=== PATIENT | female | born 1975 | race Caucasian/White ===

== ENCOUNTER 2022-12-21 09:40 | Emergency (ER) | payer OTHER, SELFPAY ==
[2022-12-21 09:49] VITALS: BP 141/95; PULSE 79; RESP 16; TEMP 36.7; O2SAT 98; BMI 24.7
[2022-12-21 09:56] VITALS: O2SAT 98
--- NOTE | 2022-12-21 10:03 | XR_ITS ---
The [address] [address] Patient Name: FREDI ELLIOTT MRN: [id number] date: 1975 Sex: F Assigned Patient Location: ER Current Patient Location: ER Accession/Order Number: [id number] Exam Date: 12/21/2022 10:15 Report Date: 12/21/2022 10:48 At the request of: SHI MEYERS Procedure: XR chest 1V EXAM: XR chest 1V HISTORY: cough COMPARISON: 05/23/2019 TECHNIQUE: Single view of the chest FINDINGS: Heart size normal. No focal consolidation, pleural effusion, pulmonary congestion or pneumothorax. XR/XR chest 1V IMPRESSION: No acute findings. Electronically authenticated by: GILBERT LOVE Date: 12/21/2022 10:48
--- NOTE | 2022-12-21 10:03 | ED.URI1 ---
HPI - URI/Sore Throat General Chief Complaint: Upper Respiratory Infection Stated Complaint: HARD TIME BREATHING/SOB Time Seen by Provider: 12/21/22 09:48 Limitations: no limitations Limitations comment: chest congestion, post nasal drip, dry cough History of Present Illness HPI Narrative: 47-year-old female presents for cough and shortness of breath. She's been this way for almost a month. She's been coughing up a small amount of phlegm. No fever. She would like to have a Covid test. she does not complain to me of chest pain. Related Data Previous Rx's Medication Instructions Recorded albuterol sulfate 90 mcg/actuation 2 inh inhalation Q4H PRN shortness 12/21/22 aerosol inhaler of breath or wheezing #8.5 grams doxycycline hyclate 100 mg capsule 100 mg PO BID 10 days #20 caps 12/21/22 methylprednisolone 4 mg tablets in 4 mg PO DAILY #21 ea 12/21/22 a dose pack (Medrol (Miguel)) Allergies Allergy/AdvReac Type Severity Reaction Status Date / Time No Known Drug Allergies Allergy Verified 12/21/22 09:48 Review of Systems ROS Narrative A ten point review of systems is negative except as noted above. PFSH PFSH Social History Smoking status: Light tobacco smoker Exam Narrative Exam Narrative: Nurses note and vital signs reviewed and patient is not hypoxic. General: The patient appears well and in no apparent distress. Patient is resting comfortably on cart. Skin: Warm, dry, no pallor noted. There is no rash noted. Head: Normocephalic, atraumatic Eye: Normal conjunctiva, no drainage Ears, Nose, Mouth, and Throat: oral mucosa is moist. Nares patent. Cardiovascular: Regular Rate and Rhythm Respiratory: Patient is in no distress, no accessory muscle use, lungs are clear to auscultation, no wheezing, rales or rhonchi. Good air movement present. Back: non-tender GI: nontender Musculoskeletal: The patient has no evidence of calf tenderness, no pitting edema, symmetrical pulses noted bilaterally Neurological: A&O, normal speech Psychiatric: Cooperative Constitutional Vital Signs, click to edit/add: Last Vital Signs Temp 98.1 F 12/21/22 09:49 Pulse 79 12/21/22 09:49 Resp 16 12/21/22 09:49 BP 141/95 H 12/21/22 09:49 Pulse Ox 98 12/21/22 09:56 O2 Del Method Room Air 12/21/22 09:56 Course Vital Signs Vital signs: Vital Signs Temperature 98.1 F 12/21/22 09:49 Pulse Rate 79 12/21/22 09:49 Respiratory Rate 16 12/21/22 09:49 Blood Pressure 141/95 H 12/21/22 09:49 Pulse Oximetry 98 12/21/22 09:49 Oxygen Delivery Method Room Air 12/21/22 09:49 Temperature 98.1 F 12/21/22 09:49 Pulse Rate 79 12/21/22 09:49 Respiratory Rate 16 12/21/22 09:49 Blood Pressure 141/95 H 12/21/22 09:49 Pulse Oximetry 98 12/21/22 09:56 Oxygen Delivery Method Room Air 12/21/22 09:56 MDM - URI/Sore Throat MDM Narrative Medical decision making narrative: chest x-ray and Covid test are both negative. Treatment diagnosis and follow-up were discussed with the patient. Differential Diagnosis Differential diagnosis: Likely upper respiratory infection, viral infection, bronchitis and other (pneumonia, Covid) Lab Data Attestation: I reviewed the patient's lab results. Labs: Lab Results 12/21/22 Range/Units 10:00 SARS-CoV-2 (PCR) Negative (NEGATIVE) Imaging Data Chest x-ray: Radiologist's impression: no acute findings Discharge Plan Discharge Chief Complaint: Upper Respiratory Infection Clinical Impression: Upper respiratory infection Patient Disposition: Home, Self-Care Time of Disposition Decision: 10:52 Condition: Good Mode of Transportation: Private Vehicle Prescriptions / Home Meds: New albuterol sulfate 90 mcg/actuation HFA aerosol inhaler 2 inh inhalation Q4H PRN (Reason: shortness of breath or wheezing) Qty: 8.5 0RF doxycycline hyclate 100 mg capsule 100 mg PO BID 10 Days Qty: 20 0RF methylprednisolone [Medrol (Miguel)] 4 mg tablets,dose pack 4 mg PO DAILY Qty: 21 0RF Instructions: Upper Respiratory Infection (ED) Stand Alone Forms: Portal Instructions Referrals: Physician,Non-Staff, MD [Primary Care Provider] - 1 week
[2022-12-21 10:27] LABS: SARS-CoV-2 Ag NEGATIVE (NEGATIVE)
[2022-12-21 11:02] VITALS: BP 128/77; PULSE 75; RESP 16; O2SAT 99
[2022-12-21 15:20] LABS: SARS-CoV-2 NAA NOT DETECTED (NOT DETECTE)
== END 2022-12-21 11:04 | disposition home or self-care (01) ==
PROVIDERS: Emergency Provider Emergency Medicine
DX: J06.9 Acute upper respiratory infection, unspecified (principal); F17.210 Nicotine dependence, cigarettes, uncomplicated; Z20.822 Contact with and (suspected) exposure to COVID-19
CPT/HCPCS: 71045; 87635; 87811; 99284

== ENCOUNTER 2023-04-19 12:37 | Outpatient (OUT) | payer OTHER, SELFPAY ==
--- NOTE | 2023-04-19 | XR_ITS ---
The [address] [address] Patient Name: FREDI ELLIOTT MRN: [id number] date: 1975 Sex: F Assigned Patient Location: [facility] Current Patient Location: [facility] Accession/Order Number: [id number] Exam Date: 04/19/2023 12:45 Report Date: 04/19/2023 14:33 At the request of: SILAS ANAYA Procedure: XR shoulder LT min 2V PROCEDURE: XR shoulder LT min 2V COMPARISON: None. HISTORY: Left shoulder pain FINDINGS: BONES:No fracture, acute abnormality, or significant arthropathy. SOFT TISSUES:Negative. No visible soft tissue swelling. EFFUSION:None visible. OTHER: Negative. XR/XR shoulder LT min 2V IMPRESSION: No acute radiographic abnormality Electronically authenticated by: KEE SNOWDEN Date: 04/19/2023 14:33
== END 2023-04-19 12:38 | disposition home or self-care (01) ==
LOC: RAD 12:39
PROVIDERS: Visit Provider Nurse Practitioner
DX: M25.512 Pain in left shoulder (principal)
CPT/HCPCS: 73030

== ENCOUNTER 2023-05-04 10:32 | Emergency (ER) | payer OTHER, SELFPAY ==
[2023-05-04 10:45] VITALS: BP 127/77; PULSE 90; RESP 20; TEMP 36.6; O2SAT 100; BMI 23.8
--- NOTE | 2023-05-04 15:48 | ED.GENADUL1 ---
HPI - General Adult General Chief complaint: Eye Problems Stated complaint: EYE REDNESS AND PAIN Time Seen by Provider: 05/04/23 10:37 Source: patient Mode of arrival: walk-in Limitations: no limitations History of Present Illness HPI narrative: Patient is a 47-year-old female who is presenting to the Emergency Room with chief complaint of bilateral irritation and red eyes. Patient has seen the urgent care was placed on antibiotic drops, patient saw her eye physician And recommended the patient which she did buy [id number] ALLERGIC drops for bilateral eyes. Mother is here because her daughter is here as a patient as well for sore throat. Mother has cats at home. Mother states that she did go through ALLERGIC testing years ago and it is known that she has ALLERGIES to cats. Mother however states not her cats that are causing her red eyes. Other states that she keeps the cats out of her bedroom, she is washed sheets, tells, close, and mother does not believe is the cats causing her red eyes. Patient does not wear contacts. Visual acuity was done. Patient does not have a complete eye exam last visit but she will on Sunday. Patient has finished her antibiotics drops. Patient says he $25 [id number] ALLERGIC drops are not helping her. No other acute complaints. . All systems are negative except as noted/marked. All systems reviewed and otherwise negative. . Nurses note and vital signs reviewed and patient is not hypoxic. General: The patient appears well and in no apparent distress. Patient is resting comfortably on cart. Patient is not toxic, lethargic, or listless Skin: Warm, dry, no pallor noted. There is no rash noted. No petechiae, purpura. Head: Normocephalic, atraumatic Eye: Patient has bilateral red eyes, no excessive photophobia or pain that was suggest iritis, patient doesn't clear drainage. Upper and lower eyelids to both eyes were inverted, no foreign bodies noted. Patient may have superficial scratches to bilateral eyes from itching, no signs of ulcers. No signs of preseptal or post septal cellulitis., no Purulent drainage, EOMI. PERRL Ears, Nose, Mouth, and Throat: oral mucosa is moist. Nares patent. Mouth without vesicles. Cardiovascular: Regular Rate and Rhythm, Respiratory: Patient is in no distress, Musculoskeletal: Patient has full range of motion of all of the extremities, no motor, sensory, or focal neurological deficits Neurological: A&O x3, normal speech Psychiatric: Cooperative Related Data Home Medications Medication Instructions Recorded Confirmed ferrous sulfate 325 mg (65 mg 325 mg PO DAILY 05/04/23 05/04/23 iron) tablet Previous Rx's Medication Instructions Recorded albuterol sulfate 90 mcg/actuation 2 inh inhalation Q4H PRN shortness 12/21/22 aerosol inhaler of breath or wheezing #8.5 grams doxycycline hyclate 100 mg capsule 100 mg PO BID 10 days #20 caps 12/21/22 methylprednisolone 4 mg tablets in 4 mg PO DAILY #21 ea 12/21/22 a dose pack (Medrol (Miguel)) diclofenac sodium 0.1 % eye drops 2 drp ophthalmic (eye) Q6H PRN eye 05/04/23 irritation 3 days #5 mL tobramycin 0.3 %-dexamethasone 1 drp ophthalmic (eye) Q4H 5 days 05/04/23 0.05 % eye drops,suspension #5 mL (Tobradex ST) Allergies Allergy/AdvReac Type Severity Reaction Status Date / Time No Known Drug Allergies Allergy Verified 12/21/22 09:48 PFSH PFSH Social History Smoking status: Light tobacco smoker Exam Constitutional Vital Signs, click to edit/add: Last Vital Signs Temp 97.9 F 05/04/23 10:45 Pulse 90 05/04/23 10:45 Resp 20 05/04/23 10:45 BP 127/77 05/04/23 10:45 Pulse Ox 100 05/04/23 10:45 O2 Del Method Room Air 05/04/23 10:45 Course Vital Signs Vital signs: Vital Signs Temperature 97.9 F 05/04/23 10:45 Pulse Rate 90 05/04/23 10:45 Respiratory Rate 20 05/04/23 10:45 Blood Pressure 127/77 05/04/23 10:45 Pulse Oximetry 100 05/04/23 10:45 Oxygen Delivery Method Room Air 05/04/23 10:45 Temperature 97.9 F 05/04/23 10:45 Pulse Rate 90 05/04/23 10:45 Respiratory Rate 20 05/04/23 10:45 Blood Pressure 127/77 05/04/23 10:45 Pulse Oximetry 100 05/04/23 10:45 Oxygen Delivery Method Room Air 12/22/23 10:45 Medical Decision Making MDM Narrative Medical decision making narrative: Education was done at bedside and treating red eyes, possible ALLERGIC conjunctivitis to her cats along with possible superficial corneal abrasions. Patient is very adamant she is not ALLERGIC to her cats even though she tested positive for ALLERGIES to her cats. Patient says that she's of a catheter whole life and has not had a problem until now. Give the patient example myself that I had cats into my 20s, no Sunday I developed ALLERGIES to cats well. I told her it is possible, he could become desensitized. Either way, patient was not receptive to the possibility that I am telling and her eye physician is telling her that she is possibly is ALLERGIC to cats causing ALLERGIC conjunctivitis. Patient will be prescribed TobraDex, only to use it for 3-5 days And if the patient uses drops longer than that she can cause detriment to her eyes, she is currently aware of this. Patient was also given a prescription for alternative drops. Patient will follow-up with her eye physician as scheduled on Sunday of next week, May 09. Patient understands this, no questions at discharge. Discharge Plan Discharge Chief Complaint: Eye Problems Clinical Impression: Conjunctivitis, Allergic conjunctivitis, bilateral Patient Disposition: Home, Self-Care Condition: Fair Prescriptions / Home Meds: New Tobradex ST 0.3-0.05 % drops,suspension 1 drp ophthalmic (eye) Q4H 5 Days Qty: 5 0RF Rx Instructions: Do not use eyedrops more than 5 days unless recommended by her eye physician. diclofenac sodium 0.1 % drops 2 drp ophthalmic (eye) Q6H PRN (Reason: eye irritation) 3 Days Qty: 5 0RF Rx Instructions: Use drops to bilateral eyes No Action albuterol sulfate 90 mcg/actuation HFA aerosol inhaler 2 inh inhalation Q4H PRN (Reason: shortness of breath or wheezing) Qty: 8.5 0RF doxycycline hyclate 100 mg capsule 100 mg PO BID 10 Days Qty: 20 0RF methylprednisolone [Medrol (Miguel)] 4 mg tablets,dose pack 4 mg PO DAILY Qty: 21 0RF ferrous sulfate 325 mg (65 mg iron) tablet 325 mg PO DAILY Instructions: Allergies (ED), Conjunctivitis (ED), Allergy Testing (ED) Additional Instructions: For ALLERGIC reactions, use [id number] Claritin and Zyrtec in the AM, Benadryl nighttime. You can also take Pepcid twice a day to help with ALLERGIC reactions as well. Follow-up with your eye physician on Sunday. Do not take the steroid bacteria eye drops more than 3-5 days. You can use the anti-inflammatory eyedrops along with the TobraDex eyedrops as well. Cold compresses 3-5 times a day to help with redness, swelling and irritation. Use refresh eyedrops to help with irrigation and normal saline flushes to the eyes as well to help with relief of pain. Stand Alone Forms: Portal Instructions Referrals: Physician,Non-Staff, MD [Primary Care Provider] - 1 week Discharge Date/Time: 05/04/23 13:51
== END 2023-05-04 13:51 | disposition home or self-care (01) ==
PROVIDERS: Emergency Provider Emergency Medicine
DX: H10.13 Acute atopic conjunctivitis, bilateral (principal); F17.210 Nicotine dependence, cigarettes, uncomplicated; Z79.899 Other long term (current) drug therapy
CPT/HCPCS: 99282

== ENCOUNTER 2023-07-31 10:06 | Emergency (ER) | payer OTHER, SELFPAY ==
[2023-07-31 10:11] VITALS: PULSE 98; RESP 20; TEMP 36.6; O2SAT 98; BMI 23.8
--- OUTSIDE RECORDS SUMMARY | 2023-07-31 10:18 | XMS_ITS | CCD ---
Author Organization [facility] Care Team Providers Care Recycling Coordinator Name Role Phone Angulo, Song Unavailable Unavailable Angulo, Song Unavailable Unavailable Angulo, Song Unavailable Unavailable REQUEST, DR NONE LISTED Primary Care Unavaila john MORRISON, DR GUIDRY Admitting Unavailable PRINCE, DR GUIDRY Attending Unavailable PRINCE, DR GUIDRY Consulting Unavailable Clinton Bartlett Consulting Unavailable Xiomara Mathis Unavailable Heidy Keith Primary Care Physician [phone] Savana Dietz Unavailable Unavailable TanishaDanette Primary Care Physician [phone] Unavailable Primary Care Provider Unavailnely e SELF Referring Unavailable YOHAN ANDREWS Attending Unavailable ELVIS FITZGERALD Attending Unavailable TanishaDanette Attending Unavailable Tanisha, Danette Greer Attending Unavailable Tanisha, Danette Greer Attending Unavailable Lisette Kruger Attending Unavailable TanishaDanette Admitting Unavailable Tanisha, Danette Greer Attending Unavailable Tanisha, Danette Greer Admitting Unavailable Tanisha, Danette Greer Attending Unavailable TanishaDanette Attending Unavailable Allergies Allergy Classification Reported Allergen(s) Allergy Type Date of Onset Reaction(s) Facility (1 source) No Known Medication Allergies; Translations: [No Known Medication Allergies] Propensity to adverse reactions (disorder) [facility] Repository Medications Current Medications Medication Drug Class(es) Dates Sig (Normalized) Sig (Original) dexamethasone 0.001 mg/mg / neomycin 0.0035 mg/mg / polymyxin b 10 unt/mg ophthalmic ointment (2 sources) Aminoglycoside Antibacterial, Polymyxin-class Antibacterial, Corticosteroid Start: 06-14-2023 End: 06-24-2023 NEOMYCIN 3.5 MG/G-POLYMYXIN B 10,000 UNIT/G-DEXAMETH 0.1 % EYE OINT Use 1 application in both eyes four times daily for 10 days. 3.5 g 0 06/14/2023 06/24/2023 Active Start: 04-03-2023 take 1 drop(s) into the eye(s) four times daily Vcdzxwya-Joydrgzob-Fomprxfo 3.5-14709-9. 1 1 drop into affected eye Ophthalmic Four times a day for 5 days Mar, Active Comment on above: Use 1 application in both eyes four times daily for 10 days. FLUoxetine 40 mg oral capsule (2 sources) Serotonin Reuptake Inhibitor Start: take 1 capsule by mouth once daily FLUoxetine 40 mg Cap 40 mg = 1 cap(s), Oral, Daily, # 90 cap(s), Refills(s) 0, Pharmacy: [facility]/pharmacy #[id number], 160, cm, 04/26/20 9:47:00 EST, Height/Length Dosing, 65.2, kg, 04/26/20 9:47:00 EST, Weight Dosing Start Date: 10/18/20 Status: Ordered meloxicam 7.5 mg oral tablet (1 source) Nonsteroidal Anti-inflammatory Drug Start: take 1 tablet by mouth once daily meloxicam 7.5 mg Tab 7.5 mg = 1 tab(s), Oral, Daily, # 30 tab(s), Refills(s) 0, Pharmacy: [facility]/pharmacy #[id number], 157, cm, 04/13/23 12:54:00 EST, Height/Length Dosing, 62.5, kg, 04/13/23 12:54:00 EST, Weight Dosing Start Date: 04/16/23 Status: Ordered methylPREDNISolone 4 mg oral tablet (1 source) Corticosteroid Start: End: Medrol 4 mg Tab = 1 packet(s), Oral, As Directed, as directed on package labeling, X 6 day(s), # 21 tab(s), Refills(s) 0, Pharmacy: [facility]/pharmacy #[id number], 157, cm, 04/13/23 12:54:00 EST, Height/Length Dosing, 62.5, kg, 04/13/23 12:54:00 EST, Weight Dosing Start Date: 12/4/23 Stop Date: 04/22/23 Status: Ordered Completed/Discontinued Medications Medication Drug Class(es) Dates Sig (Normalized) Sig (Original) dextran 70 1 mg/ml / glycerin 2 mg/ml / hypromellose 3 mg/ml ophthalmic solution (1 source) Plasma Volume Electric Motor Tester, Non-Standardized Chemical Allergen Start: 06-15-2023 GENTEAL TEARS MODERATE 0.1-0.3-0.2 % ophthalmic solution USE 1 DROP IN BOTH EYES NEEDED 15 mL 3 06/15/2023 Active Comment on above: USE 1 DROP IN BOTH E YES NEEDED dextran 70 1 mg/ml / hypromellose 3 mg/ml ophthalmic solution (1 source) Plasma Volume Electric Motor Tester Start: 06-14-2023 End: 06-15-2023 Dextran 70-Hypromellose, PF, (BION TEARS) 0.1-0.3 % dpet Use 1 Drop in both eyes as needed. 36 Each 3 06/14/2023 06/15/2023 Discontinued Comment on above: Use 1 Drop in both e yes as needed. ketotifen 0.25 mg/ml ophthalmic solution (1 source) Histamine-1 Receptor Inhibitor Start: 06-14-2023 ketotifen fumarate (ZADITOR) 0.025 % (0.035 %) ophthalmic solution Use 1 Drop in both eyes two times a day. 10 mL 3 06/14/2023 Active Comment on above: Use 1 Drop in both e yes two times a day. prednisoLONE acetate 10 mg/ml ophthalmic suspension (1 source) Corticosteroid Start: 06-14-2023 take 1 drop(s) into the eye(s) every three hours prednisoLONE acetate (PRED FORTE) 1 % ophthalmic suspension Use 1 Drop in both eyes every 3 hours. 15 mL 0 06/14/2023 Active Comment on above: Use 1 Drop in both e yes every 3 hours. Problems Active Problems Problem Classification Problem Date Documented Da te Episodic/Chronic Conditions associated with dizziness or vertigo (2 sources) Dizziness 04-13-2023 Episodic Deficiency and other anemia (2 sources) Anemia 06-07-2020 Episodic Hepatitis (2 sources) Chronic hepatitis C 06-07-2020 Chronic Inflammation; infection of eye (except that caused by tuberculosis or sexually transmitteddisease) (1 source) Unspecified acute conjunctivitis, bilateral Episodic Intestinal infection (2 sources) Infection caused by Helicobacter pylori 06-06-2019 Episodic Malaise and fatigue (2 sources) Fatigue 04-13-2023 Episodic Mood disorders (2 sources) Depressive disorder 04-26-2020 Chronic Nutritional deficiencies (2 sources) Vitamin D deficiency 04-30-2020 Chronic Other eye disorders (1 source) Edema of unspecified eye, unspecified eyelid; Translations: [Eyelid gland swelling] Onset: 06-14-2023 Episodic Other nutritional; endocrine; and metabolic disorders (2 sources) Body mass index 25-29 - overweight 04-26-2020 Episodic Other upper respiratory disease (2 sources) Breath smells unpleasant 03-11-2019 Episodic Residual codes; unclassified (2 sources) Insomnia 06-07-2020 Episodic Residual codes; unclassified (2 sources) Nicotine-filled electronic cigarette user 04-26-2020 Episodic Substance-related disorders (1 source) Nicotine dependence, cigarettes, uncomplicated; Translations: [NICOTINE DEPEND CIGARETTES UNCOMP] Onset: 11-04-2020 Chronic Unclassified (1 source) Unknown / UNK(Unknown) Onset: 11-16-2016 Unclassified (2 sources) Pain of left shoulder region 04-13-2023 Past or Other Problems Problem Classification Problem Date Documented Da te Episodic/Chronic E Codes: Natural/environment (1 source) Overexertion from prolonged static or awkward postures, initial encounter; Translations: [OVEREXERT PROLNG STAT/AWK PST INIT] Onset: 11-04-2020 Episodic Other non-traumatic joint disorders (4 sources) Pain in right knee; Translations: [PAIN IN RIGHT KNEE] Onset: 11-02-2020 Episodic Other non-traumatic joint disorders (1 source) Effusion, right knee; Translations: [EFFUSION RIGHT KNEE] Onset: 11-04-2020 Episodic Unclassified (1 source) D50.9,Z79.899,E55.9 E78.5,Z00.00,R53.83 ,R51, Onset: 11-16-2016 Results Test Name Value Interpretation Reference Range Facility [facility] 06-01-2023 Consent [id number]# 1.00TIFF [facility] Physician Referralon 024 Physician Referral [id number]#1.00TIFF [facility] Ambulatory Visit Summaryon 0 05-31-2023 Ambulatory Visit Summary FREDI ELLIOTT :1975 Visit Date:05/31/2023 Ambulatory Visit Instructions Your Diagnosis Allergies Red eyes Itchy eyes Watery eyes BMI 26.0-26.9,adult Vaping-related disorder Your Care Team Attending Physician - Danette Briones Primary Care Physician - Danette Briones This Is Your Medications List dexamethasone-tobram ycin ophthalmic (dexamethasone-tobra mycin Opth 0.1%-0.3% Susp) diclofenac ophthalmic (diclofenac Opth 0.1% Lilli) ferrous sulfate (ferrous sulfate 325 mg Tab) Procedures Performed Carpal Tunnel surgery, Foot Surgery, Knee Surgery. Discharge Vitals Heart Rate (Peripheral) 80 Respiratory Rate 18 Blood Pressure 126/84 Height 157 cm Height 62 in Weight 64.8 kg Weight 142.56 lb BMI 26.29 What to do next Scheduled Follow-Up Appointments Sunday 8:40 AM EST With: Danette Briones Where: [facility] [place] Normal [facility] Family Medicine Office/Clini c Noteon 05-31-2023 Family Medicine Office/Clinic Note HPI Staff Fredi is a 47 year old female presenting for acute visit Onset: 2 months Location: started in left eye then 2 days later right eye Eye Discharge: daily, clear sticky Burning: yes Blurry: yes Sensitive to light: yes Pt states has been seen in [facility] by MERLENE fried by chart clerk Dr Jayne alba in [place] twice. Was told has allergy to cats but has had cat her whole life and never had an issues and has cats groomed. Would like referred to a investigation specialist History of Present Illness pt presents today with red, watery, itchy eyes Review of Systems PHQ Score Initial Depression Screen Score: 2 SCORE ROS - Provider Constitutional: no fever, no chills, no sweats, no fatigue Respiratory: no shortness of breath, no cough, no orthopnea, no wheezing. Cardiovascular: no chest pain, no palpitations, no edema. Neurologic: no headache, no dizziness, no numbness, no weakness. EENT: red, itchy watery eyes Physical Exam Vitals & Measurements HR: 80(Peripheral) RR: 18 BP: 126/84 SpO2: 99% HT: 62 in HT: 157 cm WT: 64.8 kg WT: 142.56 lb BMI: 26.29 General: alert, no acute distress ENMT: oral mucosa moist, no pharyngeal erythema or exudate Cardiovascular: regular rate and rhythm, normal peripheral perfusion Respiratory: Lungs CTA, respirations non labored Extremities: no deformity, no trauma Neurological: oriented x 4, LOC appropriate for age, CN II-XII intact, motor strength equal & normal bilaterally, speech normal ABBY sclera are red and irritated, eyes are watery (clear drainage) Assessment/Plan 1. Allergies (T78.40XA: Allergy, unspecified, initial encounter) pt presents today with red, itchy, watery eyes for about 2 months. has been to a couple urgent cares and to chart clerk twice. was told that she needed to see an film and video graphics designer. has tried multiple drops and symptoms are not improving. pt states she was told she was allergic to cats many years ago but has had cats all of her life. Kenalog injection given in office today. pt encouraged to take Zyrtec or Claritin daily. all questions answered. RTC 4 weeks [place] [facility] [place] 2. Red eyes (H57.89: Other specified disorders of eye and adnexa) see above Ordered[place] [facility] [place] 3. Itchy eyes (H57.9: Unspecified disorder of eye and adnexa) see above Ordered: [facility] [place] 4. Watery eyes (H04.203: Unspecified epiphora, bilateral) see above Or[place]: [facility] [place] 5. BMI 26.0-26.9,adult (Z68.26: Body mass index [BMI] 26.0-26.9, adult) BMI education complete Ordered: [facility] [place] 6. Vaping-related disorder (U07.0: Vaping-related disorder) consider not vaping Ordered: meloxicam, 7.5 mg = 1 tab(s), Oral, Daily, # 30 tab(s), Refills(s) 0, Pharmacy: [facility]/pharmacy #[id number], 157, cm, 04/13/23 12:54:00 EST, Height/Length Dosing, 62.5, kg, 04/13/23 12:54:00 EST, Weight Dosing Follow-up No qualifying data available Problem List/Past Medical History Ongoing Allergies Anemia BMI 25.0-25.9,adult Chronic hepatitis C Current every day nicotine vaping Depression Dizziness Fatigue H. pylori infection Halitosis Insomnia Itchy eyes Left shoulder pain Red eyes Vitamin D deficiency disease Watery eyes Historical No qualifying data Procedure/Surgical History Carpal Tunnel surgery, Foot Surgery, Knee Surgery. Medications dexamethasone-tobram ycin Opth 0.1%-0.3% Susp, 2 drop(s), Eye-Both, TID diclofenac Opth 0.1% Lilli, 2 drop(s), Eye-Both, QID ferrous sulfate 325 mg Tab, 325 mg= 1 tab(s), Oral, BID, 2 refills Allergies No Known Allergies No Known Medication Allergies Social History Alcohol Current, Beer, 01/20/2019 Exercise - Occasional exercise, 01/20/2019 Other Caffeine- 1 cup daily, 01/20/2019 Substance Abuse - Denies Substance Abuse, 01/20/2019 Past, 04/13/2023 Tobacco Former smoker, quit more than 30 days ago, E-Cig daily Tobacco Use:. Never, Current vaping or e-cigarette use Smokeless Tobacco Use:. Cigarettes, Vaping, E-Cig, Ready to change: Yes. Household tobacco concerns: Yes. Yes, 05/31/2023 Family History Adrenal insufficiency: Mother. Diabetes mellitus type 2: Grandparent. Normal [facility] Comment on above: Result Comment: Elec tronically Signed By: Danette Briones\.br\Date and Time Signed: 05/31/23 14:33 EST Reminderson 04-17-2023 Reminders - From: Danette Briones To: B - Clinical; Sent: 04/17/2023 12:31:48 EST Show up: 04/17/2023 12:31:00 EST Subject: Ambulatory Reminder Due Date/Time: 04/18/2023 12:30:00 EST Pt continues to have iron deficiency anemia. I will increase her iron to 325mg to see if that helps with her symptoms Results: Date Result Name Ind Value Ref Range 04/16/2023 9:36 WBC 5.4 E9/L (4.0 - 11.0) 04/16/2023 9:36 RBC ((L)) 3.8 E12/L (4.3 - 5.9) 04/16/2023 9:36 HGB ((L)) 11.6 gm/dL (12.0 - 16.0) 04/16/2023 9:36 Hct 34.8 % (34.0 - 46.0) 04/16/2023 9:36 MCV 91.2 fL (80.0 - 100.0) 04/16/2023 9:36 MCH 30.4 pg (27.0 - 34.0) 04/16/2023 9:36 MCHC 33.3 gm/dL (31.4 - 36.0) 04/16/2023 9:36 RDW 13.9 % (10.9 - 14.2) 04/16/2023 9:36 Platelet 266.0 E9/L (150.0 - 500.0) 04/16/2023 9:36 MPV 8.2 fL (6.4 - 10.8) 04/16/2023 9:36 Neutro Auto 55.4 % (36.0 - 75.0) 04/16/2023 9:36 Lymph Auto 26.2 % (14.0 - 50.0) 04/16/2023 9:36 Graham Auto 9.2 % (4.0 - 14.0) 04/16/2023 9:36 Eos Auto 8.0 % (0.0 - 8.0) 04/16/2023 9:36 Basophil Auto 1.2 % (0.0 - 2.0) 04/16/2023 9:36 Neutro Absolute 3.0 E9/L (2.0 - 7.5) 04/16/2023 9:36 Lymph Absolute 1.4 E9/L (1.0 - 4.0) 04/16/2023 9:36 Graham Absolute 0.5 E9/L (0.2 - 1.0) 04/16/2023 9:36 Eos Absolute 0.4 E9/L (0.0 - 0.5) 04/16/2023 9:36 Basophil Absolute 0.1 E9/L (0.0 - 0.2) 04/16/2023 9:36 Glucose Lvl 95 mg/dL (55 - 199) 04/16/2023 9:36 BUN 13 mg/dL (5 - 21) 04/16/2023 9:36 Creatinine 1.0 mg/dL (0.5 - 1.3) 04/16/2023 9:36 eGFR 71 mL/min/1.73 m2 (>=59 - ) 04/16/2023 9:36 BUN/Creat Ratio 13 (10 - 20) 04/16/2023 9:36 Sodium Lvl 138 mmol/L (135 - 145) 04/16/2023 9:36 Potassium Lvl 4.4 mmol/L (3.5 - 5.3) 04/16/2023 9:36 Chloride 106 mmol/L (101 - 111) 04/16/2023 9:36 CO2 26 mmol/L (21 - 31) 04/16/2023 9:36 AGAP 10 mEq/L (6 - 16) 04/16/2023 9:36 Calcium Lvl 8.9 mg/dL (8.9 - 11.1) 04/16/2023 9:36 Alk Phos 34 Int._Unit/L (21 - 98) 04/16/2023 9:36 ALT 17 Int._Unit/L (6 - 46) 04/16/2023 9:36 AST 23 Int._Unit/L (5 - 43) 04/16/2023 9:36 Total Protein 7.4 gm/dL (6.0 - 7.8) 04/16/2023 9:36 Albumin Lvl 4.3 gm/dL (3.3 - 5.0) 04/16/2023 9:36 Globulin 3.1 gm/dL (1.4 - 4.0) 04/16/2023 9:36 A/G Ratio 1.4 (1.1 - 2.2) 04/16/2023 9:36 Bili Total 0.3 mg/dL (0.0 - 1.1) 04/16/2023 9:36 Iron ((L)) 21 mcg/dL (35 - 153) 04/16/2023 9:36 Transferrin 291 mg/dL (200 - 370) 04/16/2023 9:36 TIBC ((H)) 407 mcg/dL (250 - 400) 04/16/2023 9:36 Chol 182 mg/dL (120 - 200) 04/16/2023 9:36 Trig 59 mg/dL ( - <=149) 04/16/2023 9:36 HDL 83 mg/dL 04/16/2023 9:36 LDL Direct 81 mg/dL ( - <=129) 04/16/2023 9:36 VLDL 12 mg/dL (7 - 40) Patient notified of results, and verbalizes understanding. Normal [facility] Auto Diffon 04-16-2023 Basophils/100 WBC (Bld) 1.2 % Normal 0.0-2.0 [facility] Comment on above: Order Comment: Order Added by Discern Expert. Performed By: #### 2 [id number], 0328155, 86601444, 60147348, 2230487, 5910745, 1538824 #### [facility] [address] [place] [address] Basophils/Leukocytes Auto (Bld) [Pure # fraction] 0.1 E9/L Normal 0.0-0.2 [facility] Comment on above: Order Comment: Order Added by Discern Expert. Performed By: #### 2 454061, 8151590, 34252867, 26509899, 1115760, 5676605, 2376932 #### [facility] [address] [place] [address] Eosinophils/100 WBC (Bld) 8.0 % Normal 0.0-8.0 [facility] Comment on above: Order Comment: Order Added by Discern Expert. Performed By: #### 2 266228, 5392724, 71727289, 50117035, 4823853, 0866571, 4479487 #### [facility] [address] [place] [address] Eosinophils/Leukocyte s Auto (Bld) [Pure # fraction] 0.4 E9/L Normal 0.0-0.5 [facility] Comment on above: Order Comment: Order Added by Discern Expert. Performed By: #### 2 955716, 0527472, 46577793, 37774191, 0115264, 1035144, 4551443 #### [facility] [address] [place] [address] Lymphocytes/100 WBC (Bld) 26.2 % Normal 14.0-50.0 [facility] Comment on above: Order Comment: Order Added by Discern Expert. Performed By: #### 2 832236, 7057332, 55106354, 06218766, 2970173, 2900361, 9372278 #### [facility] [address] [place] [address] Lymphocytes/Leukocyte s Auto (Bld) [Pure # fraction] 1.4 E9/L Normal 1.0-4.0 [facility] Comment on above: Order Comment: Order Added by Discern Expert. Performed By: #### 2 946675, 0064803, 96504675, 21658036, 9777878, 1527357, 1987353 #### [facility] [address] [place] [address] 128[address] Monocytes/100 WBC (Bld) 9.2 % Normal 4.0-14.0 [facility] Comment on above: Order Comment: Order Added by Discern Expert. Performed By: #### 2 187400, 7367860, 53874532, 69290795, 0523499, 2190094, 7536005 #### [facility] [address] [place] [address] Monocytes/Leukocytes Auto (Bld) [Pure # fraction] 0.5 E9/L Normal 0.2-1.0 [facility] Comment on above: Order Comment: Order Added by Discern Expert. Performed By: #### 2 898821, 1154555, 38178189, 44966909, 2856182, 3545435, 3397346 #### [facility] [address] [place] [address] Neutrophils/100 WBC (Bld) 55.4 % Normal 36.0-75.0 [facility] Comment on above: Order Comment: Order Added by Discern Expert. Performed By: #### 2 645454, 6204555, 76123131, 90408927, 0260457, 3054098, 3005148 #### [facility] [address] [place] [address] Neutrophils/Leukocyte s Auto (Bld) [Pure # fraction] 3.0 E9/L Normal 2.0-7.5 [facility] Comment on above: Order Comment: Order Added by Discern Expert. Performed By: #### 2 976871, 5259098, 67514048, 27117237, 9707986, 9054605, 6531226 #### [facility] [address] [place] [address] CBC w/ Auto Diffon 3 Erythrocyte distribution width (RBC) [Ratio] 13.9 % Normal 10.9-14.2 [facility] Comment on above: Performed By: #### 2 497001, 1464354, 33685089, 84613400, 7003895, 5520147, 3291386 #### [facility] [address] [place] [address] Hematocrit (Bld) [Volume fraction] 34.8 % Normal 34.0-46.0 [facility] Comment on above: Performed By: #### 2 941693, 2794588, 75644255, 74503733, 7953680, 2287121, 2434562 #### [facility] [address] [place] [address] Hemoglobin (Bld) [Mass/Vol] 11.6 g/dL Low 12.0-16.0 [facility] Comment on above: Performed By: #### 2 964591, 2316460, 77232083, 36653678, 8692744, 8757732, 3820192 #### [facility] [address] [place] [address] MCH (RBC) [Entitic mass] 30.4 pg Normal 27.0-34.0 [facility] Comment on above: Performed By: #### 2 882011, 2476747, 02860134, 37438259, 8610032, 0691624, 3787191 #### [facility] [address] [id number] MCHC (RBC) [Mass/Vol] 33.3 g/dL Normal 31.4-36.0 [facility] Comment on above: Performed By: #### 2 672183, 0928486, 40917010, 68494614, 1272920, 4780678, 9055350 #### [facility] [address] [place] [address] MCV (RBC) [Entitic vol] 91.2 fL Normal 80.0-100.0 [facility] Comment on above: Performed By: #### 2 894788, 4685629, 35520972, 36931955, 1968233, 6046497, 3406702 #### [facility] [address] [place] [address] Platelet mean volume (Bld) [Entitic vol] 8.2 fL Normal 6.4-10.8 [facility] Comment on above: Performed By: #### 2 740610, 4066497, 04678245, 29019497, 8504991, 0727643, 8626485 #### [facility] [address] [place] [address] Platelets (Bld) [#/Vol] 266.0 E9/L Normal 150.0-500.0 [facility] Comment on above: Performed By: #### 2 784303, 0984954, 57277476, 53963133, 9613859, 7169541, 2319271 #### [facility] [address] [place] [address] RBC (Bld) [#/Vol] 3.8 E12/L Low 4.3-5.9 [facility] Comment on above: Performed By: #### 2 354561, 0988529, 38498855, 22422491, 2309404, 8427213, 2184638 #### [facility] [address] [place] [address] WBC corrected for nucl RBC Auto (Bld) [#/Vol] 5.4 E9/L Normal 4.0-11.0 [facility] Comment on above: Performed By: #### 2 356179, 6564156, 62146990, 14104555, 3638866, 6584064, 3434877 #### [facility] [address] [place] [address] CHEMISTRYOrdered By: SYSTEM SYSTEM on 04-16-2023 Albumin [Mass/Vol] 4.3 g/dL Normal 3.3 - 5.0 gm/dL [facility] Albumin/Globulin [Mass ratio] 1.4 {ratio} Normal 1.1 - 2.2 [facility] ALP [Catalytic activity/Vol] 34 [iU]/d Normal 21 - 98 Int._Unit/L [facility] ALT No additional P-5'-P [Catalytic activity/Vol] 17 [iU]/d Normal 6 - 46 Int._Unit/L [facility] Anion gap [Moles/Vol] 10 mmol/L Normal 6 - 16 mEq/L [facility] AST [Catalytic activity/Vol] 23 [iU]/d Normal 5 - 43 Int._Unit/L [facility] Bilirubin [Mass/Vol] 0.3 mg/dL Normal 0.0 - 1 .1 mg/dL [facility] Calcium [Mass/Vol] 8.9 mg/dL Normal 8.9 - 11. 1 mg/dL [facility] Chloride [Moles/Vol] 106 mmol/L Normal 101 - 1 11 mmol/L [facility] Cholesterol [Mass/Vol] 182 mg/dL Normal 120 - 200 mg/dL [facility] Cholesterol in HDL [Mass/Vol] 83 mg/dL Invalid Interpretation Code [facility] Comment on above: Interpretive Data: H DL > or equal to 60 mg/dL: Low cardiovascular risk HDL < 40 mg/dL : High cardiovascular risk Cholesterol in LDL [Mass/Vol] 81 mg/dL Normal <=129mg/dL [facility] Cholesterol in VLDL [Mass/Vol] 12 mg/dL Normal 7 - 40 mg/dL [facility] CO2 [Moles/Vol] 26 mmol/L Normal 21 - 31 mmol/L [facility] Creatinine [Mass/Vol] 1.0 mg/dL Normal 0.5 - 1.3 mg/dL [facility] GFR/1.73 sq M.predicted among non-blacks MDRD (S/P/Bld) [Vol rate/Area] 71 mL/min/1.73 m2 Normal >=59mL/min/1. 73 m2 [facility] Comment on above: Interpretive Data: C hronic kidney disease could be indicated at eGFR's of less than 60 mL/min/1.73m2. Kidney failure is indicated at less than 15 mL/min/1.73m2. Globulin (S) [Mass/Vol] 3.1 g/dL Normal 1.4 - 4.0 gm/dL [facility] Glucose [Mass/Vol] 95 mg/dL Normal 55 - 199 mg/dL [facility] Comment on above: Interpretive Data: I f this glucose result represents a fasting glucose, interpretation should refer to the following reference range: 55-99 mg/dL Iron [Mass/Vol] 21 ug/dL Low 35 - 153 mcg/dL [facility] Iron binding capacity [Mass/Vol] 407 ug/dL High 250 - 400 mcg/dL [facility] Potassium [Moles/Vol] 4.4 mmol/L Normal 3.5 - 5.3 mmol/L [facility] Protein [Mass/Vol] 7.4 g/dL Normal 6.0 - 7.8 gm/dL [facility] Sodium [Moles/Vol] 138 mmol/L Normal 135 - 145 mmol/L [facility] Transferrin [Mass/Vol] 291 mg/dL Normal 200 - 370 mg/dL [facility] Triglyceride [Mass/Vol] 59 mg/dL Normal <=149mg/dL [facility] Urea nitrogen [Mass/Vol] 13 mg/dL Normal 5 - 21 mg/dL [facility] Urea nitrogen/Creatinine [Mass ratio] 13 mg/mg Normal 10 - 20 [facility] CMPon 04-16-2023 Albumin [Mass/Vol] 4.3 g/dL Normal 3.3-5.0 [facility] Comment on above: Performed By: #### 2 479343, 9609206, 91559752, 18093864, 9744012, 1205535, 5755572 #### [facility] [address] [id number] Albumin/Globulin (S) [Mass conc ratio] 1.4 Normal 1.1-2.2 [facility] Comment on above: Performed By: #### 2 561074, 6360428, 89237925, 58530695, 8163877, 7860097, 5040404 #### [facility] [address] [place] [address] ALP [Catalytic activity/Vol] 34 Int._Unit/L Normal 21-98 [facility] Comment on above: Performed By: #### 2 496156, 9433685, 66710073, 26894590, 3405819, 6827559, 5899371 #### [facility] [address] [id number] ALT No additional P-5'-P [Catalytic activity/Vol] 17 Int._Unit/L Normal 6-46 [facility] Comment on above: Performed By: #### 2 151125, 1900284, 72079626, 10256209, 3629213, 4958795, 2412407 #### [facility] [address] [place] [address] Anion gap [Moles/Vol] 10 mmol/L Normal 6-16 [facility] Comment on above: Performed By: #### 2 446330, 3665605, 98836969, 68841593, 0242460, 7504658, 9120654 #### [facility] [address] [address] AST [Catalytic activity/Vol] 23 Int._Unit/L Normal 5-43 [facility] Comment on above: Performed By: #### 2 067111, 1094018, 41148305, 80997953, 3537126, 3653149, 1419288 #### [facility] [address] [place] [address] Bilirubin [Mass/Vol] 0.3 mg/dL Normal 0.0-1.1 [facility] Comment on above: Performed By: #### 2 604909, 6022003, 98523106, 84261919, 3485385, 6514540, 7090927 #### [facility] [address] [place] [address] Calcium [Mass/Vol] 8.9 mg/dL Normal 8.9-11.1 [facility] Comment on above: Performed By: #### 2 746457, 2108760, 73366927, 85272784, 4639666, 1934906, 9937251 #### [facility] [address] [place] [address] Chloride [Moles/Vol] 106 mmol/L Normal 101-111 [facility] Comment on above: Performed By: #### 2 080735, 4551418, 40882324, 03608454, 8437813, 4555586, 7948253 #### [facility] [address] [place] [address] CO2 [Moles/Vol] 26 mmol/L Normal 21-31 [facility] Comment on above: Performed By: #### 2 390761, 1756907, 17615995, 63967553, 0650487, 6984156, 7360513 #### [facility] [address] [place] [address] Creatinine [Mass/Vol] 1.0 mg/dL Normal 0.5-1.3 [facility] Comment on above: Performed By: #### 2 280177, 1518412, 41220656, 46698176, 0535710, 7579433, 6183124 #### [facility] [address] [place] [address] Globulin (S) [Mass/Vol] 3.1 g/dL Normal 1.4-4.0 [facility] Comment on above: Performed By: #### 2 145381, 0607207, 03723583, 37996114, 7194998, 9948899, 0674604 #### [facility] [address] [place] [address] Glucose [Mass/Vol] 95 mg/dL Normal 55-199 [facility] Comment on above: Result Comment: If t his glucose result represents a fasting glucose, interpretation should refer to the following reference range: 55-99 mg/dL Performed By: #### 2 847388, 6978689, 44662048, 10583241, 9941622, 5714946, 3039017 #### [facility] [address] [place] [address] Potassium [Moles/Vol] 4.4 mmol/L Normal 3.5-5.3 [facility] Comment on above: Performed By: #### 2 651358, 3909955, 36850282, 40182478, 2944602, 9322990, 7666945 #### [facility] [address] [place] [address] Protein [Mass/Vol] 7.4 g/dL Normal 6.0-7.8 [facility] Comment on above: Performed By: #### 2 101425, 7640479, 06424727, 66103995, 6309974, 9069589, 8080920 #### [facility] [address] [place] [address] Sodium [Moles/Vol] 138 mmol/L Normal 135-145 [facility] Comment on above: Performed By: #### 2 604139, 6183595, 96250531, 85674991, 2606272, 8529889, 9256688 #### [facility] [address] [place] [address] Urea nitrogen [Mass/Vol] 13 mg/dL Normal 5-21 [facility] Comment on above: Performed By: #### 2 090281, 6542052, 02260224, 54381486, 1399192, 1116912, 9355609 #### [facility] [address] [place] [address] Urea nitrogen/Creatinine [Mass ratio] 13 No Units Normal 10-20 [facility] Comment on above: Performed By: #### 2 666520, 7171626, 85023298, 17904498, 6594796, 5578476, 8699059 #### [facility] [address] [place] [address] HEMATOLOGYOrdered By: SYSTEM SYSTEM on 04-16-2023 Basophils/100 WBC (Bld) 1.2 % Normal 0.0 - 2.0 % [facility]eAutoSS Basophils/Leukocytes Auto (Bld) [Pure # fraction] 0.1 E9/L Normal 0.0 - 0.2 E9/L [facility]Auto[facility] Eosinophils/100 WBC (Bld) 8.0 % Normal 0.0 - 8.0 % [facility]eAuto[facility] Eosinophils/Leukocyte s Auto (Bld) [Pure # fraction] 0.4 E9/L Normal 0.0 - 0.5 E9/L [facility] Lymphocytes/100 WBC (Bld) 26.2 % Normal 14.0 - 50.0 % [facility]eAutoSS Lymphocytes/Leukocyte s Auto (Bld) [Pure # fraction] 1.4 E9/L Normal 1.0 - 4.0 E9/L [facility]Auto[facility] Monocytes/100 WBC (Bld) 9.2 % Normal 4.0 - 14.0 % [facility]eAutoSS Monocytes/Leukocytes Auto (Bld) [Pure # fraction] 0.5 E9/L Normal 0.2 - 1.0 E9/L [facility] Neutrophils/100 WBC (Bld) 55.4 % Normal 36.0 - 75.0 % [facility]eAutoSS Neutrophils/Leukocyte s Auto (Bld) [Pure # fraction] 3.0 E9/L Normal 2.0 - 7.5 E9/L [facility]eAutoSS HEMATOLOGYOrdered By: Fernando Lora on 04-16-2023 Erythrocyte distribution width (RBC) [Ratio] 13.9 % Normal 10.9 - 14.2 % [facility] Hematocrit (Bld) [Volume fraction] 34.8 % Normal 34.0 - 46.0 % [facility]Auto[facility] Hemoglobin (Bld) [Mass/Vol] 11.6 g/dL Low 12.0 - 16.0 gm/dL [facility] MCH (RBC) [Entitic mass] 30.4 pg Normal 27.0 - 34.0 pg [facility] MCHC (RBC) [Mass/Vol] 33.3 g/dL Normal 31.4 - 36.0 gm/dL [facility]eAutoSS MCV (RBC) [Entitic vol] 91.2 fL Normal 80.0 - 100.0 fL [facility] Platelet mean volume (Bld) [Entitic vol] 8.2 fL Normal 6.4 - 10.8 fL [facility] Platelets (Bld) [#/Vol] 266.0 E9/L Normal 150.0 - 500.0 E9/L [facility] RBC (Bld) [#/Vol] 3.8 E12/L Low 4.3 - 5.9 E12/L [facility] WBC corrected for nucl RBC Auto (Bld) [#/Vol] 5.4 E9/L Normal 4.0 - 11.0 E9/L [facility] Ironon 04-16-2023 Iron [Mass/Vol] 21 microgram/dL Low 35-153 [facility] Comment on above: Performed By: #### 2 511551, 2297843, 90424038, 94288826, 7254970, 3385724, 5703953 #### [facility] [address] [place] [address] Lipid Panelon 04-16-2023 Cholesterol [Mass/Vol] 182 mg/dL Normal 120-200 [facility] Comment on above: Performed By: #### 2 930312, 5982432, 00849875, 80844260, 2041979, 8839308, 5498436 #### [facility] [address] [place] [address] Cholesterol in HDL [Mass/Vol] 83 mg/dL Invalid Interpretation Code [facility] Comment on above: Result Comment: HDL > or equal to 60 mg/dL: Low cardiovascular risk HDL < 40 mg/dL : High cardiovascular risk Performed By: #### 2 712236, 8356573, 18916280, 09115729, 3621037, 1098720, 5438901 #### [facility] [address] [place] [address] Cholesterol in LDL [Mass/Vol] 81 mg/dL Normal <=129 [facility] Comment on above: Performed By: #### 2 091874, 4621584, 22533957, 55821166, 2611467, 4885588, 0120128 #### [facility] [address] [place] [address] Cholesterol in VLDL [Mass/Vol] 12 mg/dL Normal 7-40 [facility] Comment on above: Performed By: #### 2 090363, 7474468, 80241986, 45627852, 0738726, 4897866, 7207109 #### [facility] [address] [place] [address] Triglyceride [Mass/Vol] 59 mg/dL Normal <=149 [facility] Comment on above: Performed By: #### 2 956207, 4992152, 21141725, 41616630, 5168577, 9298289, 1201802 #### [facility] [address] [place] [address] TIBC Calculatedon 04-16-2023 Iron binding capacity [Mass/Vol] 407 microgram/dL High 250-400 [facility] Comment on above: Performed By: #### 2 611153, 8988333, 36704222, 14973548, 3199459, 3146829, 3455475 #### [facility] [address] [place] [address] Transferrin [Mass/Vol] 291 mg/dL Normal 200-370 [facility] Comment on above: Performed By: #### 2 842885, 7528264, 47101094, 88762514, 5189050, 9442754, 0796906 #### [facility] [address] [place] [address] eGFRon 04-16-2023 GFR/1.73 sq M.predicted among non-blacks MDRD (S/P/Bld) [Vol rate/Area] 71 mL/min/1.73 m2 Normal >=59 [facility] Comment on above: Order Comment: Order added by Discern Expert. Result Comment: Plate Worker Helper shawn kidney disease could be indicated at eGFR's of less than 60 mL/min/1.73m2. Kidney failure is indicated at less than 15 mL/min/1.73m2. Performed By: #### 2 478043, 6895108, 84988558, 90036224, 3013437, 0423245, 9119531 #### [facility] [address] [place] [address] Ambulatory Visit Summaryon 1 06-14-2022 Ambulatory Visit Summary FREDI ELLIOTT :1975 Visit Date:04/13/2023 Ambulatory Visit Instructions Your Diagnosis Chronic hepatitis C Anemia Vitamin D deficiency disease Left shoulder pain Dizziness Fatigue Vaping-related disorder BMI 25.0-25.9,adult Former smoker Your Care Team Attending Physician - Danette Briones Primary Care Physician - Sagar PLAZA, Heidy Stephens This Is Your Medications List fluoxetine (FLUoxetine 40 mg Cap) Procedures Performed Carpal Tunnel surgery, Foot Surgery, Knee Surgery. Discharge Vitals Heart Rate (Peripheral) 88 Respiratory Rate 16 Blood Pressure 120/78 Height 157 cm Height 62 in Weight 62.5 kg Weight 137.5 lb BMI 25.36 Medications What How Much When Instructions Unchanged fluoxetine (FLUoxetine 40 mg Cap) 1 Capsules By Mouth Every day Allergies No Known Allergies No Known Medication Allergies Problems Ongoing - Any problem that you are currently receiving treatment for. Anemia BMI 25.0-25.9,adult Chronic hepatitis C Current every day nicotine vaping Depression Dizziness Fatigue H. pylori infection Halitosis Insomnia Left shoulder pain Vitamin D deficiency disease Patient Survey You may receive a survey via text or e-mail asking about your office visit. Please share your experience with us by completing your survey. We appreciate your feedback and thank you for choosing us for your care. Normal [facility] Family Medicine Office/Clini c Noteon 04-13-2023 Family Medicine Office/Clinic Note HPI Staff Fredi is a 47 year old female presenting to [facility] care Establish Care: L shoulder pain, positive hepatitis c screen in the past. get labs. History: Any previous diagnosis: Depression, Insomnia, Vitamin D Deficiency History of seeing any specialist: Liver specialist in [place] - Dr Martini When was your last doctors visit: few years Last provider: Dr Keith Any recent labs: Not in some time. PHQ-9: 0 Health Maintenance UTD: Colonoscopy: none Mammogram: Never Pelvic/Pap: ? Acute: Current issues/complaints: shoulder pain History of Present Illness pt presents today to discuss left shoulder pain Review of Systems PHQ Score Initial Depression Screen Score: 0 SCORE ROS - Provider Constitutional: no fever, no chills, no sweats, no fatigue Respiratory: no shortness of breath, no cough, no orthopnea, no wheezing. Cardiovascular: no chest pain, no palpitations, no edema. Neurologic: no headache, no dizziness, no numbness, no weakness. left shoulder pain. pain is worse when elevating above her head Physical Exam Vitals & Measurements HR: 88(Peripheral) RR: 16 BP: 120/78 SpO2: 99% HT: 62 in HT: 157 cm WT: 62.5 kg WT: 137.5 lb BMI: 25.36 General: alert, no acute distress ENMT: oral mucosa moist, no pharyngeal erythema or exudate Cardiovascular: regular rate and rhythm, normal peripheral perfusion Respiratory: Lungs CTA, respirations non labored Extremities: no deformity, no trauma Neurological: oriented x 4, LOC appropriate for age, CN II-XII intact, motor strength equal & normal bilaterally, speech normal Assessment/Plan 1. Chronic hepatitis C (B18.2: Chronic viral hepatitis C) pt is curious of what liver enzymes are. she has not had them checked in about 3 years. if they are elevated she would like referral for Hep C treatment. all questions answered. Ordered: CBC w/ Auto Diff Comprehensive Metabolic Panel Iron Level Lipid Panel Thyroid Stimulating Hormone TIBC Calculated Vitamin B12 Level Vitamin D 25 Hydroxy 2. Anemia (D64.9: Anemia, unspecified) pt having dizziness. has history of anemia. labs drawn today Ordered: CBC w/ Auto Diff Comprehensive Metabolic Panel Iron Level Lipid Panel Thyroid Stimulating Hormone TIBC Calculated Vitamin B12 Level Vitamin D 25 Hydroxy 3. Vitamin D deficiency disease (E55.9: Vitamin D deficiency, unspecified) labs drawn today Ordered: CBC w/ Auto Diff Comprehensive Metabolic Panel Iron Level Lipid Panel Thyroid Stimulating Hormone TIBC Calculated Vitamin B12 Level Vitamin D 25 Hydroxy 4. Left shoulder pain (M25.512: Pain in left shoulder) shoulder x ray order provided for [facility] will send antiinflammatory and steroid will call office in 2 weeks if pain is no better. we will then refer to PT Ordered: CBC w/ Auto Diff Comprehensive Metabolic Panel Iron Level Lipid Panel Thyroid Stimulating Hormone TIBC Calculated Vitamin B12 Level Vitamin D 25 Hydroxy 5. Dizziness (R42: Dizziness and giddiness) pt had episode that she almost passed out. will check labs today Ordered: CBC w/ Auto Diff Comprehensive Metabolic Panel Iron Level Lipid Panel Thyroid Stimulating Hormone TIBC Calculated Vitamin B12 Level Vitamin D 25 Hydroxy 6. Fatigue (R53.83: Other fatigue) labs drawn today Ordered: CBC w/ Auto Diff Comprehensive Metabolic Panel Iron Level Lipid Panel Thyroid Stimulating Hormone TIBC Calculated Vitamin B12 Level Vitamin D 25 Hydroxy 7. Vaping-related disorder (U07.0: Vaping-related disorder) consider not vaping Ordered: CBC w/ Auto Diff Comprehensive Metabolic Panel Iron Level Lipid Panel Thyroid Stimulating Hormone TIBC Calculated Vitamin B12 Level Vitamin D 25 Hydroxy 8. BMI 25.0-25.9,adult (Z68.25: Body mass index [BMI] 25.0-25.9, adult) bmi education complete 9. Former smoker (Z87.891: Personal history of nicotine dependence) continue not smoking Follow-up No qualifying data available Problem List/Past Medical History Ongoing Anemia BMI 25.0-25.9,adult Chronic hepatitis C Current every day nicotine vaping Depression Dizziness Fatigue H. pylori infection Halitosis Insomnia Left shoulder pain Vitamin D deficiency disease Historical No qualifying data Procedure/Surgical History Carpal Tunnel surgery, Foot Surgery, Knee Surgery. Medications FLUoxetine 40 mg Cap, 40 mg= 1 cap(s), Oral, Daily Allergies No Known Allergies No Known Medication Allergies Social History Alcohol Current, Beer, 01/20/2019 Exercise - Occasional exercise, 01/20/2019 Other Caffeine- 1 cup daily, 01/20/2019 Substance Abuse - Denies Substance Abuse, 01/20/2019 Past, 04/13/2023 Tobacco Former smoker, quit more than 30 days ago, E-Cig daily Tobacco Use:. Never, Current vaping or e-cigarette use Smokeless Tobacco Use:. Cigarettes, Vaping, E-Cig, Ready to change: Yes. Household tobacco concerns: Yes. Y (more content not included)... Normal [facility] Comment on above: Result Comment: Elec tronically Signed By: Danette Briones\.yvonne\Date and Time Signed: 04/13/23 13:28 EST Physician Orderon 04-13-2023 Physician Order [id number] #[id number] Normal [facility] XR KNEE RT 4V or >on 021 XR KNEE RT 4V or > EXAM: XR KNEE RT 4V or > HISTORY: Pain in right knee COMPARISON: None. TECHNIQUE: 4 views of the right knee were obtained. FINDINGS/IMPRESSION: There is no radiographic evidence of an acute fracture or subluxation. The technologist, mentioned in the notes that there is a soft tissue mass. If clinically indicated, further evaluation can be obtained with MRI of the right knee. Electronically authenticated by: CLINTON BARTLETT Date: 2020-11-02 11:48 Normal [facility] B12on 11-16-2016 Cobalamins (Vitamin B12) 433.2 pg/mL Normal 193-986 [facility] Comment on above: Performed By: #### L 500.37705, L500.92857, L500.87336, L500.18459, L500.89066, L500.94742, L500.00473, L550.04158 ####[facility] [id number] [place], [place] [address]Ox# [phone] CBCon 11-16-2016 Erythrocyte distribution width Auto Ratio (RBC) 13.2 % Normal 11-14.5 [facility] Comment on above: Performed By: #### L 200.68892, L200.09621 ####[facility] [id number] [place], [place] [address]Lz# [phone] Erythrocytes (RBC) 3.86 M/CU MM Low 3.90-5.30 [facility] Comment on above: Performed By: #### L 200.06393, L200.20156 ####[facility] [id number] [place], [place] [address]Wh# [phone] Erythrocytes (RBC) 0.0 % Normal Less than 1 [facility] Comment on above: Performed By: #### L 200.53838, L200.62043 ####[facility] [id number] [place], [place] [address]Mb# [phone] Hematocrit (HCT) 36.4 % Normal 35.0-47.0 [facility] [place] Comment on above: Performed By: #### L 200.78278, L200.82237 ####[facility] [id number] [place], [place] [address]Tp# [phone] Hemoglobin mass conc (Bld) 12.0 g/dL Normal 11.5-15.5 [facility] Comment on above: Performed By: #### L 200.81820, L200.68986 ####[facility] [id number] [place], [place] [address]Dl# [phone] MCHC mass conc (RBC) 33.0 g/dL Normal 32.0-36.0 [facility] Comment on above: Performed By: #### L 200.80292, L200.96244 ####[facility] [id number] [place], [place] [address]Dg# [phone] MCV 94.3 fL Normal 80.0-99.0 [facility] Comment on above: Performed By: #### L 200.15656, L200.45670 ####[facility] [id number] [place], [place] [address]Sy# [phone] Platelet mean volume (PMV) 9.9 fL Normal 9.4-12.4 [facility] Comment on above: Performed By: #### L 200.31431, L200.52089 ####[facility] [id number] [place], [place] [address]Ry# [phone] Platelets 216 K/CU MM Normal 150-450 [facility] Comment on above: Performed By: #### L 200.48100, L200.15201 ####[facility] [id number] [place], [place] [address]On# [phone] WBC (Leukocytes) 5.9 K/CU MM Normal 4.5-11.0 [facility] Comment on above: Performed By: #### L 200.93375, L200.67872 ####[facility] [id number] [place], [place] [address]Nf# [phone] CMPon 11-16-2016 Alanine aminotransferase (ALT) 24 U/L Normal 13-61 [facility] Comment on above: Performed By: #### L 500.50781, L500.52901, L500.22548, L500.44314, L500.63524, L500.88972, L500.56335, L550.47976 ####[facility] [address] [place], [place] [address]Ev# [phone] Albumin 4.2 g/dL Normal 3.2-5.0 [facility] Comment on above: Performed By: #### L 500.40367, L500.26437, L500.07293, L500.61531, L500.18599, L500.07065, L500.44355, L550.34502 ####[facility] [id number] [place], [place] [address]Xw# [phone] Albumin/Globulin Ratio 1.4 {ratio} Normal 0.8-2.0 [facility] Comment on above: Performed By: #### L 500.05384, L500.33042, L500.94948, L500.75593, L500.88611, L500.91175, L500.69827, L550.50643 ####[facility] [id number] [place], [place] [address]Xc# [phone] ALK PHOS 42 U/L Low 45-117 [facility] Comment on above: Performed By: #### L 500.72395, L500.28450, L500.21411, L500.84404, L500.59910, L500.12530, L500.08807, L550.16677 ####[facility] [id number] [place], [place] [address]Dh# [phone] Anion gap 7 mmol/L Normal 5-16 [facility] Comment on above: Performed By: #### L 500.13948, L500.84077, L500.65967, L500.39875, L500.58222, L500.36205, L500.19156, L550.46875 ####[facility] [id number] [place], [place] [address]Fv# [phone] BILI TOTAL 0.6 MG/DL Normal 0.2-1.0 [facility] Comment on above: Performed By: #### L 500.82550, L500.26131, L500.62628, L500.10829, L500.93878, L500.41674, L500.16709, L550.20038 ####[facility] [address] [place], [place] [address]Ew# [phone] BUN/Creatinine Ratio 13 mg/mg Low 15-24 [facility] Comment on above: Performed By: #### L 500.67118, L500.56575, L500.72706, L500.06034, L500.72754, L500.69594, L500.49395, L550.15723 ####[facility] [id number] [place], [place] [address]Rf# [phone] Calcium 9.1 mg/dL Normal 8.5-10.1 [facility] Comment on above: Performed By: #### L 500.57164, L500.42005, L500.59474, L500.20985, L500.33458, L500.41188, L500.18072, L550.87093 ####[facility] [id number] [place], [place] [address]Mp# [phone] Chloride 104 mmol/L Normal 98-107 [facility] Comment on above: Performed By: #### L 500.58183, L500.52428, L500.16159, L500.65519, L500.27500, L500.50125, L500.69212, L550.73096 ####[facility] [id number] [place], [place] [address]Wa# [phone] CO2 28 mmol/L Normal 21-32 [facility] Comment on above: Performed By: #### L 500.81784, L500.48440, L500.48704, L500.03967, L500.94145, L500.26126, L500.12811, L550.26915 ####[facility] [id number] [place], [place] [address]Ur# [phone] Creatinine 0.828 mg/dL Normal 0.510-0.950 [facility] Comment on above: Result Comment: Birgit ents receiving either N-Acetylcysteine (NAC) orMetamizole prior to venipuncture, may have falsely depressedresults. Performed By: #### L 500.09174, L500.71473, L500.14063, L500.67217, L500.56705, L500.51223, L500.65972, L550.15778 ####[facility] [address]QBV[address]IFX26[address] [place], [place] [address]Cg# [phone] Globulin 2.9 g/dL Normal 2.2-4.2 [facility] Comment on above: Performed By: #### L 500.65065, L500.23736, L500.18131, L500.62436, L500.73986, L500.24696, L500.42150, L550.32518 ####[facility] [address]TQ[address]RZJ[address] [place], [place] [address]Sg# [phone] Glucose mass conc 86 mg/dL Normal 70-100 [facility] Comment on above: Result Comment: 70-1 00-Normal Fasting; 139-965-Nmogbzyr Fasting; greaterthan 126 on more than one result-Diabetes. ADA guidelines Performed By: #### L 500.41134, L500.66455, L500.03441, L500.32041, L500.64946, L500.89529, L500.58685, L550.79950 ####[facility] [address] [place], [place] [address]Ml# [phone] Potassium molar conc 4.0 mmol/L Normal 3.5-5.1 [facility] Comment on above: Performed By: #### L 500.99690, L500.73053, L500.21297, L500.14614, L500.29106, L500.87655, L500.64863, L550.75472 ####[facility] [id number] [place], [place] [address]Nf# [phone] Protein 7.1 g/dL Normal 6.0-8.5 [facility] [place] Comment on above: Performed By: #### L 500.92767, L500.14766, L500.35292, L500.25136, L500.13005, L500.66739, L500.21611, L550.83130 ####[facility] [id number] [place], [place] [address]Ly# [phone] SGOT (AST) 23 U/L Normal 8-34 [facility] Comment on above: Performed By: #### L 500.59815, L500.59054, L500.06762, L500.49935, L500.40459, L500.86682, L500.33004, L550.97248 ####[facility] [id number] [place], [place] [address]Fl# [phone] Sodium 139 mmol/L Normal 136-145 [facility] Comment on above: Performed By: #### L 500.88885, L500.50545, L500.41020, L500.39932, L500.60821, L500.71897, L500.42889, L550.75545 ####[facility] [id number] [place], [place] [address]Bm# [phone] Urea nitrogen 11 mg/dL Normal 7-26 [facility] [place] Comment on above: Performed By: #### L 500.39226, L500.88129, L500.02202, L500.59526, L500.68299, L500.25045, L500.75158, L550.68369 ####[facility] [id number] [place], [place] [address]Lh# [phone] FOLIC ACIDon 11-16-2016 FOLIC ACID 24.0 NG/ML Normal >3.0 [facility] Comment on above: Performed By: #### L 500.18904, L500.52892, L500.42872, L500.21606, L500.54960, L500.13249, L500.71488, L550.65388 ####[facility] [id number] [place], [place] [address]Gu# [phone] GFR ESTon 11-16-2016 IF AMER Greater than 60 Normal [facility] Comment on above: Performed By: #### L 500.77174, L500.77061, L500.70584, L500.40745, L500.59360, L500.15989, L500.11045, L550.09911 ####[facility] [id number] [place], [place] [address]Lo# [phone] IF non-AFR AMER Greater than 60 Normal [facility] [place] Comment on above: Performed By: #### L 500.23229, L500.95242, L500.28333, L500.60040, L500.56036, L500.10818, L500.20143, L550.98932 ####[facility] [id number] [place], [place] [address]Tk# [phone] IRON PANELon 11-16-2016 Iron 140 ug/dL Normal 50-[facility] Comment on above: Result Comment: Birgit ents treated with metal-binding drugs (e.g.deferoxamine)may have depressed iron values, as chelated iron may notproperly react in the Siemens iron assay. Performed By: #### L 500.07761, L500.74990, L500.96476, L500.20792, L500.22321, L500.66080, L500.36631, L550.79966 ####[facility] [id number] [place], [place] [address]Uz# [phone] IRON SAT 36 % Normal 22-44 [facility] Comment on above: Performed By: #### L 500.66919, L500.90937, L500.39036, L500.42207, L500.74162, L500.21227, L500.19860, L550.44516 ####[facility] [id number] [place], [place] [address]Wo# [phone] TIBC 392 UG/DL Normal 221-481 [facility] Comment on above: Performed By: #### L 500.95847, L500.00790, L500.61373, L500.51473, L500.43701, L500.85639, L500.56814, L550.62986 ####[facility] [id number] [place], [place] [address]Lu# [phone] LIPIDon 11-16-2016 Cholesterol 170 mg/dL Normal 0-199 [facility] Comment on above: Performed By: #### L 500.95357, L500.07614, L500.24439, L500.61418, L500.40152, L500.61014, L500.78427, L550.19599 ####[facility] [id number] [place], [place] [address]Pb# [phone] HDL Cholesterol 82 mg/dL Normal GREATER TN 40 [facility] Comment on above: Result Comment: Birgit ents receiving Metamizole prior to venipuncture, mayhave falsely depressed results. Performed By: #### L 500.01501, L500.42795, L500.76144, L500.66400, L500.60069, L500.33734, L500.19883, L550.25944 ####[facility] [id number] [place], [place] [address]Zm# [phone] LDL Cholesterol 71 MG/DL Normal 0-129 [facility] [place] Comment on above: Result Comment: ___C HOLESTEROL/HDL RATIO RISK___ CHD RISK = Total CHOL LDL HDL (CHOL/HDL) ------Recommended <200 <130 >35 <3.4 Borderline 200-239 130-159 3.4-4.99 ----High >240 >160 >5.0 Performed By: #### L 500.50716, L500.17229, L500.81790, L500.00716, L500.92313, L500.22298, L500.29743, L550.94481 ####[facility] [id number] [place], [place] [address]Vb# [phone] Triglyceride 86 mg/dL Normal 30-149 [facility] [place] Comment on above: Result Comment: Birgit ents receiving either N-Acetylcysteine (NAC) orMetamizole prior to venipuncture, may have falsely depressedresults. Performed By: #### L 500.26979, L500.74037, L500.60390, L500.56939, L500.38042, L500.43825, L500.70421, L550.71761 ####[facility] [id number] [place], [place] [address]Ka# [phone] TSHon 11-16-2016 Thyroid stimulating hormone (TSH) 0.782 UIU/ML Normal 0.358-3.740 [facility] Comment on above: Result Comment: 3rd generation ultra sensitive TSH Performed By: #### L 500.51905, L500.63085, L500.04420, L500.14365, L500.52000, L500.80402, L500.58466, L550.38333 ####[facility] [id number] [place], [place] [address]Ok# [phone] [id number] 11-16-2016 [id number] 44.0 NG/ML Normal 30.0-100.0 [facility] Comment on above: Result Comment: Defi ciency Less than 20 ng/mLInsufficiency 20 - Less than 30 ng/mLSufficiency 30 - 100 ng/mL Performed By: #### L 500.71922, L500.43526, L500.25609, L500.03625, L500.34855, L500.88072, L500.09713, L550.83272 ####[facility] [id number] [place] [address]Ge# [phone] WSR/MODon 11-16-2016 WSR/MOD 2 MM/HR Normal 0-20 [facility] Comment on above: Performed By: #### L 200.53823, L200.41407 ####[facility] [id number] [place] [address]Gl# [phone] Vital Signs Date Time Vital Sign Value Performing Clinician Facility 04-03-2023 12:55-0500 Body height 157.48 cm Xiomara Mathis [facility] 04-03-2023 12:55-0500 Body mass index (BMI) [Ratio] 25.6 kg/m2 Xiomara Mathis Other [facility] 04-03-2023 12:55-0500 Body temperature 98.8 [degF] Xiomara Mathis Other [facility] 04-03-2023 12:55-0500 Body weight 63.5 kg Xiomara Mathis Other [facility] 04-03-2023 12:55-0500 Respiratory rate 20 /min Xiomara Mathis Other [facility] 04-03-2023 12:55-0500 SaO2% (BldA) [Mass fraction] 99 % Xiomara Mathis Other [facility] Encounters Encounter Date Encounter Type Care Provider Facility Start: 08-02-2023 ambulatory Lisette Bob ity:Nicholas PORRAS Start: 07-24-2023 ambulatory Danette Tanisha Facility:[facility] Start: 06-25-2023 End: 06-26-2023 ambulatory Danette L Tanisha [facility]: [facility] Start: 06-18-2023 End: 06-18-2023 ambulatory ELVIS FITZGERALD Not Available Start: 06-14-2023 Refjennifer liriano MD Work Phone: [facility] Desou[facility] Comment on above: Med Change Request Start: 06-14-2023 End: 06-14-2023 ambulatory SELF Facility:[facility] Start: 05-31-2023 End: 06-01-2023 ambulatory Danette L Tanisha Facility: [facility] Start: 04-16-2023 End: 04-17-2023 ambulatory Danette L Tanisha [place] Start: 04-16-2023 End: 04-16-2023 Lab Drop off Danette L Tanisha [facility] Start: 04-13-2023 End: 04-14-2023 ambulatory Danette L Tanisha [place] Start: 04-13-2023 End: 04-13-2023 Lab Drop off Danette Garay [facility] Start: 04-11-2023 ambulatory Danette Tanisha Facility:[facility] Start: 04-03-2023 End: 04-03-2023 ambulatory Xiomara Mathis [facility] Start: 04-03-2023 Office outpatient ne w 20 minutes Xiomara Mathis [facility] Start: 11-02-2020 End: 11-02-[address] NONE LISTED REQUEST Facility: Start: 11-21-2016 Ambulatory Song Angulo Facili ty:[facility] Start: 11-16-2016 Ambulatory Song Angulo Facili ty:[facility] Procedures Date Procedure Procedure Detail Performing Clinician Foot Surgery Danettese Quarlesab Knee Surgery Danettese Quarlesab Neuroplasty &/transp os median nrv carpal tunne Danette Tanisha Plan of Treatment Date Care Activity Detail Author Start: 05-14-2023 Depression Assessment Depression Ass essment [facility] Start: 01-12-2023 Influenza vaccination Influenza Vacc ine (#1) [facility] Start: 2022 Diabetes Screening Diabetes Screenin g [facility] Start: 2022 Lipid panel Lipid Screening [facility] Start: 2022 Screening for malign ant neoplasm of colon [facility] Start: 2017 Screening for malign ant neoplasm of breast Mammogram Screening [facility] Start: 11-13-2007 Screening for malign ant neoplasm of cervix HPV Testing [facility] Start: 1998 Screening for malign ant neoplasm of cervix Pap Testing [facility] Start: 1996 Urine microalbumin profile DTa P,Tdap,Td Vaccine (1 - Tdap) [facility] Start: 11-13-1995 Hepatitis C screening Hepatitis C Sc reening [facility] Start: 11-13-1995 HIV screening HIV Screening [facility] Start: 05-15-1978 Covid-19 Vaccine (#1) Covid-19 Vacci ne (#1) [facility] Start: 1977 Hepatitis B Vaccine (1 of 3 - 3-dose series) Hepatitis B Vaccine (1 of 3 - 3-dose series) [facility] Payers Date Payer Category Payer Unknown [id number] 2012 Medicaid [id number] 2. [id number] 1977 Unknown [id number] 2.16.84 [id number] 1977 Unknown [id number] 2.16.84 [id number] 1977 Unknown [id number] 2.16.8 [id number] 1977 Unknown [id number] 2.16.8 [id number] 1977 Unknown [id number] 2.16.8 [id number] 1977 Unknown [id number] 2.16.8 [id number] 1977 Unknown [id number] 2.16.8 [id number] 1977 Unknown [id number] 2.16.8 [id number] 1977 Unknown [id number] 2.16.8 [id number] 1977 Unknown [id number] 2.16.8 [id number] 1959 Unknown [id number] Social History Date Type Detail Facility Start: 06-14-2023 Sex Assigned At [facility] Start: 04-13-2023 End: 06-14-2023 Tobacco smoking status Ex-smoker (finding) [facility] Tobacco smoking status Never [facility] History of tobacco use Current smoker [facility] Work Phone: History of tobacco use Cigarette Smoker [facility] Work Phone: Start: 06-14-2023 Tobacco use and exposure Smokeless tobacco non-user [facility] Work Phone: Start: 06-14-2023 History of Social function [facility] Start: 1975 Sex Assigned At Not on file [facility] NEGATED: Highlighted rowStart: NINF History of tobacco use Passive smoker [facility] Work Phone: Progress note 06-14-2023 Note Date & Type Note Facility 06-14-2023 Note HNO ID: [id number] Author: YOHAN ANDREWS MD Service: ? Author Type: Physician Type: Progress Notes Filed: 06/14/2023 12:12 Note Text: (H10.13) Allergic conjunctivitis of both eyes (primary encounter diagnosis) (H02.89, H02.849) Pain and swelling of eyelid Comment: Discussed findings on exam. No infection. Plan: Recommend treatment for allergies. Reviewed possible allergy to Cats Recommend start; Pred acetate 1% both eyes q2-3 hours WA. Maxitrol ophthalmic peter both eyes four times a day Side effects discussed with patient including increased intraocular pressure and cataract. Zaditor both eyes bid. Preservative free Artificial tears both eyes q2-3 hours, as needed. Cool compresses both eyes twice a day. Follow up in 2 weeks for conjunctiva check both eyes. I have confirmed and edited as necessary the relevant ophthalmic history, ROS, and the neuro exam findings as obtained by others. I have seen and examined this patient. I have discussed the case and the management of this patient's care with the Resident/Fellow, if applicable. I also have reviewed and agree with the assessment and plan as stated above and agree with all of its relevant components. Yohan Andrews MD June 14, 2023 12:[address] [facility] Evaluation + Plan note 04-13-2023 Note Date & Type Note Facility 04-13-2023 Evaluation + [facility] 04/13/23Comprehensive Metabolic Panel 04/13/23Lipid Panel 04/13/23Thyroid Stimulating Hormone 04/13/23Iron Level 04/13/23TIBC Calculated 04/13/23Vitamin D 25 Hydroxy 04/13/23Vitamin B12 Level 04/13/23 [facility] Evaluation note 04-03-2023 Note Date & Type Note Facility 04-03-2023 Evaluation note Encounter Date Diagnosis Assessment Notes Mar, Acute bacterial conjunctivitis of both eyes (ICD-10 - H10.33) Discussed diagnosis with patient. Use eye drops as prescribed, discussed proper administration. Contagious until after 24 hours on antibiotic eye drops. Advised good hand hygiene and infection control, wash linens and bedding, do not touch eye directly with eye drop bottle, wipe off bottle after every use, do not share eye drop bottles. Apply cool compress to eye several times a day, clean eye with warm, most cloth from inner to outer canthus. Avoid eye makeup until sx resolve, discard all eye makeup that was used at time of infection. Eye symptoms should improve in 2-3 days with treatment, if no improvement follow up with PCP or eye doctor. Immediate eval if symptoms worsen, eye pain, vision changes, redness and swelling occur around the eye, headache, fever, N/V or any other concerning symptoms. Patient verbalizes understanding and is agreeable to treatment plan. [facility] Hospital course Narrative Note Date & Type Note Facility Hospital course Narrative No data available for this section [facility] Hospital Discharge instructions Note Date & Type Note Facility Hospital Discharge instructions No data available for this section [facility] Progress note Note Date & Type Note Facility Progress note No data available for this section [facility] Summary Purpose Family History No Family History Records FoundNo Family History Records Found No data available for this section No data available for this section No Family History Records FoundNo Family History Records FoundNo Family History Records Found Advance Directives No Advanced Directives Records FoundNo Advanced Directives Records FoundNo Advanced Directives Records FoundNo Advanced Directives Records FoundNo Advanced Directives Records Found Additional Source Comments INFORMATION SOURCE (unrecogn ized section and content) DATE CREATED AUTHOR 11/07/2017 [facility] [place] DATE CREATED AUTHOR AUTHOR'S ORGANIZ ATION 04/21/2021 [facility] DATE CREATED AUTHOR AUTHOR'S ORGANIZ ATION 06/15/[address] [facility] DATE CREATED AUTHOR AUTHOR'S ORGANIZ ATION 06/18/2023 [facility] DATE CREATED AUTHOR AUTHOR'S ORGANIZ ATION 07/25/[address] [facility] REASON FOR VISIT (unrecogniz ed section and content) Reason Comments Med Change Request Patient Care team informatio n (unrecognized section and content) Personnel Name: Keithkerry PLAZA Heidy Kat Address: Address: [address] [place] [address] Shak[place], [facility] [place] [address] [place] Name: Savana Dietz Personnel Name: Tanisha FELICITYDanette Percy Address: Address: [address] [place] [address]- Name: Savana Dietz Source Comments (unrecognize d section and content) In the event this informatio n is protected by the Federal Confidentiality of Alcohol and Drug Abuse Patient Records regulations: The Federal rules restrict any use of the information to criminally investigate or prosecute any alcohol or drug abuse patient.[facility] FOR RECORDS PERTAINING TO PATIENTS WHO ARE OR HAVE BEEN ENROLLED IN A CHEMICAL DEPENDENCY/SUBSTANCEABUSE PROGRAM, SOME INFORMATION MAY BE OMITTED. This clinical summary was aggregated from multiple sources. Caution should be exercised in using it in the provision of clinical care. This summary normalizes information from multiple sources, and as a consequence, information in this document may materially change the coding, format and clinical context of patient data. In addition, data may be omitted in some cases. CLINICAL DECISIONS SHOULD BE BASED ON THE PRIMARY CLINICAL RECORDS. [employer] [facility]. provides no warranty or guarantee of the accuracy or completeness of information in this document.
[2023-07-31 10:20] LABS: Glucometer 132 mg/dL (74-106)
--- NOTE | 2023-07-31 10:31 | ED.EYEPROB1 ---
HPI - Eye Problem General Chief complaint: Eye Problems Stated complaint: REDNESS ON BOTH EYES Time Seen by Provider: 07/31/23 10:11 Source: patient Mode of arrival: walk-in Limitations: no limitations History of Present Illness HPI Narrative: 47-year-old female presents for eye redness and drainage. It has been in the mitten for 4 months. She has seen eye doctors and an ordnance engineering technician. She was found to be allergic to cats and she has a cat but she has had that For 5 years. She is adamant that she does not have allergies. Sometimes she has some itching on her skin but no rashes. She is not exposed to any chemicals. This time she has had it for a week Related Data Home Medications ?Medication ?Instructions ?Recorded ?Confirmed ferrous sulfate 325 mg (65 mg 325 mg PO DAILY 05/04/23 05/04/23 iron) tablet Previous Rx's ?Medication ?Instructions ?Recorded albuterol sulfate 90 mcg/actuation 2 inh inhalation Q4H PRN shortness 12/21/22 aerosol inhaler of breath or wheezing #8.5 grams doxycycline hyclate 100 mg capsule 100 mg PO BID 10 days #20 caps 12/21/22 methylprednisolone 4 mg tablets in 4 mg PO DAILY #21 ea 12/21/22 a dose pack (Medrol (Miguel)) diclofenac sodium 0.1 % eye drops 2 drp ophthalmic (eye) Q6H PRN eye 05/04/23 irritation 3 days #5 mL tobramycin 0.3 %-dexamethasone 1 drp ophthalmic (eye) Q4H 5 days 05/04/23 0.05 % eye drops,suspension #5 mL (Tobradex ST) Allergies Allergy/AdvReac Type Severity Reaction Status Date / Time No Known Drug Allergies Allergy Verified 12/21/22 09:48 Review of Systems ROS Narrative A ten point review of systems is negative except as noted above. PFSH PFSH Social History Smoking status: Light tobacco smoker Exam Narrative Exam Narrative: Nurses note and vital signs reviewed and patient is not hypoxic. General: The patient appears well and in no apparent distress. Patient is resting comfortably on cart. Skin: Warm, dry, no pallor noted. There is no rash noted. Head: Normocephalic, atraumatic Eye: Both conjunctiva are injected. Sclera are anicteric. Ears, Nose, Mouth, and Throat: oral mucosa is moist. Nares patent. Cardiovascular: Regular Rate and Rhythm Respiratory: Patient is in no distress, no accessory muscle use, lungs are clear to auscultation, no wheezing, rales or rhonchi Back: non-tender GI: Soft and nontender Musculoskeletal: No joint swelling Neurological: A&O, normal speech Psychiatric: Cooperative Constitutional Vital Signs, click to edit/add: Last Vital Signs Temp 97.9 F 07/31/23 10:11 Pulse 98 H 07/31/23 10:11 Resp 20 07/31/23 10:11 Pulse Ox 98 07/31/23 10:11 O2 Del Method Room Air 07/31/23 10:11 Course Vital Signs Vital signs: Vital Signs Temperature 97.9 F 07/31/23 10:11 Pulse Rate 98 H 07/31/23 10:11 Respiratory Rate 20 07/31/23 10:11 Pulse Oximetry 98 07/31/23 10:11 Oxygen Delivery Method Room Air 07/31/23 10:11 Temperature 97.9 F 07/31/23 10:11 Pulse Rate 98 H 07/31/23 10:11 Respiratory Rate 20 07/31/23 10:11 Pulse Oximetry 98 07/31/23 10:11 Oxygen Delivery Method Room Air 07/31/23 10:11 MDM - Eye Problem MDM Narrative Medical decision making narrative: Blood work is negative, no evidence of diabetes. She was reassured. She was offered eyedrops but has been on them numerous times and they do not seem to help. This appears to be a chronic condition for which she has been evaluated by specialists including ophthalmology and ordnance engineering technician. While going over her test results and explaining the course of care she seemed very upset and stood up and walked out of the room and left the emergency department. Differential Diagnosis Differential diagnosis: Likely corneal abrasion, conjunctivitis, subconjunctival hemorrhage and corneal ulcer (Environmental allergy) Lab Data Attestation: I reviewed the patient's lab results. Labs: Lab Results 07/31/23 07/31/23 Range/Units 10:19 10:23 WBC 5.2 (4.0-11.0) 10^3/uL RBC 4.27 (4.20-5.40) 10^6/uL Hgb 13.1 (12.0-16.0) g/dL Hct 40.3 (36.0-48.0) % MCV 94.4 (81.0-99.0) fL MCH 30.7 (26.7-34.0) pg MCHC 32.5 (29.9-35.2) g/dL RDW 13.2 (11.0-15.0) % Plt Count 257 (150-450) 10^3/uL MPV 9.6 (9.5-13.5) fL Neut % (Auto) 57.8 (43.0-75.0) % Lymph % (Auto) 27.1 (20.5-60.0) % Parmer % (Auto) 8.6 (1.7-12.0) % Eos % (Auto) 5.5 (0.9-7.0) % Baso % (Auto) 0.8 (0.2-2.0) % Neut # (Auto) 3.0 (1.4-6.5) 10^3/uL Lymph # (Auto) 1.4 (1.2-3.8) 10^3/uL Parmer # (Auto) 0.5 (0.3-0.8) 10^3/uL Eos # (Auto) 0.3 (0.0-0.7) 10^3/uL Baso # (Auto) 0.0 (0.0-0.1) 10^3/uL Abs Immat Gran (auto) 0.01 (0.00-0.03) 10^3/uL Imm/Tot Granulo (auto) 0.2 (0.0-0.5) % Sodium 140 (136-145) mmol/L Potassium 3.8 (3.5-5.1) mmol/L Chloride 102 (98-107) mmol/L Carbon Dioxide 26.8 (21.0-32.0) mmol/L Anion Gap 15.0 BUN 11.0 (7.0-18.0) mg/dL Creatinine 0.94 (0.55-1.02) mg/dL Est GFR ( Amer) >60 (>=60) Est GFR (Non-Af Amer) >60 (>=60) BUN/Creatinine Ratio 11.7 Glucose 130 H (74-106) mg/dL Calcium 9.0 (8.5-10.1) mg/dL POC Glucose 132 H (74-106) mg/dL Discharge Plan Discharge Stand Alone Forms: Portal Instructions Chief Complaint: Eye Problems Clinical Impression: Chronic conjunctivitis Patient Disposition: Home, Self-Care Time of Disposition Decision: 11:00 Condition: Good Mode of Transportation: Private Vehicle Prescriptions / Home Meds: No Action albuterol sulfate 90 mcg/actuation HFA aerosol inhaler 2 inh inhalation Q4H PRN (Reason: shortness of breath or wheezing) Qty: 8.5 0RF doxycycline hyclate 100 mg capsule 100 mg PO BID 10 Days Qty: 20 0RF methylprednisolone [Medrol (Miguel)] 4 mg tablets,dose pack 4 mg PO DAILY Qty: 21 0RF ferrous sulfate 325 mg (65 mg iron) tablet 325 mg PO DAILY Tobradex ST 0.3-0.05 % drops,suspension 1 drp ophthalmic (eye) Q4H 5 Days Qty: 5 0RF Rx Instructions: Do not use eyedrops more than 5 days unless recommended by her eye physician. diclofenac sodium 0.1 % drops 2 drp ophthalmic (eye) Q6H PRN (Reason: eye irritation) 3 Days Qty: 5 0RF Rx Instructions: Use drops to bilateral eyes Print Language: Khmer Instructions: Conjunctivitis (ED) Referrals: Physician,Non-Staff, MD [Primary Care Provider] - 1 week
[2023-07-31 10:35] LABS: Basophils Percent Auto 0.8 % (0.2-2.0); Eosinophils Absolute Auto 0.3 10^3/uL (0.0-0.7); Eosinophils Percent Auto 5.5 % (0.9-7.0); Hematocrit 40.3 % (36.0-48.0); Hemoglobin 13.1 g/dL (12.0-16.0); Immature Granulocytes Abs Auto 0.01 10^3/uL (0.00-0.03); Immature Granulocytes Pct Auto 0.2 % (0.0-0.5); Lymphocytes Absolute Auto 1.4 10^3/uL (1.2-3.8); Lymphocytes Percent Auto 27.1 % (20.5-60.0); Mean Corpuscular HGB Conc 32.5 g/dL (29.9-35.2); Mean Corpuscular Hemoglobin 30.7 pg (26.7-34.0); Mean Corpuscular Volume 94.4 fL (81.0-99.0); Mean Platelet Volume 9.6 fL (9.5-13.5); Monocytes Absolute Auto 0.5 10^3/uL (0.3-0.8); Monocytes Percent Auto 8.6 % (1.7-12.0); Neutrophils Percent Auto 57.8 % (43.0-75.0); Platelet Count 257 10^3/uL (150-450); Red Blood Count 4.27 10^6/uL (4.20-5.40); Red Cell Distribution Width 13.2 % (11.0-15.0); White Blood Count 5.2 10^3/uL (4.0-11.0)
[2023-07-31 10:47] LABS: BUN Creatinine Ratio 11.7; Carbon Dioxide 26.8 mmol/L (21.0-32.0); Chloride 102 mmol/L (98-107); Estimated GFR (African America >60 (>=60); Estimated GFR (Non-African Ame >60 (>=60); Glucose 130 mg/dL (74-106); Potassium 3.8 mmol/L (3.5-5.1); Sodium 140 mmol/L (136-145)
== END 2023-07-31 11:07 | disposition home or self-care (01) ==
PROVIDERS: Emergency Provider Emergency Medicine
DX: H10.403 Unspecified chronic conjunctivitis, bilateral (principal); F17.210 Nicotine dependence, cigarettes, uncomplicated
CPT/HCPCS: 36415; 80048; 85025; 99283

== ENCOUNTER 2025-03-05 13:09 | Outpatient (OUT) | payer OTHER, SELFPAY ==
--- OUTSIDE RECORDS SUMMARY | 2025-03-05 13:13 | XMS_ITS | Clinical Summary ---
Author Organization [facility] Address [address] [place] [id number] Care Team Providers Care Leather Cleaner Name Role Phone Lisette Kruger JACQUARD LOOM CARPET WEAVER Unavailable Allergies No known active allergies Medications MedicationSigDispense QuantityRefillsLast FilledStart DateEnd DateStatus prednisoLONE acetate (PRED FORTE) 1 % ophthalmic suspension Use 1 Drop in both eyes every 3 hours. 15 mL 06/14/2023ctive ketotifen fumarate (ZADITOR) 0.025 % (0.035 %) ophthalmic solution Use 1 Drop in both eyes two times a day. 10 mL ctive GENTEAL TEARS MODERATE 0.1-0.3-0.2 % ophthalmic solution USE 1 DROP IN BOTH EYES NEEDED 15 mL ctive Active Problems No known active problems Social History Tobacco UseTypesPacks/DayYears UsedDateSmoking Tobacco: FormerCigarettesPassive Smoke Exposure: NeverSmokeless Tobacco: Never Tobacco Cessation:Counseling Given: Not Answered Area Deprivation IndexAnswerDate RecordedNational Score (1-100), lower number is lower uoai244910/23/2023State Score (1-10), lower number is lower ndsz54910/23/2023 Data from: https://www.neighborhoodatlas.medicine.[facility].edu/. Last address used for [address] [facility]4CommentsUnknownSex and Gender InformationValueDate RecordedSex Assigned at BirthNot on fileLegal SexFemale 11/30/2014 2:25 PM EDTGender IdentityNot on fileSexual OrientationNot on file Plan of Treatment Health MaintenanceDue DateLast DoneCommentsAnxiety Dzoizfxwi23/02/1996Depression Wlfvphbyb85/02/1996HIV Jzhadjsjq63/02/1996Hepatitis C Yunnnzjme39/02/1996 DTaP,Tdap,Td Vaccine (1 - Tdap)1996Hepatitis B Vaccine (1 of 3 - 19+ 3- dose series)1996Cervical Cancer Pckhsvymf63/02/1999Mammogram Screening 2017CT Pidfeembkvcb70/02/2023Cologuard (FIT-DNA)3Colonoscopy 2022olorectal Cancer Nnoekwaan80/02/2023Diabetes Otxqiqojw20/02/2023Fecal Occult Blood2022Lipid Uuapoxzbk90/02/3909Ovwknkqrdbqyf46/02/2023ovid-19 Vaccine (1 - 2024- season)2025Influenza Vaccine (#1)2025 Insurance Care Teams Team MemberRelationshipSpecialtyStart DateEnd Lisette Kruger, BOL[place] [address] [address] ReferringNurse Ywhdidoxmrwf31/1/24
--- OUTSIDE RECORDS SUMMARY | 2025-03-05 13:13 | XMS_ITS | Clinical Summary ---
Author Organization [facility] Address [address] [place] [address] Phone Care Team Providers Care Floating Derrick Operator Name Role Phone Unavailable Primary Care Provider Unavailabl e Social History Tobacco UseTypesPacks/DayYears UsedDateSmoking Tobacco: Never Assessed CommentsUnknownSex and Gender InformationValueDate RecordedSex Assigned at Not on fileLegal WcfScergx94/25/2022 11:25 PM ESTGender IdentityNot on file Sexual OrientationNot on file Plan of Treatment Health MaintenanceDue DateLast DoneCommentsCT Znmkgifrjqaq06/02/1978Colonoscopy 1977Colorectal Cancer Bgdzrwhmv16/02/1978FIT-DNA (Cologuard)1977FIT 1977HIV Odukymmqn91/02/1978Lipid Panel1977 9981Maqjrdphomkob77/02/1978 Yearly Adult Ihkjgvsd37/02/1978MMR Vaccines (1 of 1 - Standard series)1978 Hepatitis A Vaccines (1 of 2 - Risk 2-dose series)1996Hepatitis B Vaccines (1 of 3 - 19+ 3-dose series)1996Cervical Cancer Xzzmzqwaw82/02/1999 HPV/Idovds6111/12/1998Pap Smear1998DTaP/Tdap/Td Vaccines (1 - Tdap) 11/13/19998927Qnjspviow35/02/2018Influenza Vaccine (#1)5COVID-19 Vaccine (1 - 2024- season)2025Zoster Vaccines (1 of 2)11/13/2027HIB VaccinesAged OutNo longer eligible based on patient's age to complete this topicHPV Vaccines Aged OutNo longer eligible based on patient's age to complete this topicIPV VaccinesAged OutNo longer eligible based on patient's age to complete this topic Meningococcal VaccineAged OutNo longer eligible based on patient's age to complete this topicPneumococcal Vaccine: Pediatrics and At-Risk Adult Patients Aged OutNo longer eligible based on patient's age to complete this topic Rotavirus VaccinesAged OutNo longer eligible based on patient's age to complete this topic Insurance * Guarantor: Huong Clemens TypeRelation to PatientDate of BirthPhone Billing AddressPersonal/EdvnxpUyxx24/02/1976 ([place]) [address] [place] [address] * Guarantor: Huong Clemens TypeRelation to PatientDate of BirthPhone Billing AddressPersonal/SselzfJwkx20/02/1976 ([place]) [address] [place] [address]
--- OUTSIDE RECORDS SUMMARY | 2025-03-05 13:14 | XMS_ITS | Clinical Summary ---
Author Organization [facility] Address [address] [place] [address] Care Team Providers Care Reverberatory Furnace Supervisor Name Role Phone Lisette Kruger TABLE ASSEMBLER Unavailable [phone] Allergies Active AllergyReactionsCriticalityNoted ZwdyTzaxuidyQkadzljawGclkTvs40/29/2024 Medications MedicationSigDispense QuantityRefillsLast FilledStart DateEnd DateStatus Artificial Tear Solution (GenTeal Tears) 0.1-0.2-0.3 % solution INSTILL 1 DROP INTO EACH EYE TYSZJC6306/15/2023ctive ferrous sulfate 325 (65 Fe) MG tablet Take 1 tablet by mouth in the morning and 1 tablet before bedtime.05/15/2023 Active Ketotifen Fumarate 0.035 % solution USE 1 DROP IN BOTH EYES TWO TIMES A DAY06/15/2023ctive hguixlhu-cojlesgrx-fdzMLPJVrioji (Polydex) 3.5-29377-4.1 ointment ophthalmic ointment USE 1 APPLICATION IN BOTH EYES FOUR TIMES DAILY FOR 10 DAYS06/14/2023ctive prednisoLONE acetate (Pred-Forte) 1 % ophthalmic suspension INSTILL 1 DROP IN BOTH EYES EVERY 3 HOURS06/14/2023ctive dexAMETHasone (Decadron) 1 MG tablet 09/21/2023ctive diclofenac (Voltaren) 0.1 % ophthalmic solution PLACE 2 DROPS INTO AFFECTED EYE(S) EVERY 6 HOURS NEEDED FOR EYE IRRITATION FOR 3 DAYS05/04/2023ctive Lexapro 5 MG tablet Take 5 mg by mouth01/02/2024ctive metoprolol succinate XL (Toprol-XL) 25 MG 24 hr tablet Take 25 mg by mouth Daily12/26/2023ctive metroNIDAZOLE (Metrogel) 0.75 % gel Apply topically 2 (two) times a day to affected area01/02/2024ctive spironolactone (Aldactone) 25 MG tablet Take 25 mg by mouth01/02/2024ctive hydrocortisone 2.5 % cream Indications:Allergic contact dermatitis, unspecified triggerApply topically 2 (two) times a day as needed (Rash) Apply thin layer to affected areas bid prn forflares 30 g ctive Active Problems No known active problems Social History Tobacco UseTypesPacks/DayYears UsedDateSmoking Tobacco: NeverSmokeless Tobacco: Never Tobacco Cessation:Counseling Given: Not Answered CommentsUnknownSex and Gender InformationValueDate RecordedSex Assigned at BirthNot on fileLegal ZaoJggotu10/20/2024 5:02 PM EDTGender IdentityNot on fileSexual OrientationNot on file Last Filed Vital Signs Vital SignReadingTime TakenCommentsBlood Pressure--Pulse--Temperature-- Respiratory Rate--Oxygen Saturation--Inhaled Oxygen Concentration--Qqppcx86.4 kg (142 lb)11/29/2023 11:47 AM XYNDxrwov772.8 cm (5' 2.5 )06/18/2023 10:32 AM EST Body Mass Index25.56006/18/2023 10:32 AM EST Plan of Treatment Not on file Insurance Care Teams Team MemberRelationshipSpecialtyStart DateEnd Date Lisette Kruger NP [address] [place] [address] Referring PhysicianFamily Medicine11/01/23
--- NOTE | 2025-03-05 13:15 | XR_ITS ---
[facility] [place] [id number] Patient Name: FREDI ELLIOTT MRN: [id number] date: 1975 Sex: F Assigned Patient Location: [facility] Current Patient Location: [facility] Accession/Order Number: [id number] Exam Date: 03/05/2025 13:22 Report Date: 03/05/2025 23:07 At the request of: SILAS ANAYA Procedure: XR knee LT 4V 4 views left knee CLINICAL HISTORY: PAIN, TRAUMATIC COMPARISON: None FINDINGS: Tqgp-xo-sweibcgn degenerative changes greatest within medial compartments. No fracture or dislocation. No definite joint effusion. XR/XR knee LT 4V IMPRESSION: Klrv-bd-jrobkaku degenerative changes without evidence of acute osseous abnormality. Impression dictated by: Margarito Barragan M.D. 03/05/2025 11:07 PM Dictation Location: [place] [address] Electronically authenticated by: [id number] Y Date: 03/05/2025 23:07
--- OUTSIDE RECORDS SUMMARY | 2025-03-05 13:32 | XMS_ITS | CCD ---
Author Organization [facility] Care Team Providers Care Inbound Sales Consultant Name Role Phone Angulo, Song Unavailable Unavailable Angulo, Song Unavailable Unavailable Angulo, Song Unavailable Unavailable REQUEST, DR NONE LISTED Primary Care Unavailkeysha MORRISON, DR GUIDRY Admitting Unavailable PRINCE, DR GUIDRY Attending Unavailable PRINCE, DR GUIDRY Consulting Unavailable Clinton Bartlett Consulting Unavailable Xiomara Mathis Unavailable Heidy Keith Primary Care Physician Savana Dietz Unavailable Unavailable Danette Garay Primary Care Physician Unavailable Primary Care Provider Unavailabl e SELF Referring Unavailable BETH ANDREWS Attending Unavailable Lisette Contreras Primary Care Physician ELVIS FITZGERALD Attending Unavailable ANGELLA EGAN Attending Unavailable ANGELLA EGAN Attending Unavailable ELVIS FITZGERALD Attending Unavailable ANGELLA EGAN Attending Unavailable GENIA BOONE Attending Unavailable LISETTE CONTRERAS Referring Unavailable GENIA BOONE Attending Unavailable Lisette Contreras Primary Care Physician Lisette Contreras NP Unavailable David Rea Admitting Unavaila David Oden Attending Unavaila David Oden Attending Unavaila David Oden Attending Unavaila Danette Medina Attending Unavailable Danette Garay Attending Unavailable Lisette Contreras Attending Unavailable Lisette Contreras Attending Unavailable Lisette Contreras Attending Unavailable Lisette Contreras Attending Unavailable Lisette Contreras Attending Unavailable Lisette Contreras Attending Unavailable Lisette Contreras Attending Unavailable Lisette Contreras Referring Unavailable Lisette Contreras Admitting Unavailable Lisette Contreras L Admitting Unavailable Lisette Contreras Attending Unavailable Lisette Contreras L Admitting Unavailable Lisette Contreras Attending Unavailable Danette Garay Attending Unavailable Danette Garay Attending Unavailable OJ JURADO Attending Unavailable Allergies Allergy ClassificationReported Allergen(s)Allergy TypeDate of OnsetReaction(s) FacilityCats (1 source)CatAnimal Allergy (Dander)Red eye (finding)[facility] Primary CareLidocaine (1 source)Lidocaine; Translations: [lidocaine topical]Drug AllergyEruption of skin (disorder)[facility] Primary CareMold Extract (1 source)Mold ExtractDrug AllergyRed eye (finding)[facility] Care (14 sources)Lidocaine; Translations: [lidocaine topical]Drug Xrygtln47-94-1570 Eruption of skin (disorder), RashM[facility] Care (7 sources)Cat; Translations: [Cats]Allergy to substanceRed eye (finding)[facility] (7 sources)Mold Extract; Translations: [Mold]Drug AllergyRed eye (finding) [facility] (1 source)ALLERGIES NOT ON FILE; Translations: [ALLERGIES NOT ON FILE]Propensity to adverse reactions (disorder)[facility] Repository (2 sources)No Known Medication Allergies; Translations: [No Known Medication Allergies]Propensity to adverse reactions (disorder)[facility] Repository Medications Current Medications MedicationDrug Class(es)DatesSig (Normalized)Sig (Original)12 hr buPROPion hydrochloride 150 mg extended release oral tablet (1 source)AminoketoneStart: 30-10-7091Csdakvjcab SR 150 mg Tab-ER 150 mg = 1 tab(s), Oral, BID, start at once a day for 1-2 weeks. then increase to twice a day, # 180 tab(s), Refills(s) 0, Pharmacy: [facility]/pharmacy #[id number], 157, cm, 02/01/24 10:28:00 EDT, Height/Length Dosing, 67.8, kg, 02/01/24 10:28:00 EDT, Weight Dosing Start Date: 02/01/24 Status: OrderedcycloSPORINE 0.9 mg/ml ophthalmic solution (9 sources)Calcineurin Inhibitor ImmunosuppressantStart: 59-52-9748wqos 1 drop(s) into the eye(s) once dailyCequa 0.09% ophthalmic solution 1 drop(s), Eye-Both, Daily, Refill(s) 0 Start Date: 01/02/24 Status:OrderedStart: 11-01-2023 End: 21-68-7869gyiz 1 drop(s) into the eye(s) in the morningcycloSPORINE, PF, (Cequa) 0.09 % solution Indications: Dry eyes Administer 1 drop into affected eye(s) in the morning and 1 drop before bedtime. 1 each 3 11/01/2023 01/30/2024 Activedexamethasone 1 mg oral tablet (8 sources)CorticosteroidStart: 00-44-9119hwkCMJLIwajtp (Decadron) 1 MG tablet 09/21/2023 Activedexamethasone 0.001 mg/mg / neomycin 0.0035 mg/mg / polymyxin b 10 unt/mg ophthalmic ointment (12 sources)Aminoglycoside Antibacterial, Polymyxin-class Antibacterial, CorticosteroidStart: 06-14-2023 End: 17-64-1345rnwcsoedddpwd/neomycin/polymyxin B Opth Oint 1 christiano, OPTH, TID, 3.5 gram, Refill(s) 0, [facility]/pharmacy #[id number], 157, cm, 01/02/24 10:23:00 EDT, Height/Length Dosing, 66.3, kg, 01/02/24 10:23:00 EDT, WeightDosing Start Date: 01/02/24 Status: OrderedStart: 63-87-4744efoi 1 drop(s) into the eye(s) four times tlmrjHtvqcrhq-Ahlhkhlaj-Abwwkxri 3.5-44774-2.1 1 drop into affected eye Ophthalmic Four times a day for 5 days Mar, ActiveComment on above:Use 1 application in both eyes four times daily for 10 days.dextran 70 1 mg/ml / glycerin 2 mg/ml / hypromellose 3 mg/ml ophthalmic solution (9 sources)Plasma Volume Supply Chain Design Manager, Non-Standardized Chemical AllergenStart: 91-88-4907Fybwgfaukv Tear Solution (GenTeal Tears) 0.1-0.2-0.3 % solution INSTILL 1 DROP INTO EACH EYE NEEDED 06/15/2023 ActiveStart: 80-68-2089NCGGHMC TEARS MODERATE 0.1-0.3-0.2 % ophthalmic solution USE 1 DROP IN BOTH EYES NEEDED 15 mL 3 06/15/2023 ActiveComment on above:USE 1 DROP IN BOTH EYES NEEDEDdiclofenac sodium 1 mg/ml ophthalmic solution (8 sources)Nonsteroidal Anti-inflammatory DrugStart: 31-43-3938ouks 2 drop(s) into the eye(s) every six hours as neededdiclofenac (Voltaren) 0.1 % ophthalmic solution PLACE 2 DROPS INTO AFFECTED EYE(S) EVERY 6 HOURS ASNEEDED FOR EYE IRRITATION FOR 3 DAYS 05/04/2023 Activeescitalopram 5 mg oral tablet (6 sources)Serotonin Reuptake InhibitorStart: 21-89-9706Vtofchr 5 MG tablet Take 5 mg by mouth 01/02/2024 Activeferrous sulfate 325 mg oral tablet (19 sources)Start: 02-43-3806ajme 1 tablet by mouth in the morningferrous sulfate 325 (65 Fe) MG tablet Take 1 tablet by mouth in the morning and 1 tablet before bedtime. 05/15/2023 ActiveFLUoxetine 40 mg oral capsule (2 sources)Serotonin Reuptake InhibitorStart: 20-22-5939agog 1 capsule by mouth once dailyFLUoxetine 40 mg Cap 40 mg = 1 cap(s), Oral, Daily, # 90 cap(s), Refills(s) 0, Pharmacy: [facility]/pharmacy #[id number], 160, cm, 04/26/20 9:47:00 EST, Height/Length Dosing, 65.2, kg, 04/26/20 9:47:00 EST, Weight Dosing Start Date: 10/18/20 Status: OrderedGenTeal Tears Moderate ophthalmic solution (2 sources)Start: 18-28-0509BwfDkur Tears Moderate ophthalmic solution 2 drop(s), INSTILL 1 DROP INTO EACH EYE NEEDED Start Date: 01/02/24 Status: Orderedhydrocortisone 25 mg/ml topical cream (5 sources)CorticosteroidStart: 63-33-9417ucsyledcpzenhf 2.5 % cream Indications: Allergic contact dermatitis, unspecified trigger Apply topically 2 (two) times a day as needed (Rash) Apply thin layer to affected areas bid prn for flares 30 g 3 01/10/2024 ActiveKetotifen (9 sources)Histamine-1 Receptor InhibitorStart: 45-66-1227batz 1 drop(s) into the eye(s) twice dailyKetotifen Fumarate 0.035 % solution USE 1 DROP IN BOTH EYES TWO TIMES A DAY 06/15/2023 ActiveStart: 48-42-0670lfbdgrwea fumarate (ZADITOR) 0.025 % (0.035 %) ophthalmic solution Use 1 Drop in both eyes two times a day. 10 mL 3 06/14/2023 ActiveComment on above:Use 1 Drop in both eyes two times a day.meloxicam 7.5 mg oral tablet (1 source)Nonsteroidal Anti-inflammatory DrugStart: 82-26-4959ysqt 1 tablet by mouth once dailymeloxicam 7.5 mg Tab 7.5 mg = 1 tab(s), Oral, Daily, # 30 tab(s), Refills(s) 0, Pharmacy: [facility]/pharmacy #[id number], 157, cm, 04/13/23 12:54:00 EST, Height/Length Dosing, 62.5, kg, 04/13/23 12:54:00 EST, Weight Dosing Start Date: 04/16/23 Status: OrderedmethylPREDNISolone 4 mg oral tablet (1 source)CorticosteroidStart: 04-16-2023 End: 97-25-0051Ycylum 4 mg Tab = 1 packet(s), Oral, As Directed, as directed on package labeling, X 6 day(s), # 21tab(s), Refills(s) 0, Pharmacy: [facility]/pharmacy #[id number], 157, cm, 04/13/23 12:54:00 EST, Height/Length Dosing, 62.5, kg, 04/13/23 12:54:00 EST, Weight Dosing Start Date: 04/16/23 Stop Date: 04/22/23 Status: Eotnrcs24 hr metoprolol succinate 25 mg extended release oral tablet (5 sources)beta-Adrenergic BlockerStart: 90-93-1338yqck 1 tablet by mouth once dailymetoprolol succinate XL (Toprol-XL) 25 MG 24 hr tablet Take 25 mg by mouth Daily 12/26/2023 ActivemetroNIDAZOLE 0.0075 mg/mg topical gel (7 sources)Nitroimidazole AntimicrobialStart: 01-28-4006lfnvkBKTFYHOA (Metrogel) 0.75 % gel Apply topically 2 (two) times a day to affected area 01/02/2024ctive montelukast 10 mg oral tablet (1 source)Leukotriene Receptor AntagonistStart: 16-99-0256jhns 1 tablet by mouth once daily in the eveningSingulair 10 mg Tab 10 mg = 1 tab(s), Oral, qPM, # 90 tab(s), Refills(s) 3, Pharmacy: [facility]/pharmacy #[id number], 157, cm, 02/01/24 10:28:00 EDT, Height/Length Dosing, 67.8, kg, 02/01/24 10:28:00 EDT, WeightDosing Start Date: 02/01/24 Status: Orderedolopatadine 2 mg/ml ophthalmic solution (1 source)Histamine-1 Receptor InhibitorStart: 33-18-5753Cqdwvke 0.2% Soln-Opth 1 drop(s), OPTH, Daily, 2.5 mL, Refill(s) 0, [facility]/pharmacy #[id number], 157, cm, 10:28:00 EDT, Height/Length Dosing, 67.8, kg, 02/01/24 10:28:00 EDT, Weight Dosing Start Date: 02/01/24 Status: Orderedpimecrolimus 10 mg/ml topical cream (16 sources)Calcineurin Inhibitor ImmunosuppressantStart: 11-29-2023 End: 78-06-7630ltoijpmlsdfs (Elidel) 1 % cream Indications: Flexural atopic dermatitis Apply topically 2 (two) times a day 30 g 3 12/06/2023 12/05/2024 ActiveprednisoLONE acetate 10 mg/ml ophthalmic suspension (13 sources)CorticosteroidStart: 08-30-2023 End: 88-76-2118rwqfleeuQEFC Opth acetate 1% Susp 5 mL 1 drop(s), OPTH, BID for 7 day(s), 15 mL, Refill(s) 1, [facility]/pharmacy #[id number], 157, cm, 08/30/23 7:05:00 EDT, Height/Length Dosing, 64.1, kg, 08/30/23 7:05:00 EDT, Weight Dosing Start Date: 08/30/23 Stop Date: 09/13/23 Status: OrderedStart: 08-02-2023 End: 84-39-9854dgta 1 drop(s) into the eye(s) every four hoursprednisoLONE acetate ophthalmic 0.12% suspension 1 drop(s), Eye-Both, q4hr for 10 day(s), 5 mL, Refill(s) 0 Start Date: 08/02/23 Stop Date: 08/12/23 Status: OrderedStart: 61-34-2528ympl 1 drop(s) into the eye(s) every three hoursprednisoLONE acetate (Pred-Forte) 1 % ophthalmic suspension INSTILL 1 DROP IN BOTH EYES EVERY 3 HOURS 06/14/2023 ActiveStart: 66-64-2419sjoc 1 drop(s) into the eye(s) every three hoursprednisoLONE acetate (PRED FORTE) 1 % ophthalmic suspension Use 1 Drop in both eyes every 3 hours. 15 mL 0 06/14/2023 ActiveComment on above:Use 1 Drop in both eyes every 3 hours.spironolactone 25 mg oral tablet (6 sources)Aldosterone AntagonistStart: 16-51-0112iirjzspzidkoxk (Aldactone) 25 MG tablet Take 25 mg by mouth 01/02/2024 Active{2 (magnesium sulfate 900 MG / polyethylene glycol 3350 046165 MG / potassium chloride 1120 MG / sodium chloride 500 MG / sodium sulfate 7300 MG Powder for Oral Solution) } Pack [Suflave] (1 source)Start: 63-04-3638Iopdcsk oral powder for reconstitution kit See Instructions, 1 EA, Refill(s) 0, samples given to patient (Rx), LOT# [id number] EXP 09/10/25 Start Date: 03/31/24 Status: Ordered Completed/Discontinued Medications MedicationDrug Class(es)DatesSig (Normalized)Sig (Original)dextran 70 1 mg/ml / hypromellose 3 mg/ml ophthalmic solution (1 source)Plasma Volume ExpanderStart: 06-14-2023 End: 42-99-2465Xgaulpc 70-Hypromellose, PF, (BION TEARS) 0.1-0.3 % dpet Use 1 Drop in both eyes as needed. 36 Each3 06/14/2023 06/15/2023 DiscontinuedComment on above:Use 1 Drop in both eyes as needed. Problems Active Problems Problem ClassificationProblemDateDocumented DateEpisodic/ChronicAbdominal pain (3 sources)Epigastric pain; Translations: [Epigastric pain]Onset: 03-17-2024 EpisodicAdministrative/social admission (1 source)Patient encounter status; Translations: [Persons encountering health services in other specified circumstances]Onset: 11-18-2291OzjpbeuuXxrsmarx reactions (16 sources)Allergic condition; Translations: [Other nonmedicinal substance allergy status]Onset: 422172-56-0940PqkbinkrLcgwedt disorders (14 sources)Anxiety disorder; Translations: [Other specified anxiety disorders] Onset: 44-73-4107ZcxbjbkPkzqwgn dysrhythmias (5 sources)Zydhlzeurxvz41-47-6792UqnrgxmyXfahvqdtsp associated with dizziness or vertigo (20 sources)Dizziness; Translations: [Dizziness and giddiness]Onset: 08-02-2023 40-40-1821UezztzrnWxhggqboew and other anemia (13 sources)Ujmxuq64-01-5744XqbsxtrfOsqbnsimpb and other anemia (2 sources)Other specified anemias; Translations: [Other specified anemias] Onset: 38-39-4745FufnsoavHqpoczguobaig symptoms and ill-defined conditions (20 sources)Increased frequency of urination; Translations: [Frequency of micturition]Onset: 99-88-9179JqtsayxyJwykurtso (18 sources)Chronic hepatitis C; Translations: [Chronic viral hepatitis C]Onset: 386336-16-9382NafpwkpVjjwqqcyzxds; infection of eye (except that caused by tuberculosis or sexually transmitteddisease) (4 sources)Chronic conjunctivitis; Translations: [Unspecified chronic conjunctivitis, unspecified eye]Onset: 44-23-5072KsbxgriRglzibpbhxgu; infection of eye (except that caused by tuberculosis or sexually transmitteddisease) (6 sources)Unspecified acute conjunctivitis, bilateral; Translations: [Conjunctivitis]Onset: 88-75-6087VuvqlrmeYuwoqetfix infection (14 sources)Infection caused by Helicobacter pylori; Translations: [Bacterial intestinal infectious disease]Onset: 359696-70-4999JfbcxjygWawvymt and fatigue (19 sources)Fatigue; Translations: [Other fatigue]Onset: EpisodicMenstrual disorders (7 sources)Irregular periods; Translations: [Irregular menstruation, unspecified]Onset: 54-17-2612XelcnsmFhmi disorders (18 sources)Depressive disorder; Translations: [Moderate recurrent major depression]Onset: 693588-43-7903RlsxybxVvgbonaymhe deficiencies (18 sources)Vitamin D deficiency; Translations: [Vitamin D deficiency, unspecified]Onset: 444053-70-5860FmtrpzfGsjjr connective tissue disease (2 sources)Muscle swkw80-24-4012HjvxbrkwDacvo eye disorders (1 source)Edema of unspecified eye, unspecified eyelid; Translations: [Eyelid gland swelling]Onset: 08-90-7830MnkxzxxkEvsgu eye disorders (1 source)Tear film insufficiency; Translations: [Dry eye syndrome of unspecified lacrimal gland]Onset: 86-56-4198NeildyywTxegg eye disorders (3 sources)Bilateral epiphora of fldq47-06-4699VaxhlrikByauc eye disorders (11 sources)Red cja39-83-2146OrvsgvkuCesxm eye disorders (1 source)Disorder of eye region; Translations: [Other specified disorders of eye and adnexa]Onset: 82-30-0847ImjjgsxwKtofn gastrointestinal disorders (1 source)Swollen abdomen; Translations: [Abdominal distension (gaseous)]Onset: 90-95-3324TgippubbYaalc gastrointestinal disorders (2 sources)Abdominal vpjusioz25-94-3340MrpazguaWevkt infections; including parasitic (1 source)H/O: infectious disease; Translations: [Personal history of other infectious and parasitic diseases]Onset: 25-51-3834AeffytsmYmrij infections; including parasitic (5 sources)History of Helicobacter pylori shbtvwpzu07-98-2073AwwldiqyYzsbx inflammatory condition of skin (1 source)Ocular rosacea; Translations: [Other rosacea]98-57-2288DogoefzSmdvo inflammatory condition of skin (11 sources)Itching of zrg83-76-4780SvabzfgjUqkxp nutritional; endocrine; and metabolic disorders (5 sources)Body mass index 25-29 - fbigbwsohc77-20-6842LmltgmklDabue nutritional; endocrine; and metabolic disorders (1 source)Abnormal weight loss; Translations: [Abnormal weight loss]Onset: 09-26-0430SlcpsdfmEhmxm nutritional; endocrine; and metabolic disorders (11 sources)Weight szvs84-17-0995PkwpagmpYaqve nutritional; endocrine; and metabolic disorders (4 sources)Overweight in adulthood with body mass index of 25 or more but less than 30; Translations: [Body mass index (BMI) 26.0-26.9, adult]Onset: 08-30-2023 EpisodicOther nutritional; endocrine; and metabolic disorders (10 sources)Overweight; Translations: [Overweight]Onset: 63-94-5621UdicfbbiZjsxj screening for suspected conditions (not mental disorders or infectious disease) (3 sources)Encounter for screening mammogram for malignant neoplasm of breast; Translations: [Screening for malignant neoplasm done]Onset: 95-41-0086Mjyihxex Other skin disorders (2 sources)Eruption; Translations: [Rash and other nonspecific skin eruption] Onset: 22-32-9291NjkmqtspLbkyo skin disorders (1 source)Hypertrichosis; Translations: [Hypertrichosis, unspecified]Onset: 87-12-0261EwukhzmcEvcrf skin disorders (1 source)Excessive hair wbadwu92-52-3708FohvjhlgJfsgq upper respiratory disease (1 source)Allergic rhinitis due to animals; Translations: [Allergic rhinitis due to animal (cat) (dog) hair and dander]Onset: 58-57-1589QfedzurOsnyg upper respiratory disease (13 sources)Breath smells wblaegwpfn18-58-2309MkvlowtrDpxgnjxb codes; unclassified (13 sources)Scdiboho55-65-6921HoqelbnvXgszqhuf codes; unclassified (13 sources)Nicotine-filled electronic cigarette epix43-84-0517IvgtihowLtvuidow codes; unclassified (7 sources)Family history of endocrine disorders; Translations: [Family history of other endocrine, nutritional and metabolic diseases]Onset: 19-21-6373Nhfifzzv Residual codes; unclassified (8 sources)Family history of fuuqdixu06-51-5682SsmodjobQdryzjsa codes; unclassified (4 sources)Tobacco user; Translations: [Tobacco use]Onset: 13-26-8333Jmpjkfdm Residual codes; unclassified (6 sources)Family history of diabetes mellitus; Translations: [Family history of diabetes mellitus]Onset: 52-10-8530UybvctpkVfuambmg codes; unclassified (1 source)FH: Blood disorder; Translations: [Family history of diseases of the blood and blood-forming organsand certain disorders involving the immune mechanism]Onset: 76-16-3791ZjwlfbywHichdgfu codes; unclassified (3 sources)FH: Autoimmune ulkqbnd50-93-3517YmudxcejUztrbncdn-vitrbih disorders (1 source)Nicotine dependence, cigarettes, uncomplicated; Translations: [NICOTINE DEPEND CIGARETTES UNCOMP]Onset: 22-94-0088XyvfgbhGvjruibim-related disorders (8 sources)Cannabis misuse; Translations: [Cannabis use, unspecified, uncomplicated]Onset: 66-05-3315HsdsiachVimytqf (5 sources)Near lgfeaml68-16-7523AfbwffpmSszceiivfcfn (1 source)Unknown / UNK(Unknown)Onset: 13-37-6475Vfhhukpsmqgd (13 sources)Pain of left shoulder gmaoqd15-62-4541Xqgzixxlqcdz (16 sources)Patient encounter tqaoop08-59-3815Ynwvxskkldjj (6 sources)Allergy to domestic cat mcrzoin77-10-8499Lroipcwcroxw (4 sources)Eruption of skin of rpjo36-12-3007 Past or Other Problems Problem ClassificationProblemDateDocumented DateEpisodic/ChronicE Codes: Natural/environment (1 source)Overexertion from prolonged static or awkward postures, initial encounter; Translations: [OVEREXERTPROLNG STAT/AWK PST INIT]Onset: 11-04-2020 EpisodicOther eye disorders (4 sources)Dry eyes; Translations: [Dry eye syndrome of bilateral lacrimal glands]44-55-6861JcwhumekTpvws non-traumatic joint disorders (4 sources)Pain in right knee; Translations: [PAIN IN RIGHT KNEE]Onset: 30-69-2391YgidgbywTmvps non-traumatic joint disorders (1 source)Effusion, right knee; Translations: [EFFUSION RIGHT KNEE]Onset: 59-44-3337BorzmjtfRukarjcchlmq (1 source)D50.9,Z79.899,E55.9E78.5,Z00.00,R53.83,R51,Onset: 11-16-2016 Results Test NameValueInterpretationReference RangeFacilityAmbulatory Visit Summaryon 20-29-4117Katulbyhmu Visit SummaryAmbulatory Visit Summary FREDI ELLIOTT :1975 Visit Date:02/26/2025 Ambulatory Visit Instructions Your Diagnosis Left knee pain Overweight BMI 25.0-25.9,adult Engages in vaping Tests Performed XR Knee Complete 4+ Views Left -- Results Pending -- Please visit your patient portal for your results or contact your primary care physician. Your Care Team Attending Physician - Danette Briones Primary Care Physician - Lisette Redd This Is Your Medications List ferrous sulfate (ferrous sulfate 325 mg Tab) Procedures Performed Carpal Tunnel surgery, Foot Surgery, Knee Surgery. Discharge Vitals Temperature (Oral) 36.8 ???C Heart Rate (Peripheral) 82 Respiratory Rate 18 Blood Pressure 130/82 Height 157 cm Height 62 in Weight 63 kg Weight 138.891 lb BMI 25.56 What to do next Scheduled Follow-Up Appointments Sunday 10:20 AM EST With: Danette Briones Where: [facility] [address] [address]- Medications What How Much When Instructions Unchanged ferrous sulfate (ferrous sulfate 325 mg Tab) See instructions TAKE 1 TABLET BY MOUTH TWICE A DAY Allergies Cats (Red eye) Mold (Red eye) lidocaine topical 2% gel (Rash) Problems Ongoing - Any problem that you are currently receiving treatment for. Allergy to mold Anemia Anxiety about health Bloating BMI 25.0-25.9,adult Cat allergies Chronic conjunctivitis Chronic hepatitis C Conjunctivitis Current every day nicotine vaping Dizziness Engages in vaping Epigastric pain Facial rash Family history of autoimmune disorder Fatigue GENIE (generalized anxiety disorder) H. pylori infection Halitosis History of Helicobacter pylori infection Insomnia Irregular menses Itchy eyes Left knee pain Left shoulder pain Marijuana use, continuous Moderate recurrent major depression Myalgia Near syncope Orthostatic dizziness Overweight Palpitations Red eyes Screen for colon cancer Urinary urgency Vitamin D deficiency disease Weight loss Patient Survey You may receive a survey via text or e-mail asking about your office visit. Please share your experience with us by completing your survey. We appreciate your feedback and thank you for choosing us for your care. Patient Portal You may access all of your results and other medical record information on our secure patient portal. If you are not signed up for this yet, please contact [employer] at [phone] to get signed up today. Language Information Language assistance services are available as needed. [facility] Medicine Office/Clinic Noteon [phone] Chief Complaint Leg pain HPI Staff Lisette Contreras pt. Has not been seen since 03/2024. Presenting today due to BL leg pain. Wanting referral to PT. Pain characteristics: Pain location: Lt Knee Intensity:_12/21 Onset: ongoing for yrs Medication used: Aleve History of Present Illness pt c/o left knee pain Review of Systems PHQ Score Initial Depression Screen Score: 0 SCORE General: alert, no acute distress ENMT: oral mucosa moist, no pharyngeal erythema or exudate Cardiovascular: regular rate and rhythm, normal peripheral perfusion Respiratory: Lungs CTA, respirations non labored Extremities: no deformity, no trauma Neurological: oriented x 4, LOC appropriate for age, CN II-XII intact, motor strength equal & normal bilaterally, speech normal Physical Exam Vitals & Measurements T: 36.8 ???C(Oral) HR: 82(Peripheral) RR: 18 BP: 130/82 SpO2: 98% HT: 157 cm HT: 62 in WT: 138.891 lb WT: 63 kg BMI: 25.56 Assessment/Plan 1. Left knee pain (M25.562: Pain in left knee) pt tore her meniscus years ago and was scheduled to have surgery but was so they cancelledsurgery. she never followed up and now her left knee keeps flaring up. she has a new job and goes up and down stairs at work and her knee is really bothering her. will order x ray, medrol dose pack and meloxicam. RTC 4 weeks. will also send referral to [facility] PT. Ordered: meloxicam, 15 mg = 1 tab(s), Oral, Daily, # 30 tab(s), Refills(s) 0, Pharmacy: [facility]/pharmacy #[id number], 157, cm, 02/26/25 13:01:00 EDT, Height/Length Dosing, 63, kg, 02/26/25 13:01:00 EDT, Weight Dosing methylPREDNISolone, = 1 packet(s), Oral, As Directed, as directed on package labeling, X 6 day(s), # 21 tab(s), Refills(s) 0, Pharmacy: [facility]/pharmacy #[id number], 157, cm, 02/26/25 13:01:00 EDT, Height/Length Dosing, 63, kg, 02/26/25 13:01:00 EDT, Weight Dosing Physical Therapy Evaluation - External Facility XR Knee Complete 4+ Views Left 2. Overweight (E66.3: Overweight) see above Ordered: meloxicam, 15 mg = 1 tab(s), Oral, Daily, # 30 tab(s), Refills(s) 0, Pharmacy: [facility]/pharmacy #[id number], 157, cm, 02/26/25 13:01:00 EDT, Height/Length Dosing, 63, kg, 02/26/25 13:01:00 EDT, Weight Dosing methylPREDNISolone, = 1 packet(s), Oral, As Directed, as directed on package labeling, X 6 day(s), # 21 tab(s), Refills(s) 0, Pharmacy: [facility]/pharmacy #[id number], 157, cm, 02/26/25 13:01:00 EDT, Height/Length Dosing, 63, kg, 02/26/25 13:01:00 EDT, Weight Dosing Physical Therapy Evaluation - External Facility XR Knee Complete 4+ Views Left 3. BMI 25.0-25.9,adult (Z68.25: Body mass index [BMI] 25.0-25.9, adult) BMI education Ordered: meloxicam, 15 mg = 1 tab(s), Oral, Daily, # 30 tab(s), Refills(s) 0, Pharmacy: [facility]/pharmacy #[id number], 157, cm, 02/26/25 13:01:00 EDT, Height/Length Dosing, 63, kg, 02/26/25 13:01:00 EDT, Weight Dosing methylPREDNISolone, = 1 packet(s), Oral, As Directed, as directed on package labeling, X 6 day(s), # 21 tab(s), Refills(s) 0, [id number], cm, 02/26/25 13:01:00 EDT, Height/Length Dosing, 63, kg, 02/26/25 13:01:00 EDT, Weight Dosing Physical Therapy Evaluation - External Facility XR Knee Complete 4+ Views Left 4. Engages in vaping (Z72.89: Other problems related to lifestyle) consider not vaping Ordered: meloxicam, 15 mg = 1 tab(s), Oral, Daily, # 30 tab(s), Refills(s) 0, [id number] 157, cm, 02/26/25 13:01:00 EDT, Height/Length Dosing, 63, kg, 02/26/25 13:01:00 EDT, Weight Dosing methylPREDNISolone, = 1 packet(s), Oral, As Directed, as directed on package labeling, X 6 day(s), # 21 tab(s), Refills(s) 0, [id number], 157, cm, 02/26/25 13:01:00 EDT, Height/Length Dosing, 63, kg, 02/26/25 13:01:00 EDT, Weight Dosing Physical Therapy Evaluation - External Facility XR Knee Complete 4+ Views Left Follow-up With When Contact Information Danette Briones, MARLENY, MED In 4 weeks 03/03/[address] [place] [address] Business (1) Additional Instructions: Problem List/Past Medical History Ongoing Allergy to mold Anemia Anxiety about health Bloating BMI 25.0-25.9,adult Cat allergies Chronic conjunctivitis Chronic hepatitis C Conjunctivitis Current every day nicotine vaping Dizziness Engages in vaping Epigastric pain Facial rash Family history of autoimmune disorder Fatigue GENIE (generalized anxiety disorder) H. pylori infection Halitosis History of Helicobacter pylori infection Insomnia Irregular menses Itchy eyes Left knee pain Left shoulder pain Marijuana use, continuous Moderate recurrent major depression Myalgia Near syncope Orthostatic dizziness Overweight Palpitations Red eyes Screen for colon cancer Urinary urgency Vitamin D deficiency disease Weight loss Historical No qualifying data Procedure/Surgical History Carpal Tunnel surgery, Foot Surgery, Knee Surgery. Medications cami (more content not included)...[facility] HospitalComment on above:Result Comment: Electronically Signed By: Tanisha BLEVINS, Danette Greer\.yvonne\Date and Time Signed: 02/26/25 14:01 EDTSurgical Pathology Reporton [id number] Pathology ReportWay[facility] [address] [place] [address]- Surgical Pathology Report Collected Date/Time: 04/01/2024 09:45 EST Pathologist: Artemio CURTIS PhD, Vanessa Greer Received Date/Time: 04/01/2024 15:16 EST Rona CURTIS, David Rea MD, David Chavira 07 Surgical Pathology Report - 04/07/2024 11:41 EST - Auth (Verified) Final Diagnosis STOMACH, RANDOM BIOPSIES: - MILD CHRONIC INACTIVE GASTRITIS. - NO INTESTINAL METAPLASIA. - NO H. PYLORI MICROORGANISMS IDENTIFIED WITH IMMUNOSTAIN (SEE COMMENT). (Electronic Signature) Vanessa Ulloa MD PhD 04/07/2024 11:41 Diagnosis Comment Although no H. pylori microorganisms are identified with immunostain, clinical correlation is indicated to rule out status post treatment of H. pylori gastritis. Clinical Information Epigastric pain, bloating, H. pylori infection, screening colon Pre-Op Diagnosis: Epigastric pain, bloating, H. pylori infection, screening colon Procedure: EGD Post-Op Diagnosis: 1. Normal esophagus, Z-line was noted at 35 cm 2. Normal gastric mucosa, random gastric biopsies obtained for H. pylori 3. Normal duodenum Specimen(s) Received Random gastric biopsies Gross Description Received in formalin labeled with patient name, number, and random gastric biopsies are two fragments of moore tissue measuring 0.1 and 0.2 cm. Specimen is entirely submitted in one cassette. (DC) DC:[facility] Microscopic Description Microscopic examination performed unless gross only specified. The use of one or more reagents in the above tests is regulated as an analyte specific reagent (ASR). The test or tests are ordered following initial H&E microscopic examination. The performance characteristics were determined by the Laboratory of [facility]. They have not been cleared or approved by the US Food and Drug Administration. The FDA has determined that such clearance or approval is not necessary. These tests are used for clinical purposes. They should not be regarded as investigational or for research. Appropriate positive and negative controls are performed and are acceptable. [facility] HospitalComment on above:Performed By: #### [id number] #### [facility] [address] [place], [place] [address]Yjhtpoxjue Visit Summaryon [id number] Visit Summary Ambulatory Visit Summary FREDI ELLIOTT :1975 Visit Date:03/17/2024 Ambulatory Visit Instructions Your Diagnosis Chronic hepatitis C H. pylori infection Bloating Epigastric pain Encounter for screening colonoscopy Your Care Team Attending Physician - David Rea MD Primary Care Physician - Lisette Redd This Is Your Medications List Contact prescribing physician if questions or concerns cycloSPORINE ophthalmic (Cequa 0.09% ophthalmic solution) ferrous sulfate (ferrous sulfate 325 mg Tab) Procedures Performed Carpal Tunnel surgery, Foot Surgery, Knee Surgery. Discharge Vitals Heart Rate (Peripheral) 100 Respiratory Rate 16 Blood Pressure 136/93 Height 62 in Height 157 cm Weight 147.4 lb Weight 67 kg BMI 27.18 What to do next Scheduled Follow-Up Appointments Sunday 10:00 AM EST With: Lisette Redd Where: [facility] [address], [place] [address]- You Need to Complete the Following HCV RNA by PCR, Qn Rfx Bruna, Blood, Routine collect, 03/17/24, Order for future visit, Lab Collect,Chronic hepatitis C, Print Label By Order Location Medications What How Much When Instructions Unchanged cycloSPORINE ophthalmic (Cequa 0.09% ophthalmic solution) 1 Drops Both eyes Every day Contact prescribing physician if questions or concerns Unchanged ferrous sulfate (ferrous sulfate 325 mg Tab) 1 Tablets By Mouth 2 times a day Contact prescribing physician if questions or concerns Allergies Cats (Red eye) Mold (Red eye) lidocaine topical 2% gel (Rash) Problems Ongoing - Any problem that you are currently receiving treatment for. Allergy to mold Anemia Anxiety about health Bloating Cat allergies Chronic conjunctivitis Chronic hepatitis C Conjunctivitis Current every day nicotine vaping Dizziness Epigastric pain Facial rash Family history of autoimmune disorder Fatigue GENIE (generalized anxiety disorder) H. pylori infection Halitosis History of Helicobacter pylori infection Insomnia Irregular menses Itchy eyes Left shoulder pain Marijuana use, continuous Moderate recurrent major depression Myalgia Near syncope Orthostatic dizziness Overweight Palpitations Red eyes Screen for colon cancer Urinary urgency Vitamin D deficiency disease Weight loss Patient Survey You may receive a survey via text or e-mail asking about your office visit. Please share your experience with us by completing your survey. We appreciate your feedback and thank you for choosing us for your care. [facility] Office/Clinic Noteon [id number] Office/Clinic NoteGastroenterology Office/Clinic Note Chief Complaint ref for stomach bloating, epigastric pain, bad breathe HPI Staff Patient is a 48 year old female who was referred by [facility] for hx chronic hep C and CRC screening. Hx h pylori - quad tx prescribed in 2019 - no repeat BT or scope to test for eradication. Now c/o stomach bloating, epigastric pain, sometimes radiates to the back. and bad breath. Denies previous colonoscopy. Denies Fhx colon cancer. Denies blood thinners/diabetic injectables. Last GI visit 03/11/19 w/Dr. Astorga: Assessment/Plan 1. Chronic hepatitis C (B18.2: Chronic viral hepatitis C) Treated 10 years ago with interferon for one year. Quit heroin 15 years ago Heavy alcohol drinker, discussed decreasing alcohol intake Positive HCV Abx HCV PCR and GT Tox screen Liver US Consider treatment 2. Helicobacter pylori infection (A04.8: Other specified bacterial intestinal infections) Quadruple therapy prescribed but has not taken it yet Advised her to take it Retest post treatment ordered before -discussed 3. Halitosis (R19.6: Halitosis) No reflux EGD 02/25/19 biopsy from the stomach was positive for H pylori 4. Anemia (D64.9: Anemia, unspecified) Reported history No anemia on labs performed at [facility] EGD 01/28/19: Impression and Plan mild gastritis, biopsied Pathology: Final Diagnosis (Verified) STOMACH, BIOPSY: ??? ANTRAL MUCOSA WITH CHRONIC ACTIVE H. PYLORI GASTRITIS. ??? H. PYLORI MICROORGANISMS IDENTIFIED WITH IMMUNOSTAIN. Liver Studies A-1-AT: 140 (03/05/19) AMA Ab Scr: <20.0 (03/05/19) XOCHITL Direct: Negative (08/03/23) Ferritin Lvl: 11 ng/mL (05/10/20) Ferritin Lvl: 32 ng/mL (03/05/19) HCV Ab: Reactive Abnormal (08/03/23) HCV Ab: >11.0 High (03/05/19) Hep A Ab: Positive Abnormal (03/05/19) Hep A IgM: Negative (08/03/23) Hep B Core IgM: Negative (08/03/23) Hep B Core IgM: Negative (03/05/19) Hep Bs Ag: Negative (08/03/23) Hep Bs Ag: Negative (03/05/19) Iron: 154 mcg/dL High (08/16/23) Iron: 21 mcg/dL Low (04/16/23) Iron: 95 mcg/dL (05/10/20) Iron: 140 mcg/dL (03/05/19) Phenotype (PI): MM (03/05/19) SMA Scr: 7 (03/05/19) TIBC: 407 mcg/dL High (04/16/23) TIBC: 390 mcg/dL (03/05/19) Transferrin: 291 mg/dL (04/16/23) Transferrin: 279 mg/dL (03/05/19) HCV quant: HCV Not Detected Review of Systems PHQ Score Initial Depression Screen Score: 2 SCORE Physical Exam Vitals & Measurements HR: 100(Peripheral) RR: 16 BP: 136/93 HT: 62 in HT: 157 cm WT: 67 kg WT: 147.4 lb BMI: 27.18 Assessment/Plan 1. Chronic hepatitis C (B18.2: Chronic viral hepatitis C) Status post therapy of interferon years ago, last checked in July 2023, RNA not detectable, quit IV drug use more than 20 years ago, currently only smoking marijuana, consider repeating RNA July 2024, ordered Ordered: E&M of New Patient Moderate 45-59 Min 18793 HCV RNA by PCR, Qn Rfx Bruna 2. H. pylori infection (A04.8: Other specified bacterial intestinal infections) Detected [address] Astorga, patient not sure if she got the quadruple therapy or not, repeat EGDwith random gastric biopsies, especially she is reporting occasional bloating and discomfort in herepigastric area Ordered: E&M of New Patient Moderate 45-59 Min 88731 EGD Endoscopy (Hospital Procedure) 3. Bloating (R14.0: Abdominal distension (gaseous)) Ordered: E&M of New Patient Moderate 45-59 Min 91243 EGD Endoscopy (Hospital Procedure) 4. Epigastric pain (R10.13: Epigastric pain) Ordered: EGD Endoscopy (Hospital Procedure) Encounter for screening colonoscopy (Z12.11: Encounter for screening for malignant neoplasm of colon) Discussed risk and benefits, proceed with colonoscopy Ordered: Colonoscopy (Hospital Procedure) Follow-up No qualifying data available Problem List/Past Medical History Ongoing Allergy to mold Anemia Anxiety about health Bloating Cat allergies Chronic conjunctivitis Chronic hepatitis C Conjunctivitis Current every day nicotine vaping Dizziness Epigastric pain Facial rash Family history of autoimmune disorder Fatigue GENIE (generalized anxiety disorder) H. pylori infection Halitosis History of Helicobacter pylori infection Insomnia Irregular menses Itchy eyes Left shoulder pain Marijuana use, continuous Moderate recurrent major depression Myalgia Near syncope Orthostatic dizziness Overweight Palpitations Red eyes Screen for colon cancer Urinary urgency Vitamin D deficiency disease Weight loss Historical No qualifying data Procedure/Surgical History Carpal Tunnel surgery, Foot Surgery, Knee Surgery. Medications Cequa 0.09% ophthalmic solution, 1 drop(s), Eye-Both, Daily ferrous sulfate 325 mg Tab, 325 mg= 1 tab(s), Oral, BID, 2 refills Allergies Cats (Red eye) Mold (Red eye) lidocaine topical 2% gel (Rash) Social History Alcohol Current. Beer. 1-2 times per week., 03/17/2024 Exercise (more content not included)...[facility] HospitalComment on above:Result Comment: Electronically Signed By: Rona CURTIS, David Chavira\.br\Date and Time Signed: 03/17/24 11:00 ESTAmbulatory Visit Summaryon [id number] Visit SummaryAmbulatory Visit Summary FREDI ELLIOTT :1975 Visit Date:02/01/2024 Ambulatory Visit Instructions Your Diagnosis Facial rash Conjunctivitis Marijuana use, continuous Current every day nicotine vaping GENIE (generalized anxiety disorder) Moderate recurrent major depression Anxiety about health Family history of autoimmune disorder Chronic conjunctivitis Fatigue Adult BMI 27.0-27.9 kg/sq m Blurring of vision Overweight Your Care Team Attending Physician - Lisette Redd Primary Care Physician - Lisette Redd This Is Your Medications List buPROPion (Wellbutrin SR 150 mg Tab-ER) montelukast (Singulair 10 mg Tab) olopatadine ophthalmic (Pataday 0.2% Soln-Opth) Contact prescribing physician if questions or concerns cycloSPORINE ophthalmic (Cequa 0.09% ophthalmic solution) dexamethasone/neomycin/polymyxin B ophthalmic (dexamethasone/neomycin/polymyxin B Opth Oint) ferrous sulfate (ferrous sulfate 325 mg Tab) metronidazole topical (metronidazole topical 0.75% gel) ocular lubricant (GenTeal Tears Moderate ophthalmic solution) [Image Removed: STOP]Stop taking these medications escitalopram (Lexapro 5 mg oral tablet) Procedures Performed Carpal Tunnel surgery, Foot Surgery, Knee Surgery. Discharge Vitals Temperature (Temporal Artery) 36.7 ?C Heart Rate (Peripheral) 95 Respiratory Rate 18 Blood Pressure 120/76 Height 157 cm Height 62 in Weight 67.8 kg Weight 149.16 lb BMI 27.51 What to do next Someone Will Contact You Regarding These Appointments [facility] External Ambulatory Referral, Rheumatology, 02/01/24 10:51:00 EDT, Fatigue Family history ofautoimmune disorder Chronic conjunctivitis [facility] External Ambulatory Referral, Ophthalmology, 02/01/24 10:55:00 EDT, Conjunctivitis Chronic conjunctivitis Blurring of vision Medications What How Much When Why Instructions New buPROPion (Wellbutrin SR 150 mg Tab-ER) 1 Tablets By Mouth 2 times a day start at once a day for 1-2 weeks. then increase to twice a day Pickup at [facility]/pharmacy #[id number] New montelukast (Singulair 10 mg Tab) 1 Tablets By Mouth Once a day (in the evening) Chronic conjunctivitis Refills: 3 Pickup at [facility]/pharmacy #[id number] New olopatadine ophthalmic (Pataday 0.2% Soln-Opth) 1 Drops Ophthalmic Every day Conjunctivitis Pickup at [facility]/pharmacy #[id number] Unchanged cycloSPORINE ophthalmic (Cequa 0.09% ophthalmic solution) 1 Drops Both eyes Every day Contact prescribing physician if questions or concerns Unchanged dexamethasone/ neomycin/ polymyxin B ophthalmic (dexamethasone/ neomycin/ polymyxin B Opth Oint) 1 Application Ophthalmic 3 times a day Contact prescribing physician if questions or concerns Unchanged ferrous sulfate (ferrous sulfate 325 mg Tab) 1 Tablets By Mouth 2 times a day Contact prescribing physician if questions or concerns Unchanged metronidazole topical (metronidazole topical 0.75% gel) 1 Application Topical 2 times a day Facial rash Excessive hair Contact prescribing physician if questions or concerns Unchanged ocular lubricant (GenTeal Tears Moderate ophthalmic solution) 2 Drops INSTILL 1 DROP INTOEACH EYE NEEDED Contact prescribing physician if questions or concerns Pharmacy Information [facility]/pharmacy #[id number]: [address], [place] [id number] [phone] What How Much When Comments Stop Taking escitalopram (Lexapro 5 mg oral tablet) 1 Tablets By Mouth Every day may double after 2weeks. Allergies Cats (Red eye) Mold (Red eye) lidocaine topical 2% gel (Rash) Problems Ongoing - Any problem that you are currently receiving treatment for. Allergy to mold Anemia Anxiety about health Cat allergies Chronic conjunctivitis Chronic hepatitis C Conjunctivitis Current every day nicotine vaping Dizziness Facial rash Family history of autoimmune disorder Fatigue GENIE (generalized anxiety disorder) H. pylori infection Halitosis History of Helicobacter pylori infection Insomnia Irregular menses Itchy eyes Left shoulder pain Marijuana use, continuous Moderate recurrent major depression Near syncope Orthostatic dizziness Overweight Palpitations Red eyes Screen for colon cancer Urinary urgency Vitamin D deficiency disease Weight loss Patient Survey You may receive a survey via text or e-mail asking about your office visit. Please share your experience with us by completing your survey. We appreciate your feedback and thank you for choosing us for your care. [facility] Medicine Office/Clinic Noteon [id number] Medicine Office/Clinic NoteFaholy family hospital [facility] Office/Clinic Note Chief Complaint 1 month follow up-eye and skin issues HPI Staff Reason for visit: 1 month follow up-Fatigue and eye issues Note: Patient states her skin issues have gotten better but her eye issues are the same. Patient states her vision has gotten worse. Last PHQ9: 18 Last GENIE: 17 Current PHQ9: 14 Current GENIE: 13 History of Present Illness -I have reviewed and discussed the HPI (staff) with the patient today. -Information was verified and is correct. -Additional information provided if needed. FACIAL SKIN Went to dermatology - a little bit better. Patient saw Genia the NAPPER FIXER with [facility] in [place] no lotions, Crave Aquaphor at night. OTC - helping tried hydrocortisone 2.5 % as needed Patient stopped taking spironolactone due to possible side effects She is not that worried about excessive facial hair Has been to endocrinology without any abnormal findings. She saw Dr. Merino in [place] Starting to complain of some intermittent menstraul Changes and hormone fluctuations EYES- HAS BEEN TO 3 different ophthalmology- currently going to [facility]- IS[facility]? - vision getting worse- still with swelling patient is getting frustrated- it has been Allergy testing- cats, mold, +++ takes allergy meds daily PATADAY- drops? have them available ? almost out- DEPRESSION -patient denies any thoughts of suicide or homicide. Mood seems to be better since skin is improvedslightly cannot take the Lexapro due to inability to climax and have an orgasm. She stopped taking the medicine. Struggling with weight. Has gained 10 to 12 pounds , she craves sweets Review of Systems PHQ Score Initial Depression Screen Score: 3 SCORE Physical Exam Vitals & Measurements T: 36.7 ?C(Temporal Artery) HR: 95(Peripheral) RR: 18 BP: 120/76 SpO2: 98% HT: 62 in HT: 157 cm WT: 67.8 kg WT: 149.16 lb BMI: 27.51 General: alert, no acute distress, wellappearing, _pleasant Skin: Mild erythema with white patch, dry skin to the right upper lid with mild edema. IMPROVEMENT to Mild erythema and patches to the left face and cheek area with no raised or patchy vesicles noted. Scalp with no erythema, patchy vesicles, or scaly plaque?like lesions anywhere else on the skin. Nails are in good repair. Head: no trauma, normocephalic Neck: Trachea midline, no adenopathy, no tenderness Eye: The patient with injection, erythema to the sclera and conjunctiva bilaterally, worse on the right than the left. Pupils are equal, round, reactive to light. Normal extraocular movements. ENMT: TMs are clear. Canals with no erythema or edema. Cardiovascular: regular rate and rhythm, normal peripheral perfusion, noedema Respiratory: Lungs CTA, respirations non labored Chest wall: no deformity, nontender Gastrointestinal: soft, non distended, no tenderness, no guarding. Back: No tenderness, Normal ROM, Normal alignment. Extremities: no deformity, no trauma Neurological: oriented x 4, LOC appropriate for age, CN II-XII intact, motor strength equal & normal bilaterally, sensation equal & normal bilaterally, speech normal Psychiatric: Calm and cooperative but appears slightly anxious today. She is tearful with normal affect. Assessment/Plan 1. Facial rash (R21: Rash and other nonspecific skin eruption) Improved with Aquaphor and no lotions Continue to follow with dermatology for further recommendations Continue as needed hydrocortisone cream Ordered: spironolactone, 25 mg = 1 tab(s), Oral, BID, # 180 tab(s), Refills(s) 0, Pharmacy: [facility]/pharmacy #[id number], 157, cm, 01/02/24 10:23:00 EDT, Height/Length Dosing, 66.3, kg, 01/02/24 10:23:00 EDT, Weight Dosing 2. Chronic conjunctivitis (H10.409: Unspecified chronic conjunctivitis, unspecified eye) Acute on chronic, for the last year Progressively worsening, intermittent flares noted Patient continues to follow with Dr. Egan? With [facility] ophthalmology Continue drops as previously recommended-Pataday drops [id number] prescription was sent to the pharmacy for refill Patient getting samples of the Cequa drops from eye doctor office, which are $900 a bottle May be allergy related after seeing thread cutter-patient unwilling to give up cats Encouraged [id number] Claritin or Zyrtec Will trial montelukast daily at night Referral placed for [place] [facility]- Ordered: montelukast, 10 mg = 1 tab(s), Oral, qPM, # 90 tab(s), Refills(s) 3, Pharmacy: [facility]/pharmacy #[id number], 157, cm, 02/01/24 10:28:00 EDT, Height/Length Dosing, 67.8, kg, 02/01/24 10:28:00 EDT, Weight Dosing [facility] External Ambulatory Referral [facility] External Ambulatory Referral 3. Marijuana use, continuous (F12.90: Cannabis use, unspecified, uncomplicated) Encourage cessation, patient is minimize use 4. Fatigue (R53.83: Other fatigue) Acute on chronic for the last year Autoimmune testing has been negative thus far,. Patient states mother struggled with autoimmune condition (more content not included)...[facility] HospitalComment on above:Result Comment: Electronically Signed By: Lisette Redd\kathy\Date and Time Signed: 02/01/24 11:13 EDTCalcidiolon [id number] D3 [Mass/Vol]35 ng/mL [id number] Hospital DaytonComment on above:Order Comment: Deficiency: < 20 ng/mlInsufficiency: 20-29 ng/mlSufficiency: 30-100 ng/mlThis assay accurately quantifies the sum of Vitamin D3, 25-Hydroxy and Vitamin D2,25-Hydroxy.Performed By: #### [id number] #### CELESTE LERMA ([id number]) [facility] ([facility]) [address] [place] [id number] [id number] (Vitamin B12) [Mass/Vol]600 pg/sJGveghx299-547NhmbhnkypfCleveland Clinic Children'S Hospital For RehabilitationComment on above: Performed By: #### [id number] #### CELESTE LERMA ([id number]) [facility] ([facility]) [address] [place] [address] 42298Sysccjryunwhn metabolic 2000 panelon 53-08-1755Allnfua BCP dye [Mass/Vol]4.7 g/dLNormal3.4-5.0[facility] Comment on above:Performed By: #### 62170-0 #### CELESTE LERMA ([id number]) [facility] (EM) [address] [place] [address] 70324QCP [Catalytic activity/Vol]41 U/MEqvrnc17-592WgxwyvfdxeCleveland Clinic [facility] For RehabilitationComment on above:Performed By: #### 74519-6 #### CELESTE LERMA ([id number]) [facility] ([facility]) [address] [place] [address] 98327GGZ With P-5'-P [Catalytic activity/Vol]12 U/LNormal7-45 [facility] RehabilitationComment on above:Result Comment: Patients treated with Sulfasalazine may generate falsely decreased results for ALT.Performed By: #### 65549-4 #### ANAIBELISTACEY LERMA ([id number]) [facility] ([facility]) [address] [place] [address] 22488Jslrv gap [Moles/Vol]13 mmol/THjtolg96-23IpkofxwghgCleveland Clinic Children'S Hospital For RehabilitationComment on above:Performed By: #### 74138-5 #### ANAIBELISTACEY LERMA ([id number]) [facility] ([facility]) [address] [place] [address] 67575FED With P-5'-P [Catalytic activity/Vol]15 U/LNormal9-39 [facility] RehabilitationComment on above:Performed By: #### 96755-4 #### ANAIBELISTACEY FRANCISCO PRECIOUS ([id number]) [facility] (C) [address] [place] [address] 88399Pzvqizpdd [Mass/Vol]0.7 mg/dLNormal0.0-1.2[facility] RehabilitationComment on above:Performed By: #### 77846-4 #### ANAIBELISTACEY FRANCISCO PRECIOUS ([id number]) [facility] (EMC) [address] [place] [address] 19920Ynpvhxh [Mass/Vol]9.8 mg/dLNormal8.6-10.3[facility] RehabilitationComment on above:Performed By: #### 55338-7 #### ANAIBELISTACEY FRANCISCO PRECIOUS ([id number]) [facility] (EMC) [address] [place] [address] 80409Qnfnzywt [Moles/Vol]102 mmol/CAulple30-030TwncmaueqhKindred Hospital DaytonComment on above:Performed By: #### 84569-9 #### ANAIBELISTACEY FRANCISCO PRECIOUS ([id number]) [facility] ([facility]) [address] [place] [address] [place] [address]ID0 [Moles/Vol]28 mmol/EHhrswj26-41YrbrurdivuCleveland Clinic Children'S Hospital For RehabilitationComment on above:Performed By: #### 90891-0 #### CELESTE LERMA ([id number]) [facility] (EM) [address] [place] [address] 60202Lmqkncwrce [Mass/Vol]0.90 mg/dLNormal0.50-1.05UnKindred Hospital DaytonComment on above:Performed By: #### 16025-1 #### CELESTE LERMA ([id number]) [facility] (EM) [address] [place] [address] 05397Rqtrxbfzof filtration rate/1.73 sq M.dlkeqtwsa90 mL/min/1.73m*2 Normal>60UnKindred Hospital DaytonComment on above:Result Comment: Calculations of estimated GFR are performed using the 2020 CKD-EPI Study Refit equation without the race variable for the IDMS-Traceable creatinine methods. https://jasn.asnjournals.org/content/early//ASN.3684222856Rhbdvxkdt By: #### 32104-0 #### CELESTE LERMA ([id number]) [facility] ([facility]) [address] [place] [address] 33937Kubifyg [Mass/Vol]148 mg/tUHjtz48-56PbzxxkkortKindred Hospital DaytonComment on above:Performed By: #### 43207-8 #### CELESTE LERMA ([id number]) [facility] ([facility]) [address] [place] [address] 60088Fxvbnnpuo [Moles/Vol]4.5 mmol/LNormal3.5-5.3[facility] RehabilitationComment on above:Performed By: #### 67901-7 #### CELESTE LERMA ([id number]) [facility] (EM) [address] [place] [address] 07629Qtidiqw [Mass/Vol]7.3 g/dLNormal6.4-8.2[facility] RehabilitationComment on above:Performed By: #### 01228-0 #### CELESTE LERMA ([id number]) [facility] ([facility]) [address] [place] [address] 84613Ojtnvw [Moles/Vol]138 mmol/TZpkzqx983-874PxykgfbwrpKindred Hospital DaytonComment on above:Performed By: #### 24975-5 #### CELESTE LERMA ([id number]) [facility] ([facility]) [address] [place] [address] 25688Vyho nitrogen [Mass/Vol]10 mg/dLNormal6-23[facility] RehabilitationComment on above:Performed By: #### 48572-6 #### CELESTE LERMA ([id number]) [facility] ([facility]) [address] [place] [address] 85951Rhxgcxhp^AM peak specimenon 93-11-6884Lwzvlwrb AM peak specimen [Mass or moles/Vol]1.9 ug/dLLow5.0-20.0UnKindred Hospital DaytonComment on above:Performed By: #### 3016-3 #### CELESTE LERMA ([id number]) [facility] ([facility]) [address] [place] [address] 51351Gvmibigfwn 15-43-0746Wvowgubd [Mass/Vol]26 ng/mLNormal8-150 [facility] RehabilitationComment on above:Performed By: #### 00065-0 #### CELESTE LERMA ([id number]) [facility] ([facility]) [address] [place] [address] 48820Jrvistyw 32-69-7315Ckfsgu [Mass/Vol]14.2 ng/mLNormal>5.0 [facility] RehabilitationComment on above:Order Comment: TSH testing is performed using different testing methodology at [facility] than at other [facility]. Direct result comparisons should only be made within the same method.Performed By: #### 3016-3 #### CELESTE LERMA ([id number]) [facility] ([facility]) [address] [place] [address] 03709Jnjs and Iron binding capacity panelon 40-94-4666Xkdv [Mass/Vol] 199 ug/oSPswm15-338IswyopgzovCleveland Clinic Children'S Hospital For RehabilitationComment on above:Performed By: #### 46545-2 #### CELESTE LERMA ([id number]) [facility] ([facility]) [address] [place] [address] 78516Idnw binding capacity [Mass/Vol]384 ug/rMBwiwad429-699EziqpswgxtKindred Hospital DaytonComment on above:Performed By: #### 04354-4 #### CELESTE LERMA ([id number]) [facility] ([facility]) [address] [place] [address] 64356Muad binding capacity.unsaturated [Mass/Vol]185 ug/dLNormal 110-370UnKindred Hospital DaytonComment on above:Performed By: #### 11210-9 #### CELESTE LERMA ([id number]) [facility] ([facility]) [address] [place] [address] 96025Ygpu saturation [Mass fraction]52 %Xoca53-49TuzmifvlddKindred Hospital DaytonComment on above:Performed By: #### 53754-5 #### CELESTE LERMA ([id number]) [facility] ([facility]) [address] [place] [address] 81488Zugfncdvjicvx 40-01-5012FSJ Qn0.66 m[IU]/LNormal0.44-3.98 [facility] RehabilitationComment on above:Order Comment: TSH testing is performed using different testing methodology at [facility] than at other [facility]. Direct result comparisons should only be made within the same method.Performed By: #### 11677-4 #### CELESTE LERMA ([id number]) [facility] (EM) [address] [place] [address] 01921Uugtylsqj.freeon 95-75-9233Pjso T4 [Mass/Vol]0.69 ng/dLNormal 0.61-1.12[facility] RehabilitationComment on above:Order Comment: Thyroxine Free testing is performed using different testing methodology at [facility] than at other [facility]. Direct result comparisons should only be made withinthe same method.Biotin can cause falsely elevated free T4 results. Patients taking a Biotin dose ofup to 10 mg/day should refrain from taking Biotin for 24 hours before sample collection. Patient gordon ing a Biotin dose of >10 mg/day should consult with their physician or the laboratory before theblood draw.Performed By: #### 41474-4 #### CELESTE LERMA ([id number]) [facility] (EMC) [address] [place], [place] [address]Xbkiwg Medicine Office/Clinic Noteon 45-60-9061Gkippw Medicine Office/Clinic NoteFami Medicine Office/Clinic Note Chief Complaint 3 month follow up-fatigue and eye issues (pat states she thinks she has ocular rosacea) HPI Staff Reason for visit: 3 month follow up-Fatigue and eye issues Note: Patient states she believes she has ocular rosacea and discuss depression PHQ9: 18 GENIE: 17 History of Present Illness The patient is a 48-year-old female who is here for a 3-month follow-up. Patient is here for follow-up on major depressive disorder and/or generalized anxiety disorder. Patient reports being well controlled and tolerating medication well at this time. Patient denies medication side effects (Headaches, sexual dysfunction, increased weight, nausea, drowsiness). Patient denies increased fatigue/sleepiness, suicidal ideation/homicidal ideation, feelings of worthlessness, appetite changes, anhedonia, depressed mood, racing thoughts, insomnia, agitation, increased worrying, rapid heart rate, shortness of breath at this time. GENIE score: 17 PHQ9 score: 18 Her skin issues have led to depression and severe anxiety, to the point where she does not want to leave the house most of the days. She fears going outside, showing her face to people, and not making eye contact with people. She has had to cancel dates and plans due to her skin condition. She denies any thoughts of not waking up tomorrow or self-harm, but she mentions that if her condition deteriorates, she might consider it. She has tried various medications for her anxiety and depression butdiscontinued them due to frustration. She expresses an interest to try medications to help with hercondition. She is an anxious over- thinker. She has tried Lexapro in the past without any side effects. She attended counseling over 20 years ago, which seemed to help. Skin She reports that her eyes were improving for a little while but have started getting worse again, accompanied by skin issues. She suspects ocular rosacea, with symptoms including blurry vision, redness, itchiness, watery eyes, flushed skin, and eyes are getting worse. Her blood tests have returned negative results. She has never had issues with her skin similar to this. Her skin condition fluctuates, with some days being more severe than others. She describes her skin as itchy, red, and bumpy, with her entire face becoming raised during flare-ups. She has bumps on her eyelids and corners of her mouth, which are constantly chapped. She has consulted 2 ophthalmologists; one diagnosed her withdry eye and prescribed Cequa eye drops and provided relief for a few weeks, but her condition has since worsened. He weaned her off of the steroid eye drops and she does not feel she needs it again. She consulted an thread cutter when the issue was just around her eyes, before starting to spread to herface and he told her that it appeared like eczema at first around her eyes, which started worsening. He prescribed her an $80.00 cream to try, but she did not pick it up, instead bought some eczema lotion and been using it with no benefit. She does pluck her chin hairs all the time. She inquires about any type of skin test to diagnose it. She takes OTC Claritin daily, but it does not seem to havemuch effect other than providing slight relief for her breathing. She occasionally forgets to take it. The Neosporin combined with steroid eye drops have proven the most effective for her and would like to get some of those if possible. She denies any pustular acne but describes her skin as feeling different during flare-ups. Her facial skin is dry, and she applies Neosporin, which seems to alleviate the redness slightly; however, she experiences burning and stinging when she wipes it off. She denies itchiness in her ears. She denies any history of psoriasis in her hairline or issues with hermouth or teeth. She reports no rashes under her arms or groin. Irregular menses Her menses have been irregular. She started her menses on 12/17/2023, which lasted 8 days and the flow was light the whole time, but the flow was never heavy, which was unusual. She started her menses yesterday, but she is not due to start it for another 2 weeks. She suspects it is early menopause.Her thyroid and vitamin D levels were checked. She forgets to take her iron supplement. Review of Systems PHQ Score Initial Depression Screen Score: 5 SCORE The pertinent positive and negative findings are as noted in the HPI. Physical Exam Vitals & Measurements T: 36.6 ?C(Temporal Artery) HR: 94(Peripheral) RR: 18 BP: 130/82 SpO2: 99% HT: 62 in HT: 157 cm WT: 66.3 kg WT: 145.86 lb BMI: 26.9 General: alert, no acute distress, wellappearing, _pleasant Skin: Mild erythema with white patch, dry skin to the right upper lid with mild edema. Mild erythema and patches to the left face and cheek area with no raised or patchy vesicles noted. Scalp with noerythema, patchy vesicles, or scaly plaque?like lesions anywhere else on the skin. Nails are in good repair. Head: no trauma, normocephalic (more content not included)...[facility] HospitalComment on above: Result Comment: Electronically Signed By: Lisette Redd\.br\Date and Time Signed: 01/03/24 05:52 EDT\.br\Electronically Co-Signed By: Chava Sanchez\.br\Date and Time Co-Signed: 01/02/24 13:37 EDTAmbulatory Visit Summaryon [id number] Visit Summary FREDI ELLIOTT :1975 Visit Date:10/01/2023 Ambulatory Visit Instructions Your Diagnosis Fatigue Chronic hepatitis C Depression Anxiety about health Current every day nicotine vaping Cat allergies Allergy to mold Dizziness Vitamin D deficiency disease Overweight BMI 25.0-25.9,adult Marijuana use, continuous Your Care Team Attending Physician - Lisette Redd Primary Care Physician - Lisette Redd This Is Your Medications List Contact prescribing physician if questions or concerns ferrous sulfate (ferrous sulfate 325 mg Tab) Procedures Performed Carpal Tunnel surgery, Foot Surgery, Knee Surgery. Discharge Vitals Heart Rate (Peripheral) 99 Respiratory Rate 18 Blood Pressure 126/80 Height 157 cm Height 62 in Weight 63.04 kg Weight 138.688 lb BMI 25.58 What to do next Scheduled Follow-Up Appointments Sunday 9:00 AM EDT With: Rona CURTIS, David Chavira Where: [facility] [address], [place] [address]- \.br\ You Need to Schedule the Following Appointments\.br\ Follow Up with Slick AYALA, MARLENY King, MED When: In 3 months\.br\ Comments:\.br\ 3 mo f/u for fatigue, general follow up -discussed specialist findings\.br\ Where:\.br\ [address], [address] [facility] [address]\.br\ [place] [address]-\.br\ Business (1)\.br\ You Need to Complete the Following\.br\ Echo Transthoracic Complete, 10/01/23, Routine, Order for future visit, Transport Mode: Ambulatory, Reason: Syncope, Dizziness, pp_set_radiology_subspecialty, [facility], [facility]\.br\ Medications\.br\ What How Much When Instructions\.br\ Unchanged ferrous sulfate (ferrous sulfate 325 mg Tab) 1 Tablets By Mouth 2 times a day Contact prescribing physician if questions or concerns \.br\ Allergies\.br\ Cats (Red eye)\.br\ Mold (Red eye)\.br\ lidocaine topical 2% gel (Rash)\.br\ Problems\.br\ Ongoing - Any problem that you are currently receiving treatment for.\.br\ Allergy to mold\.br\ Anemia\.br\ Anxiety about health\.br\ Cat allergies\.br\ Chronic hepatitis C\.br\ Current every day nicotine vaping\.br\ Depression\.br\ Dizziness\.br\ Family history of adrenal disease\.br\ Family history of diabetes mellitus\.br\ Family history of endocrineand metabolic disease\.br\ Fatigue\.br\ H. pylori infection\.br\ Halitosis\.br\ Hematuria\.br\ Insomnia\.br\ Itchy eyes\.br\ Left shoulder pain\.br\ Marijuana use, continuous\.br\ Orthostatic dizziness\.br\ Overweight\.br\ Red eyes\.br\ Urinary frequency\.br\ Urinary urgency\.br\ Vitamin D deficiency disease\.br\ Weight loss\.br\ Patient Survey\.br\ You may receive a survey via text or e-mail asking about your office visit. Please share your experience with us by completing your survey. We appre ciate your feedback and thank you for choosing us for your care.\.br\ Education Materials\.br\ BMI for Adults\.br\ What is BMI?\.br\ Body mass index (BMI) is a number that is calculated from a person's weight and height. BMI can help estimate how much of a person's weight is composed of fat. BMI does not measure body fat directly. Rather, it is an alternative to procedures that directly measure body fat, which can be difficult and expensive.\.br\ BMI can help identify people who may be at higher risk for certain medical problems.\.br\ What are BMI measurements used for?\.br\ BMI is used as a screening tool to identify possible weight problems. It helps determine whether a person is obese, overweight, a healthy weight, or underweight.\.br\ BMI is useful for:\.br\ ? \.br\ Identifying a weight problem that may be related to a medical condition or may increase the risk for medical problems.\.br\ ? \.br\ Promoting changes, such as changes in diet and exercise, to help reach a healthy weight. BMI screening can be repeated to see if these changes are working.\.br\ How is BMI calculated?\.br\ BMI involves measuring your weight in relation to your height. Both height and weight are measured, and the BMI is calculated from those numbers. This can be done either in [employer] ([place] or [facility]. Note that charts and online BMI calculators are available to help you find your BMI quickly and easily without having to do these calculations yourself.\.br\ To calculate your BMI in [place] measurements:\.br\ \.br\ 1. \.br\ Measure your weight in pounds (lb).\.br\ 2. \.br\ Multiply the number of pounds by 703.\.br\ ? \.br\ For example, for a person who weighs 180 lb, multiply that number by 703, which equals 126,540.\.br\ 3. \.br\ Measure your height in inches. Then multiply that number by itself to get a measurement called inches squared. \.br\ ? \.br\ For example, for a person who is 70 inches tall, the inches squared measurement is 70 inches x 70 inches, which equals 4,900 inches squared.\.br\ 4. \.br\ Divide the total from step 2 (number of lb x 703) by the total from step 3 (inches squared): 126,540 ? 4,900 = 25.8. This is your BMI.\.br\ To calculate your BMI in metric measurements:\.br\ 1. \.br\ Measure your weight in kilograms (kg).\.br\ 2. \.br\ Measure your height in meters (m). Then multiply that number by itself to get a measurementcalled meters squared. \.br\ ? \.br\ For example, for a person who is 1.75 m tall, the meters squared measurement is 1.75 m x 1.75 m, which is equal to 3.1 meters squared.\.br\ 3. \.br\ Divide thenumber of kilograms (your weight) by the meters squared number. In this example: 70 ? 3.1 = 22.6. This is your BMI.\.br\ What do the results mean?\.br\ BMI charts are used to identify whether you are underweight, normal weight, overweight, or obese. The following guidelines will be used:\.br\ ? \.br\ Underweight: BMI less than 18.5.\.br\ ? \.br\ Normal weight: BMI between 18.5 and 24.9.\.br\ ? \.br\ Overweight: BMI between 25 and 29.9.\.br\ ? \.br\ Obese: BMI of 30 or above.\.br\ Keep these notes in mind:\.br\ ? \.br\ Weight includes both fat and muscle, so someone with a muscular build, suchas an athlete, may have a BMI that is higher than 24.9. In cases like these, BMI is not an accuratemeasure of body fat.\.br\ ? \.br\ To determine if excess body fat is the cause of a BMI of 25 or higher, further assessments may need to be done by a health care provider.\.br\ ? \.br\ BMI is usuallyinterpreted in the same way for men and women.\.br\ Where to find more information\.br\ For more information about BMI, including tools to quickly calculate your BMI, go to these websites:\.br\ ? \.br\ Centers for Disease Control and Prevention: www.cdc.gov\.br\ ? \.br\ [place] [employer]: w ww.heart.org\.br\ ? \.br\ National Heart, Lung, and Blood [place]: www.nhlbi.nih.gov\.br\ Summary\.br\ ? \.br\ Body mass index (BMI) is a number that is calculated from a person's weight and height.\.br\ ? \.br\ BMI may help estimate how much of a person's weight is composed of fat. BMI can help identify those who may be at higher risk for certain medical problems.\.br\ ? \.br\ BMI can be measured using [place] measurements or metric measurements.\.br\ ? \.br\ BMI charts are used to identify whether you are underweight, normal weight, overweight, or obese.\.br\ This information is not intended to replace advice given to you by your health care provider. Make sure you discuss any questions you have with your health care provider.\.br\ Document Revised: 01/21/2020 Document Reviewed: 11/28/2019 [employer] Patient Education ? 2022 [employer].br\ Dizziness\.br\ Dizziness is a common problem. It is a feeling of unsteadiness or light-headedness. You may feel like you are about to faint. D izziness can lead to injury if you stumble or fall. Anyone can become dizzy, but dizziness is more common in older adults. This condition can be caused by a number of things, including medicines, dehydration, or illness.\.br\ Follow these instructions at home:\.br\ Eating and drinking\.br\ \.br\ ? \.br\ Drink enough fluid to keep your urine pale yellow. This helps to keep you from becoming dehydrated. Try to drink more clear fluids, such as water.\.br\ ? \.br\ Do not drink alcohol.\.br\ ? \.br\ Limit your caffeine intake if told to do so by your health care provider. Check ingredients and nutrition facts to see if a food or beverage contains caffeine.\.br\ ? \.br\ [facility] Office/Clinic Noteon [phone] Medicine Office/Clinic NoteChief Complaint 1 mo. f/u, and go over lab results History of Present Illness Patient is here for follow-up Regarding ophthalmology/eye dryness and redness, Getting allergy shots due to mold and cats?- Dr Vera- not getting allergy shots. , Patient continue to use a few steroid eyedrops that she has been weaning prednisolone Referral to ophthalmology/retinal specialist was made- has been to 2 different Patient had positive hepatitis C, referral to digestive health have been placed, this appeared to be chronic, RNA testing was negative Patient requested an endocrine referral for chronic fatigue- DR MERINO- nothing found- has an additional appointment- Behavioral health referral has been placed due to anxiety about her health care and depression score of 14, patient did not want to take any medications at that time Complaining of heavy periods and had some hematuria, ultrasound/retroperitoneal was done- Results attached- DIZZINESS- happens a few times per week- might tightness in chest- feel like I need to lay down - stood up and a passed out - woke up on the floor - 3 months ago . EKG had been ordered, consider Holter monitor, Was This is but I think it is acute headaches and using a drinking send I which would bother you already like. Adorable thank you dysvascular this school that was one of the provided Review of Systems PHQ Score Initial Depression Screen Score: 0 SCORE Physical Exam Vitals & Measurements HR: 99(Peripheral) RR: 18 BP: 126/80 SpO2: 100% HT: 62 in HT: 157 cm WT: 63.04 kg WT: 138.688 lb BMI: 25.58 General: Younger to middle-aged female, pleasant, no distress, sitting in room 6. Skin: clean dry and intack, warm and dry, non-erythematous, no distinct border onto the cheeks. Thepatient does have some tanned darkened skin. Head: no trauma, normocephalic Neck: Trachea midline, no adenopathy, no tenderness Eye: improbed today -Injected eyes with normal range of motion. She has pupils equal, round, reactive to light and accommodation. No pain with range of motion. Normal extraocular movements, just injection . No evidence of hordeolum or chalazion, lids normal, lashes normal ENMT: TM's clear, oral mucosa moist, no pharyngeal erythema or exudate, normaldentition Cardiovascular: regular rate and rhythm, normal peripheral perfusion, noedema. Her tachycardia did resolve, repeat heart rate was 80 beats per minute on re-examination. Respiratory: Lungs CTA, respirations non labored Chest wall: no deformity, nontender Gastrointestinal: Mild reducible umbilical hernia, nontender. No tenderness to palpation. Negative CVA tenderness. Back: No tenderness, Normal ROM, Normal alignment. Extremities: no deformity, no trauma Neurological: oriented x 4, LOC appropriate for age, CN II-XII intact, motor strength equal & normal bilaterally, sensation equal & normal bilaterally, speech normal Psychiatric: cooperative? , affect appropriate for age? , normal? judgement, normal? psychiatric thoughts. Orthostatic blood pressures were done in office today laying blood pressure 120/80, heart rate 78, sitting patient did develop some symptoms of dizziness and lightheadedness heart rate went up to 88, blood pressure 120/70, standing heart rate up to 90, blood pressure 110/70. Mild symptoms of dizziness with standing * Final Report * Reason For Exam R39.15;Other (please specify) POWERSCRIBE REPORT IMPRESSION: No hydronephrosis. Minimal post void residual. EXAMINATION: US Retroperitoneal Complete HISTORY: Microhematuria. TECHNIQUE: Sonography of the kidneys and urinary bladder was performed. Images were obtained and stored in a permanent archive. Unless otherwise stated, incidental findings identified in this report do not require routine follow-up imaging. COMPARISON: None RESULT: Right Kidney: -Renal length: 10.0 cm cm -Parenchyma: Normal parenchymal echogenicity. Normal parenchymal thickness. -Collecting system: No hydronephrosis. -Calculus: No echogenic, shadowing calculus. -Lesion: None. Left Kidney: -Renal length: 10.1 cm cm -Parenchyma: Normal parenchymal echogenicity. Normal parenchymal thickness. -Collecting system: No hydronephrosis. -Calculus: No echogenic, shadowing calculus. -Lesion: None. Bladder: Partially decompressed. No focal wall thickening. Bilateral jets visualized. Prevoid volume of 147.8 mL and post void residual of 18.8 mL. No qualifying data available. Laboratory Results CBC CMP Basophil Absolute: 0.1 E9/L (04/16/23) A/G Ratio: 2 (08/03/23) Basophil Auto: 1.2 % (04/16/23) AGAP: 12 mEq/L (08/03/23) Eos Absolute: 0.4 E9/L (04/16/23) Albumin Lvl: 5 gm/dL (08/03/23) Eos Auto: 8 % (04/16/23) Alk Phos: 39 Int._Unit/L (08/03/23) Hct: 34.8 % (04/16/23) ALT: 13 Int._Unit/L (08/03/23) HGB: 11.6 gm/dL Low (04/16/23) AST: 18 Int._Unit/L (08/03/23) Lymph Absolute: 1.4 E9/L (04/16/23) Bili Tot (more content not included)...[facility] HospitalComment on above:Result Comment: Electronically Signed By: Lisette Redd\.yvonne\Date and Time Signed: 10/01/23 11:06 EDTPatient Educationon 10-01-2023 Patient EducationImmunology Allergic Rhinitis, Adult Allergic rhinitis is an allergic reaction that affects the mucous membrane inside the nose. The mucous membrane is the tissue that produces mucus. There are two types of allergic rhinitis: ? Seasonal. This type is also called hay fever and happens only during certain seasons. ? Perennial. This type can happen at any time of the year. Allergic rhinitis cannot be spread from person to person. This condition can be mild, moderate, or severe. It can develop at any age and may be outgrown. What are the causes? This condition is caused by allergens. These are things that can cause an allergic reaction. Allergens may differ for seasonal allergic rhinitis and perennial allergic rhinitis. ? Seasonal allergic rhinitis is triggered by pollen. Pollen can come from grasses, trees, and weeds. ? Perennial allergic rhinitis may be triggered by: ? Dust mites. ? Proteins in a pet's urine, saliva, or dander. Dander is skin cells from a pet. ? Smoke, mold, or car fumes. What increases the risk? You are more likely to develop this condition if you have a family history of allergies or other conditions related to allergies, including: ? Allergic conjunctivitis. This is inflammation of parts of the eyes and eyelids. ? Asthma. This condition affects the lungs and makes it hard to breathe. ? Atopic dermatitis or eczema. This is care home (chronic) inflammation of the skin. ? Food allergies. What are the signs or symptoms? Symptoms of this condition include: ? Sneezing or coughing. ? A stuffy nose (nasal congestion), itchy nose, or nasal discharge. ? Itchy eyes and tearing of the eyes. ? A feeling of mucus dripping down the back of your throat (postnasal drip). ? Trouble sleeping. ? Tiredness or fatigue. ? Headache. ? Sore throat. How is this diagnosed? This condition may be diagnosed with your symptoms, medical history, and physical exam. Your healthcare provider may check for related conditions, such as: ? Asthma. ? [place] eye. This is eye inflammation caused by infection (conjunctivitis). ? Ear infection. ? Upper respiratory infection. This is an infection in the nose, throat, or upper airways. You may also have tests to find out which allergens trigger your symptoms. These may include skin tests or blood tests. How is this treated? There is no cure for this condition, but treatment can help control symptoms. Treatment may include: ? Taking medicines that block allergy symptoms, such as corticosteroids and antihistamines. Medicine may be given as a shot, nasal spray, or pill. ? Avoiding any allergens. ? Being exposed again and again to tiny amounts of allergens to help you build a defense against allergens (immunotherapy). This is done if other treatments have not helped. It may include: ? Allergy shots. These are injected medicines that have small amounts of allergen in them. ? Sublingual immunotherapy. This involves taking small doses of a medicine with allergen in it under your tongue. If these treatments do not work, your health care provider may prescribe newer, stronger medicines. Follow these instructions at home: Avoiding allergens Find out what you are allergic to and avoid those allergens. These are some things you can do to help avoid allergens: ? If you have perennial allergies: ? Replace carpet with wood, tile, or vinyl joie. Carpet can trap dander and dust. ? Do not smoke. Do not allow smoking in your home. ? Change your heating and air conditioning filters at least once a month. ? If you have seasonal allergies, take these steps during allergy season: ? Keep windows closed as much as possible. ? Plan outdoor activities when pollen counts are lowest. Check pollen counts before you plan outdoor activities. ? When coming indoors, change clothing and shower before sitting on furniture or bedding. ? If you have a pet in the house that produces allergens: ? Keep the pet out of the bedroom. ? Vacuum, sweep, and dust regularly. General instructions ? Take bbej-vyw-fneoscg and prescription medicines only as told by your health care provider. ? Drink enough fluid to keep your urine pale yellow. ? Keep all follow-up visits as told by your health care provider. This is important. Where to find more information ? [employer]: www.aaaai.org Contact a health care provider if: ? You have a fever. ? You develop a cough that does not go away. ? You make whistling sounds when you breathe (wheeze). ? Your symptoms slow you down or stop you from doing your normal activities each day. Get help right away if: ? You have shortness of breath. This symptom may represent a serious problem that is an emergency. Do not wait to see if the symptom will go away. Get medical help right away. Call your local emergency services (911 in the [place] Do not drive yourself to the hospital. Summ (more content not included)...NormalFisher Medstar Harbor HospitalUS Retroperitoneal Completeon 60-55-7824QQ Retroperitoneal CompleteExam Date/Time: 09/06/2023 10:04 EDT Reason for Exam: R39.15;Other (please specify) Report IMPRESSION: No hydronephrosis. Minimal post void residual. EXAMINATION: US Retroperitoneal Complete HISTORY: Microhematuria. TECHNIQUE: Sonography of the kidneys and urinary bladder was performed. Images were obtained and stored in a permanent archive. Unless otherwise stated, incidental findings identified in this report do not require routine follow-up imaging. COMPARISON: None RESULT: Right Kidney: -Renal length: 10.0 cm cm -Parenchyma: Normal parenchymal echogenicity. Normal parenchymal thickness. -Collecting system: No hydronephrosis. -Calculus: No echogenic, shadowing calculus. -Lesion: None. Left Kidney: -Renal length: 10.1 cm cm -Parenchyma: Normal parenchymal echogenicity. Normal parenchymal thickness. -Collecting system: No hydronephrosis. -Calculus: No echogenic, shadowing calculus. -Lesion: None. Bladder: Partially decompressed. No focal wall thickening. Bilateral jets visualized. Prevoid volume of 147.8 mL and post void residual of 18.8 mL. Report Ordering Provider: Lisette Contreras FINAL REPORT Dictated: 09/08/2023 3:55 pm Asad Montes De Oca MD Signed (Electronic Signature): 09/08/2023 3:55 pm Signed by: Asad Montes De Oca MD Transcribed by: ALVERTO Technologist: [facility] HospitalConsent for Treatmenton 95-00-7575Rwpubul for Treatment [id number]#1.00TIFFCleveland Clinic Hillcrest HospitalCBC panel Auto (Bld)on 56-71-2850Jorrlzctriw distribution width (RBC) [Ratio]13.0 %Qcwhuz62.5-14.5UnKindred Hospital DaytonComment on above:Performed By: #### 52955-3 #### CELESTE LERMA ([id number]) [facility] ([facility]) [address] [place] [address] 05148Whjtolwxih (Bld) [Volume fraction]37.6 %Ghhjwo37.0-46.0 [facility] For RehabilitationComment on above:Performed By: #### 84123-3 #### CELESTE LERMA ([id number]) [facility] (EM) [address] [place] [address] 48151Uatpyhgcaf (Bld) [Mass/Vol]12.3 g/aCZilivb06.0-16.0[facility] For RehabilitationComment on above:Performed By: #### 89614-7 #### CELESTE LERMA ([id number]) [facility] ([facility]) [address] [place] [address] 95528OLD (RBC) [Entitic mass]31.5 lzJrlvph53.0-34.0[facility] For RehabilitationComment on above:Performed By: #### 59225-6 #### CELESTE LERMA ([id number]) [facility] ([facility]) [address] [place] [address] 08645DZPC (RBC) [Mass/Vol]32.7 g/eLZlkbqm55.0-36.0UnKindred Hospital DaytonComment on above:Performed By: #### 61156-6 #### CELESTE LERMA ([id number]) [facility] ([facility]) [address] [place] [address] 28030UIE (RBC) [Entitic vol]96 pJLynlpr58-910QeodlzhwimCleveland Clinic Children'S Hospital For RehabilitationComment on above:Performed By: #### 04837-2 #### CELESTE LERMA ([id number]) [facility] ([facility]) [address] [place] [address] 85202Jntdwjygf RBC/100 WBC (Bld) [Ratio]0.0 /100 WBCsNormal0.0-0.0 [facility] For RehabilitationComment on above:Performed By: #### 34737-1 #### CELESTE LERMA ([id number]) [facility] ([facility]) [address] [place] [address] 04284Xzrpsqhix (Bld) [#/Vol]289 x10*3/qEMoudzr972-795DfknitqzabKindred Hospital DaytonComment on above:Performed By: #### 33731-9 #### CELESTE LERMA ([id number]) [facility] ([facility]) [address] [place] [address] 16168ATX (Bld) [#/Vol]3.91 x10*6/uLLow4.00-5.20[facility] For RehabilitationComment on above:Performed By: #### 08494-0 #### CELESTE LERMA ([id number]) [facility] ([facility]) [address] [place] [address] 69222NUC (Bld) [#/Vol]5.2 x10*3/uLNormal4.4-11.3[facility] For RehabilitationComment on above:Performed By: #### 27666-8 #### CELESTE LERMA ([id number]) [facility] ([facility]) [address] [place] [address] 33107Wenywzrgroq 16-89-017990588778-bgnybadnwsyutv D3 [Mass/Vol]40 ng/mL Snxiiw62-608WysstzfxwuCleveland Clinic Children'S Hospital For RehabilitationComment on above:Order Comment: Deficiency: < 20 ng/ml Insufficiency: 20-29 ng/ml Sufficiency: 30-100 ng/ml This assay accurately quantifies the sum of Vitamin D3, 25-Hydroxy and Vitamin D2,25-Hydroxy.Performed By: #### 1989-3 #### CELESTE LERMA ([id number]) [facility] ([facility]) [address] [place] [address] 57730Dfbqhfwfkjdp 66-29-1356Rljmlrynu (Vitamin B12) [Mass/Vol]743 pg/aOQpyrmg151-570LeuqblgpniCleveland Clinic Children'S Hospital For RehabilitationComment on above: Performed By: #### 2132-9 #### CELESTE LERMA ([id number]) [facility] ([facility]) [address] [place] [address] 27476Fmazmxtdaqijx metabolic 2000 panelon 57-88-1527Kxmqpmx BCP dye [Mass/Vol]4.6 g/dLNormal3.4-5.0[facility] Comment on above:Performed By: #### 44303-4 #### CELESTE LERMA ([id number]) [facility] ([facility]) [address] [place] [address] 59198JTY [Catalytic activity/Vol]36 U/LZmfarw05-774DcqbhelpfgKindred Hospital DaytonComment on above:Performed By: #### 66791-9 #### CELESTE LERMA ([id number]) [facility] ([facility]) [address] [place] [address] 05484GZH With P-5'-P [Catalytic activity/Vol]14 U/LNormal7-45 [facility] For RehabilitationComment on above:Result Comment: Patients treated with Sulfasalazine may generate falsely decreased results for ALT.Performed By: #### 75239-1 #### XOCHITLIBGAIL LERMA ([id number]) [facility] ([facility]) [address] [place] [address] 50939Rtfgl gap [Moles/Vol]13 mmol/DZpmnww67-70XnbkjsyormKindred Hospital DaytonComment on above:Performed By: #### 42785-6 #### CELESTE LERMA ([id number]) [facility] ([facility]) [address] [place] [address] 50759JXM With P-5'-P [Catalytic activity/Vol]17 U/LNormal9-39 [facility] For RehabilitationComment on above:Performed By: #### 61430-7 #### CELESTE LERMA ([id number]) [facility] ([facility]) [address] [place] [address] 67564Tayrhalzh [Mass/Vol]0.6 mg/dLNormal0.0-1.2UnKindred Hospital DaytonComment on above:Performed By: #### 99005-7 #### XOCHITLIBGAIL LERMA ([id number]) [facility] ([facility]) [address] [place] [address] 15617Aveaetu [Mass/Vol]9.7 mg/dLNormal8.6-10.3UnKindred Hospital DaytonComment on above:Performed By: #### 43786-4 #### XOCHITLIBGAIL LERMA ([id number]) [facility] ([facility]) [address] [place] [address] 78730Fifvryzg [Moles/Vol]103 mmol/LLfydom72-391Wpiufhmodu Hospitals Bunch Medical CenterComment on above:Performed By: #### 99876-4 #### CELESTE LERMA ([id number]) [facility] ([facility]) [address] [place] [address] 57849PP4 [Moles/Vol]28 mmol/XMjevwf21-25IdeyuiepsxCleveland Clinic Children'S Hospital For RehabilitationComment on above:Performed By: #### 77535-8 #### CELESTE LERMA ([id number]) [facility] ([facility]) [address] [place] [address] 29514Qijnxyrawz [Mass/Vol]0.90 mg/dLNormal0.50-1.05UnKindred Hospital DaytonComment on above:Performed By: #### 47906-3 #### CELESTE LERMA ([id number]) [facility] ([facility]) [address] [place] [address] 38407Fkxomyoehu filtration rate/1.73 sq M.mpsixoahb60 mL/min/1.73m*2 Normal>60UnKindred Hospital DaytonComment on above:Result Comment: Calculations of estimated GFR are performed using the 2020 CKD-EPI Study Refit equation without the race variable for the IDMS-Traceable creatinine methods. https://jasn.asnjournals.org/content/early/ASN.3964067020Zopplgtzw By: #### 94871-9 #### CELESTE LERMA ([id number]) [facility] ([facility]) [address] [place] [address] 04342Itgnwsp [Mass/Vol]119 mg/aFAwwj81-17KjxfunlvngKindred Hospital DaytonComment on above:Performed By: #### 33444-8 #### CELESTE LERMA ([id number]) [facility] ([facility]) [address] [place] [address] 19154Ppwnieolo [Moles/Vol]3.9 mmol/LNormal3.5-5.3[facility] For RehabilitationComment on above:Performed By: #### 14610-2 #### CELESTE LERMA ([id number]) [facility] ([facility]) [address] [place] [address] 79534Uzlewoe [Mass/Vol]7.0 g/dLNormal6.4-8.2UnKindred Hospital DaytonComment on above:Performed By: #### 12547-1 #### CELESTE LERMA ([id number]) [facility] ([facility]) [address] [place] [address] 74430Avgqmb [Moles/Vol]140 mmol/FNremdk445-799QrbjmwjslqKindred Hospital DaytonComment on above:Performed By: #### 36294-9 #### CELESTE LERMA (78452) [facility] ([facility]) [address] [place] [address] 17102Xtyf nitrogen [Mass/Vol]11 mg/dLNormal6-23UnKindred Hospital DaytonComment on above:Performed By: #### 87029-0 #### CELESTE LERMA ([id number]) [facility] ([facility]) [address] [place] [address] 66081Aihheadu^AM peak specimenon 41-55-2010Kpgktcqc AM peak specimen [Mass or moles/Vol]16.1 ug/dLNormal5.0-20.0UnKindred Hospital DaytonComment on above:Performed By: #### 45014-6 #### TUSHAR Greer ([id number]) [facility] ([facility]) [id number] [place] [address] 19219Avvddxgt 47-94-9681Wnbgqq [Mass/Vol]19.5 ng/mLNormal>5.0 [facility] For RehabilitationComment on above:Order Comment: Low <3.4 Borderline 3.4-5.0 Normal >5.0 Patients receiving more than 5 mg/day of biotin may have interference in test results. A sample should be taken no sooner than eight hours after previous dose. Contact the testing laboratory for additional information.Performed By: #### 2284-8 #### CELESTE LERMA ([id number]) [facility] ([facility]) [address] [place] [address] 57602Olndozyzeml and Lutropin panel Qnon 09-47-8249Hxwynzavqtt Qn15.0 IU/LNormalUnKindred Hospital DaytonComment on above:Result Comment: FSH Ref Values Follicular 2.0-12.0 IU/L Mid-Cycle 12.0-25.0 IU/L Luteal Phase 2.0-12.0 IU/L Menopause 30.0-150.0 IU/L Pre-puberty 50% Adult IU/L Adult Male 2.0-10.0 IU/L Infants 0.0-1.0 IU/LPerformed By: #### 08096-5 #### TUSHAR Greer ([id number]) [facility] ([facility]) [id number] [place] [address] 71151Tfhinhrk Qn6.2 IU/LNormalUnKindred Hospital DaytonComment on above:Result Comment: LH Reference Values Follicular Phase 1.9-12.5 IU/L Mid-Cycle 8.7-76.3 IU/L Luteal Phase 0.5-16.9 IU/L Post Menopause 5.0-55.2 IU/L Children 0- 6.0 IU/L Adult Male 18-70 years 1.5- 9.3 IU/L Adult Male >70 years 3.1-34.6 IU/LPerformed By: #### 98310-9 #### TUSHAR Greer ([id number]) [facility] ([facility]) [id number] [place] [address] 37361TOTVAOJWFZQKO AND ANTITHYROGLOBULINon 99-35-9879SETBTXNDTATDS 24.4 ng/mLNormal1.3-31.8[facility] For RehabilitationComment on above:Result Comment: INTERPRETIVE INFORMATION: Thyroglobulin, Serum or Plasma Specimens negative for thyroglobulin antibodies (TgAb) are tested for thyroglobulin (Tg) by chemiluminescent immunoassay (ALISTAIR) using the [employer] Access DxI method. Specimens with TgAb results above the upper reference limit are tested for Tg by high-performance liquid chromatography-tandem mass spectrometry (LC-MS/MS). Results obtained with different test methods or kits cannot be used interchangeably. Tg results, regardless of concentration, should not be interpreted as absolute evidence for the presence or absence of papillary or follicular thyroid cancer. Tg testing is not recommended for use as a screening procedure to detect the presence of thyroid cancer in the general population.Performed By: #### 44048-4 #### CELESTE LERMA ([id number]) [facility] ([facility]) [address] [place] [address] 51356DHBQNKAHSUHAQ AB (IU/ML) IN SER/PLAS<0.6Ocufls9.0-4.0UnKindred Hospital DaytonComment on above:Result Comment: INTERPRETIVE INFORMATION: Thyroglobulin Antibody A value of 4.0 IU/mL or less indicates a negative result for thyroglobulin antibodies. The Thyroglobulin Antibody assay is being performed using the [employer] Access DxI method.Performed By: #### 28884-8 #### CELESTE LERMA ([id number]) [facility] ([facility]) [address] [place] [address] 10820NEKYUGCWLLYWY LC-MS/MSNot ApplicableNormal1.3-31.8UnKindred Hospital DaytonComment on above:Result Comment: INTERPRETIVE INFORMATION: Thyroglobulin by LC-MS/MS, Serum/Plasma Lower limit of detection for Thyroglobulin by LC-MS/MS is 0.5 ng/mL. This test was developed and its performance characteristics determined by [email or web address]. It has not been cleared or approved by the US Food and Drug Administration. This test was performed in a CLIA certified laboratory and is intended for clinical purposes. Performed By: [email or web address] [address] [place] [address]254 Emergency Spill Response Technician: Reggie Christensen MD, PhD CLIA Number: [id number] By: #### 78682-6 #### CELESTE LERMA ([id number]) [facility] ([facility]) [address] [place] [address] 85840Kvxfthy stimulating immunoglobulinson 68-23-0966Xyyysvq stimulating immunoglobulins Qn (S)<1.0Normal<=1.3UnKindred Hospital DaytonComment on above:Result Comment: Test Performed by: [facility] [address] [place] [address] Commercial Title Examiner: Teofilo Solorzano M.D. Ph.D.; CLIA# [id number] By: #### 78022-7 #### CELESTE LERMA ([id number]) [facility] ([facility]) [address] [place] [address] 96637Khqeboslbojhlmq Abon 67-80-7766OPW Ab Qn46 [IU]/mLNormal<=60 [facility] For RehabilitationComment on above:Order Comment: Negative: <=60 U/mLPositive: >60 U/mLPerformed By: #### 55482-5 #### CELESTE LERMA ([id number]) [facility] ([facility]) [address] [place] [address] 42319Bqbqiimjtgmho 11-84-4729QGJ Qn1.71 m[IU]/LNormal0.44-3.98 [facility] For RehabilitationComment on above:Order Comment: TSH testing is performed using different testing methodology at [facility] than at other [facility]. Direct result comparisons should only be made within the same method.Performed By: #### 3016-3 #### CELESTE LERMA ([id number]) [facility] ([facility]) [address] [place] [address] 25732Sxyjzcnhime receptor Abon 44-03-1159TXD receptor Ab Qn (S)<1.10 Normal<=1.75UnKindred Hospital DaytonComment on above:Result Comment: Performed By: [email or web address] [address] [place] [address] Emergency Spill Response Technician: Reggie Christensen MD, PhD CLIA Number: [id number] By: #### 70044-9 #### CELESTE LERMA ([id number]) [facility] ([facility]) [address] [place] [address] 42487Cqokobhno.freeon 75-50-4785Dafc T4 [Mass/Vol]0.74 ng/dLNormal 0.61-1.12UnKindred Hospital DaytonComment on above:Order Comment: Thyroxine Free testing is performed using different testing methodology at [facility] than at other [facility]. Direct result comparisons should only be made withinthe same method. Biotin can cause falsely elevated free T4 results. Patients taking a Biotin dose of up to 10 mg/dayshould refrain from taking Biotin for 24 hours before sample collection. Patient taking a Biotin dose of >10 mg/day should consult with their physician or the laboratory before the blood draw.Performed By: #### 3024-7 #### CELESTE LERMA ([id number]) [facility] ([facility]) [address] [place] [address] 36578Iriynmiempeasios.freeon 97-65-9085Hcbg T3 [Mass/Vol]3.5 pg/mL Normal2.3-4.2[facility] For RehabilitationComment on above: Performed By: #### 3051-0 #### TUSHAR Greer ([id number]) [facility] ([facility]) [id number] [place] [address] 40624Uupepdjlyj Visit Summaryon 15-75-0248Gmdgoapqgk Visit Summary EARLFREDI :1975 Visit Date:08/30/2023 Ambulatory Visit Instructions Your Diagnosis Chronic hepatitis C Fatigue Red eyes Anxiety about health Depression Dizziness Vitamin D deficiency disease Current every day nicotine vaping Family history of adrenal disease Family history of diabetes mellitus Hematuria Urinary urgency Adult BMI 26.0-26.9 kg/sq m Overweight Your Care Team Attending Physician - Lisette Redd Primary Care Physician - Lisette Redd This Is Your Medications List prednisoLONE ophthalmic (prednisoLONE Opth acetate 1% Susp 5 mL) Contact prescribing physician if questions or concerns ferrous sulfate (ferrous sulfate 325 mg Tab) Procedures Performed Carpal Tunnel surgery, Foot Surgery, Knee Surgery. Discharge Vitals Temperature (Temporal Artery) 36.5 ?C Heart Rate (Peripheral) 117 Respiratory Rate 18 Blood Pressure 136/84 Height 157 cm Height 62 in Weight 64.1 kg Weight 141.02 lb BMI 26.01 What to do next Scheduled Follow-Up Appointments Sunday 10:00 AM EDT With: Lisette Redd Where: [facility] Primary CareInvalid Interpretation [id number] [place] [address]- \.br\ You Need to Schedule the Following Appointments\.br\ Follow Up with Lisette Redd, BRIANNE FARMER When: In 3 months\.br\ Comments:\.br\ f/u fatigue, dry/red eyes, depression/ anxiety\.br\ Where:\.br\ [address], [address] [facility] [address]\.br\ [place] [id number]-\.br\ \.br\ You Need to Complete the Fol lowing\.br\ US Retroperitoneal Complete, 08/30/23, Routine, Order for future visit, Transport Mode:Ambulatory, Reason: Other (please specify), No, Urinary urgencyCleveland Clinic Euclid HospitalAmbulatory Visit Summary FREDI ELLIOTT :1975 Visit Date:08/30/2023 Ambulatory Visit Instructions Your Diagnosis Chronic hepatitis C Fatigue Red eyes Anxiety about health Depression Dizziness Vitamin D deficiency disease Current every day nicotine vaping Family history of adrenal disease Family history of diabetes mellitus Hematuria Urinary urgency Adult BMI 26.0-26.9 kg/sq m Overweight Your Care Team Attending Physician - Lisette Redd Primary Care Physician - Lisette Redd This Is Your Medications List prednisoLONE ophthalmic (prednisoLONE Opth acetate 1% Susp 5 mL) Contact prescribing physician if questions or concerns ferrous sulfate (ferrous sulfate 325 mg Tab) Procedures Performed Carpal Tunnel surgery, Foot Surgery, Knee Surgery. Discharge Vitals Temperature (Temporal Artery) 36.5 ?C Heart Rate (Peripheral) 117 Respiratory Rate 18 Blood Pressure 136/84 Height 157 cm Height 62 in Weight 64.1 kg Weight 141.02 lb BMI 26.01 What to do next Scheduled Follow-Up Appointments Sunday 10:00 AM EDT With: Lisette Redd Where: [facility] Primary CareInvalid Interpretation [id number] [address]- \.br\ You Need to Schedule the Following Appointments\.br\ Follow Up with Lisette Redd, [facility] MED When: In 3 months\.br\ Comments:\.br\ f/u fatigue, dry/red eyes, depression/ anxiety\.br\ Where:\.br\ [address], [address]\.br\ [place] [address].br\ \.br\ You Need to Complete the Fol lowing\.br\ US Retroperitoneal Complete, 08/30/23, Routine, Order for future visit, Transport Mode:Ambulatory, Reason: Other (please specify), No, Urinary urgencyC[facility] Hospitaler [facility] Medicine Office/Clinic Noteon [id number] Medicine Office/Clinic NoteChief Complaint 2 week follow up-Labs HPI Staff Reason for Visit: 2 weeks follow up-Labs Labs Done: 08/16/2023 History of Present Illness Patient is here for follow up on her labs. RED/ DRY EYES/ FATIGUE So far, overall labs look very good. but there is some small amount of blood, trace protein, in urine. other labs good. I think we are still waiting on quite a few however. I ordered a few more tests looking at her immune system, and repeat ACTH test. They are in the system and ready to go. I do feel like she may need a retinal specialist. I will place a referral for one also. These things have been going on for 6 months. I may not be the one to figure it out completely. referral to various specialist IE endocrine/ hematology/ optho/ or thread cutter can take months , not weeks. (OPTHO AND ALLERGY REFERRALS PLACED ALREADY) This is confirmed hepatitis C virus antibody is present and reactive. This should be followed up with digestive health. The ACTH level which is nonspecific and likely needs to be repeated on a separate day. We can follow-up on this and discuss more at a follow-up visit. Autoimmune test was negative, regular cortisol level was normal, rheumatoid factor was negative STD testing was negative, HIV testing was negative. continued red/dry eye- has been to thread cutter, getting ready to do allergy - mold / cats- shots maybe in the near future Patient with continued use of steroid eye drops- daily ? pink cap- prednisolone- eye drops- 4 times a day- then weaned down. eye doctor- ? recommendation- from them - also c/o urinary frequency and intermittent incontinence- worsening urinary symptoms and had recently had a very heavy menstrual cycle- passing large clots than usual. Review of Systems PHQ Score Initial Depression Screen Score: 1 SCORE Physical Exam Vitals & Measurements T: 36.5 ?C(Temporal Artery) HR: 117(Peripheral) RR: 18 BP: 136/84 SpO2: 99% HT: 62 in HT: 157 cm WT: 64.1 kg WT: 141.02 lb BMI: 26.01 General: Younger to middle-aged female, pleasant, no distress, sitting in room 6. Skin: She does have some mild dark discoloration that is non-raised, non- erythematous, no distinct border onto the cheeks. The patient does have some tanned darkened skin. Head: no trauma, normocephalic Neck: Trachea midline, no adenopathy, no tenderness Eye: Injected eyes with normal range of motion. She has pupils equal, round, reactive to light and accommodation. No pain with range of motion. Normal extraocular movements, just injection and some clear crusting noted. No evidence of hordeolum or chalazion, lids normal, lashes normal ENMT: TM's clear, oral mucosa moist, no pharyngeal erythema or exudate, normaldentition Cardiovascular: regular rate and rhythm, normal peripheral perfusion, noedema. Her tachycardia did resolve, repeat heart rate was 80 beats per minute on re-examination. Respiratory: Lungs CTA, respirations non labored Chest wall: no deformity, nontender Gastrointestinal: Mild reducible umbilical hernia, nontender. No tenderness to palpation. Negative CVA tenderness. Back: No tenderness, Normal ROM, Normal alignment. Extremities: no deformity, no trauma Neurological: oriented x 4, LOC appropriate for age, CN II-XII intact, motor strength equal & normal bilaterally, sensation equal & normal bilaterally, speech normal Psychiatric: cooperative? , affect appropriate for age? , normal? judgement, normal? psychiatric thoughts. Results: Date Result Name Ind Value Ref Range 08/03/2023 11:05 Glucose Lvl 102 mg/dL (55 - 199) 08/03/2023 11:05 BUN 10 mg/dL (5 - 21) 08/03/2023 11:05 Creatinine 0.9 mg/dL (0.5 - 1.3) 08/03/2023 11:05 eGFR 80 mL/min/1.73 m2 (>=59 - ) 08/03/2023 11:05 BUN/Creat Ratio 11 (10 - 20) 08/03/2023 11:05 Sodium Lvl 138 mmol/L (135 - 145) 08/03/2023 11:05 Potassium Lvl 4.1 mmol/L (3.5 - 5.3) 08/03/2023 11:05 Chloride 103 mmol/L (101 - 111) 08/03/2023 11:05 CO2 27 mmol/L (21 - 31) 08/03/2023 11:05 AGAP 12 mEq/L (6 - 16) 08/03/2023 11:05 Calcium Lvl 9.5 mg/dL (8.9 - 11.1) 08/03/2023 11:05 Alk Phos 39 Int._Unit/L (21 - 98) 08/03/2023 11:05 ALT 13 Int._Unit/L (6 - 46) 08/03/2023 11:05 AST 18 Int._Unit/L (5 - 43) 08/03/2023 11:05 Total Protein 7.5 gm/dL (6.0 - 7.8) 08/03/2023 11:05 Albumin Lvl 5.0 gm/dL (3.3 - 5.0) 08/03/2023 11:05 Globulin 2.5 gm/dL (1.4 - 4.0) 08/03/2023 11:05 A/G Ratio 2.0 (1.1 - 2.2) 08/03/2023 11:05 Bili Total 1.0 mg/dL (0.0 - 1.1) 08/03/2023 11:05 Magnesium 1.9 mg/dL (1.3 - 2.4) 08/03/2023 11:05 CRP <0.5 mg/dL ( - <=1.9) 08/03/2023 11:05 Vitamin D 25 Hydroxy 45.9 ng/mL (30.0 - 100.0) 08/03/2023 11:24 UA Color Yellow /HPF (Yellow - ) 08/03/2023 11:24 UA Clarity (A) Turbid /HPF (Clear - ) 08/03/2023 11:24 UA Spec Grav 1.028 (1.005 - 1.030) 08/03/2023 11:24 U (more content not included)...[facility] HospitalComment on above:Result Comment: Electronically Signed By: Lisette Redd.yvonne\Date and Time Signed: 08/30/23 08:18 EDTPatient Educationon 08-30-2023 Patient EducationImmunology Fatigue If you have fatigue, you feel tired all the time and have a lack of energy or a lack of motivation.Fatigue may make it difficult to start or complete tasks because of exhaustion. Occasional or mild fatigue is often a normal response to activity or life. However, long-term (chronic) or extreme fatigue may be a symptom of a medical condition such as: ? Depression. ? Not having enough red blood cells or hemoglobin in the blood (anemia). ? A problem with a small gland located in the lower front part of the neck (thyroid disorder). ? Rheumatologic conditions. These are problems related to the body's defense system (immune system). ? Infections, especially certain viral infections. Fatigue can also lead to negative health outcomes over time. Follow these instructions at home: Medicines ? Take igbg-cdr-kwtnqbo and prescription medicines only as told by your health care provider. ? Take a multivitamin if told by your health care provider. ? Do not use herbal or dietary supplements unless they are approved by your health care provider. Eating and drinking ? Avoid heavy meals in the evening. ? Eat a well-balanced diet, which includes lean proteins, whole grains, plenty of fruits and vegetables, and low-fat dairy products. ? Avoid eating or drinking too many products with caffeine in them. ? Avoid alcohol. ? Drink enough fluid to keep your urine pale yellow. Activity ? Exercise regularly, as told by your health care provider. ? Use or practice techniques to help you relax, such as yoga, conner chi, meditation, or massage therapy. Lifestyle ? Change situations that cause you stress. Try to keep your work and personal schedules in balance. ? Do not use recreational or illegal drugs. General instructions ? Monitor your fatigue for any changes. ? Go to bed and get up at the same time every day. ? Avoid fatigue by pacing yourself during the day and getting enough sleep at night. ? Maintain a healthy weight. Contact a health care provider if: ? Your fatigue does not get better. ? You have a fever. ? You suddenly lose or gain weight. ? You have headaches. ? You have trouble falling asleep or sleeping through the night. ? You feel angry, guilty, anxious, or sad. ? You have swelling in your legs or another part of your body. Get help right away if: ? You feel confused, feel like you might faint, or faint. ? Your vision is blurry or you have a severe headache. ? You have severe pain in your abdomen, your back, or the area between your waist and hips (pelvis). ? You have chest pain, shortness of breath, or an irregular or fast heartbeat. ? You are unable to urinate, or you urinate less than normal. ? You have abnormal bleeding from the rectum, nose, lungs, nipples, or, if you are female, the vagina. ? You vomit blood. ? You have thoughts about hurting yourself or others. These symptoms may be an emergency. Get help right away. Call 911. ? Do not wait to see if the symptoms will go away. ? Do not drive yourself to the hospital. Get help right away if you feel like you may hurt yourself or others, or have thoughts about takingyour own life. Go to your nearest emergency room or: ? Call 911. ? Call the National Suicide Prevention Lifeline at or 629. This is open 24 hours a day. ? Text the Crisis Text Line at 493248. Summary ? If you have fatigue, you feel tired all the time and have a lack of energy or a lack of motivation. ? Fatigue may make it difficult to start or complete tasks because of exhaustion. ? Long-term (chronic) or extreme fatigue may be a symptom of a medical condition. ? Exercise regularly, as told by your health care provider. ? Change situations that cause you stress. Try to keep your work and personal schedules in balance. This information is not intended to replace advice given to you by your health care provider. Make sure you discuss any questions you have with your health care provider. Document Revised: 02/20/2022 Document Reviewed: 02/20/2022 [employer] Patient Education ? 2022 [email or web address]. Infectious Disease Hepatitis C Hepatitis C is a liver infection that is caused by the hepatitis C virus (HCV). The virus infects and causes inflammation in the liver. Hepatitis C can lead to: ? Loss of liver function (liver failure). ? Scarring of the liver (cirrhosis). ? Liver cancer. People with hepatitis C often do not know for months or years that they have this condition. This is because they have no symptoms or may have only mild symptoms. What are the causes? This condition is caused by HCV. The virus can spread from person to person (is contagious). It canspread through: ? Contact with an infected person's blood, semen, or vaginal fluids. ? Childbirth. A woman who has hepatitis C can pass it to her baby during . ? Hav (more content not included)...NormalCleveland Clinic Euclid HospitalPhysician Referralon 06-64-4834Xiseqvvnx Referral [id number]#1.00TIFFNormalCleveland Clinic Euclid HospitalACTHon 56-35-7655Cchaieldorfnt (P) [Mass/Vol]9.2 pg/mLInvalid Interpretation Code7.2-63.3[facility] HospitalComment on above:Result Comment: ACTH reference interval for samples collected between 7 and 10 AM. Performed at: [facility] [id number] PhD Vidhya ThackerPerformed By: #### [id number], [id number], [id number], [id number], [id number], 89927386, [id number] ####[facility] [address] [place], [place] [address]BOX Antibody Profileon 36-99-8030VXK capsid IgG IA Qn (S)133.0 unit/mLHigh0.0-17.9[facility] HospitalComment on above:Result Comment: Negative <18.0 Equivocal 18.0 - 21.9 Positive >21.9Performed By: #### [id number], [id number], 18001715, 83988176, [id number], 26320737, 6830085 ####[place] [address] [place], [place] [address]YMJ capsid IgM IA Qn (S)<36.0Invalid Interpretation Code0.0-35.9[facility] HospitalComment on above:Result Comment: Negative <36.0 Equivocal 36.0 - 43.9 Positive >43.9Performed By: #### [id number], [id number], 77640744, 97711253, [id number], 08033512, 4370820 ####[place] [address] [place], [place] [address]ERW nuclear IgG IA Qn (S)<18.0Invalid Interpretation Code0.0-17.9[facility] HospitalComment on above:Result Comment: Negative <18.0 Equivocal 18.0 - 21.9 Positive >21.9Performed By: #### [id number], 75525287, 70550622, 99924450, [id number], 52289515, 0624879 ####[place] [address] [place], [place] [address]Uhyehxd comment (Unsp spec) [Interp]CommentInvalid Interpretation CodeCleveland Clinic Euclid HospitalComment on above:Result Comment: EBV Interpretation Chart Boogie: Antibody Present + Antibody Absent - Interpretation VCA-IgM VCA-IgG EBNA-IgG No previous infection/ - - - Susceptible Primary infection (new + + - or recent) Past Infection +or- + + See comment below* + - - *Results indicate infection with EBV at some time however cannot predict the timing of the infection since antibodies to EBNA usually develop after primary infection or, alternatively, approximately 5-10% of patients with EBV never develop antibodies to EBNA. Performed at: [facility] [address] [place] [id number] PhD Vidhya ThackerPerformed By: #### [id number], 83924599, 52075776, 90138974, [id number], 01208440, 2189521 ####[place] [address] [place], [place] [address]DeO, Quant.on 41-10-7077UwB [Mass/Vol]144 mg/dLInvalid Interpretation Ykga62-737RspetdCleveland Clinic Euclid Hospital Comment on above:Result Comment: Performed at: [place] [id number] [place], [place] [id number] PhD Vidhya Geigerformed By: #### [id number], 65143833, 87317548, 46491999, [id number], 39140344, 6373835 ####[facility] [address] [place], [place] [address]NaH, Quanton 74-14-0570VpK Qn54 International_Unit/mLInvalid Interpretation Code6-495[facility] Comment on above:Result Comment: Performed at: [place] [address] [place], [place] [id number] MD Jm Burdickformed By: #### [id number], 59569783, 45007273, 78418310, [id number], 62438205, 6956713 ####[facility] [address] [place], [place] [address]QdD, Quant.on 49-49-8031TcY [Mass/Vol]929 mg/dLInvalid Interpretation Maux382-6815PsxayuCleveland Clinic Euclid HospitalComment on above:Result Comment: Performed at: [address] [id number] PhD Vidhya Geigerformed By: #### [id number], 75007220, 68949276, 24454171, [id number], 34488156, 4380939 ####[facility] [address]NEast [place], [place] [address]ZmJ, Quanton 10-05-9408ReO [Mass/Vol] 102 mg/dLInvalid Interpretation Aluj23-353XygsvnCleveland Clinic Euclid HospitalComment on above:Result Comment: Performed at: [facility] [address] [place], [place] [id number] PhD Vidhya Geigerformed By: #### [id number], 96323355, 52362616, 95924319, 0559046152, 46788303, 6576915 ####[facility] [address] [place], [place] [address]Cixrhadwb Referralon 08-19-2023 Physician [id number]#1.00[facility] HospitalCHEMISTRYOrdered By: SYSTEM SYSTEM on 61-68-1996Wjjl [Mass/Vol]154 ug/wKCmsn21 - 153 mcg/dLRemisol ChemAmphetamines Screen method >1000 ng/mL Ql (U)NEGATIVE 7 (08/16/23 12:25 PM)NormalNEGATIVERemisol ChemComment on above:Interpretive Data: Negative Cutoff: <1000 ng/mLBarbiturates Screen Ql (U)NEGATIVE 8 (08/16/23 12:25 PM)NormalNEGATIVERemisol ChemComment on above:Interpretive Data: Negative Cutoff: <200 ng/mLBenzodiazepines Ql (U)NEGATIVE 1 (08/16/23 12:25 PM)NormalNEGATIVERemisol ChemComment on above:Interpretive Data: Negative Cutoff: <200 ng/mLCannabinoids Screen Ql (U)POSITIVE 5, 6 *ABN* (08/16/23 12:25 PM)Invalid Interpretation CodeNEGATIVERemisol ChemComment on above:Result Comment: Critical Result Verified by Repeat Analysis No Confirmation Requested by Physician Called to Sherice Elena RN @0700 08/16/23Interpretive Data: Negative Cutoff: <50 ng/mLCocaine Ql (U)NEGATIVE 2 (08/16/23 12:25 PM)NormalNEGATIVERemisol ChemComment on above:Interpretive Data: Negative Cutoff: <300 ng/mLOpiates Screen Ql (U)NEGATIVE 3 (08/16/23 12:25 PM)NormalNEGATIVERemisol ChemComment on above:Interpretive Data: Negative Cutoff: <300 ng/mLPhencyclidine Screen method >25 ng/mL Ql (U)NEGATIVE 4 (08/16/23 12:25 PM)NormalNEGATIVERemisol ChemComment on above:Interpretive Data: Negative Cutoff: <25 ng/mL These drug screen results are to be used for medical (i.e., treatment) purposes only. Unconfirmed drug screening results must not be used for non-medical purposes (e.g., employment testing, legal testing).U FentanylNEGATIVE 9 (08/16/23 12:25 PM)NormalNEGATIVERemisol ChemComment on above:Interpretive Data: Negative Cutoff: <5 ng/mL These drug screen results are to be used for medical (i.e., treatment) purposes only. Unconfirmed drug screening results must not be used for non-medical purposes (e.g., employment testing, legal testing).Consent for Treatmenton 88-87-4229Ndhzsdn for [id number]#1.00TIFF NormalCleveland Clinic Euclid HospitalIronon 16-80-7740Gzvi [Mass/Vol]154 microgram/kNNzlg07-428MtpjukCleveland Clinic Euclid HospitalComment on above:Performed By: #### [id number], [id number], [id number] #### [facility] [address] [place], [place] [address] Drug Screenon 03-50-2253Jpygtbjmtrwv Screen method >1000 ng/mL Ql (U)NegativeNormalNEGATIVECleveland Clinic Euclid HospitalComment on above: Result Comment: Negative Cutoff: <1000 ng/mLPerformed By: #### [id number] ####[facility] [address] [place] [address] Barbiturates Screen Ql (U)NegativeNormalNEGUniversity Hospitals Lake West Medical Center Comment on above:Result Comment: Negative Cutoff: <200 ng/mLPerformed By: #### [id number] ####[facility] [address] [place], [place] [address]Rbinfakcqrybgqk Ql (U)NegativeNormalNEGUniversity Hospitals Lake West Medical Center Comment on above:Result Comment: Negative Cutoff: <200 ng/mLPerformed By: #### [id number] ####[facility] [address] [place], [place] [address]Fqmsonlnvrja Screen Ql (U)PositiveAbnormalNEGUniversity Hospitals Lake West Medical CenterComment on above:Result Comment: Critical Result Verified by Repeat Analysis No Confirmation Requested by Physician Called to Shericedain Elena RN @1550 08/16/23 Negative Cutoff: <50 ng/mLPerformed By: #### [id number] ####[address] [place], [place] [address]Qliwwor Ql (U)NegativeNormal NEGATIVECleveland Clinic Euclid HospitalComment on above:Result Comment: Negative Cutoff: <300 ng/mLPerformed By: #### [id number] ####[address] [place], [place] [address]Vviablo Screen Ql (U)NegativeNormal NEGATIVECleveland Clinic Euclid HospitalComment on above:Result Comment: Negative Cutoff: <300 ng/mLPerformed By: #### [id number] ####[address] [address]Oomipwdnfsyle Screen method >25 ng/mL Ql (U)NegativeNormalNEGATIVECleveland Clinic Euclid HospitalComment on above:Result Comment: Negative Cutoff: <25 ng/mL These drug screen results are to be used for medical (i.e., treatment) purposes only. Unconfirmed drug screening results must not be used for non-medical purposes (e.g., employment testing, legal testing).Performed By: #### [id number] ####[address] [address] FentanylNegativeNormalNEGATIVECleveland Clinic Euclid HospitalCommclaren northern [place] on above:Result Comment: Negative Cutoff: <5 ng/mL These drug screen results are to be used for medical (i.e., treatment) purposes only. Unconfirmed drug screening results must not be used for non-medical purposes (e.g., employment testing, legal testing).Performed By: #### [id number] ####[address] [place] [address] Physician Referralon 51-83-5653Voqknuzmc Referral [id number]#1.00TIFFNormalCleveland Clinic Euclid HospitalChlam/GC/Trich,NAAon 4C. trachomatis rRNA TIFFANI+probe Ql (Unsp spec)NegativeInvalid Interpretation CodeNegativeCleveland Clinic Euclid Hospital Comment on above:Performed By: #### [id number], [id number], [id number] #### [facility] [address] [place], [place] [address]R. gonorrhoeae rRNA TIFFANI+probe Ql (Unsp spec)NegativeInvalid Interpretation CodeNegativeCleveland Clinic Euclid HospitalComment on above:Performed By: #### [id number], [id number], [id number] #### [facility] [address] [place], [place] [address]R. vaginalis rRNA TIFFANI+probe Ql (Unsp spec)NegativeInvalid Interpretation CodeNegativeCleveland Clinic Euclid HospitalComment on above:Result Comment: Performed at: = [address] [id number] MD Kate ScalesPerformed By: #### [id number], [id number], [id number] #### [facility] [address] [place] [address].HCV RT-PCR, Quant (Non-Graph)on 95-33-8525Esdhhwnssq impression Molgen Tio (Unsp spec) [Interp]CommentInvalid Interpretation Code [facility] HospitalComment on above:Result Comment: Positive HCV antibody screen without the presence of HCV RNA is consistent with a resolved past infection or a false positive HCV antibody. Consider repeat testing after one month. Performed at: [address] [id number] MD Jm AshfordiPerformed By: #### [id number], [id number], [id number] #### [facility] [address] [place], [place] [address]KMN RNA TIFFANI+probe QnNot detectedInvalid Interpretation Code [facility] HospitalComment on above:Performed By: #### [id number], [id number], [id number] #### [facility] [address] [place] [address]Stw[address] Lab Test Reference RangeCommentInvalid Interpretation CodeCleveland Clinic Euclid HospitalComment on above:Result Comment: The quantitative range of this assay is 15 IU/mL to 100 million IU/mL.Performed By: #### [id number], [id number], [id number] #### [facility] [address] [place] [address]KFATzd 74-99-6845Mkxozmuydszes (P) [Mass/Vol]4.3 pg/mLLow 7.2-63.3[facility] HospitalComment on above:Result Comment: ACTH reference interval for samples collected between 7 and 10 AM. Performed at: [facility] [address] [place], [place] [id number] PhD Vidhya ThackerPerformed By: #### [id number], [id number], [id number] #### [facility] [address] [place] [address] 95370VHI w/Reflex if POSon 72-80-3638Jmgjumm Ab Ql (S)Negative Invalid Interpretation CodeNegativeCleveland Clinic Euclid HospitalComment on above: Result Comment: Performed at: [facility] [address] [place], [place] [id number] PhD Vidhya ThackerPerformed By: #### [id number], [id number], [id number] #### [facility] [address] [place] [address] 83326Rceyr Hepatitis A B C Panelon 32-69-4862WDO IgM IA QlNegative Invalid Interpretation CodeNegativeCleveland Clinic Euclid HospitalComment on above: Performed By: #### [id number], [id number], [id number] #### [facility] [address] [place] [address] 89828TEB core IgM IA QlNegativeInvalid Interpretation CodeNegative [facility]ucl[facility] HospitalComment on above:Performed By: #### [id number], [id number], [id number] #### [facility] [address], [place] [address]YKJ surface Ag IA QlNegativeInvalid Interpretation CodeNegative [facility] Euclid HospitalComment on above:Performed By: #### [id number], [id number], [id number] #### [facility] [address], [place] [address]KZB IgG IA QlReactiveAbnormalNon ReactiveCleveland Clinic Euclid HospitalComment on above:Result Comment: Performed at: [address] [id number] PhD Vidhya Geigerformed By: #### [id number], [id number], [id number] #### [facility] [address] [place] [address] 56888Vwycphuhts 87-83-1004Wkwikmau [Mass/Vol]11.7 microgram/dL Invalid Interpretation Code6.2-19.4FProMedica Memorial HospitalComment on above: Result Comment: Please Note: The reference interval and flagging for this test is for an AM collection. If this is a PM collection please use: Cortisol PM: 2.3-11.9 Performed at: [address] [id number] PhD Vidhya Geigerformed By: #### [id number], [id number], [id number] #### [facility] [address] [place] [address] 45561AAA RNA by PCR, Qn Rfx Genoon 01-40-2514TVV genotype TIFFANI+probe NomCOMMENTInvalid Interpretation [facility] HospitalComment on above:Result Comment: Not indicated Performed at: [address] [id number] MD Jm Burdickformed By: #### [id number], [id number], [id number] #### [facility] [address] [place] [address] 945[address]OAG RNA TIFFANI+probe [Log units/Vol]COMMENTInvalid Interpretation [facility] HospitalComment on above:Result Comment: Unable to calculate result since non-numeric result obtained for component test.Performed By: #### [id number], [id number], [id number] #### [facility] [address], [place] [address]Eivjuvtzzz comment Tio (Report)CommentInvalid Interpretation CodeCleveland Clinic Euclid HospitalComment on above:Result Comment: The quantitative range of this assay is 15 IU/mL to 100 million IU/mL.Performed By: #### [id number], [id number], [id number] #### [facility] [address], [place] [address]YIH Screen 4th Generation wRfxon 56-47-1041JGA 1+2 Ab+HIV1 p24 Ag IA QlNon-ReactiveInvalid Interpretation CodeNon ReactiveCleveland Clinic Euclid HospitalComment on above:Result Comment: HIV Negative HIV-1/HIV-2 antibodies and HIV-1 p24 antigen were NOT detected. There is no laboratory evidence of HIV infection. Performed at: [facility] [address] [place], [place] [id number] PhD Vidhya Geigerformed By: #### [id number], [id number], [id number] #### [facility] [address], [place] [address]LO Quanton 83-48-6622Rwbbraucqw factor Qn10.5 International_Unit/mLInvalid Interpretation Code<14.0[facility] Comment on above:Result Comment: Performed at: [facility] [address] [place], [place] [id number] PhD Vidhya Geigerformed By: #### [id number], [id number], [id number] #### [facility] [address], [place] [address]XZMEVRBKSGvpxglz By: SYSTEM SYSTEM on 31-76-159814- hydroxyvitamin D3 [Mass/Vol]45.9 ng/gXTrilyp59.0 - 100.0 ng/mLRemisol ChemFree T4 [Mass/Vol]0.75 ng/dLNormal0.58 - 1.64 ng/dLRemisol ChemTSH Qn1.47 m[IU]/L Normal0.34 - 5.60 mcIU/mLRemisol ChemCHEMISTRYOrdered By: Catalina Roth on 76-86-8812Iotkzwm [Mass/Vol]5.0 g/dLNormal3.3 - 5.0 gm/dLFT Chem S Albumin/Globulin [Mass ratio]2.0 {ratio}Normal1.1 - 2.2FTM Chem SALP [Catalytic activity/Vol]39 [iU]/aYxagmw14 - 98 Int._Unit/[facility] Chem SALT No additional P-5'-P [Catalytic activity/Vol]13 [iU]/dNormal6 - 46 Int._Unit/[facility] Chem SAnion gap [Moles/Vol]12 mmol/LNormal6 - 16 mEq/[facility] Chem SAST [Catalytic activity/Vol]18 [iU]/dNormal5 - 43 Int._Unit/[facility] Chem SBilirubin [Mass/Vol]1.0 mg/dLNormal0.0 - 1.1 mg/dLFT Chem SCalcium [Mass/Vol]9.5 mg/dLNormal8.9 - 11.1 mg/dLFT Chem SChloride [Moles/Vol]103 mmol/PIzszxd944 - 111 mmol/[facility] Chem SCO2 [Moles/Vol]27 mmol/JSirrse89 - 31 mmol/[facility] Chem SCreatinine [Mass/Vol]0.9 mg/dLNormal0.5 - 1.3 mg/dLFT Chem SCRP [Mass/Vol]mg/dLNormal <=1.9mg/dLFT Chem SeGFR80 mL/min/1.73 h3Agaegc>=59mL/min/1.73 m2[facility] Chem S Globulin (S) [Mass/Vol]2.5 g/dLNormal1.4 - 4.0 gm/dLFT Chem SGlucose [Mass/Vol]102 mg/mJDazosw03 - 199 mg/dLFT Chem SMagnesium [Mass/Vol]1.9 mg/dL Normal1.3 - 2.4 mg/dLHARPER COUNTY [facility] Chem SPotassium [Moles/Vol]4.1 mmol/LNormal3.5 - 5.3 mmol/LFTMC Chem SProtein [Mass/Vol]7.5 g/dLNormal6.0 - 7.8 gm/dLHARPER [facility] Chem S Sodium [Moles/Vol]138 mmol/VTvqzoe573 - 145 mmol/LFTMC Chem SUrea nitrogen [Mass/Vol]10 mg/dLNormal5 - 21 mg/dLHARPER [facility] Chem SUrea nitrogen/Creatinine [Mass ratio]11 mg/rtHojdmh95 - 20[facility] Chem SCMPon 51-14-3186Boblpqo [Mass/Vol]5.0 g/dL Normal3.3-5.0C[facility] Euclid HospitalComment on above:Performed By: #### [id number], [id number], [id number] #### [facility] [address] [place] [address]Rgmvimq/Globulin (S) [Mass conc ratio]2.9Khuxue2.1-2.2FProMedica Memorial HospitalComment on above:Performed By: #### [id number], [id number], [id number] #### [facility] [address], [place] [address]WBL [Catalytic activity/Vol]39 Int._Unit/SAncwkn50-60KjtvabCleveland Clinic Euclid HospitalComment on above:Performed By: #### [id number], [id number], [id number] #### [facility] [address], [place] [address]LUC No additional P-5'-P [Catalytic activity/Vol]13 Int._Unit/L Normal6-46C[facility] Euclid HospitalComment on above:Performed By: #### [id number], [id number], [id number] #### [facility] [address], [place] [address]Dxepq gap [Moles/Vol]12 mmol/LNormal6-16C[facility]ucl[facility] HospitalComment on above:Performed By: #### [id number], [id number], [id number] #### [facility] [address], [place] [address]TBZ [Catalytic activity/Vol]18 Int._Unit/LNormal5-43C[facility] HospitalComment on above:Performed By: #### [id number], [id number], [id number] #### [facility] [address], [place] [address]Bnvjpplbs [Mass/Vol]1.0 mg/dLNormal0.0-1.1FProMedica Memorial HospitalComment on above:Performed By: #### [id number], [id number], [id number] #### [facility] [address], [place] [address]Nwbcxqa [Mass/Vol]9.5 mg/dLNormal8.9-11.1FProMedica Memorial HospitalComment on above:Performed By: #### [id number], [id number], [id number] #### [facility] [address], [place] [address]Thmzpbyx [Moles/Vol]103 mmol/YYmgnut025-888XihrkgCleveland Clinic Euclid HospitalComment on above:Performed By: #### [id number], [id number], [id number] #### [facility] [address], [place] [address]MD8 [Moles/Vol]27 mmol/VUyzaxh84-64HumvskCleveland Clinic Euclid Hospital Comment on above:Performed By: #### [id number], [id number], [id number] #### [facility] [address], [place] [address]Udsmcbwufl [Mass/Vol]0.9 mg/dLNormal0.5-1.3FProMedica Memorial HospitalComment on above:Performed By: #### [id number], [id number], [id number] #### [facility] [address], [place] [address]Ogywfomy (S) [Mass/Vol]2.5 g/dLNormal1.4-4.0C[facility]ucl[facility] HospitalComment on above:Performed By: #### [id number], [id number], [id number] #### [facility] [address], [place] [address]Wusdgtj [Mass/Vol]102 mg/iMBqwbxz30-354TbrmyrCleveland Clinic Euclid HospitalComment on above:Performed By: #### [id number], [id number], [id number] #### [facility] [address], [place] [address]Zetwsvqkz [Moles/Vol]4.1 mmol/LNormal3.5-5.3FProMedica Memorial HospitalComment on above:Performed By: #### [id number], [id number], [id number] #### [facility] [address] [place] [address]Wxrgxyf [Mass/Vol]7.5 g/dLNormal6.0-7.8C[facility] HospitalComment on above:Performed By: #### [id number], [id number], [id number] #### [facility] [address], [place] [address]Gpzwzv [Moles/Vol]138 mmol/ZXjsvwm873-410LcnmszCleveland Clinic Euclid HospitalComment on above:Performed By: #### [id number], [id number], [id number] #### [facility] [address] [place] [address]Jsec nitrogen [Mass/Vol]10 mg/dLNormal5-21C[facility] HospitalComment on above:Performed By: #### [id number], [id number], [id number] #### [facility] [address] [place] [address]Ejbm nitrogen/Creatinine [Mass ratio]11 No MqkmgBgzery20-45 [facility] HospitalComment on above:Performed By: #### [id number], [id number], [id number] #### [facility] [address], [place] [address]VHGck 38-81-4502UPQ [Mass/Vol]mg/LNormal<=1.9C[facility]ucl[facility] HospitalComment on above:Performed By: #### [id number], [id number], [id number] #### [facility] [address], [place] [address]Vvxpyxk for Treatmenton 66-12-6832Wvhyhib for Treatment [id number]#1.00TIFFNormalCleveland Clinic Euclid HospitalFaholy family hospital Medicine Office/Clinic Noteon 31-89-4883Xnfgrk Medicine Office/Clinic NoteChief Complaint Eye issue. Had her eyes looked at with no results. Had reaction without allergent present. Allergicto cats. HPI Staff Reason for Visit: Establish Care History: Any previous diagnosis: Fatigue, Anemia, Depression, Dizziness, Insomnia Last provider: Dr. Garay Patient Any recent labs: no Acute: Current issues/complaints: Health Maintenance: Adult Wellness: Due PAP (21-64yo): Due Mammogram (qyr 45-54yo, q2yrs 55-75yo): Due Colonoscopy/Cologuard (45-75yo): Due PHQ9: 11 GENIE: 12 History of Present Illness Fredi Elliott is a 47-year-old female who is here today to establish care. She has an acute complaint of dry eyes and red eyes. Patient is new to me. Patient is here today for evaluation and overall feeling well but frustrated with dry red eyes for the past few months. Medical History: She has a past medical history significant for anemia, depression, dizziness, insomnia, chronic hepC patient reports being treated over 10 to 20 years ago, H. pylori, vitamin D deficiency, and allergies. Past Surgical History: Carpal tunnel, foot surgery, knee surgery, EGD. Health Maintenance: Routine labs: Due. Pap (21-64 year old): Due. Colonoscopy/Cologuard (45-75yo): Due. Mammogram (every year 45-54, ever 2 years 55-85): Due. Lung CA LDCT (55-74 year old + 30 PYH): Not DEXA (F>65, M>70): not due yet AAA (>65 +100cigs/life or Family history): Not mentioned. Specialists: Pharmaceutical Specialty Representative: Not mentioned. Dentist: Not mentioned. Psychology/psychiatry: Not mentioned. Cardiology: None. Chart review. The patient was recently seen by JAMIE Simpson for 2 months of clear sticky discharge, burning, blurriness, sensitivity to light and in 04/2023 to establish care. Dry eyes. She reports experiencing dry eyes characterized by mild eye itchiness and persistent redness, including occasional periods of watery, dry, blurry, and eye soreness prior to Thanksgiving. She has not undergone any blood testing yet. She had a consultation with Danette Garay in [place] in 04/2023, including blood work, which was not related to her eye symptoms. She had her liver testing, but she wasnever given any results. She visited the [place] ER on 07/31/2023 due to using steroid ophthalmic drops, which was prescribed by her eye doctor. She has been using it for several days. She was advised against excessive usage as they may cause damage, but she reports that it was the only thing thatprovided her mild relief. She was screened for diabetes during her ER visit, but she was within normal limits. She was suggested to have cat allergies, but she believes her condition was not related to her cats as she has not been around them for 6 weeks. She experiences intermittent mild discomfort in her eyeballs, with no severe symptoms. She is capable of physical eye movement and her eyes have been dilated without any abnormal findings. Her eyes cleared up during her stay in [place]. She was coming home from [place] approximately 2 weeks ago when she experienced dizziness after standing for about 2 hours, which was followed by a recurrence of eye discomfort upon using the bathroom. She was not around cats during that time. Her eyes present a crusty appearance in the mornings, which she describes as glued shut, and she denies any presence of blood in her tears. Tachycardia. She exhibited an elevated heart rate during her ER visit, but she denies any illness. She reported mild dehydration and denied experiencing chest pain, palpitations, or headaches. She has not performed an EKG. She denies swelling in her legs or ankles. Thyroid-related symptoms. She denies any physical abnormalities such as lumps or bumps in the neck. She has been experiencingsignificant fatigue over the past 3 months, and lacking energy to engage in activities. Her condition has been ongoing for the last 2 years, affecting her mood due to the persistent fatigue. History of hepatitis C. She has a history of hepatitis C, which was treated with interferon approximately 20 years ago. 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 She experienced a temporary episode of jaundice, characterized by a yellow tongue, which resolved on its own. She is currently on iron therapy. Genitourinary health. She reports experiencing urinary urgency for approximately 6 months but denies hematuria. She has not had any recent urinalysis. She underwent vaginal delivery with her 4 children. She has no vaginal discharge or pain associated with sexual activity. She denies any chance of and is nearing her menstrual cycle. She does not report any vaginal drainage or bleeding. She requests testing for sexually transmitted diseases. She has never undergone a mammogram. Syncope and dizziness. She has experienced multiple instances of loss of consciousness over the past few years, accompanied by dizziness and syncopal episodes. Sh (more content not included)...NormalCleveland Clinic Euclid HospitalComment on above:Result Comment: Electronically Signed By: Lisette Redd\.br\Date and Time Signed: 08/03/23 18:17 EDT\.br\Electronically Co-Signed By: Suzi Ybarra\.br\Date and Time Co-Signed: 08/03/23 12:15 EDTFree T4on 92-61-4341Gyvo T4 [Mass/Vol]0.75 ng/dLNormal0.58-1.64C[facility]ucl[facility] HospitalComment on above:Performed By: #### [id number], [id number], [id number] #### [facility] [address] [place] [address]LEYRBBHZSEZipvdgl By: Amado Chao on 86-41-2245WUM (Bld) [Velocity]8 mm/hNormal0 - 34 mm/hrHARPER COUNTY [facility] HemeAutoSSInterdisciplinary Note - Social Workeron 89-62-0349Nxffrfrncqwewjchy Note - Social WorkerSW spoke to patient over the phone today to follow up on her positive depression screen from yesterd ay. She states that the depression stems from an ongoing issue with her eye that she has had since March. She explained that she was very pleased with her appointment yesterday and is very confident in the provider and her willingness to really look into this problem and to take it seriously. She is hopeful of getting some answers soon. She denies any further needs at this time. SW will remainavailable.NormalCleveland Clinic Euclid HospitalMagnesiumon 35-15-0918Jsfmjnfry [Mass/Vol]1.9 mg/dLNormal1.3-2.4Fisher [facility] HospitalComment on above: Performed By: #### [id number], [id number], [id number] #### [facility] [address], [place] [address]LWJQXLLGYtraivz By: Frieda Cervantes on 78-89-6589JCC.beta subunit (U) [Moles/Vol]NegativeNormalFT Man SeroSed Rate Automatedon 92-39-4487WVD (Bld) [Velocity]8 mm/hNormal0-34C[facility] HospitalComment on above: Performed By: #### [id number], [id number], [id number] #### [facility] [address], [place] [address]RIWgz 17-40-8429SHO Qn1.47 m[IU]/LNormal0.34-5.60[facility] HospitalComment on above:Performed By: #### [id number], [id number], [id number] #### [facility] [address], [place] [address]U BetaHcg Qualon 42-59-2900ECO.beta subunit (U) [Moles/Vol] NegativeNormalCleveland Clinic Euclid HospitalComment on above:Performed By: #### [id number], [id number], [id number] #### [facility] [address], [place] [address]KEPDOJIHJPIwwvtxi By: SYSTEM SYSTEM on 79-53-3537Rmzjs (U) Yellow /HPFNormalYellow/HPFFTMC UA Auto SSComment on above:Interpretive Data: Microscopic readings are only performed on those samples that meet specific criteria set forth by [facility].Glucose (U) [Mass/Vol]NegativeNormalNegativemg/dLFT UA Auto SSKetones Ql (U)Negative (08/03/23 11:24 AM)NormalNegativeHARPER [facility] UA Auto SSUA BacteriaTrace graded/HPFNormal Tracegraded/HPFFT UA Auto SSUA Blood1+ graded/HPFInvalid Interpretation Code Negativegraded/HPFFTMC UA Auto SSUA ClarityTurbid /HPFInvalid Interpretation CodeClear/HPFFT UA Auto SSUA Leuk EstNegativeNormalNegativeLeu/uLFT UA Auto SSUA Mucous2+ graded/LPFInvalid Interpretation CodeNegativegraded/LPFFTMC UA Auto SSUA NitriteNegativeNormalNegativemg/dLFT UA Auto SSUA pH6.0 *NA* (08/03/23 11:24 AM)Invalid Interpretation Code5.0 - 9.0FT UA Auto SSUA Protein Trace mg/dLInvalid Interpretation CodeNegativemg/dLFTMC UA Auto SSUA RBC4-20 graded/HPFInvalid Interpretation Code0-3graded/HPFFTMC UA Auto SSUA Spec Grav 1.028 *NA* (08/03/23 11:24 AM)Invalid Interpretation Code1.005 - 1.030FT UA Auto SSUA Squam Epithelial>10 graded/HPFInvalid Interpretation Code0-2graded/HPFFTMC UA Auto SSUA UrobilinogenNegativeNormalNegative/HPFFT UA Auto SSUA WBC0-5 (08/03/23 11:24 AM)Normal0-5FTMC UA Auto SSUrobilinogen (U) [Mass/Vol]Negative NormalNegativemg/dLFT UA Auto SSURINALYSISOrdered By: Christiane Pisano on 45-95-8717RW Spec DescClean Catch (08/03/23 11:24 AM)NormalFT UA Auto SSUrinalysis with Microon 96-55-0938Vafba (U)YellowNormalYellowCleveland Clinic Euclid HospitalComment on above:Result Comment: Microscopic readings are only performed on those samples that meet specific criteria set forth by [facility].Performed By: #### [id number], [id number], [id number] #### [facility] [address], [place] [address]Quvessq (U) [Mass/Vol]NegativeNormalNegativeCleveland Clinic Euclid HospitalComment on above:Performed By: #### [id number], [id number], [id number] #### [facility] [address], [place] [address]Gdabars Ql (U)NegativeNormalNegMercy Health Willard Hospital Comment on above:Performed By: #### [id number], [id number], [id number] #### [facility] [address], [place] [address]QJ Blood1+ CD:[id number] [facility] CenterComment on above:Performed By: #### [id number], [id number], [id number] #### [facility] [address] [id number] BacteriaTraceNormalTraceCleveland Clinic Euclid HospitalComment on above:Performed By: #### [id number], [id number], [id number] #### [facility] [address], [place] [address]ZH ClarityTurbidAbnormalClearFisher [facility] HospitalComment on above:Performed By: #### [id number], [id number], [id number] #### [facility] [address], [place] [address]KX Leuk EstNegativeNormalNegMercy Health Willard Hospital Comment on above:Performed By: #### [id number], [id number], [id number] #### [facility] [address], [place] [address]CK Mucous2+ CD:[id number] [facility] CenterComment on above:Performed By: #### [id number], [id number], [id number] #### [facility] [address], [place] [address]TK NitriteNegativeNormalNegativeC[facility] Clinic Euclid Hospital Comment on above:Performed By: #### [id number], [id number], [id number] #### [facility] [address], [place] [address]MP pH6.0Invalid Interpretation Code5.0-9.0[facility] HospitalComment on above:Performed By: #### [id number], [id number], [id number] #### [facility] [address] [place] [address]ZY ProteinTraceAbnormalNegMercy Health Willard Hospital Comment on above:Performed By: #### [id number], [id number], [id number] #### [facility] [address] [place] [address]HJ TNR3-60Vacqcfql3-5Dxtlkp [facility] HospitalComment on above:Performed By: #### [id number], [id number], [id number] #### [facility] [address] [place] [address]KK Spec Grav1.028Invalid Interpretation Code1.005-1.030C[facility] HospitalComment on above:Performed By: #### [id number], [id number], [id number] #### [facility] [address] [place] [address]BC Squam Epithelial>23Jmtfkusj2-2Yhpvgg [facility] Comment on above:Performed By: #### [id number], [id number], [id number] #### [facility] [address] [place] [address]QE UrobilinogenNegativeNormalNegativeCleveland Clinic Euclid HospitalComment on above:Performed By: #### [id number], [id number], [id number] #### [facility] [address] [place] [address]IV FFQ4-5Vhxtqg6-8Viwyck [facility] HospitalComment on above: Performed By: #### [id number], [id number], [id number] #### [facility] [address] [place] [address]Fpegsvxwdyeo (U) [Mass/Vol]NegativeNormalNegativeCleveland Clinic Euclid HospitalComment on above:Performed By: #### [id number], [id number], [id number] #### [facility] [address] [place] [address]WP Spec DescClean CatchNormalCleveland Clinic Euclid HospitalComment on above:Performed By: #### [id number], [id number], [id number] #### [facility] [address] [place] [address]Apvlhdp D 25 Hydroxyon 20-62-863447281308-ywdmysudcvzhzc D3 [Mass/Vol]45.9 ng/lRYxietz11.0-100.0[facility] HospitalComment on above: Performed By: #### [id number], [id number], [id number] #### [facility] [address] [place] [address]cQRRqh 04-10-4053mPQA41 mL/min/1.73 d5Kelpcd>=59C[facility] Euclid HospitalComment on above:Order Comment: Order added by Discern Expert. Performed By: #### [id number], [id number], [id number] #### [facility] [address] [place] [address] 21305Gcixjlchlj Visit Summaryon [id number] Visit Summary FREDI ELLIOTT :1975 Visit Date:08/02/2023 Ambulatory Visit Instructions Your Diagnosis Establishing care with new doctor, encounter for Chronic hepatitis C Fatigue Major depressive disorder, recurrent, moderate Vitamin D deficiency disease Dizziness Weight loss Dry eye Family history of endocrine and metabolic disease Encounter for screening mammogram for breast cancer Screening for colon cancer Wellness examination Your Care Team Attending Physician - Lisette Redd Primary Care Physician - Lisette Redd This Is Your Medications List Contact prescribing physician if questions or concerns ferrous sulfate (ferrous sulfate 325 mg Tab) prednisoLONE ophthalmic (prednisoLONE acetate ophthalmic 0.12% suspension) Procedures Performed Carpal Tunnel surgery, Foot Surgery, Knee Surgery. Discharge Vitals Temperature (Temporal Artery) 36.7 ?C Heart Rate (Peripheral) 114 Respiratory Rate 18 Blood Pressure 132/88 Height 157 cm Height 62 in Weight 63.7 kg Weight 140.14 lb BMI 25.84 What to do next Scheduled Follow-Up Appointments 2023 7:00 AM EDT With: Lisette Redd Where: [facility] Primary CareInvalid Interpretation Code [facility] HospitalPatient Educationon [phone] EducationImmunology Fatigue If you have fatigue, you feel tired all the time and have a lack of energy or a lack of motivation.Fatigue may make it difficult to start or complete tasks because of exhaustion. Occasional or mild fatigue is often a normal response to activity or life. However, long-term (chronic) or extreme fatigue may be a symptom of a medical condition such as: ? Depression. ? Not having enough red blood cells or hemoglobin in the blood (anemia). ? A problem with a small gland located in the lower front part of the neck (thyroid disorder). ? Rheumatologic conditions. These are problems related to the body's defense system (immune system). ? Infections, especially certain viral infections. Fatigue can also lead to negative health outcomes over time. Follow these instructions at home: Medicines ? Take wjsr-cns-jrbgqqe and prescription medicines only as told by your health care provider. ? Take a multivitamin if told by your health care provider. ? Do not use herbal or dietary supplements unless they are approved by your health care provider. Eating and drinking ? Avoid heavy meals in the evening. ? Eat a well-balanced diet, which includes lean proteins, whole grains, plenty of fruits and vegetables, and low-fat dairy products. ? Avoid eating or drinking too many products with caffeine in them. ? Avoid alcohol. ? Drink enough fluid to keep your urine pale yellow. Activity ? Exercise regularly, as told by your health care provider. ? Use or practice techniques to help you relax, such as yoga, conner chi, meditation, or massage therapy. Lifestyle ? Change situations that cause you stress. Try to keep your work and personal schedules in balance. ? Do not use recreational or illegal drugs. General instructions ? Monitor your fatigue for any changes. ? Go to bed and get up at the same time every day. ? Avoid fatigue by pacing yourself during the day and getting enough sleep at night. ? Maintain a healthy weight. Contact a health care provider if: ? Your fatigue does not get better. ? You have a fever. ? You suddenly lose or gain weight. ? You have headaches. ? You have trouble falling asleep or sleeping through the night. ? You feel angry, guilty, anxious, or sad. ? You have swelling in your legs or another part of your body. Get help right away if: ? You feel confused, feel like you might faint, or faint. ? Your vision is blurry or you have a severe headache. ? You have severe pain in your abdomen, your back, or the area between your waist and hips (pelvis). ? You have chest pain, shortness of breath, or an irregular or fast heartbeat. ? You are unable to urinate, or you urinate less than normal. ? You have abnormal bleeding from the rectum, nose, lungs, nipples, or, if you are female, the vagina. ? You vomit blood. ? You have thoughts about hurting yourself or others. These symptoms may be an emergency. Get help right away. Call 911. ? Do not wait to see if the symptoms will go away. ? Do not drive yourself to the hospital. Get help right away if you feel like you may hurt yourself or others, or have thoughts about takingyour own life. Go to your nearest emergency room or: ? Call 911. ? Call the National Suicide Prevention Lifeline at or 653. This is open 24 hours a day. ? Text the Crisis Text Line at 475100. Summary ? If you have fatigue, you feel tired all the time and have a lack of energy or a lack of motivation. ? Fatigue may make it difficult to start or complete tasks because of exhaustion. ? Long-term (chronic) or extreme fatigue may be a symptom of a medical condition. ? Exercise regularly, as told by your health care provider. ? Change situations that cause you stress. Try to keep your work and personal schedules in balance. This information is not intended to replace advice given to you by your health care provider. Make sure you discuss any questions you have with your health care provider. Document Revised: 02/20/2022 Document Reviewed: 02/20/2022 [employer] Patient Education ? 2022 [email or web address]. Infectious Disease Hepatitis C Hepatitis C is a liver infection that is caused by the hepatitis C virus (HCV). The virus infects and causes inflammation in the liver. Hepatitis C can lead to: ? Loss of liver function (liver failure). ? Scarring of the liver (cirrhosis). ? Liver cancer. People with hepatitis C often do not know for months or years that they have this condition. This is because they have no symptoms or may have only mild symptoms. What are the causes? This condition is caused by HCV. The virus can spread from person to person (is contagious). It canspread through: ? Contact with an infected person's blood, semen, or vaginal fluids. ? Childbirth. A woman who has hepatitis C can pass it to her baby during . ? Hav (more content not included)...NormalCleveland Clinic Euclid HospitalConsenton [id number]#1.00TIFFCleveland Clinic Hillcrest HospitalPhysician Referralon 92-59-8591Ktqwpfvos Referral [id number]#1.00TIFProMedica Flower HospitalAmbulatory Visit Summaryon 54-62-9919Biqsliyyqx Visit Summary FREDI ELLIOTT :1975 Visit Date:05/31/2023 Ambulatory Visit Instructions Your Diagnosis Allergies Red eyes Itchy eyes Watery eyes BMI 26.0-26.9,adult Vaping-related disorder Your Care Team Attending Physician - Danette Briones Primary Care Physician - Danette Briones This Is Your Medications List dexamethasone-tobramycin ophthalmic (dexamethasone-tobramycin Opth 0.1%-0.3% Susp) diclofenac ophthalmic (diclofenac Opth 0.1% Llili) ferrous sulfate (ferrous sulfate 325 mg Tab) Procedures Performed Carpal Tunnel surgery, Foot Surgery, Knee Surgery. Discharge Vitals Heart Rate (Peripheral) 80 Respiratory Rate 18 Blood Pressure 126/84 Height 157 cm Height 62 in Weight 64.8 kg Weight 142.56 lb BMI 26.29 What to do next Scheduled Follow-Up Appointments Sunday 8:40 AM EST With: Danette Briones Where: [facility] Family Medicine [facility] Medicine Office/Clinic Noteon [phone] Medicine Office/Clinic NoteHPI Staff Fredi is a 47 year old female presenting for acute visit Onset: 2 months Location: started in left eye then 2 days later right eye Eye Discharge: daily, clear sticky Burning: yes Blurry: yes Sensitive to light: yes Pt states has been seen in [facility] by MERLENE fried by electric shipyard operator Dr Jayne alba in [place] twice.Was told has allergy to cats but has had cat her whole life and never had an issues and has cats groomed. Would like referred to a eyeglass lens cutter History of Present Illness pt presents today [...] strength equal & normal bilaterally, speech normal MELVIN sclera are red and irritated, eyes are watery (clear drainage) Assessment/Plan 1. Allergies (T78.40XA: Allergy, unspecified, initial encounter) pt presents today with red, itchy, watery eyes for about 2 months. has been to a couple urgent cares and to electric shipyard operator twice. was told that she needed to see an thread cutter. has tried multiple drops and symptoms are not improving. pt states she was told she was allergic to cats many years ago but has had cats all of her life. Kenalog injection given in office today. pt encouraged to take Zyrtec or Claritin daily. all questions answered. RTC 4 weeks Ordered: [facility] External Ambulatory Referral 2. Red eyes (H57.89: Other specified disorders of eye and adnexa) see above Ordered: [facility] External Ambulatory Referral 3. Itchy eyes (H57.9: Unspecified disorder of eye and adnexa) see above Ordered: [facility] External Ambulatory Referral 4. Watery eyes (H04.203: Unspecified epiphora, bilateral) see above Ordered: [facility] External Ambulatory Referral 5. BMI 26.0-26.9,adult (Z68.26: Body mass index [BMI] 26.0-26.9, adult) BMI education complete Ordered: [facility] External Ambulatory Referral 6. Vaping-related disorder (U07.0: Vaping-related disorder) consider not vaping Ordered: meloxicam, 7.5 mg = 1 tab(s), Oral, Daily, # 30 tab(s), Refills(s) 0, Pharmacy: [facility]/pharmacy #[id number], cm, 04/13/23 12:54:00 EST, Height/Length Dosing, 62.5, [...] Tunnel surgery, Foot Surgery, Knee Surgery. Medications dexamethasone-tobramycin Opth 0.1%-0.3% Susp, 2 drop(s), Eye-Both, TID [...] e-cigarette use Smokeless Tobacco Use:. Cigarettes, Vaping, E- Cig, Ready to change: Yes. Household tobacco concerns: Yes. Yes, 05/31/2023 Family History Adrenal insufficiency: Mother. Diabetes mellitus type 2: Grandparent.[facility] Hillcrest HospitalComment on above:Result Comment: Electronically Signed By: Danette Briones\.br\Date and Time Signed: 05/31/23 14:33 ESTCHEMISTRYOrdered By: SYSTEM SYSTEM on 77-75-2876Bjgfqxj [Mass/Vol]4.3 g/dLNormal3.3 - 5.0 gm/dLFTMC Remisol Albumin/Globulin [Mass ratio]1.4 {ratio}Normal1.1 - 2.2[facility] RemisolALP [Catalytic activity/Vol]34 [iU]/kCvhfxm99 - 98 Int._Unit/LFTMC RemisolALT No additional P-5'-P [Catalytic activity/Vol]17 [iU]/dNormal6 - 46 Int._Unit/LFTMC RemisolAnion gap [Moles/Vol]10 mmol/LNormal6 - 16 mEq/LFTMC RemisolAST [Catalytic activity/Vol]23 [iU]/dNormal5 - 43 Int._Unit/LFTMC RemisolBilirubin [Mass/Vol]0.3 mg/dLNormal0.0 - 1.1 mg/dLFTMC RemisolCalcium [Mass/Vol]8.9 mg/dL Normal8.9 - 11.1 mg/dLFTMC RemisolChloride [Moles/Vol]106 mmol/CDzmihh078 - 111 mmol/LFTMC RemisolCholesterol [Mass/Vol]182 mg/nVYozceh826 - 200 mg/dLFTMC RemisolCholesterol in HDL [Mass/Vol]83 mg/dLInvalid Interpretation CodeFTMC RemisolComment on above:Interpretive Data: HDL > or equal to 60 mg/dL: Low cardiovascular risk HDL < 40 mg/dL : High cardiovascular riskCholesterol in LDL [Mass/Vol]81 mg/dL Normal<=129mg/dLFTMC RemisolCholesterol in VLDL [Mass/Vol]12 mg/dLNormal7 - 40 mg/dLFTMC RemisolCO2 [Moles/Vol]26 mmol/OXlxkxo08 - 31 mmol/LFTMC Remisol Creatinine [Mass/Vol]1.0 mg/dLNormal0.5 - 1.3 mg/dLFTMC RemisolGFR/1.73 sq M.predicted among non-blacks MDRD (S/P/Bld) [Vol rate/Area]71 mL/min/1.73 m2 Normal>=59mL/min/1.73 m2FTMC Chem SComment on above:Interpretive Data: Chronic kidney disease could be indicated at eGFR's of less than 60 mL/min/1.73m2. Kidney failure is indicated at less than 15 mL/min/1.73m2.Globulin (S) [Mass/Vol]3.1 g/dLNormal1.4 - 4.0 gm/dLFTMC RemisolGlucose [Mass/Vol]95 mg/dL Odaqyn05 - 199 mg/dLFTMC RemisolComment on above:Interpretive Data: If this glucose result represents a fasting glucose, interpretation should referto the following reference range: 55-99 mg/dLIron [Mass/Vol]21 ug/dLLow35 - 153 mcg/dL [facility] RemisolIron binding capacity [Mass/Vol]407 ug/xFDnsd640 - 400 mcg/dLFTMC RemisolPotassium [Moles/Vol]4.4 mmol/LNormal3.5 - 5.3 mmol/LFTMC RemisolProtein [Mass/Vol]7.4 g/dLNormal6.0 - 7.8 gm/dLFTMC RemisolSodium [Moles/Vol]138 mmol/L Qsgsol117 - 145 mmol/LFTMC RemisolTransferrin [Mass/Vol]291 mg/jRIlgnvs193 - 370 mg/dLFTMC RemisolTriglyceride [Mass/Vol]59 mg/dLNormal<=149mg/dLFTMC Remisol Urea nitrogen [Mass/Vol]13 mg/dLNormal5 - 21 mg/dLFTMC RemisolUrea nitrogen/Creatinine [Mass ratio]13 mg/jxHirkod39 - 20FT[facility] RemisolHEMATOLOGY Ordered By: SYSTEM SYSTEM on 16-83-4157Hmdmmfjus/100 WBC (Bld)1.2 %Normal0.0 - 2.0 %[facility] HemeAutoSSBasophils/Leukocytes Auto (Bld) [Pure # fraction]0.1 E9/L Normal0.0 - 0.2 E9/LFTMC HemeAutoSSEosinophils/100 WBC (Bld)8.0 %Normal0.0 - 8.0 %[facility] HemeAutoSSEosinophils/Leukocytes Auto (Bld) [Pure # fraction]0.4 E9/L Normal0.0 - 0.5 E9/LFTMC HemeAutoSSLymphocytes/100 WBC (Bld)26.2 %Sbewfb00.0 - 50.0 %[facility] HemeAutoSSLymphocytes/Leukocytes Auto (Bld) [Pure # fraction]1.4 E9/L Normal1.0 - 4.0 E9/LFTMC HemeAutoSSMonocytes/100 WBC (Bld)9.2 %Normal4.0 - 14.0 %[facility] HemeAutoSSMonocytes/Leukocytes Auto (Bld) [Pure # fraction]0.5 E9/LNormal 0.2 - 1.0 E9/LFTMC HemeAutoSSNeutrophils/100 WBC (Bld)55.4 %Iitxyt02.0 - 75.0 % [facility] HemeAutoSSNeutrophils/Leukocytes Auto (Bld) [Pure # fraction]3.0 E9/LNormal 2.0 - 7.5 E9/LFTMC HemeAutoSSHEMATOLOGYOrdered By: Althea Lora on 04-16-2023 Erythrocyte distribution width (RBC) [Ratio]13.9 %Apsibg39.9 - 14.2 %[facility] HemeAutoSSHematocrit (Bld) [Volume fraction]34.8 %Aopwhy66.0 - 46.0 %[facility] HemeAutoSSHemoglobin (Bld) [Mass/Vol]11.6 g/dLLow12.0 - 16.0 gm/dLFTMC HemeAutoSSMCH (RBC) [Entitic mass]30.4 fgOtggtv52.0 - 34.0 pgFTMC HemeAutoSSMCHC (RBC) [Mass/Vol]33.3 g/bRHirgdj92.4 - 36.0 gm/dLFTMC HemeAutoSSMCV (RBC) [Entitic vol]91.2 kSQcwxvf37.0 - 100.0 fLFTMC HemeAutoSSPlatelet mean volume (Bld) [Entitic vol]8.2 fLNormal6.4 - 10.8 fLFTMC HemeAutoSSPlatelets (Bld) [#/Vol]266.0 E9/JAauzlw598.0 - 500.0 E9/LFTMC HemeAutoSSRBC (Bld) [#/Vol]3.8 E12/LLow4.3 - 5.9 E12/LFTMC HemeAutoSSWBC corrected for nucl RBC Auto (Bld) [#/Vol]5.4 E9/LNormal4.0 - 11.0 E9/LFTMC HemeAutoSSXR KNEE RT 4V or >on 42-22-2913NJ KNEE RT 4V or >EXAM: XR KNEE RT 4V or > HISTORY: [...] Electronically authenticated by: CLINTON BARTLETT Date: 2020-11-02 11:48[facility] HospitalB12on 07-83-7823Fyczchohks (Vitamin B12)433.2 pg/mLNormal 193-986[facility] CantonComment on above:Performed By: #### L500.90096, L500.25367, L500.14131, L500.45843, L500.05970, L500.81162, L500.86424, L550.34823 ####[facility] NWEHMPZUOL1895 [place], [place] [address]Zl# [phone] 25-20-5139Ogkhgoscvnu distribution width Auto Ratio (RBC)13.2 %Fttzoh70-16.5[facility] CantonComment on above:Performed By: #### L200.45474, L200.02245 ####[facility] KZZMCKTIIG8895 [place], [place] [address]Fn# [phone] (RBC)3.86 M/CU MMLow3.90-5.30[facility] CantonComment on above:Performed By: #### L200.19383, L200.34467 ####[facility] [address]ZZ[address] [place] [address]Vh# [phone] (RBC)0.0 %NormalLess than 1 [facility] CantonComment on above:Performed By: #### L200.33847, L200.92290 ####[facility] JRWLJFPBPL9589 [place], [place] [address]No# [phone] (HCT)36.4 %Xwnkuo08.0-47.0[facility] CantonComment on above:Performed By: #### L200.98235, L200.05125 ####[facility] VNZHTPGRNF9287 [place], [place] [address]Mr# [phone] Hemoglobin mass conc (Bld)12.0 g/jLHxauzj21.5-15.[address] [place] [address] [place] Comment on above:Performed By: #### L200.40597, L200.92571 ####[facility] WNUFRLJZTQ6297 [place], [place] [address]Uz# [phone] mass conc (RBC)33.0 g/gIOapait82.0-36.0[facility] CantonComment on above: Performed By: #### L200.99202, L200.16739 ####[facility] YGJAEQSHDJ7322 [place], [place] [address]Ub# [phone] fLNormal 80.0-99.0[facility] CantonComment on above:Performed By: #### L200.57174, L200.79004 ####[address] [address]Qv# [phone] mean volume (PMV)9.9 fLNormal 9.4-12.4[facility] CantonComment on above:Performed By: #### L200.47001, L200.46084 ####[address] [address]Mk# [phone] K/CU OLNlufbr120-077[facility] CantonComment on above:Performed By: #### L200.77164, L200.01188 ####[address] [address]Fs# [phone] (Leukocytes)5.9 K/CU MMNormal4.5-11.0[facility] [place] Comment on above:Performed By: #### L200.63654, L200.82825 ####[facility] [address]YTGFDUD[address] [place] [address]Po# [phone] 42-32-9941Spwaele aminotransferase (ALT)24 U/XHqzgtw76-29GxxutOregon State Tuberculosis Hospital CantonComment on above:Performed By: #### L500.18756, L500.20033, L500.85654, L500.10684, L500.34968, L500.50801, L500.95838, L550.05023 ####[facility] USDGSOAISN0316 [place], [place] [address]Ca# [phone] g/dL Normal3.2-5.0[facility] CantonComment on above:Performed By: #### L500.21297, L500.37778, L500.44281, L500.67451, L500.68395, L500.58743, L500.11690, L550.60889 ####[facility] VFSJWIIPHJ1445 [place], [place] [address]Tu# [phone]/Globulin Ratio1.4 {ratio}Normal 0.8-2.0[facility] CantonComment on above:Performed By: #### L500.29253, L500.05280, L500.06659, L500.32000, L500.25477, L500.52877, L500.42186, L550.03915 ####[facility] C[address]XTDY[address] [place] [address]Hj# [phone] PHOS42 U/AUss57-975AwudqOregon State Tuberculosis Hospital CantonComment on above:Performed By: #### L500.06384, L500.89180, L500.54254, L500.97401, L500.03704, L500.68741, L500.12509, L550.76625 ####[facility] PIVMCPNDFG2167 [place], [place] [address]Yg# [phone] gap7 mmol/LNormal5-16[facility] CantonComment on above:Performed By: #### L500.75394, L500.94419, L500.65825, L500.65489, L500.08442, L500.14736, L500.08192, L550.25823 ####[facility] LCTWREOYEC9151 [place], [place] [address]Qu# [phone] TOTAL0.6 MG/DLNormal0.2-1.0[facility] CantonComment on above:Performed By: #### L500.55819, L500.89578, L500.87792, L500.24581, L500.58341, L500.53076, L500.21846, L550.19588 ####[facility] NFZAJFRVSD0382 [place], [place] [address]By# [phone]/Creatinine Ratio13 mg/jdUqk44-85JqydgOregon State Tuberculosis Hospital [place] Comment on above:Performed By: #### L500.13971, L500.59519, L500.69831, L500.36803, L500.18980, L500.28720, L500.46591, L550.57691 ####[facility] EVYGWNSXXL9823 [place], [place] [address]Gk# [phone] mg/dLNormal8.5-10.1MSt. Elizabeth Health Services CantonComment on above:Performed By: #### L500.14221, L500.89698, L500.20779, L500.19045, L500.46303, L500.86811, L500.02469, L550.30995 ####[facility] PCKFHTPFTN5409 [place], [place] [address]Nd# [phone] mmol/BArsvlo23-774IhvizOregon State Tuberculosis Hospital CantonComment on above:Performed By: #### L500.08092, L500.53206, L500.01395, L500.48130, L500.22405, L500.82782, L500.51864, L550.18130 ####[facility] HBHKMDGZAT3314 [place], [place] [address]Us# [phone] mmol/XZyiqtq19-86AfvmbOregon State Tuberculosis Hospital CantonComment on above:Performed By: #### L500.14403, L500.62159, L500.86260, L500.32024, L500.66486, L500.14319, L500.50021, L550.40320 ####[facility] IATIBFETAM7352 [place], [place] [address]Vf# [phone] mg/dLNormal0.510-0.950[facility] CantonComment on above:Result Comment: Patients receiving either N-Acetylcysteine (NAC) orMetamizole prior to venipuncture, may have falsely depressedresults.Performed By: #### L500.20011, L500.52477, L500.71349, L500.70342, L500.52685, L500.96024, L500.32530, L550.97030 ####[facility] FHQXTTXRCQ4588 [place], [place] [address]Hz# [phone] g/dLNormal2.2-4.2MSt. Elizabeth Health Services CantonComment on above:Performed By: #### L500.01173, L500.09472, L500.34374, L500.52947, L500.40862, L500.01125, L500.84919, L550.87350 ####[facility] NATTCIOPPW4894 [place], [place] [address]Rg# [phone] mass conc86 mg/nQZhczkk28-224TlztdOregon State Tuberculosis Hospital CantonComment on above:Result Comment: 70-901-Foudxm Fasting; 264-801-Blzttvid Fasting; greaterthan 126 on more than one result-Diabetes. ADA guidelinesPerformed By: #### L500.21332, L500.40518, L500.18205, L500.12228, L500.77548, L500.03674, L500.53569, L550.63583 ####[facility] MYVZZKOESK5047 [place], [place] [address]Bt# [phone] molar conc 4.0 mmol/LNormal3.5-5.1MSt. Elizabeth Health Services CantonComment on above:Performed By: #### L500.07920, L500.85520, L500.24015, L500.31903, L500.52395, L500.38059, L500.78004, L550.80178 ####[facility] TAUUJJFJRB1876 [place], [place] [address]Ru# [phone] g/dLNormal6.0-8.5[facility] CantonComment on above:Performed By: #### L500.41703, L500.66352, L500.43309, L500.57560, L500.22077, L500.37534, L500.32760, L550.23038 ####[facility] UKMYXQJPOF3625 [place], [place] [address]Si# [phone] (AST)23 U/LNormal8-34[facility] CantonComment on above:Performed By: #### L500.14230, L500.16389, L500.81537, L500.49474, L500.11947, L500.96786, L500.84592, L550.28240 ####[facility] YPIHKRYIWZ6087 [place], [place] [address]Mw# [phone] mmol/ZRqkeyl045-949LtuevOregon State Tuberculosis Hospital CantonComment on above:Performed By: #### L500.20318, L500.44022, L500.78884, L500.71946, L500.11370, L500.56046, L500.25540, L550.55717 ####[facility] BUDCTJCMSZ6254 [place], [place] [address]Db# [phone] mg/dLNormal7-26[facility] CantonComment on above:Performed By: #### L500.27992, L500.71096, L500.08817, L500.37976, L500.04361, L500.22900, L500.33971, L550.61320 ####[facility] UIQEXSVBYO7667 [place], [place] [address]Ip# [phone] ACIDon 13-49-2439GZQKV ACID24.0 NG/ML Normal>3.0[facility] CantonComment on above:Performed By: #### L500.58460, L500.28093, L500.33960, L500.89166, L500.50160, L500.73211, L500.67889, L550.82983 ####[facility] RDWNEULOCM2705 [place], [place] [address]Xw# [phone] ESTon 45-28-8146JG AMERGreater than [address] [place] [address] CantonComment on above:Performed By: #### L500.52651, L500.39544, L500.95310, L500.39054, L500.19177, L500.13054, L500.33759, L550.46308 ####[facility] TPEYWCGXSZ7034 [place], [place] [address]Bu# [phone] non-AFR AMERGreater than [address] [place] [address] CantonComment on above:Performed By: #### L500.03270, L500.61111, L500.13077, L500.81605, L500.07673, L500.14239, L500.06721, L550.25434 ####[facility] IYDQRLOHOI4923 [place], [place] [address]Om# [phone] PANELon 93-46-4371Fnhp432 ug/hWHrxqpm35-548Vjknu[address] CantonComment on above:Result Comment: Patients treated with metal-binding drugs (e.g.deferoxamine)may have depressed ironvalues, as chelated iron may notproperly react in the Siemens iron assay.Performed By: #### L500.14917, L500.55082, L500.24540, L500.80945, L500.70372, L500.43322, L500.14747, L550.09441 ####[facility] PLLFVKHXLJ8812 [place], [place] [address]Wr# [phone] SAT36 %Wfqgvr23-77Ztyrh[address] CantonComment on above:Performed By: #### L500.52480, L500.25975, L500.23346, L500.01538, L500.28816, L500.02186, L500.86325, L550.18449 ####[facility] [id number] [place], [place] [address]Xy# [phone] UG/DLNormal 221-481[facility] [place]Comment on above:Performed By: #### L500.29108, L500.35364, L500.09501, L500.06552, L500.10164, L500.02898, L500.51659, L550.03399 ####[facility] [id number] [place], [place] [address]Jn# [phone] [id number] mg/dL Normal0-199[facility] [place]onComment on above:Performed By: #### L500.13445, L500.70382, L500.02081, L500.77578, L500.75587, L500.32767, L500.69827, L550.70542 ####[facility] [id number] [place], [place] [address]Hg# [phone] Eoymkoksznv03 mg/dLNormalGREATER TN 40 [facility] State HospitalonComment on above:Result Comment: Patients receiving Metamizole prior to venipuncture, mayhave falsely depressed results.Performed By: #### L500.09500, L500.49877, L500.27149, L500.92124, L500.20394, L500.13117, L500.75892, L550.04081 ####[facility] [id number] [place], [place] [address]Ya# [phone] Takoomseoji02 MG/DLNormal0-129[facility] CantonComment on above:Result Comment: ___CHOLESTEROL/HDL RATIO RISK___ CHD RISK = Total CHOL LDL HDL (CHOL/HDL) Recommended <200 <130 >35 <3.4 Borderline 200- 239 130-159 3.4-4.99 High >240 >160 >5.0 Performed By: #### L500.69759, L500.04420, L500.18528, L500.48392, L500.17431, L500.72422, L500.50157, L550.17077 ####[facility] GWJBRAEXTS7227 [place], [place] [address]Sv# [phone] mg/zECfnnkt66-927QpjzcOregon State HospitalonComment on above:Result Comment: Patients receiving either N-Acetylcysteine (NAC) orMetamizole prior to venipuncture, may have falsely depressedresults.Performed By: #### L500.50555, L500.09284, L500.28885, L500.73529, L500.72629, L500.68255, L500.21127, L550.95820 ####[facility] NBNOKURBSM5755 [place], [place] [address]Wm# [phone] 85-48-1819Hlixxgj stimulating hormone (TSH)0.782 UIU/MLNormal0.358-3.740[facility] CantonComment on above:Result Comment: 3rd generation ultra sensitive TSHPerformed By: #### L500.82959, L500.91969, L500.58529, L500.82428, L500.05707, L500.19175, L500.25470, L550.58002 ####[facility] MGAPFFRCIG0129 [place], [place] [address]Xg# [phone]-WLXHLYMby 36-21-5189YXMA703677IIKA01-QDLPQIF05.0 NG/BHIyqysu14.0-100.0[facility] [place] Comment on above:Result Comment: Deficiency Less than 20 ng/mLInsufficiency 20 - Less than 30 ng/mLSufficiency 30 - 100 ng/mLPerformed By: #### L500.27755, L500.29028, L500.06414, L500.35296, L500.53766, L500.94456, L500.68080, L550.62267 ####[facility] PXLDJKMXAX6384 [place], [place] [address]Lf# [phone]/MODon 50-17-6883GTW/MOD2 MM/HRNormal0-20[facility] CantonComment on above:Performed By: #### L200.24450, L200.50390 ####[facility] RBLIIYBFTX9864 [place], [place] [address]Nm# [phone] Vital Signs Date TimeVital SignValuePerforming WguntjrnmDxiehsjm16-14-3007 10:28-0500 Diastolic blood krwmjtap67 mm[Hg]Hernandez Sarmini 333-7676Xtzfkw-VnzvgThe [facility]11-04-2024 10:28-0500Heart dxbq830 /minMuhammad Sarmini 276-0171Eyhqum-UbejeThe [facility]11-04-2024 10:28-0500Systolic blood hjtaqjev205 mm[Hg]Hernandez Sarmini 295-6766Putbdw-CvaadThe [facility]11-04-2024 10:24-0500Blood Pressure LocationMuhamlyudmilad Shortymini 489-3563Sweerw-ItdqzMccullough-[facility] Dig[facility]ive Osusxv72-82-5409 10:24-0500Respiratory rate16 /minMuhammad Shortymini 790-5912Niparv-GodekThe [facility]09-20-2024 10:00-0400Blood Pressure LocationLisette Contreras 821-7631Piyfzc-Jdjyu[address] [place], [place] 7182709-20-2024 10:00-0400Body xqefyvfhkdz01.06 [degF]Lisette Contreras 452-0614Abjjtc-Rwdcz[address] [place], [place] 7182709-20-2024 10:00-0400Diastolic blood mm[Hg]Lisette Contreras 139-5740Mfjahx-Msbsf[address] [place], [place] 7182709-20-2024 10:00-0400Heart rate95 /Dina Contreras 758-6295Vxittz-Fcwaz[address] [place], [place] 7182709-20-2024 10:00-0400Respiratory rate18 /Dina Contreras 125-4241Qqgafu-Elpgg[address] [place], [place] 7182709-20-2024 10:00-4497CtO7% (BldA) [Mass fraction]98 %Lisette Contreras 104-2926Iaakjm-QbsteSouthwest General Health Center09-20-2024 10:00-0400Systolic blood mlcatkmb753 mm[Hg]Lisette Contreras 672-7089Jpnsra-CrwxvSouthwest General Health Center08-21-2024 10:11-0400Blood Pressure LocationLisette Contreras 953-4235Vrshtf-Lurvn[address] [place], [place] 7182708-21-2024 10:11-0400Body tigdyhgprys65.88 [degF]Lisette Contreras 836-7011Gbwfql-Ysttt[address] [place], [place] 7182708-21-2024 10:11-0400Diastolic blood depmvjxy74 mm[Hg]Lisette Contreras 232-1105Egylyb-Fvqho[address] [place], [place] 7182708-21-2024 10:11-0400Heart rate94 /Dina Contreras 220-6823Wqojbp-Echjf[address] [place], [place] 7182708-21-2024 10:11-0400Respiratory rate18 /Dina Contreras [address] [place], [place] 1624908-21-2024 10:11-8304ScQ2% (BldA) [Mass fraction]99 %Lisette Contreras [address] [place], [place] 1624908-21-2024 10:11-0400Systolic blood urmkrvdi395 mm[Hg]Lisette Contreras [address] [place], [place] 1624905-20-2024 10:11-0400Blood Pressure LocationLsiette Contreras [address] [place], [place] 1624905-20-2024 10:11-0400Diastolic blood jssbsyex30 mm[Hg]Lisette Contreras [address] [place], [place] 1624905-20-2024 10:11-0400Heart rate99 /Dina Contreras [address] [place], [place] 1624905-20-2024 10:11-0400Respiratory rate18 /Dina Contreras [address] [place], [place] 1624905-20-2024 10:11-0070LwU2% (BldA) [Mass fraction]100 %Lisette Contreras [address] [place], [place] 1624905-20-2024 10:11-0400Systolic blood awbyfese117 mm[Hg]Lisette Contreras 139-4780Ttbabx-Ribks[address] [place], [place] 7182704-18-2024 06:58-0400Blood Pressure LocationElireilly Slick 145-5937Gidige-Jxbfw[address] [place], [place] 7182704-18-2024 06:58-0400Body mramurwwpxg54.7 [degF]Lisette Contreras 822-4906Yqqxzo-Epgnt[address] [place], [place] 7182704-18-2024 06:58-0400Diastolic blood zptvgqik26 mm[Hg]Lisette Contreras [address] [place], [place] 1624904-18-2024 06:58-0400Heart pmax834 /Dina Contreras [address] [place], [place] 1624904-18-2024 06:58-0400Respiratory rate18 /Dina Contreras [address] [place], [place] 1624904-18-2024 06:58-7935IiM1% (BldA) [Mass fraction]99 %Lisette Contreras 696-2665Rithnd-Qstci[address] [place], [place] 7182704-18-2024 06:58-0400Systolic blood ayxjgbtg843 mm[Hg]Lisette Contreras [address] [place], [place] 1624903-21-2024 16:17-0400Blood Pressure LocationLisette Contreras [address] [place], [place] 1624903-21-2024 16:17-0400Body vmfoczoaeoq30.06 [degF]Lisette Contreras [address] [place], [place] 1624903-21-2024 16:17-0400Diastolic blood benftnmw74 mm[Hg]Lisette Contreras 313-8323Dvtzqt-Cpsch[address] [place], [place] 7182703-21-2024 16:17-0400Heart mxup023 /Dina Contreras 106-0539Hkcikt-Znxve[address] [place], [place] 7182703-21-2024 16:17-0400Respiratory rate18 /Dina Contreras 437-1176Luphdo-RnkmlSouthwest General Health Center03-21-2024 16:17-7069LcJ7% (BldA) [Mass fraction]98 %Lisette Contreras 160-6234Qhthyr-NpzbbSouthwest General Health Center03-21-2024 16:17-0400Systolic blood ioyyrfbm805 mm[Hg]Lisette Contreras 730-9585Dbdvkn-PrallCity Hospital Xyay45-03-8020 12:55-0500Body gbpsia326.48 cmAalan Mathis Other [facility] Other 11-21-2023 12:55-0500Body mass index (BMI) [Ratio]25.6 kg/t8UcxttXiomara Mathis Other [facility] Other 11-21-2023 12:55-0500Body aawioyjjgdp04.8 [degF]Xiomara Mathis Other [facility] Other 11-21-2023 12:55-0500Body fyoyyr36.5 kgXiomara Mathis Other [facility] Other 11-21-2023 12:55-0500Respiratory rate20 /minXiomara Mathis Other [facility] Other 11-21-2023 12:55-8155FnI1% (BldA) [Mass fraction]99 % Xiomara Mathis Other [facility] Other Encounters Encounter DateEncounter TypeCare ProviderFacilityStart: 94-06-0870oxbbdtijqwUmhu L SchwabFacility:[facility] BellevueStart: 02-26-2025 End: 46-18-3162ihqoznmfgvKibt L SchwabFacility:[facility] BellevueStart: 05-12-2024 End: 35-73-8268kjglnpilaaPKGPZS A LEGASTONANNFacility:[facility] KelseyevueStart: 88-78-3888jzfeuniimjOqzuqekup L SlickFacility:Nicholas PCStart: 04-01-2024 End: 94-76-3424Gpb Drop offMuhammad Talal Sarmini [facility] Start: 04-01-2024 End: 64-39-9970iczdtmrwnjAceudesl Talal SarminiFacility:MCStart: 03-17-2024 End: 42-10-1213anlymbblttDdujavsm Talal SarminiFacility:[facility] DHStart: 03-17-2024 End: 74-56-5953Woyrjpx encounter procedureMuhammad Talal Sarmini [phone]-HoykyMccullough-[facility] Start: 02-01-2024 End: 70-79-8731jtruvhhfcaIswzdswvp L ClarkFacility:Nicholas PCStart: 02-01-2024 End: 68-05-6446Gngrqql encounter procedureLisette Contreras [phone]-RzztsMccullough-[facility] Start: 01-31-2024 End: 67-08-5143qxorqxugkiHUBKRPK A FELTERNot AvailableStart: 01-31-2024 End: 34-10-4365Rvmrbo outpatient visit 10 minutesNatalie A Felter [employer] REPA[employer]ER HELPER Work Phone: [facility] SWS DERMComment on above:Allergic contact dermatitis, unspecified triggerStart: 01-31-2024 End: 33-72-8064Mtkyug flowsheetNatalie A Felter [employer] REPAIRER HELPER Work Phone: [facility] SWS DERMStart: 01-31-2024 End: 04-59-5157Fcvhmz flowsheetNatalie A Felter [employer] REPAIRER HELPER Work Phone: n[facility] SWS DERMStart: 01-10-2024 End: 48-00-1974Biwslm flowsheetNatalie A Felter [employer] REPAIRER HELPER Work Phone: [facility] SWS DERMStart: 01-10-2024 End: 84-20-1000Cprtyx flowsheetNatalie A Felter [employer] REPAIRER HELPER Work Phone: [facility] SWS DERMStart: 01-10-2024 End: 10-19-4534Igyavv outpatient new 30 minutesNatalie A Felter [employer] REPAIRER HELPER Work Phone: noms SWS DERMComment on above:Allergic contact dermatitis, unspecified triggerStart: 01-10-2024 End: 10-85-0686mcjxdyqvsfESEQXVF A FELTERNot AvailableStart: 01-07-2024 [facility] Hospitaltart: 01-04-2024 End: 07-01-5088Qktaup Keegan Egan MD Work Phone: noms NB OPHTStart: 01-04-2024 End: 29-15-4112Lmmgym Keegan Egan MD Work Phone: noms NB OPHTStart: 01-04-2024 End: 59-24-6776Aqqxff outpatient visit 15 minutesAngella Egan MD Work Phone: noms NB OPHTComment on above:Dry eyes, bilateral (Primary Dx); Ocular rosaceaStart: 01-04-2024 End: 24-33-2423vhzfrzaulmSVLSG M ALLENNot AvailableStart: 01-02-2024 End: 49-59-9903vbvqzdxdgwDjbngggtk L ClarkFacility:Nicholas PCStart: 01-02-2024 End: 15-35-2147Brlrjoq encounter Viviana Contreras [phone]-DezwqMccullough-Hy[facility] Start: 11-29-2023 End: 28-60-3032owespkebsuYJSW E RAMBASEKNot AvailableStart: 11-14-2023 End: 51-89-7279cjeiipgyrdGbkqstlx Talal ShortyminiFacility:Dami DHStart: 11-14-2023 End: 61-58-2041Cydxohl encounter procedureMuhammad Talal Ashi [phone]-VhgopMccullough-[facility] Start: 11-01-2023 End: 22-10-8892heemmyhzbgFJGVL Juliann Ronan AvailableStart: 10-11-2023 End: 97-72-0325xhphtrszbpYGMJW Juliann Ferraro AvailableStart: 10-01-2023 End: 62-28-9213wvgojtfjtsKechnyxbs L ClarkFacility:Nicholas PCStart: 10-01-2023 End: 76-91-2899Muosjwh encounter procedureLisette Contreras [phone]-GfcnlMccullough-[facility] Start: 09-06-2023 End: 18-94-8888hhnigwogymVsqlfnqog L ClarkFacility:FTMCStart: 09-06-2023 End: 63-29-5254Pipztzo encounter Viviana Contreras [facility] Start: 09-05-2023 End: 45-35-3920knkirifpgiBlyictbjehBarney Children's Medical Centertart: 08-30-2023 End: 96-42-9395xbdccejzdkSiuvvkowx L ClarkFacility:Nicholas PCStart: 08-30-2023 End: 54-39-4670Jmgmvdo encounter procedureLisette Contreras [phone]-RhlqjMccullough-Hy[facility] Start: 08-16-2023 End: 27-61-0109wrkiarnycmQuiehnmct L ClarkFacility:FTMCStart: 08-16-2023 End: 18-39-7632Epcnavz encounter procedureElizabeth L Slick [facility] Start: 08-03-2023 End: 37-00-9457kvysazisbwPcsazkwlk L ClarkFacility:[facility]ENTERtart: 08-03-2023 End: 01-34-4394Uobjujc encounter procedureLisette Contreras [facility] Start: 08-02-2023 End: 31-76-6651qtwqhejpefUmtxridue L ClarkFacility:[facility] PCStart: 08-02-2023 End: 63-93-6645Svbkkmh encounter procedureLisette Contreras [phone]-DjiqcMccullough-Hy[facility] Start: 93-69-3119uwircywkpbOkyylqdg Sarmini Facility:[facility] PCStart: 06-25-2023 End: 98-79-9318gansivijomCofo L SchwabFacility:[facility] BellevueStart: 06-18-2023 End: 59-63-1377dhhoutbdwiLJHU E RAMBASEKNot AvailableStart: 25-23-8551Ignoddjennifer Andrews MD Work Phone: [facility] AkronComment on above:Med Change Request Start: 06-14-2023 End: 32-46-6230hqargntvlqWPDWOnmrprct:[facility] Hospitaltart: 05-31-2023 End: 09-94-6695pbycdnswrbTrxi L SchwabFacility:[facility] BellevueStart: 04-16-2023 End: 37-13-7684Xqh Drop offJodi L Tanisha [facility] Start: 04-13-2023 End: 87-56-2774Mpn Drop offJodi L Tanisha [facility] Start: 04-03-2023 End: 90-81-8036qgeaafxnnaTkttw Keller Other [place] N[facility] Other Start: 20-24-4160Sjbwnr outpatient new 20 minutesAmber DelFPG Urgent Care ClydeStart: 11-02-2020 End: 19-27-8171ukqpapbhwwNS NONE LISTED REQUESTFacility:C4Lktsk: 11-21-2016 AmbulatoryGerardo CisnerosFacility:[facility] Systemtart: 11-16-2016 AmbulatoryGermerit health river [facility]aks CisnerosFacility:[facility] Procedures DateProcedureProcedure DetailPerforming ClinicianStart: 22-08-3225UTIU ONLY-THYROGLOBULINStart: 23-99-3866UPW panel - Blood by Automated countStart: 96-19-9273Izezujiwkqvwg metabolic 2000 panel - Serum or PlasmaStart: 09-05-2023 CORTISOL AMStart: 29-77-3749Rrfvgkrwvvtnlk vitamin b-12Start: 04-21-2888NJNWPJ Start: 55-81-1490VVL + LHStart: 26-73-7363MNLNQRTLBHPTY AND ANTITHYROGLOBULIN Start: 57-11-3671KMZUHZY PEROXIDASE (TPO) ANTIBODYStart: 31-18-8402PGSCTNY STIMULATING IMMUNOGLOBULINStart: 89-37-8509Swefqqcohxe [Units/volume] in Serum or PlasmaStart: 47-99-5110RTHVBCYQKXZ RECEPTOR ANTIBODYStart: 09-05-2023 THYROXINE, FREEStart: 80-37-5099BBCMPVXCWIBXDEEY, FREEStart: 88-34-0450EIRPCKZ D 25-HYDROXY,TOTALFoot SurgeryJodi Tanisha Knee SurgeryJodi Tanisha Neuroplasty &/transpos median nrv carpal tunneJodi Tanisha Plan of Treatment DateCare ActivityDetailAuthorStart: 03-06-2024 End: 25-70-4061Prbydhm encounter fjosrjxis66/24/2024 9:45 AM EDT Office Visit [facility] [address] [place] [address] Angella Egan MD [address] [place] [address] [facility] NB OPHTStart: 01-31-2024 End: 43-32-8857Kotgvld encounter bfyiaztcl03/19/2024 2:05 PM EDT Office Visit [facility] [address] [place] [phone] Genia Boone, [employer] REPAIRER HELPER [address] [place] [address] [facility] SWS DERMStart: 01-10-2024 End: 75-16-3258Ojqwwhz encounter kjexumqss36/29/2024 10:55 AM EDT Office Visit [facility] [address] [place] [phone] Genia Boone, [employer] REPAIRER HELPER [address] [place] [address] ArrivedNOMS [facility] DERMComment on above: ArrivedStart: 01-04-2024 End: 14-91-4646Wpndgfs encounter rbztahchh36/23/2024 10:00 AM EDT Office Visit [facility] [address] [place] [phone] Angella Egan MD [address] [place] [address] ArrivedNOMS OPHTComment on above:ArrivedStart: 05-14-20[address]Dep[address] AssessmentMercy Health [address]. Elizabeth Boardman Hospitaltart: 01-12-2023 Influenza vaccinationInfluenza Vaccine (#1)[facility] Hospitaltart: 2022 Diabetes ScreeningDiabetes ScreeningMercy Health St. Elizabeth Boardman Hospitaltart: 70-20-4155Cmvyd panel Lipid ScreeningMercy Health St. Elizabeth Board[facility] Hospitaltart: 99-83-0781Zqdubplvp for malignant neoplasm of colonMercy Health St. Elizabeth Boardman Hospitaltart: 53-44-0180Qzfpnzqhf for malignant neoplasm of breastMammogram ScreeningMercy Health St. Elizabeth Boardman Hospitaltart: 06-92-9599Qjkjqvjpz for malignant neoplasm of cervixHPV TestingMercy Health St. Elizabeth Boardman Hospitaltart: 1998 Screening for malignant neoplasm of cervixPap TestingMercy Health St. Elizabeth Boardman Hospitaltart: 13-22-8765Iebvu microalbumin profileDTaP,Tdap,Td Vaccine (1 - Tdap)[facility] Hospitaltart: 00-98-6125Hbablcoiw C screeningHepatitis C ScreeningMercy Health St. Elizabeth Board[facility] Hospitaltart: 68-30-6377BHP screeningHIV ScreeningMercy Health St. Elizabeth Boardman Hospitaltart: 36-37-9031Zypkg-19 Vaccine (#1)Covid-19 Vaccine (#1)[facility] Hospitaltart: 99-04-6502Qswbaxjxr B Vaccine (1 of 3 - 3-dose series)Hepatitis B Vaccine (1 of 3 - 3-dose series)[facility] Payers DatePayer CategoryPayerPolicy [id number] COMMERCIAL GENERIC COMMERCIAL [id number] 2023-Present [phone] [address] [address] [place] [address] [id number] MedicaidCARESOURCE MEDICAID CARES[employer] [place] [id number] 2012- Present [address] [place] [address] [id number] [id number] [id number] 2.16840.1.450015.3.579.2.593 [id number] 2.16.840.1.218726.3.579.2.106916-29-6037Gzumqmi [id number] 2.840.1.920217.3.579.2.633173-89-4281Jkjpkrh7384551 2.0.1.054372.3.579.2.345849-41-9259Xsbcflz9413398 2.0.1.340873.3.579.2.616469-61-6352Pwxcnoj0989776 2.0.1.544406.3.579.2.917122-32-7067Iruwysi9173512 2..1.910917.3.579.2.958607-05-3215Uwevwns4997083 2..1.445046.3.579.2.533176-68-5549Nwwvkqd2176309 2..1.856503.3.579.2.817155-92-5865Fdivpqv9690928 2..1.626467.3.579.2.344911-06-3131Wpqaxxw14668206 2..1.295647.3.579.2.41456-80-1187Ptdkocd23192555 2..1.020404.3.579.2.12396-41-6281Cfrwpqn67456054 2..1.494102.3.579.2.51890-56-5048Xllgiqp63837859 2.0.1.086294.3.579.2.90150-21-1112Cidegdw80140605 2..1.687615.3.579.2.26888-73-2952Gzspkbl98938088 2.0.1.440220.3.579.2.94273-59-4294Zmqowly08491401 2.0.1.060164.3.579.2.14321-93-3927Ffaxfau11875226 2.16.840.1.307567.3.579.2.73766-63-3863Bcrbhha11274141 2.16.840.1.305515.3.579.2.82006-68-4623Uqpyzwy86644055 2.16.840.1.242148.3.579.2.26032-94-7696Pisicxx90295498 2.16.840.1.244883.3.579.2.40795-54-3518Grgfrdv48009129 2..840.1.171386.3.579.2.48357-07-4802Pmvligv30535436 2.0.1.695906.3.579.2.41097-52-9430Ghvnvbx72605234 2.0.1.943379.3.579.2.26331-06-1480Vvmjnlo84365072 2..840.1.577195.3.579.2.86087-59-0891Qmhfblj22395759 2..840.1.430698.3.579.2.31086-45-4085Arnqfvz59821362 2.0.1.425143.3.579.2.15885-68-3968Cizaoec98322346 2..1.833242.3.579.2.9[id number] Social History DateTypeDetailFacilityStart: 06-14-2023 End: 00-58-1504Efv [facility]igned At [facility]: 04-13-2023 End: 45-12-8972Ezdkbnq smoking statusEx-smoker (finding)[facility] BellevueStart: 88-94-9825Scgfyfc smoking statusNeverFisher-Alonso Family Medicine BellevueHistory of tobacco useCurrent smokerHolmes County Joel [facility] Work Phone: History of tobacco useCigarette SmokerHolmes County [facility] Work Phone: Start: 06-14-2023 End: 26-58-9172Twdxqvb use and exposureSmokeless tobacco non-userHolmes County [facility] Hospital Work Phone: Start: 06-14-2023 End: 53-30-9176Cmkvopq of Social functionMercy Health St. Elizabeth Boardman Hospitaltart: 13-45-4001Oix Assigned At BirthNot on fileHolmes County Joel Pomerene Memorial HospitalTobaccoE-Cig daily Tobacco Use:. Current vaping or e-cigarette use Smokeless Tobacco Use:. Cigarettes, Vaping, E- Cig, Ready to change: Yes. Household tobacco concerns: Yes. YesMccullough-Hyde [facility] Comment on above:patient states she is on day 5 of zero nicotineTobacco smoking statusNo Smoking Status EnteredMccullough-Hyde Memorial Hospital [facility] Start: 03-70-0462Sknomtj smoking status NHISNever smoked tobaccoNOMS HealthcareNEGATED: Highlighted rowStart: NINFHistory of tobacco usePassive smokerHolmes County [facility] Hospital Work Phone: Functional Status OhyaUqahuquqfrFbopefAyjvgvfi64-98-4533Drtbakkzca StatusN/[facility] Tltnos20-36-6830Hsrxqofeid StatusN/[facility] Ubys57-41-4576Wzkwtzdvzu StatusN/[facility] Vvvr18-08-2597Pprawkfokl StatusN/[facility] 70-13-9544Ozjcgulqao StatusN/[facility] Rqnz24-29-7915 Functional StatusN/[facility] Clinical Notes 02-01-2023 to 02-01-2024 Note Date & KgweKkcsSylwikoz63-26-5115 Hospital Discharge instructions Patient Education 02/01/2024 11:12:19 BMI for Adults BMI for Adults Body mass index (BMI) is a number found using a person's weight and height. BMI can help tell how much of a person's weight is made up of fat. BMI does not measure body fat directly. It is used instead of tests that directly measure body fat, which can be difficult and expensive. What are BMI measurements used for? BMI is useful to: Find out if your weight puts you at higher risk for medical problems. Help recommend changes, such as in diet and exercise. This can help you reach a healthy weight. BMIscreening can be done again to see if these changes are working. How is BMI calculated? Your height and weight are measured. The BMI is found from those numbers. This can be done with [place] or metric measurements. Note that charts and online BMI calculators are available to help you findyour BMI quickly and easily without doing these calculations. To calculate your BMI in [place] measurements: 1.Measure your weight in pounds (lb). 2.Multiply the number of pounds by 703. So, for an adult who weighs 150 lb, multiply that number by 703: 150 x 703, which equals 105,450. 3.Measure your height in inches. Then multiply that number by itself to get a measurement called inches squared. So, for an adult who is 70 inches tall, the inches squared measurement is 70 inches x 70 inches, which equals 4,900 inches squared. 4.Divide the total from step 2 (number of lb x 703) by the total from step 3 (inches squared): 105,450 4,900 = 21.5. This is your BMI. To calculate your BMI in metric measurements: 1.Measure your weight in kilograms (kg). For this example, the weight is 70 kg. 2.Measure your height in meters (m). Then multiply that number by itself to get a measurement called meters squared. So, for an adult who is 1.75 m tall, the meters squared measurement is 1.75 m x 1.75 m, which equals 3.1 meters squared. 3.Divide the number of kilograms (your weight) by the meters squared number. In this example: 70 3.1 = 22.6. This is your BMI. What do the results mean? BMI charts are used to see if you are underweight, normal weight, overweight, or obese. The following guidelines will be used: Underweight: BMI less than 18.5. Normal weight: BMI between 18.5 and 24.9. Overweight: BMI between 25 and 29.9. Obese: BMI of 30 or above. BMI is a tool and cannot diagnose a condition. Talk with your health care provider about what your BMI means for you. Keep these notes in mind: Weight includes fat and muscle. Someone with a muscular build, such as an athlete, may have a BMI that is higher than 24.9. In cases like these, BMI is not a correct measure of body fat. If you have a BMI of 25 or higher, your provider may need to do more testing to find out if excess body fat is the cause. BMI is measured the same way for males and females. Females usually have more body fat than males of the same height and weight. Where to find more information For more information about BMI, including tools to quickly find your BMI, go to: Centers for Disease Control and Prevention: cdc.gov [employer] [employer]: heart.org National Heart, Lung, [employer] [place]: nhlbi.nih.gov This information is not intended to replace advice given to you by your health care provider. Make sure you discuss any questions you have with your health care provider. Document Revised: 01/18/2023 Document Reviewed: 01/11/2023 [employer] Patient Education 2023 [email or web address]. 02/01/2024 11:12:15 Managing Anxiety, Adult Managing Anxiety, Adult After being diagnosed with anxiety, you may be relieved to know why you have felt or behaved a certain way. You may also feel overwhelmed about the treatment ahead and what it will mean for your life. With care and support, you can manage your anxiety. How to manage lifestyle changes Understanding the difference between stress and anxiety Although stress can play a role in anxiety, it is not the same as anxiety. Stress is your body's reaction to life changes and events, both good and bad. Stress is often caused by something external, such as a deadline, test, or competition. It normally goes away after the event has ended and will last just a few hours. But, stress can be ongoing and can lead to more than just stress. Anxiety is caused by something internal, such as imagining a terrible outcome or worrying that something will go wrong that will greatly upset you. Anxiety often does not go away even after the eventis over, and it can become a long- term (chronic) worry. Lowering stress and anxiety Talk with your health care provider or a counselor to learn more about lowering anxiety and stress.They may suggest tension-reduction techniques, such as: Music. Spend time creating or listening to music that you enjoy and that inspires you. Mindfulness-based meditation. Practice being aware of your normal breaths while not trying to control your breathing. It can be done while sitting or walking. Centering prayer. Focus on a word, phrase, or sacred image that means something to you and brings you peace. Deep breathing. Expand your stomach and inhale slowly through your nose. Hold your breath for 3 5 seconds. Then breathe out slowly, letting your stomach muscles relax. Self-talk. Learn to notice and spot thought patterns that lead to anxiety reactions. Change those patterns to thoughts that feel peaceful. Muscle relaxation. Take time to tense muscles and then relax them. Choose a tension-reduction technique that fits your lifestyle and personality. These techniques take time and practice. Set aside 5 15 minutes a day to do them. Specialized therapists can offer counseling and training in these techniques. The training to help with anxiety may be covered by some insurance plans. Other things you can do to manage stress and anxiety include: Keeping a stress diary. This can help you learn what triggers your reaction and then learn ways to manage your response. Thinking about how you react to certain situations. You may not be able to control everything, but you can control your response. Making time for activities that help you relax and not feeling guilty about spending your time in this way. Doing visual imagery. This involves imagining or creating mental pictures to help you relax. Practicing yoga. Through yoga poses, you can lower tension and relax. Medicines Medicines for anxiety include: Antidepressant medicines. These are usually prescribed for long-term daily control. Anti-anxiety medicines. These may be added in severe cases, especially when panic attacks occur. When used together, medicines, psychotherapy, and tension-reduction techniques may be the most effective treatment. Relationships Relationships can play a big part in helping you recover. Spend more time connecting with trusted friends and family members. Think about going to couples counseling if you have a partner, taking family education classes, or going to family therapy. Therapy can help you and others better understandyour anxiety. How to recognize changes in your anxiety Everyone responds differently to treatment for anxiety. Recovery from anxiety happens when symptomslessen and stop interfering with your daily life at home or work. This may mean that you will startto: Have better concentration and focus. Worry will interfere less in your daily thinking. Sleep better. Be less irritable. Have more energy. Have improved memory. Try to recognize when your condition is getting worse. Contact your provider if your symptoms interfere with home or work and you feel like your condition is not improving. Follow these instructions at home: Activity Exercise. Adults should: ?Exercise for at least 150 minutes each week. The exercise should increase your heart rate and makeyou sweat (moderate-intensity exercise). ?Do strengthening exercises at least twice a week. Get the right amount and quality of sleep. Most adults need 7 9 hours of sleep each night. Lifestyle Eat a healthy diet that includes plenty of vegetables, fruits, whole grains, low-fat dairy products, and lean protein. ?Do not eat a lot of foods that are high in fats, added sugars, or salt (sodium). Make choices that simplify your life. Do not use any products that contain nicotine or tobacco. These products include cigarettes, chewing tobacco, and vaping devices, such as e-cigarettes. If you need help quitting, ask your provider. Avoid caffeine, alcohol, and certain opdj-fev-nvgzjfw cold medicines. These may make you feel worse. Ask your pharmacist which medicines to avoid. General instructions Take bsgo-hui-iiqzipz and prescription medicines only as told by your provider. Keep all follow-up visits. This is to make sure you are managing your anxiety well or if you need more support. Where to find support You can get help and support from: Self-help groups. Online and community organizations. A trusted spiritual leader. Couples counseling. Family education classes. Family therapy. Where to find more information You may find that joining a support group helps you deal with your anxiety. The following sources can help you find counselors or support groups near you: Mental Health [place]: mentalhealthamerica.net Anxiety and Depression Association of [place] (ADAA): adaa.org National [place] on Mental Illness ([place]): fernando.org Contact a health care provider if: You have a hard time staying focused or finishing tasks. You spend many hours a day feeling worried about everyday life. You are very tired because you cannot stop worrying. You start to have headaches or often feel tense. You have chronic nausea or diarrhea. Get help right away if: Your heart feels like it is racing. You have shortness of breath. You have thoughts of hurting yourself or others. Get help right away if you feel like you may hurt yourself or others, or have thoughts about takingyour own life. Go to your nearest emergency room or: Call 911. Call the National Suicide Prevention Lifeline at or 456. This is open 24 hours a day. Text the Crisis Text Line at 101609. This information is not intended to replace advice given to you by your health care provider. Make sure you discuss any questions you have with your health care provider. Document Revised: 02/06/2023 Document Reviewed: 08/21/2021 [employer] Patient Education 2023 [employer] 02/01/2024 11:12:12 Major Depressive Disorder, Adult Major Depressive Disorder, Adult Major depressive disorder (MDD) is a mental health condition. It may also be called clinical depression or unipolar depression. MDD causes symptoms of sadness, hopelessness, and loss of interest in things. These symptoms last most of the day, almost every day, for 2 weeks. MDD can also cause physical symptoms. It can interfere with relationships and activities, such as work, school, and activities that are usually pleasant. MDD may be mild, moderate, or severe. It may be single-episode MDD, which happens once, or recurrent MDD, which may occur many times. What are the causes? The exact cause of this condition is not known. What increases the risk? The following factors may make someone more likely to develop MDD: A family history of depression. Being female. Long-term (chronic) stress, physical illness, other mental health disorders, or substance misuse. Trauma, including: ?Family problems. ?Violence or abuse. ?Loss of a parent or close family member. ?Experiencing discrimination. What are the signs or symptoms? The main symptoms of MDD usually include: Constant depressed or irritable mood. A loss of interest in activities. Sleeping or eating too much or too little. Tiredness or low energy. Other symptoms include: Unexplained weight gain or weight loss. Being agitated, restless, or weak. Feeling hopeless, worthless, or guilty. Trouble thinking clearly or making decisions. Thoughts of suicide or harming others. Spending a lot of time alone. Not being able to complete daily tasks or work. Severe symptoms of this condition may include: Psychotic depression.This may include false beliefs or delusions. It may also include seeing, hearing, tasting, smelling, or feeling things that are not real (hallucinations). Chronic depression or persistent depressive disorder. This is low-level depression that lasts for at least 2 years. Melancholic depression, or feeling extremely sad and hopeless. Catatonic depression, which includes trouble speaking and trouble moving. Seasonal depression, which is caused by changes in the seasons. How is this diagnosed? This condition may be diagnosed based on: Your symptoms. Your medical and mental health history. A physical exam. Blood tests to rule out other conditions. MDD is confirmed if you have either a depressed mood or loss of interest and at least four other MDD symptoms, most of the day, nearly every day, in a 2-week period. How is this treated? This condition is usually treated by mental health professionals, such as psychologists, psychiatrists, and clinical social workers. You may need more than one type of treatment. Treatment may include: Psychotherapy, also called talk therapy or counseling. Types of psychotherapy include: ?Cognitive behavioral therapy (CBT). This teaches you to recognize unhealthy feelings, thoughts, and behaviors, and replace them with positive thoughts and actions. ?Interpersonal therapy (IPT). This helps you to improve the way you communicate with others or relate to them. ?Family therapy. This treatment includes members of your family. Medicines to treat anxiety and depression. These medicines help to balance the brain chemicals thataffect your emotions. Lifestyle changes. You may be asked to: ?Limit alcohol use and avoid drug use. ?Get regular exercise. ?Get plenty of sleep. ?Make healthy eating choices. ?Spend more time outdoors. Brain stimulation. This may be done if symptoms are very severe and other treatments have not worked. Examples of this treatment are electroconvulsive therapy and transcranial magnetic stimulation. Follow these instructions at home: Alcohol use Do not drink alcohol if: ?Your health care provider tells you not to drink. ?You are , may be , or are planning to become . If you drink alcohol: ?Limit how much you have to: ?0 1 drink a day for women ?0 2 drinks a day for men. ?Know how much alcohol is in your drink. In the [place] one drink equals one 12 oz bottle of beer (355 mL), one 5 oz glass of wine (148 mL), or one 1 oz glass of hard liquor (44 mL). Activity Exercise regularly and spend time outdoors. Find activities that you enjoy and make time to do them. Find healthy ways to manage stress, such as: ?Meditation or deep breathing. ?Spending time in nature. ?Journaling. Return to your normal activities as told by your health care provider. Ask your health care provider what activities are safe for you. General instructions Take mtql-gik-wioqsxw and prescription medicines only as told by your health care provider. Discuss alcohol use with your health care provider. Alcohol can affect any antidepressant medicinesyou are taking. Discuss any drug use with your health care provider. Eat a healthy diet and get enough sleep. Consider joining a support group. Your health care provider may be able to recommend one. Keep all follow-up visits. It is important for your health care provider to check on your mood, behavior, and medicines. Your health care provider will make changes to your treatment as needed. Where to find more information National [place] on Mental Illness: fernando.org National [place] of Mental Health: nimh.nih.gov [place] [employer] Association: psychiatry.org Contact a health care provider if: Your symptoms get worse. You develop new symptoms. Get help right away if: You hurt yourself on purpose (self-harm). You have thoughts about hurting yourself or others. You have hallucinations. Get help right away if you feel like you may hurt yourself or others, or have thoughts about takingyour own life. Go to your nearest emergency room or: Call 911. Call the National Suicide Prevention Lifeline at or 867. This is open 24 hours a day. Text the Crisis Text Line at 765795. This information is not intended to replace advice given to you by your health care provider. Make sure you discuss any questions you have with your health care provider. Document Revised: 09/05/2022 Document Reviewed: 09/05/2022 [employer] Patient Education 2023 [employer] 02/01/2024 11:12:10 Electronic Cigarette Information Electronic Cigarette Information Electronic cigarettes, or e-cigarettes, are battery-operated devices that deliver nicotine a very addictive drug to the body. They come in many shapes, including in the shape of a cigarette, pipe, pen, and even a USB memory stick. Electronic cigarettes may be called e-cigs, e-hookahs, vape pens, and electronic nicotine delivery systems (ENDS). E-cigarettes have a cartridge that contains a liquid form of nicotine. When a person uses the device, the liquid heats up. It then becomes a vapor that a person inhales. Using e-cigarettes may be called vaping. Nicotine is thought to increase your risk for certain types of cancer. In addition to nicotine, e-cigarettes may contain other harmful and cancer-causing chemicals, including: Formaldehyde. Acetaldehyde. Heavy metals. Ultrafine particles that can get inhaled deep into the lungs. Chemical colorings and flavorings. It is not clear how much nicotine you get when vaping, and it is hard to know what chemicals are inthe vaping liquids. The health effects of vaping are not completely known, but you should be aware of the possible dangers of using these products. Some people may use e-cigarettes to quit smoking tobacco. However, this has not been proven to work, and the Food and Drug Administration (FDA) has not approved e-cigarettes for this purpose. How can using electronic cigarettes affect me? You may be at risk for developing a dangerous lung disease. There are reports of an increasing number of cases involving serious lung problems, and even , associated with e-cigarette use. Your risk may be even higher if you: ?Buy e-cigarettes or vaping oils off the street. ?Add any substances to the e-cigarettes that are not intended by the ore digger. Vaping may make you crave nicotine. Nicotine does the following: ?Changes your blood sugar levels. ?Increases your heart rate, blood pressure, and breathing rate. ?Increases your risk of developing blood clots (hypercoagulable state) and diabetes. ?Increases your risk of gum disease that may lead to losing teeth. If you smoke e-cigarettes, you may be more likely to start smoking or to smoke more tobacco cigarettes. Becoming addicted to nicotine may make your brain more sensitive to other addictive drugs. You may move to other addictive substances. You may be in danger of overdosing on nicotine. Nicotine poisoning can cause nausea, vomiting, seizures, and trouble breathing. Vaping has also been linked to decreases in memory and attention span in children and teens. If you are , the nicotine in e-cigarettes may be harmful to your baby. Nicotine can cause: ?Brain or lung problems for your baby. ?Your baby to be born too early. ?Your baby to be born with a low weight. What actions can I take to stop vaping? If you can, stop vaping on your own before you become addicted to nicotine. If you need help quitting, ask your health care provider. There are three effective ways to fight nicotine addiction: Nicotine replacement therapy. Using nicotine gum or a nicotine patch blocks your craving for nicotine. Over time, you can reduce the amount of nicotine you use until you can stop using nicotine completely without having cravings. Prescription medicines approved to fight nicotine addiction. These stop nicotine cravings or block the effects of nicotine. Behavioral therapy. This may include: ?A self-help smoking cessation program. ?Individual or group therapy. ?A smoking cessation support group. There are several national programs to help you quit smoking or vaping. These include: Text message programs, such as SmokeComutoT. Apps for mobile phones, including the Tengion christiano. Hotlines, such as 3-421-RYDO-NOW ( ). Where to find support You can get support at these sites: [place]. Department of Health and Human Services: smokefree.gov [place] [employer] Association: www.lung.org Where to find more information Learn more about e-cigarettes from: National [place] on Drug Abuse: www.drugabuse.gov Centers for Disease Control and Prevention: www.cdc.gov Summary E-cigarettes can cause nicotine addiction. E-cigarettes are not approved as a way to stop smoking. They are not a risk-free alternative to smoking tobacco. There are reports of an increasing number of cases involving serious lung problems, and even ,associated with e-cigarette use. If you can stop vaping on your own, do it before you become addicted to nicotine. If you need help quitting, ask your health care provider. There are various methods and programs that can help you stop smoking or vaping. This information is not intended to replace advice given to you by your health care provider. Make sure you discuss any questions you have with your health care provider. Document Revised: 01/25/2022 Document Reviewed: 01/25/2022 [employer] Patient Education 2023 [email or web address] 02/01/2024 11:12:08 Fatigue Fatigue If you have fatigue, you feel tired all the time and have a lack of energy or a lack of motivation.Fatigue may make it difficult to start or complete tasks because of exhaustion. Occasional or mild fatigue is often a normal response to activity or life. However, long-term (chronic) or extreme fatigue may be a symptom of a medical condition such as: Depression. Not having enough red blood cells or hemoglobin in the blood (anemia). A problem with a small gland located in the lower front part of the neck (thyroid disorder). Rheumatologic conditions. These are problems related to the body's defense system (immune system). Infections, especially certain viral infections. Fatigue can also lead to negative health outcomes over time. Follow these instructions at home: Medicines Take osak-nux-yerjwyz and prescription medicines only as told by your health care provider. Take a multivitamin if told by your health care provider. Do not use herbal or dietary supplements unless they are approved by your health care provider. Eating and drinking Avoid heavy meals in the evening. Eat a well-balanced diet, which includes lean proteins, whole grains, plenty of fruits and vegetables, and low-fat dairy products. Avoid eating or drinking too many products with caffeine in them. Avoid alcohol. Drink enough fluid to keep your urine pale yellow. Activity Exercise regularly, as told by your health care provider. Use or practice techniques to help you relax, such as yoga, conner chi, meditation, or massage therapy. Lifestyle Change situations that cause you stress. Try to keep your work and personal schedules in balance. Do not use recreational or illegal drugs. General instructions Monitor your fatigue for any changes. Go to bed and get up at the same time every day. Avoid fatigue by pacing yourself during the day and getting enough sleep at night. Maintain a healthy weight. Contact a health care provider if: Your fatigue does not get better. You have a fever. You suddenly lose or gain weight. You have headaches. You have trouble falling asleep or sleeping through the night. You feel angry, guilty, anxious, or sad. You have swelling in your legs or another part of your body. Get help right away if: You feel confused, feel like you might faint, or faint. Your vision is blurry or you have a severe headache. You have severe pain in your abdomen, your back, or the area between your waist and hips (pelvis). You have chest pain, shortness of breath, or an irregular or fast heartbeat. You are unable to urinate, or you urinate less than normal. You have abnormal bleeding from the rectum, nose, lungs, nipples, or, if you are female, the vagina. You vomit blood. You have thoughts about hurting yourself or others. These symptoms may be an emergency. Get help right away. Call 911. Do not wait to see if the symptoms will go away. Do not drive yourself to the hospital. Get help right away if you feel like you may hurt yourself or others, or have thoughts about takingyour own life. Go to your nearest emergency room or: Call 911. Call the National Suicide Prevention Lifeline at or 241. This is open 24 hours a day. Text the Crisis Text Line at 157156. Summary If you have fatigue, you feel tired all the time and have a lack of energy or a lack of motivation. Fatigue may make it difficult to start or complete tasks because of exhaustion. Long-term (chronic) or extreme fatigue may be a symptom of a medical condition. Exercise regularly, as told by your health care provider. Change situations that cause you stress. Try to keep your work and personal schedules in balance. This information is not intended to replace advice given to you by your health care provider. Make sure you discuss any questions you have with your health care provider. Document Revised: 02/20/2022 Document Reviewed: 02/20/2022 [employer] Patient Education 2023 [email or web address] 02/01/2024 11:12:04 Allergic Conjunctivitis, Adult Allergic Conjunctivitis, Adult Allergic conjunctivitis is inflammation of the conjunctiva. The conjunctiva is the thin, clear membrane that covers the white part of the eye and the inner surface of the eyelid. Allergies can affectthis layer of the eye. In this condition: The blood vessels in the conjunctiva swell and become irritated. The eyes become red or pink and feel itchy. There is often a watery discharge from the eyes. Allergic conjunctivitis is not contagious. This means it cannot be spread from person to person. The condition can develop at any age and may be outgrown. What are the causes? This condition is caused by allergens. These are things that can cause an allergic reaction in somepeople. Common allergens include: Outdoor allergens, such as: ?Pollen, including pollen from grass and weeds. ?Mold spores. ?Car fumes. ?Pollution. Indoor allergens, such as: ?Dust. ?Smoke. ?Mold spores. ?Proteins in a pet's urine, saliva, or dander. Protein buildup on contact lenses. What increases the risk? You may be more likely to develop this condition if you have a family history of these things: Allergies. Conditions caused by being exposed to allergens, such as: ?Allergic rhinitis. This is an allergic reaction that affects the nose. ?Bronchial asthma. This condition affects the large airways in the lungs and makes breathing difficult. ?Atopic dermatitis (eczema). This is inflammation of the skin that is long-term (chronic). What are the signs or symptoms? Symptoms of this condition include eyes that are itchy, red, watery, or puffy. Your eyes may also: Sting or burn. Have clear fluid draining from them. Have thick mucus discharge and pain (vernal conjunctivitis). This happens in severe cases. How is this diagnosed? This condition may be diagnosed based on: Your medical history. A physical exam, including an eye exam. Tests of the fluid draining from your eyes to rule out other causes. Other tests to confirm the diagnosis, including: ?Testing for allergies. The skin may be pricked with a tiny needle. The pricked area is then exposed to small amounts of allergens. ?Testing for other eye conditions. Tests may include: ?Blood tests. ?Tissue scrapings from your eyelid. The tissue is then checked under a microscope. How is this treated? Treatment for this condition may include: Using cold, wet cloths (cold compresses) to soothe itching and swelling. Washing your face and hair. Also, washing your clothes often to remove allergens. Using eye drops. These may be prescription or zlja-lwl-xcjjkaq. You may need to try different typesto see which one works best for you. Examples include: ?Eye drops that wash allergens out of the eyes (preservative-free artificial tears). ?Eye drops that block the allergic reaction (antihistamine). ?Eye drops that reduce swelling and irritation (anti-inflammatory). ?Steroid eye drops, which may be given if other treatments have not worked. Oral antihistamine medicines. These are medicines taken by mouth to lessen your allergic reaction. You may need these if eye drops do not help or are difficult to use. An air purifier at home and work. Wraparound sunglasses. This may help to decrease the amount of allergens reaching the eye. Not wearing contact lenses until symptoms improve, if the condition was caused by contact lenses. Change to daily wear disposable contact lenses, if possible. Follow these instructions at home: Eye care Apply a clean, cold compress to your eyes for 10 20 minutes, 3 4 times a day. Do not touch or rub your eyes. Do not wear contact lenses until the inflammation is gone. Wear glasses instead. Do not wear eye makeup until the inflammation is gone. General instructions Avoid known allergens whenever possible. Take or apply vftl-jgo-fsvgstn and prescription medicines only as told by your health care provider. These include any eye drops. Drink enough fluid to keep your urine pale yellow. Keep all follow-up visits. Contact a health care provider if: Your symptoms get worse or do not get better with treatment. You have mild eye pain. You become sensitive to light. You have spots or blisters on your eyes. You have a fever. Get help right away if: You have redness, swelling, or other symptoms in only one eye. Your vision is blurred or you have other vision changes. You have pus draining from your eyes. You have severe eye pain. Summary Allergic conjunctivitis is inflammation of the eye that is caused by allergens. It affects the clear membrane that covers the white part of the eye and the inner surface of the eyelid. It often causes eye itching, redness, and a watery discharge. Take or apply woug-eby-aqedvvy and prescription medicines only as told by your health care provider. These include eye drops. Do not touch or rub your eyes. Contact a health care provider if your symptoms get worse or do not get better with treatment. This information is not intended to replace advice given to you by your health care provider. Make sure you discuss any questions you have with your health care provider. Document Revised: 07/10/2022 Document Reviewed: 07/10/2022 [employer] Patient Education 2023 [email or web address] 02/01/2024 11:12:01 Rash, Adult Rash, Adult A rash is a breakout of spots or blotches on the skin. It can affect the way the skin looks and feels. Many things can cause a rash. Common causes include: Viral infections. These include colds, measles, and hand, foot, and mouth disease. Bacterial infections. These include scarlet fever and impetigo. Fungal infections. These include athlete's foot, ringworm, and yeast rashes. Skin irritation. This may be from heat rash, exposure to moisture or friction for a long time (intertrigo), or exposure to soap or skin care products (eczema). Allergic reactions. These may be caused by foods, medicines, or things like poison ingrid. Some rashes may go away after a few days. Others may last for a few weeks. The goal of treatment isto stop the itching and keep the rash from spreading. Follow these instructions at home: Medicine Take or apply fxqm-nuq-czsunzh and prescription medicines only as told by your health care provider. These may include: Corticosteroids. These can help treat red or swollen skin. They may be given as creams or as medicines to take by mouth (orally). Anti-itch lotions. Allergy medicines. Pain medicine. Antifungal medicine if the rash is from a fungal infection. Antibiotics if you have an infection. Skin care Apply cool, wet cloths (compresses) to the affected areas. Do not scratch or rub your skin. Avoid covering the rash. Keep it exposed to air as often as you can. Managing itching and discomfort Avoid hot showers and baths. These can make itching worse. A cold shower may help. Try taking a bath with: ?Epsom salts. You can get these at your local pharmacy or grocery store. Follow the instructions onthe package. ?Baking soda. Pour a small amount into the bath as told by your provider. ?Colloidal oatmeal. You can get this at your local pharmacy or grocery store. Follow the instructions on the package. Try putting baking soda paste on your skin. Stir water into baking soda until it becomes like a paste. Try using calamine lotion or cortisone cream to help with itchiness. Keep cool. Stay out of the sun. Sweating and being hot can make itching worse. General instructions Rest as needed. Drink enough fluid to keep your pee (urine) pale yellow. Wear loose-fitting clothes. Avoid scented soaps, detergents, and perfumes. Use gentle soaps, detergents, perfumes, and cosmetics. Avoid the things that cause your rash (triggers). Keep a journal to help keep track of your triggers. Write down: ?What you eat. ?What cosmetics you use. ?What you drink. ?What you wear. This includes jewelry. Contact a health care provider if: You sweat at night more than normal. You pee (urinate) more or less than normal, or your pee is a darker color than normal. Your eyes become sensitive to light. Your skin or the white parts of your eyes turn yellow (jaundice). Your skin tingles or is numb. You get painful blisters in your nose or mouth. Your rash does not go away after a few days, or it gets worse. You are more tired or thirsty than normal. You have new or worse symptoms. These may include: ?Pain in your abdomen. ?Fever. ?Diarrhea or vomiting. ?Weakness or weight loss. Get help right away if: You get confused. You have a severe headache, a stiff neck, or severe joint pain or stiffness. You become very sleepy or not responsive. You have a seizure. This information is not intended to replace advice given to you by your health care provider. Make sure you discuss any questions you have with your health care provider. Document Revised: 02/16/2023 Document Reviewed: 02/16/2023 [employer] Patient Education 2023 [email or web address]. Follow Up Care 01/02/2024 11:40:08 With:Lisette Redd FAM, MED Address: [address] [place] [address]- When:Within 3 Month(s) Comments:f/u eyes, depression, GENIE, skin changes [facility] 09-20-2024 NotePatient Education Immunology Fatigue If you have fatigue, you feel tired all the time and have a lack of energy or a lack of motivation.Fatigue may make it difficult to start or complete tasks because of exhaustion. Occasional or mild fatigue is often a normal response to activity or life. However, long-term (chronic) or extreme fatigue may be a symptom of a medical condition such as: ? Depression. ? Not having enough red blood cells or hemoglobin in the blood (anemia). ? A problem with a small gland located in the lower front part of the neck (thyroid disorder). ? Rheumatologic conditions. These are problems related to the body's defense system (immune system). ? Infections, especially certain viral infections. Fatigue can also lead to negative health outcomes over time. Follow these instructions at home: Medicines ? Take vsqy-vgu-ykhicdm and prescription medicines only as told by your health care provider. ? Take a multivitamin if told by your health care provider. ? Do not use herbal or dietary supplements unless they are approved by your health care provider. Eating and drinking ? Avoid heavy meals in the evening. ? Eat a well-balanced diet, which includes lean proteins, whole grains, plenty of fruits and vegetables, and low-fat dairy products. ? Avoid eating or drinking too many products with caffeine in them. ? Avoid alcohol. ? Drink enough fluid to keep your urine pale yellow. Activity ? Exercise regularly, as told by your health care provider. ? Use or practice techniques to help you relax, such as yoga, conner chi, meditation, or massage therapy. Lifestyle ? Change situations that cause you stress. Try to keep your work and personal schedules in balance. ? Do not use recreational or illegal drugs. General instructions ? Monitor your fatigue for any changes. ? Go to bed and get up at the same time every day. ? Avoid fatigue by pacing yourself during the day and getting enough sleep at night. ? Maintain a healthy weight. Contact a health care provider if: ? Your fatigue does not get better. ? You have a fever. ? You suddenly lose or gain weight. ? You have headaches. ? You have trouble falling asleep or sleeping through the night. ? You feel angry, guilty, anxious, or sad. ? You have swelling in your legs or another part of your body. Get help right away if: ? You feel confused, feel like you might faint, or faint. ? Your vision is blurry or you have a severe headache. ? You have severe pain in your abdomen, your back, or the area between your waist and hips (pelvis). ? You have chest pain, shortness of breath, or an irregular or fast heartbeat. ? You are unable to urinate, or you urinate less than normal. ? You have abnormal bleeding from the rectum, nose, lungs, nipples, or, if you are female, the vagina. ? You vomit blood. ? You have thoughts about hurting yourself or others. These symptoms may be an emergency. Get help right away. Call 911. ? Do not wait to see if the symptoms will go away. ? Do not drive yourself to the hospital. Get help right away if you feel like you may hurt yourself or others, or have thoughts about takingyour own life. Go to your nearest emergency room or: ? Call 911. ? Call the National Suicide Prevention Lifeline at or 757. This is open 24 hours a day. ? Text the Crisis Text Line at 736958. Summary ? If you have fatigue, you feel tired all the time and have a lack of energy or a lack of motivation. ? Fatigue may make it difficult to start or complete tasks because of exhaustion. ? Long-term (chronic) or extreme fatigue may be a symptom of a medical condition. ? Exercise regularly, as told by your health care provider. ? Change situations that cause you stress. Try to keep your work and personal schedules in balance. This information is not intended to replace advice given to you by your health care provider. Make sure you discuss any questions you have with your health care provider. Document Revised: 02/20/2022 Document Reviewed: 02/20/2022 [employer] Patient Education ? 2023 [employer] Infectious Disease Rash, Adult A rash is a breakout of spots or blotches on the skin. It can affect the way the skin looks and feels. Many things can cause a rash. Common causes include: ? Viral infections. These include colds, measles, and hand, foot, and mouth disease. ? Bacterial infections. These include scarlet fever and impetigo. ? Fungal infections. These include athlete's foot, ringworm, and yeast rashes. ? Skin irritation. This may be from heat rash, exposure to moisture or friction for a long time (intertrigo), or exposure to soap or skin care products (eczema). ? Allergic reactions. These may be caused by foods, medicines, or things like poison ingrid. Some rashes may go away after a few days. Others may last (more content not included)...[facility]09-19-2024 History of Present illness Narrative* RADHA Hammond - 01/31/2024 2:05 PM EDT Images from the original note were not included. Follow up Diagnosis: Allergic contact dermatitis Location: face Last visit: 2 weeks ago Symptoms: red, peeling, less itchy Status: improving no new areas Treatments tried and failed: Metrogel Current treatment: HC 2.5% cream bid, Cerave cleanser All pertinent medical history, medications, and allergies were reviewed. General Exam: alert , oriented to person, place, and time , normal affect, well appearing Unaccompanied A focused exam completed based on patient reported problems, see below: 1. Allergic contact dermatitis, unspecified trigger Head - Anterior (Face) Erythematous patches. Improving since last visit. Counseled on condition, favor Allergic Contact Dermatitis. Recommended OTC proper soaps and Moisturizers, patch test makeup on forearm prior to using on face. Continue Hydrocortisone 2.5% cream bid prn, hold if clear. Discussed referral to thread cutter if failing to resolve despite treatment. Notify clinic if worsening or fails to resolve despite treatment. Related Medications hydrocortisone 2.5 % cream Apply topically 2 (two) times a day as needed (Rash) Apply thin layer to affected areas bid prn forflares Next Visit: prn for any new/changing lesions documented in this encounterCox Walnut [id number] History of Present illness Narrative* RADHA Hammond - 01/10/2024 10:55 AM EDT Images from the original note were not included. Rash Location: face, around the eyes, in the eyes Duration: months Severity: moderate Quality: itchy, nickerson Associated symptoms: red, blisters at times Treatments tried: Metrogel from PCP New patient, referred by Lisette Contreras NP All pertinent medical history, medications, and allergies were reviewed. General Exam: alert , oriented to person, place, and time , normal affect, well appearing Unaccompanied A focused exam completed based on patient reported problems, see below: 1. Allergic contact dermatitis, unspecified trigger Head - Anterior (Face) Erythematous patches. See photos Counseled on condition, favor Allergic Contact Dermatitis. Recommended OTC proper soaps and Moisturizers, patch test makeup on forearm prior to using. Start Hydrocortisone 2.5% cream hydrocortisone 2.5 % cream - Head - Anterior (Face) Apply topically 2 (two) times a day as needed (Rash) Apply thin layer to affected areas bid prn forflares Next Visit: 3 weeks documented in this encounterCox Walnut [id number] History of Present illness Narrative* Angella Egan MD - 01/04/2024 10:00 AM EDT Assessment/Plan cequa bid documented in this encounterCox Walnut [id number] Hospital Discharge instructions Patient Education 01/02/2024 11:42:22 Electronic Cigarette Information Electronic Cigarette Information Electronic cigarettes, or e-cigarettes, are battery-operated devices that deliver nicotine a very addictive drug to the body. They come in many shapes, including in the shape of a cigarette, pipe, pen, and even a USB memory stick. Electronic cigarettes may be called e-cigs, e-hookahs, vape pens, and electronic nicotine delivery systems (ENDS). E-cigarettes have a cartridge that contains a liquid form of nicotine. When a person uses the device, the liquid heats up. It then becomes a vapor that a person inhales. Using e-cigarettes may be called vaping. Nicotine is thought to increase your risk for certain types of cancer. In addition to nicotine, e-cigarettes may contain other harmful and cancer-causing chemicals, including: Formaldehyde. Acetaldehyde. Heavy metals. Ultrafine particles that can get inhaled deep into the lungs. Chemical colorings and flavorings. It is not clear how much nicotine you get when vaping, and it is hard to know what chemicals are inthe vaping liquids. The health effects of vaping are not completely known, but you should be aware of the possible dangers of using these products. Some people may use e-cigarettes to quit smoking tobacco. However, this has not been proven to work, and the Food and Drug Administration (FDA) has not approved e-cigarettes for this purpose. How can using electronic cigarettes affect me? You may be at risk for developing a dangerous lung disease. There are reports of an increasing number of cases involving serious lung problems, and even , associated with e-cigarette use. Your risk may be even higher if you: ?Buy e-cigarettes or vaping oils off the street. ?Add any substances to the e-cigarettes that are not intended by the ore digger. Vaping may make you crave nicotine. Nicotine does the following: ?Changes your blood sugar levels. ?Increases your heart rate, blood pressure, and breathing rate. ?Increases your risk of developing blood clots (hypercoagulable state) and diabetes. ?Increases your risk of gum disease that may lead to losing teeth. If you smoke e-cigarettes, you may be more likely to start smoking or to smoke more tobacco cigarettes. Becoming addicted to nicotine may make your brain more sensitive to other addictive drugs. You may move to other addictive substances. You may be in danger of overdosing on nicotine. Nicotine poisoning can cause nausea, vomiting, seizures, and trouble breathing. Vaping has also been linked to decreases in memory and attention span in children and teens. If you are , the nicotine in e-cigarettes may be harmful to your baby. Nicotine can cause: ?Brain or lung problems for your baby. ?Your baby to be born too early. ?Your baby to be born with a low weight. What actions can I take to stop vaping? If you can, stop vaping on your own before you become addicted to nicotine. If you need help quitting, ask your health care provider. There are three effective ways to fight nicotine addiction: Nicotine replacement therapy. Using nicotine gum or a nicotine patch blocks your craving for nicotine. Over time, you can reduce the amount of nicotine you use until you can stop using nicotine completely without having cravings. Prescription medicines approved to fight nicotine addiction. These stop nicotine cravings or block the effects of nicotine. Behavioral therapy. This may include: ?A self-help smoking cessation program. ?Individual or group therapy. ?A smoking cessation support group. There are several national programs to help you quit smoking or vaping. These include: Text message programs, such as [employer]. Apps for mobile phones, including the free quitSTART christiano. Hotlines, such as 3-027-FESQ-NOW ( ). Where to find support You can get support at these sites: U.S. Department of Health and Human Services: smokefree.gov [place] [employer]: www.lung.org Where to find more information Learn more about e-cigarettes from: National [place] on Drug Abuse: www.drugabuse.gov Centers for Disease Control and Prevention: www.cdc.gov Summary E-cigarettes can cause nicotine addiction. E-cigarettes are not approved as a way to stop smoking. They are not a risk-free alternative to smoking tobacco. There are reports of an increasing number of cases involving serious lung problems, and even ,associated with e-cigarette use. If you can stop vaping on your own, do it before you become addicted to nicotine. If you need help quitting, ask your health care provider. There are various methods and programs that can help you stop smoking or vaping. This information is not intended to replace advice given to you by your health care provider. Make sure you discuss any questions you have with your health care provider. Document Revised: 01/25/2022 Document Reviewed: 01/25/2022 [employer] Patient Education 2022 [email or web address]. 01/02/2024 11:42:19 BMI for Adults BMI for Adults What is BMI? Body mass index (BMI) is a number that is calculated from a person's weight and height. BMI can help estimate how much of a person's weight is composed of fat. BMI does not measure body fat directly.Rather, it is an alternative to procedures that directly measure body fat, which can be difficult and expensive. BMI can help identify people who may be at higher risk for certain medical problems. What are BMI measurements used for? BMI is used as a screening tool to identify possible weight problems. It helps determine whether a person is obese, overweight, a healthy weight, or underweight. BMI is useful for: Identifying a weight problem that may be related to a medical condition or may increase the risk for medical problems. Promoting changes, such as changes in diet and exercise, to help reach a healthy weight. BMI screening can be repeated to see if these changes are working. How is BMI calculated? BMI involves measuring your weight in relation to your height. Both height and weight are measured,and the BMI is calculated from those numbers. This can be done either in [place] ([place] or metric measurements. Note that charts and online BMI calculators are available to help you find your BMI quickly and easily without having to do these calculations yourself. To calculate your BMI in [place] measurements: 1.Measure your weight in pounds (lb). 2.Multiply the number of pounds by 703. For example, for a person who weighs 180 lb, multiply that number by 703, which equals 126,540. 3.Measure your height in inches. Then multiply that number by itself to get a measurement called inches squared. For example, for a person who is 70 inches tall, the inches squared measurement is 70 inches x 70inches, which equals 4,900 inches squared. 4.Divide the total from step 2 (number of lb x 703) by the total from step 3 (inches squared): 126,540 4,900 = 25.8. This is your BMI. To calculate your BMI in metric measurements: 1.Measure your weight in kilograms (kg). 2.Measure your height in meters (m). Then multiply that number by itself to get a measurement called meters squared. For example, for a person who is 1.75 m tall, the meters squared measurement is 1.75 m x 1.75 m, which is equal to 3.1 meters squared. 3.Divide the number of kilograms (your weight) by the meters squared number. In this example: 70 3.1 = 22.6. This is your BMI. What do the results mean? BMI charts are used to identify whether you are underweight, normal weight, overweight, or obese. The following guidelines will be used: Underweight: BMI less than 18.5. Normal weight: BMI between 18.5 and 24.9. Overweight: BMI between 25 and 29.9. Obese: BMI of 30 or above. Keep these notes in mind: Weight includes both fat and muscle, so someone with a muscular build, such as an athlete, may havea BMI that is higher than 24.9. In cases like these, BMI is not an accurate measure of body fat. To determine if excess body fat is the cause of a BMI of 25 or higher, further assessments may needto be done by a health care provider. BMI is usually interpreted in the same way for men and women. Where to find more information For more information about BMI, including tools to quickly calculate your BMI, go to these websites: Centers for Disease Control and Prevention: www.cdc.gov [place] [employer]: www.heart.org National Heart, Lung, and Blood [place]: www.nhlbi.nih.gov Summary Body mass index (BMI) is a number that is calculated from a person's weight and height. BMI may help estimate how much of a person's weight is composed of fat. BMI can help identify thosewho may be at higher risk for certain medical problems. BMI can be measured using Ivorian measurements or metric measurements. BMI charts are used to identify whether you are underweight, normal weight, overweight, or obese. This information is not intended to replace advice given to you by your health care provider. Make sure you discuss any questions you have with your health care provider. Document Revised: 01/21/2020 Document Reviewed: 11/28/2019 [employer] Patient Education 2022 [email or web address]. 01/02/2024 11:42:14 Allergic Conjunctivitis, Adult Allergic Conjunctivitis, Adult Allergic conjunctivitis is inflammation of the conjunctiva. The conjunctiva is the thin, clear membrane that covers the white part of the eye and the inner surface of the eyelid. Allergies can affectthis layer of the eye. In this condition: The blood vessels in the conjunctiva swell and become irritated. The eyes become red or pink and feel itchy. There is often a watery discharge from the eyes. Allergic conjunctivitis is not contagious. This means it cannot be spread from person to person. The condition can develop at any age and may be outgrown. What are the causes? This condition is caused by allergens. These are things that can cause an allergic reaction in somepeople. Common allergens include: Outdoor allergens, such as: ?Pollen, including pollen from grass and weeds. ?Mold spores. ?Car fumes. ?Pollution. Indoor allergens, such as: ?Dust. ?Smoke. ?Mold spores. ?Proteins in a pet's urine, saliva, or dander. Protein buildup on contact lenses. What increases the risk? You may be more likely to develop this condition if you have a family history of these things: Allergies. Conditions caused by being exposed to allergens, such as: ?Allergic rhinitis. This is an allergic reaction that affects the nose. ?Bronchial asthma. This condition affects the large airways in the lungs and makes breathing difficult. ?Atopic dermatitis (eczema). This is inflammation of the skin that is long-term (chronic). What are the signs or symptoms? Symptoms of this condition include eyes that are itchy, red, watery, or puffy. Your eyes may also: Sting or burn. Have clear fluid draining from them. Have thick mucus discharge and pain (vernal conjunctivitis). This happens in severe cases. How is this diagnosed? This condition may be diagnosed based on: Your medical history. A physical exam, including an eye exam. Tests of the fluid draining from your eyes to rule out other causes. Other tests to confirm the diagnosis, including: ?Testing for allergies. The skin may be pricked with a tiny needle. The pricked area is then exposed to small amounts of allergens. ?Testing for other eye conditions. Tests may include: ?Blood tests. ?Tissue scrapings from your eyelid. The tissue is then checked under a microscope. How is this treated? Treatment for this condition may include: Using cold, wet cloths (cold compresses) to soothe itching and swelling. Washing your face and hair. Also, washing your clothes often to remove allergens. Using eye drops. These may be prescription or inmp-txm-shofete. You may need to try different typesto see which one works best for you. Examples include: ?Eye drops that wash allergens out of the eyes (preservative-free artificial tears). ?Eye drops that block the allergic reaction (antihistamine). ?Eye drops that reduce swelling and irritation (anti-inflammatory). ?Steroid eye drops, which may be given if other treatments have not worked. Oral antihistamine medicines. These are medicines taken by mouth to lessen your allergic reaction. You may need these if eye drops do not help or are difficult to use. An air purifier at home and work. Wraparound sunglasses. This may help to decrease the amount of allergens reaching the eye. Not wearing contact lenses until symptoms improve, if the condition was caused by contact lenses. Change to daily wear disposable contact lenses, if possible. Follow these instructions at home: Eye care Apply a clean, cold compress to your eyes for 10 20 minutes, 3 4 times a day. Do not touch or rub your eyes. Do not wear contact lenses until the inflammation is gone. Wear glasses instead. Do not wear eye makeup until the inflammation is gone. General instructions Avoid known allergens whenever possible. Take or apply minw-afr-hyuczem and prescription medicines only as told by your health care provider. These include any eye drops. Drink enough fluid to keep your urine pale yellow. Keep all follow-up visits. Contact a health care provider if: Your symptoms get worse or do not get better with treatment. You have mild eye pain. You become sensitive to light. You have spots or blisters on your eyes. You have a fever. Get help right away if: You have redness, swelling, or other symptoms in only one eye. Your vision is blurred or you have other vision changes. You have pus draining from your eyes. You have severe eye pain. Summary Allergic conjunctivitis is inflammation of the eye that is caused by allergens. It affects the clear membrane that covers the white part of the eye and the inner surface of the eyelid. It often causes eye itching, redness, and a watery discharge. Take or apply hllv-hoa-xbzzabk and prescription medicines only as told by your health care provider. These include eye drops. Do not touch or rub your eyes. Contact a health care provider if your symptoms get worse or do not get better with treatment. This information is not intended to replace advice given to you by your health care provider. Make sure you discuss any questions you have with your health care provider. Document Revised: 07/10/2022 Document Reviewed: 07/10/2022 [employer] Patient Education 2022 [email or web address]. 01/02/2024 11:42:08 Major Depressive Disorder, Adult Major Depressive Disorder, Adult Major depressive disorder (MDD) is a mental health condition. It may also be called clinical depression or unipolar depression. MDD causes symptoms of sadness, hopelessness, and loss of interest in things. These symptoms last most of the day, almost every day, for 2 weeks. MDD can also cause physical symptoms. It can interfere with relationships and with everyday activities, such as work, school,and activities that are usually pleasant. MDD may be mild, moderate, or severe. It may be single-episode MDD, which happens once, or recurrent MDD, which may occur multiple times. What are the causes? The exact cause of this condition is not known. MDD is most likely caused by a combination of things, which may include: Your personality traits. [place] or conditioned behaviors or thoughts or feelings that reinforce negativity. Any alcohol or substance misuse. Long-term (chronic) physical or mental health illness. Going through a traumatic experience or major life changes. What increases the risk? The following factors may make someone more likely to develop MDD: A family history of depression. Being a woman. Troubled family relationships. Abnormally low levels of certain brain chemicals. Traumatic or painful events in childhood, especially abuse or loss of a parent. A lot of stress from life experiences, such as poor living conditions or discrimination. Chronic physical illness or other mental health disorders. What are the signs or symptoms? The main symptoms of MDD usually include: Constant depressed or irritable mood. A loss of interest in things and activities. Other symptoms include: Sleeping or eating too much or too little. Unexplained weight gain or weight loss. Tiredness or low energy. Being agitated, restless, or weak. Feeling hopeless, worthless, or guilty. Trouble thinking clearly or making decisions. Thoughts of suicide or thoughts of harming others. Isolating oneself or avoiding other people or activities. Trouble completing tasks, work, or any normal obligations. Severe symptoms of this condition may include: Psychotic depression.This may include false beliefs, or delusions. It may also include seeing, hearing, tasting, smelling, or feeling things that are not real (hallucinations). Chronic depression or persistent depressive disorder. This is low-level depression that lasts for at least 2 years. Melancholic depression, or feeling extremely sad and hopeless. Catatonic depression, which includes trouble speaking and trouble moving. How is this diagnosed? This condition may be diagnosed based on: Your symptoms. Your medical and mental health history. You may be asked questions about your lifestyle, including any drug and alcohol use. A physical exam. Blood tests to rule out other conditions. MDD is confirmed if you have the following symptoms most of the day, nearly every day, in a 2-week period: Either a depressed mood or loss of interest. At least four other MDD symptoms. How is this treated? This condition is usually treated by mental health professionals, such as psychologists, psychiatrists, and clinical social workers. You may need more than one type of treatment. Treatment may include: Psychotherapy, also called talk therapy or counseling. Types of psychotherapy include: ?Cognitive behavioral therapy (CBT). This teaches you to recognize unhealthy feelings, thoughts, and behaviors, and replace them with positive thoughts and actions. ?Interpersonal therapy (IPT). This helps you to improve the way you communicate with others or relate to them. ?Family therapy. This treatment includes members of your family. Medicines to treat anxiety and depression. These medicines help to balance the brain chemicals thataffect your emotions. Lifestyle changes. You may be asked to: ?Limit alcohol use and avoid drug use. ?Get regular exercise. ?Get plenty of sleep. ?Make healthy eating choices. ?Spend more time outdoors. Brain stimulation. This may be done if symptoms are very severe and other treatments have not worked. Examples of this treatment are electroconvulsive therapy and transcranial magnetic stimulation. Follow these instructions at home: Activity Exercise regularly and spend time outdoors. Find activities that you enjoy doing, and make time to do them. Find healthy ways to manage stress, such as: ?Meditation or deep breathing. ?Spending time in nature. ?Journaling. Return to your normal activities as told by your health care provider. Ask your health care provider what activities are safe for you. Alcohol and drug use If you drink alcohol: ?Limit how much you use to: ?0 1 drink a day for women who are not . ?0 2 drinks a day for men. ?Be aware of how much alcohol is in your drink. In the [place] one drink equals one 12 oz bottle of beer (355 mL), one 5 oz glass of wine (148 mL), or one 1 oz glass of hard liquor (44 mL). ?Discuss your alcohol use with your health care provider. Alcohol can affect any antidepressant medicines you are taking. Discuss any drug use with your health care provider. General instructions Take xezg-vsd-pwyxhhh and prescription medicines only as told by your health care provider. Eat a healthy diet and get plenty of sleep. Consider joining a support group. Your health care provider may be able to recommend one. Keep all follow-up visits as told by your health care provider. This is important. Where to find more information National [place] on Mental Illness: www.fernando.org [place] National [place] of Mental Health: www.nimh.nih.gov Contact a health care provider if: Your symptoms get worse. You develop new symptoms. Get help right away if: You self-harm. You have serious thoughts about hurting yourself or others. You hallucinate. If you ever feel like you may hurt yourself or others, or have thoughts about taking your own life,get help right away. Go to your nearest emergency department or: Call your local emergency services (591 in the [place] Call a suicide crisis helpline, such as the National Suicide Prevention Lifeline at or 041 in the [place] This is open 24 hours a day in the [place] Text the Crisis Text Line at 758322 (in the [place] Summary Major depressive disorder (MDD) is a mental health condition. MDD causes symptoms of sadness, hopelessness, and loss of interest in things. These symptoms last most of the day, almost every day, for 2 weeks. The symptoms of MDD can interfere with relationships and with everyday activities. Treatments and support are available for people who develop MDD. You may need more than one type oftreatment. Get help right away if you have serious thoughts about hurting yourself or others. This information is not intended to replace advice given to you by your health care provider. Make sure you discuss any questions you have with your health care provider. Document Revised: 11/23/2021 Document Reviewed: 04/10/2020 [employer] Patient Education 2022 [email or web address]. 01/02/2024 11:42:06 Hirsutism and Masculinization Hirsutism and Masculinization Hirsutism is when a female has an excessive amount of hair in an area where a male would typically have hair growth, such as on the face, chest, or back. Masculinization is when a female's body develops certain characteristics that are like a male's body. What are the causes? This condition may be caused by: Polycystic ovary syndrome (PCOS). This is the most common cause. Certain medicines, such as androgens and anabolic steroids. Kulwinder's syndrome. Tumors. Increased levels of androgen (testosterone). What increases the risk? The following factors may make you more likely to develop this condition: Family history. Obesity. What are the signs or symptoms? Hirsutism Symptoms of this condition include excess hair growth in areas where women typically do not grow hair, such as on the: Face. Chest. Thighs. Back. Masculinization Symptoms of this condition include: Deepening voice. Decreased breast size. Increased muscle mass. Thinning hair on the head (balding). Irregular or no menstrual periods. Enlarged clitoris. How is this diagnosed? These conditions may be diagnosed based on: Your medical history. A physical exam. Tests that may include: ?Blood tests. ?Imaging studies. Your health care provider may recommend that you follow up with specialists to understand the causeof your condition or to help treat it. How is this treated? This condition may be treated by: Taking medicines to help control hair growth. Making lifestyle changes to help reduce hormone levels that are contributing to your condition. Removing unwanted hair by shaving, using creams, or waxing. More permanent ways to remove hair include electrolysis and laser treatments. If your symptoms are caused by certain medicines, your health care provider may have you stop taking them. Follow these instructions at home: Take sjhh-pgy-kzishyj and prescription medicines only as told by your health care provider. Talk with your health care provider about your treatment options and what may be best for you. Maintain a healthy weight. If needed, talk with your health care provider about how to lose weight. Keep all follow-up visits. This is important. Contact a health care provider if: Your symptoms suddenly get worse. You develop acne. You have irregular menstrual periods. You stop having your menstrual period. You feel a lump in your lower abdomen. Summary Hirsutism is when a female has an excessive amount of hair in an area where a male would typically have hair growth, such as on the face, chest, thighs, or back. Masculinization is when a female's body develops characteristics like a male's body. This may include a deepening voice, decreased breast size, increased muscle mass, thinning hair (balding), changesin menstrual periods, and clitoris growth. The most common cause of this condition is polycystic ovary syndrome (PCOS). Treatment options include removing unwanted hair, taking medicines, and making lifestyle changes. Talk with your health care provider about which treatments are best for you. Your health care provider may refer you to specialists to find the cause of your condition. This information is not intended to replace advice given to you by your health care provider. Make sure you discuss any questions you have with your health care provider. Document Revised: 10/07/2020 Document Reviewed: 10/07/2020 [employer] Patient Education 2022 [email or web address]. Follow Up Care 10/01/2023 10:52:00 With:Lisette Redd FAM, MED Address: [address], [address] [place] [phone]- When:Within 1 Month(s) Comments:f/u GENIE, MDD, SKIN eye issues [facility] 08-21-2024 NotePatient Education Mental and Behavioral Health Major Depressive Disorder, Adult Major depressive disorder (MDD) is a mental health condition. It may also be called clinical depression or unipolar depression. MDD causes symptoms of sadness, hopelessness, and loss of interest in things. These symptoms last most of the day, almost every day, for 2 weeks. MDD can also cause physical symptoms. It can interfere with relationships and with everyday activities, such as work, school,and activities that are usually pleasant. MDD may be mild, moderate, or severe. It may be single-episode MDD, which happens once, or recurrent MDD, which may occur multiple times. What are the causes? The exact cause of this condition is not known. MDD is most likely caused by a combination of things, which may include: ? Your personality traits. ? [place] or conditioned behaviors or thoughts or feelings that reinforce negativity. ? Any alcohol or substance misuse. ? Long-term (chronic) physical or mental health illness. ? Going through a traumatic experience or major life changes. What increases the risk? The following factors may make someone more likely to develop MDD: ? A family history of depression. ? Being a woman. ? Troubled family relationships. ? Abnormally low levels of certain brain chemicals. ? Traumatic or painful events in childhood, especially abuse or loss of a parent. ? A lot of stress from life experiences, such as poor living conditions or discrimination. ? Chronic physical illness or other mental health disorders. What are the signs or symptoms? The main symptoms of MDD usually include: ? Constant depressed or irritable mood. ? A loss of interest in things and activities. Other symptoms include: ? Sleeping or eating too much or too little. ? Unexplained weight gain or weight loss. ? Tiredness or low energy. ? Being agitated, restless, or weak. ? Feeling hopeless, worthless, or guilty. ? Trouble thinking clearly or making decisions. ? Thoughts of suicide or thoughts of harming others. ? Isolating oneself or avoiding other people or activities. ? Trouble completing tasks, work, or any normal obligations. Severe symptoms of this condition may include: ? Psychotic depression.This may include false beliefs, or delusions. It may also include seeing, hearing, tasting, smelling, or feeling things that are not real (hallucinations). ? Chronic depression or persistent depressive disorder. This is low-level depression that lasts forat least 2 years. ? Melancholic depression, or feeling extremely sad and hopeless. ? Catatonic depression, which includes trouble speaking and trouble moving. How is this diagnosed? This condition may be diagnosed based on: ? Your symptoms. ? Your medical and mental health history. You may be asked questions about your lifestyle, including any drug and alcohol use. ? A physical exam. ? Blood tests to rule out other conditions. MDD is confirmed if you have the following symptoms most of the day, nearly every day, in a 2-week period: ? Either a depressed mood or loss of interest. ? At least four other MDD symptoms. How is this treated? This condition is usually treated by mental health professionals, such as psychologists, psychiatrists, and clinical social workers. You may need more than one type of treatment. Treatment may include: ? Psychotherapy, also called talk therapy or counseling. Types of psychotherapy include: ? Cognitive behavioral therapy (CBT). This teaches you to recognize unhealthy feelings, thoughts, and behaviors, and replace them with positive thoughts and actions. ? Interpersonal therapy (IPT). This helps you to improve the way you communicate with others or relate to them. ? Family therapy. This treatment includes members of your family. ? Medicines to treat anxiety and depression. These medicines help to balance the brain chemicals that affect your emotions. ? Lifestyle changes. You may be asked to: ? Limit alcohol use and avoid drug use. ? Get regular exercise. ? Get plenty of sleep. ? Make healthy eating choices. ? Spend more time outdoors. ? Brain stimulation. This may be done if symptoms are very severe and other treatments have not worked. Examples of this treatment are electroconvulsive therapy and transcranial magnetic stimulation. Follow these instructions at home: Activity ? Exercise regularly and spend time outdoors. ? Find activities that you enjoy doing, and make time to do them. ? Find healthy ways to manage stress, such as: ? Meditation or deep breathing. ? Spending time in nature. ? Journaling. ? Return to your normal activities as told by your health care provider. Ask your health care provider what activities are safe for you. Alcohol and drug use ? If you drink alcohol: ? Limit how much you use to: ? 0?1 drink a day for women who are not . ? 0?2 drinks a day for men. ? Be aware of how much alcohol is i (more content not included)...[facility]05-20-2024 Hospital Discharge instructions Patient Education 10/01/2023 06:45:26 BMI for Adults BMI for Adults What is BMI? Body mass index (BMI) is a number that is calculated from a person's weight and height. BMI can help estimate how much of a person's weight is composed of fat. BMI does not measure body fat directly.Rather, it is an alternative to procedures that directly measure body fat, which can be difficult and expensive. BMI can help identify people who may be at higher risk for certain medical problems. What are BMI measurements used for? BMI is used as a screening tool to identify possible weight problems. It helps determine whether a person is obese, overweight, a healthy weight, or underweight. BMI is useful for: Identifying a weight problem that may be related to a medical condition or may increase the risk for medical problems. Promoting changes, such as changes in diet and exercise, to help reach a healthy weight. BMI screening can be repeated to see if these changes are working. How is BMI calculated? BMI involves measuring your weight in relation to your height. Both height and weight are measured,and the BMI is calculated from those numbers. This can be done either in [place] ([place] or metric measurements. Note that charts and online BMI calculators are available to help you find your BMI quickly and easily without having to do these calculations yourself. To calculate your BMI in [place] ([place] measurements: 1.Measure your weight in pounds (lb). 2.Multiply the number of pounds by 703. For example, for a person who weighs 180 lb, multiply that number by 703, which equals 126,540. 3.Measure your height in inches. Then multiply that number by itself to get a measurement called inches squared. For example, for a person who is 70 inches tall, the inches squared measurement is 70 inches x 70inches, which equals 4,900 inches squared. 4.Divide the total from step 2 (number of lb x 703) by the total from step 3 (inches squared): 126,540 4,900 = 25.8. This is your BMI. To calculate your BMI in metric measurements: 1.Measure your weight in kilograms (kg). 2.Measure your height in meters (m). Then multiply that number by itself to get a measurement called meters squared. For example, for a person who is 1.75 m tall, the meters squared measurement is 1.75 m x 1.75 m, which is equal to 3.1 meters squared. 3.Divide the number of kilograms (your weight) by the meters squared number. In this example: 70 3.1 = 22.6. This is your BMI. What do the results mean? BMI charts are used to identify whether you are underweight, normal weight, overweight, or obese. The following guidelines will be used: Underweight: BMI less than 18.5. Normal weight: BMI between 18.5 and 24.9. Overweight: BMI between 25 and 29.9. Obese: BMI of 30 or above. Keep these notes in mind: Weight includes both fat and muscle, so someone with a muscular build, such as an athlete, may havea BMI that is higher than 24.9. In cases like these, BMI is not an accurate measure of body fat. To determine if excess body fat is the cause of a BMI of 25 or higher, further assessments may needto be done by a health care provider. BMI is usually interpreted in the same way for men and women. Where to find more information For more information about BMI, including tools to quickly calculate your BMI, go to these websites: Centers for Disease Control and Prevention: www.cdc.gov [place] [employer]: www.heart.org National Heart, Lung, and Blood [place]: www.nhlbi.nih.gov Summary Body mass index (BMI) is a number that is calculated from a person's weight and height. BMI may help estimate how much of a person's weight is composed of fat. BMI can help identify thosewho may be at higher risk for certain medical problems. BMI can be measured using [place] measurements or metric measurements. BMI charts are used to identify whether you are underweight, normal weight, overweight, or obese. This information is not intended to replace advice given to you by your health care provider. Make sure you discuss any questions you have with your health care provider. Document Revised: 01/21/2020 Document Reviewed: 11/28/2019 [employer] Patient Education 2022 [email or web address]. 10/01/2023 06:45:22 Dizziness Dizziness Dizziness is a common problem. It is a feeling of unsteadiness or light- headedness. You may feel like you are about to faint. Dizziness can lead to injury if you stumble or fall. Anyone can become dizzy, but dizziness is more common in older adults. This condition can be caused by a number of things, including medicines, dehydration, or illness. Follow these instructions at home: Eating and drinking Drink enough fluid to keep your urine pale yellow. This helps to keep you from becoming dehydrated.Try to drink more clear fluids, such as water. Do not drink alcohol. Limit your caffeine intake if told to do so by your health care provider. Check ingredients and nutrition facts to see if a food or beverage contains caffeine. Limit your salt (sodium) intake if told to do so by your health care provider. Check ingredients and nutrition facts to see if a food or beverage contains sodium. Activity Avoid making quick movements. ?Rise slowly from chairs and steady yourself until you feel okay. ?In the morning, first sit up on the side of the bed. When you feel okay, stand slowly while you hold onto something until you know that your balance is good. If you need to heat treating bluer one place for a long time, move your legs often. Tighten and relax the muscles in your legs while you are standing. Do not drive or use machinery if you feel dizzy. Avoid bending down if you feel dizzy. Place items in your home so that they are easy for you to reach without leaning over. Lifestyle Do not use any products that contain nicotine or tobacco. These products include cigarettes, chewing tobacco, and vaping devices, such as e-cigarettes. If you need help quitting, ask your health careprovider. Try to reduce your stress level by using methods such as yoga or meditation. Talk with your health care provider if you need help to manage your stress. General instructions Watch your dizziness for any changes. Take sipv-hms-sgrlyaj and prescription medicines only as told by your health care provider. Talk with your health care provider if you think that your dizziness is caused by a medicine that you are taking. Tell a friend or a family member that you are feeling dizzy. If he or she notices any changes in your behavior, have this person call your health care provider. Keep all follow-up visits. This is important. Contact a health care provider if: Your dizziness does not go away or you have new symptoms. Your dizziness or light-headedness gets worse. You feel nauseous. You have reduced hearing. You have a fever. You have neck pain or a stiff neck. Your dizziness leads to an injury or a fall. Get help right away if: You vomit or have diarrhea and are unable to eat or drink anything. You have problems talking, walking, swallowing, or using your arms, hands, or legs. You feel generally weak. You have any bleeding. You are not thinking clearly or you have trouble forming sentences. It may take a friend or family member to notice this. You have chest pain, abdominal pain, shortness of breath, or sweating. Your vision changes or you develop a severe headache. These symptoms may represent a serious problem that is an emergency. Do not wait to see if the symptoms will go away. Get medical help right away. Call your local emergency services (911 in the [place] Do not drive yourself to the hospital. Summary Dizziness is a feeling of unsteadiness or light-headedness. This condition can be caused by a number of things, including medicines, dehydration, or illness. Anyone can become dizzy, but dizziness is more common in older adults. Drink enough fluid to keep your urine pale yellow. Do not drink alcohol. Avoid making quick movements if you feel dizzy. Monitor your dizziness for any changes. This information is not intended to replace advice given to you by your health care provider. Make sure you discuss any questions you have with your health care provider. Document Revised: 04/04/2021 Document Reviewed: 04/04/2021 [employer] Patient Education 2022 [email or web address] 10/01/2023 06:45:18 Allergic Rhinitis, Adult Allergic Rhinitis, Adult Allergic rhinitis is an allergic reaction that affects the mucous membrane inside the nose. The mucous membrane is the tissue that produces mucus. There are two types of allergic rhinitis: Seasonal. This type is also called hay fever and happens only during certain seasons. Perennial. This type can happen at any time of the year. Allergic rhinitis cannot be spread from person to person. This condition can be mild, moderate, or severe. It can develop at any age and may be outgrown. What are the causes? This condition is caused by allergens. These are things that can cause an allergic reaction. Allergens may differ for seasonal allergic rhinitis and perennial allergic rhinitis. Seasonal allergic rhinitis is triggered by pollen. Pollen can come from grasses, trees, and weeds. Perennial allergic rhinitis may be triggered by: ?Dust mites. ?Proteins in a pet's urine, saliva, or dander. Dander is skin cells from a pet. ?Smoke, mold, or car fumes. What increases the risk? You are more likely to develop this condition if you have a family history of allergies or other conditions related to allergies, including: Allergic conjunctivitis. This is inflammation of parts of the eyes and eyelids. Asthma. This condition affects the lungs and makes it hard to breathe. Atopic dermatitis or eczema. This is terminal gauger supervisor (chronic) inflammation of the skin. Food allergies. What are the signs or symptoms? Symptoms of this condition include: Sneezing or coughing. A stuffy nose (nasal congestion), itchy nose, or nasal discharge. Itchy eyes and tearing of the eyes. A feeling of mucus dripping down the back of your throat (postnasal drip). Trouble sleeping. Tiredness or fatigue. Headache. Sore throat. How is this diagnosed? This condition may be diagnosed with your symptoms, medical history, and physical exam. Your healthcare provider may check for related conditions, such as: Asthma. [place] eye. This is eye inflammation caused by infection (conjunctivitis). Ear infection. Upper respiratory infection. This is an infection in the nose, throat, or upper airways. You may also have tests to find out which allergens trigger your symptoms. These may include skin tests or blood tests. How is this treated? There is no cure for this condition, but treatment can help control symptoms. Treatment may include: Taking medicines that block allergy symptoms, such as corticosteroids and antihistamines. Medicine may be given as a shot, nasal spray, or pill. Avoiding any allergens. Being exposed again and again to tiny amounts of allergens to help you build a defense against allergens (immunotherapy). This is done if other treatments have not helped. It may include: ?Allergy shots. These are injected medicines that have small amounts of allergen in them. ?Sublingual immunotherapy. This involves taking small doses of a medicine with allergen in it underyour tongue. If these treatments do not work, your health care provider may prescribe newer, stronger medicines. Follow these instructions at home: Avoiding allergens Find out what you are allergic to and avoid those allergens. These are some things you can do to help avoid allergens: If you have perennial allergies: ?Replace carpet with wood, tile, or vinyl joie. Carpet can trap dander and dust. ?Do not smoke. Do not allow smoking in your home. ?Change your heating and air conditioning filters at least once a month. If you have seasonal allergies, take these steps during allergy season: ?Keep windows closed as much as possible. ?Plan outdoor activities when pollen counts are lowest. Check pollen counts before you plan outdooractivities. ?When coming indoors, change clothing and shower before sitting on furniture or bedding. If you have a pet in the house that produces allergens: ?Keep the pet out of the bedroom. ?Vacuum, sweep, and dust regularly. General instructions Take sdmd-wis-gfgxddg and prescription medicines only as told by your health care provider. Drink enough fluid to keep your urine pale yellow. Keep all follow-up visits as told by your health care provider. This is important. Where to find more information [employer] [employer]: www.aaaai.org Contact a health care provider if: You have a fever. You develop a cough that does not go away. You make whistling sounds when you breathe (wheeze). Your symptoms slow you down or stop you from doing your normal activities each day. Get help right away if: You have shortness of breath. This symptom may represent a serious problem that is an emergency. Do not wait to see if the symptom will go away. Get medical help right away. Call your local emergency services (911 in the [place] Do not drive yourself to the hospital. Summary Allergic rhinitis may be managed by taking medicines as directed and avoiding allergens. If you have seasonal allergies, keep windows closed as much as possible during allergy season. Contact your health care provider if you develop a fever or a cough that does not go away. This information is not intended to replace advice given to you by your health care provider. Make sure you discuss any questions you have with your health care provider. Document Revised: 06/18/2020 Document Reviewed: 04/27/2020 [employer] Patient Education 2022 [email or web address] 10/01/2023 06:45:15 Electronic Cigarette Information Electronic Cigarette Information Electronic cigarettes, or e-cigarettes, are battery-operated devices that deliver nicotine a very addictive drug to the body. They come in many shapes, including in the shape of a cigarette, pipe, pen, and even a USB memory stick. Electronic cigarettes may be called e-cigs, e-hookahs, vape pens, and electronic nicotine delivery systems (ENDS). E-cigarettes have a cartridge that contains a liquid form of nicotine. When a person uses the device, the liquid heats up. It then becomes a vapor that a person inhales. Using e-cigarettes may be called vaping. Nicotine is thought to increase your risk for certain types of cancer. In addition to nicotine, e-cigarettes may contain other harmful and cancer-causing chemicals, including: Formaldehyde. Acetaldehyde. Heavy metals. Ultrafine particles that can get inhaled deep into the lungs. Chemical colorings and flavorings. It is not clear how much nicotine you get when vaping, and it is hard to know what chemicals are inthe vaping liquids. The health effects of vaping are not completely known, but you should be aware of the possible dangers of using these products. Some people may use e-cigarettes to quit smoking tobacco. However, this has not been proven to work, and the Food and Drug Administration (FDA) has not approved e-cigarettes for this purpose. How can using electronic cigarettes affect me? You may be at risk for developing a dangerous lung disease. There are reports of an increasing number of cases involving serious lung problems, and even , associated with e-cigarette use. Your risk may be even higher if you: ?Buy e-cigarettes or vaping oils off the street. ?Add any substances to the e-cigarettes that are not intended by the ore digger. Vaping may make you crave nicotine. Nicotine does the following: ?Changes your blood sugar levels. ?Increases your heart rate, blood pressure, and breathing rate. ?Increases your risk of developing blood clots (hypercoagulable state) and diabetes. ?Increases your risk of gum disease that may lead to losing teeth. If you smoke e-cigarettes, you may be more likely to start smoking or to smoke more tobacco cigarettes. Becoming addicted to nicotine may make your brain more sensitive to other addictive drugs. You may move to other addictive substances. You may be in danger of overdosing on nicotine. Nicotine poisoning can cause nausea, vomiting, seizures, and trouble breathing. Vaping has also been linked to decreases in memory and attention span in children and teens. If you are , the nicotine in e-cigarettes may be harmful to your baby. Nicotine can cause: ?Brain or lung problems for your baby. ?Your baby to be born too early. ?Your baby to be born with a low weight. What actions can I take to stop vaping? If you can, stop vaping on your own before you become addicted to nicotine. If you need help quitting, ask your health care provider. There are three effective ways to fight nicotine addiction: Nicotine replacement therapy. Using nicotine gum or a nicotine patch blocks your craving for nicotine. Over time, you can reduce the amount of nicotine you use until you can stop using nicotine completely without having cravings. Prescription medicines approved to fight nicotine addiction. These stop nicotine cravings or block the effects of nicotine. Behavioral therapy. This may include: ?A self-help smoking cessation program. ?Individual or group therapy. ?A smoking cessation support group. There are several national programs to help you quit smoking or vaping. These include: Text message programs, such as SmokefreeAquaBlingT. Apps for mobile phones, including the Tengion christiano. Hotlines, such as 7-754-GJOD-NOW ( ). Where to find support You can get support at these sites: U.S. Department of Health and Human Services: smokefree.gov [employer] [employer]: www.lung.org Where to find more information Learn more about e-cigarettes from: National [place] on Drug Abuse: www.drugabuse.gov Centers for Disease Control and Prevention: www.cdc.gov Summary E-cigarettes can cause nicotine addiction. E-cigarettes are not approved as a way to stop smoking. They are not a risk-free alternative to smoking tobacco. There are reports of an increasing number of cases involving serious lung problems, and even ,associated with e-cigarette use. If you can stop vaping on your own, do it before you become addicted to nicotine. If you need help quitting, ask your health care provider. There are various methods and programs that can help you stop smoking or vaping. This information is not intended to replace advice given to you by your health care provider. Make sure you discuss any questions you have with your health care provider. Document Revised: 01/25/2022 Document Reviewed: 01/25/2022 [employer] Patient Education 2022 [email or web address] 10/01/2023 06:45:12 Managing Anxiety, Adult Managing Anxiety, Adult After being diagnosed with anxiety, you may be relieved to know why you have felt or behaved a certain way. You may also feel overwhelmed about the treatment ahead and what it will mean for your life. With care and support, you can manage this condition. How to manage lifestyle changes Managing stress and anxiety Stress is your body's reaction to life changes and events, both good and bad. Most stress will lastjust a few hours, but stress can be ongoing and can lead to more than just stress. Although stress can play a major role in anxiety, it is not the same as anxiety. Stress is usually caused by something external, such as a deadline, test, or competition. Stress normally passes after the triggering event has ended. Anxiety is caused by something internal, such as imagining a terrible outcome or worrying that something will go wrong that will devastate you. Anxiety often does not go away even after the triggering event is over, and it can become long-term (chronic) worry. It is important to understand the differences between stress and anxiety and to manage your stress effectively so that it does not lead frederic anxious response. Talk with your health care provider or a counselor to learn more about reducing anxiety and stress.He or she may suggest tension reduction techniques, such as: Music therapy. Spend time creating or listening to music that you enjoy and that inspires you. Mindfulness-based meditation. Practice being aware of your normal breaths while not trying to control your breathing. It can be done while sitting or walking. Centering prayer. This involves focusing on a word, phrase, or sacred image that means something toyou and brings you peace. Deep breathing. To do this, expand your stomach and inhale slowly through your nose. Hold your breath for 3 5 seconds. Then exhale slowly, letting your stomach muscles relax. Self-talk. Learn to notice and identify thought patterns that lead to anxiety reactions and change those patterns to thoughts that feel peaceful. Muscle relaxation. Taking time to tense muscles and then relax them. Choose a tension reduction technique that fits your lifestyle and personality. These techniques take time and practice. Set aside 5 15 minutes a day to do them. Therapists can offer counseling and training in these techniques. The training to help with anxiety may be covered by some insurance plans. Other things you can do to manage stress and anxiety include: Keeping a stress diary. This can help you learn what triggers your reaction and then learn ways to manage your response. Thinking about how you react to certain situations. You may not be able to control everything, but you can control your response. Making time for activities that help you relax and not feeling guilty about spending your time in this way. Doing visual imagery. This involves imagining or creating mental pictures to help you relax. Practicing yoga. Through yoga poses, you can lower tension and promote relaxation. Medicines Medicines can help ease symptoms. Medicines for anxiety include: Antidepressant medicines. These are usually prescribed for long-term daily control. Anti-anxiety medicines. These may be added in severe cases, especially when panic attacks occur. Medicines will be prescribed by a health care provider. When used together, medicines, psychotherapy, and tension reduction techniques may be the most effective treatment. Relationships Relationships can play a big part in helping you recover. Try to spend more time connecting with trusted friends and family members. Consider going to couples counseling if you have a partner, taking family education classes, or going to family therapy. Therapy can help you and others better understand your condition. How to recognize changes in your anxiety Everyone responds differently to treatment for anxiety. Recovery from anxiety happens when symptomsdecrease and stop interfering with your daily activities at home or work. This may mean that you will start to: Have better concentration and focus. Worry will interfere less in your daily thinking. Sleep better. Be less irritable. Have more energy. Have improved memory. It is also important to recognize when your condition is getting worse. Contact your health care provider if your symptoms interfere with home or work and you feel like your condition is not improving. Follow these instructions at home: Activity Exercise. Adults should do the following: ?Exercise for at least 150 minutes each week. The exercise should increase your heart rate and makeyou sweat (moderate-intensity exercise). ?Strengthening exercises at least twice a week. Get the right amount and quality of sleep. Most adults need 7 9 hours of sleep each night. Lifestyle Eat a healthy diet that includes plenty of vegetables, fruits, whole grains, low-fat dairy products, and lean protein. ?Do not eat a lot of foods that are high in fats, added sugars, or salt (sodium). Make choices that simplify your life. Do not use any products that contain nicotine or tobacco. These products include cigarettes, chewing tobacco, and vaping devices, such as e-cigarettes. If you need help quitting, ask your health careprovider. Avoid caffeine, alcohol, and certain ztzz-cmn-qaaycpj cold medicines. These may make you feel worse. Ask your pharmacist which medicines to avoid. General instructions Take ypxz-tjp-wmkouid and prescription medicines only as told by your health care provider. Keep all follow-up visits. This is important. Where to find support You can get help and support from these sources: Self-help groups. Online and community organizations. A trusted spiritual leader. Couples counseling. Family education classes. Family therapy. Where to find more information You may find that joining a support group helps you deal with your anxiety. The following sources can help you locate counselors or support groups near you: Mental Health [place]: www.mentalhealthamerica.net Anxiety and Depression Association of [place] (ADAA): www.adaa.org National [place] on Mental Illness ([place]): www.fernando.org Contact a health care provider if: You have a hard time staying focused or finishing daily tasks. You spend many hours a day feeling worried about everyday life. You become exhausted by worry. You start to have headaches or frequently feel tense. You develop chronic nausea or diarrhea. Get help right away if: You have a racing heart and shortness of breath. You have thoughts of hurting yourself or others. If you ever feel like you may hurt yourself or others, or have thoughts about taking your own life,get help right away. Go to your nearest emergency department or: Call your local emergency services (219 in the [place] Call a suicide crisis helpline, such as the National Suicide Prevention Lifeline at or 764 in the [place] This is open 24 hours a day in the [place] Text the Crisis Text Line at 298083 (in the [place] Summary Taking steps to learn and use tension reduction techniques can help calm you and help prevent triggering an anxiety reaction. When used together, medicines, psychotherapy, and tension reduction techniques may be the most effective treatment. Family, friends, and partners can play a big part in supporting you. This information is not intended to replace advice given to you by your health care provider. Make sure you discuss any questions you have with your health care provider. Document Revised: 11/23/2021 Document Reviewed: 08/21/2021 [employer] Patient Education 2022 [email or web address] 10/01/2023 06:45:08 Fatigue Fatigue If you have fatigue, you feel tired all the time and have a lack of energy or a lack of motivation.Fatigue may make it difficult to start or complete tasks because of exhaustion. Occasional or mild fatigue is often a normal response to activity or life. However, long-term (chronic) or extreme fatigue may be a symptom of a medical condition such as: Depression. Not having enough red blood cells or hemoglobin in the blood (anemia). A problem with a small gland located in the lower front part of the neck (thyroid disorder). Rheumatologic conditions. These are problems related to the body's defense system (immune system). Infections, especially certain viral infections. Fatigue can also lead to negative health outcomes over time. Follow these instructions at home: Medicines Take nkyx-lts-cbzcwio and prescription medicines only as told by your health care provider. Take a multivitamin if told by your health care provider. Do not use herbal or dietary supplements unless they are approved by your health care provider. Eating and drinking Avoid heavy meals in the evening. Eat a well-balanced diet, which includes lean proteins, whole grains, plenty of fruits and vegetables, and low-fat dairy products. Avoid eating or drinking too many products with caffeine in them. Avoid alcohol. Drink enough fluid to keep your urine pale yellow. Activity Exercise regularly, as told by your health care provider. Use or practice techniques to help you relax, such as yoga, conner chi, meditation, or massage therapy. Lifestyle Change situations that cause you stress. Try to keep your work and personal schedules in balance. Do not use recreational or illegal drugs. General instructions Monitor your fatigue for any changes. Go to bed and get up at the same time every day. Avoid fatigue by pacing yourself during the day and getting enough sleep at night. Maintain a healthy weight. Contact a health care provider if: Your fatigue does not get better. You have a fever. You suddenly lose or gain weight. You have headaches. You have trouble falling asleep or sleeping through the night. You feel angry, guilty, anxious, or sad. You have swelling in your legs or another part of your body. Get help right away if: You feel confused, feel like you might faint, or faint. Your vision is blurry or you have a severe headache. You have severe pain in your abdomen, your back, or the area between your waist and hips (pelvis). You have chest pain, shortness of breath, or an irregular or fast heartbeat. You are unable to urinate, or you urinate less than normal. You have abnormal bleeding from the rectum, nose, lungs, nipples, or, if you are female, the vagina. You vomit blood. You have thoughts about hurting yourself or others. These symptoms may be an emergency. Get help right away. Call 911. Do not wait to see if the symptoms will go away. Do not drive yourself to the hospital. Get help right away if you feel like you may hurt yourself or others, or have thoughts about takingyour own life. Go to your nearest emergency room or: Call 911. Call the National Suicide Prevention Lifeline at or 526. This is open 24 hours a day. Text the Crisis Text Line at 294371. Summary If you have fatigue, you feel tired all the time and have a lack of energy or a lack of motivation. Fatigue may make it difficult to start or complete tasks because of exhaustion. Long-term (chronic) or extreme fatigue may be a symptom of a medical condition. Exercise regularly, as told by your health care provider. Change situations that cause you stress. Try to keep your work and personal schedules in balance. This information is not intended to replace advice given to you by your health care provider. Make sure you discuss any questions you have with your health care provider. Document Revised: 02/20/2022 Document Reviewed: 02/20/2022 [employer] Patient Education 2022 [employer] 10/01/2023 06:45:07 Major Depressive Disorder, Adult Major Depressive Disorder, Adult Major depressive disorder (MDD) is a mental health condition. It may also be called clinical depression or unipolar depression. MDD causes symptoms of sadness, hopelessness, and loss of interest in things. These symptoms last most of the day, almost every day, for 2 weeks. MDD can also cause physical symptoms. It can interfere with relationships and with everyday activities, such as work, school,and activities that are usually pleasant. MDD may be mild, moderate, or severe. It may be single-episode MDD, which happens once, or recurrent MDD, which may occur multiple times. What are the causes? The exact cause of this condition is not known. MDD is most likely caused by a combination of things, which may include: Your personality traits. [place] or conditioned behaviors or thoughts or feelings that reinforce negativity. Any alcohol or substance misuse. Long-term (chronic) physical or mental health illness. Going through a traumatic experience or major life changes. What increases the risk? The following factors may make someone more likely to develop MDD: A family history of depression. Being a woman. Troubled family relationships. Abnormally low levels of certain brain chemicals. Traumatic or painful events in childhood, especially abuse or loss of a parent. A lot of stress from life experiences, such as poor living conditions or discrimination. Chronic physical illness or other mental health disorders. What are the signs or symptoms? The main symptoms of MDD usually include: Constant depressed or irritable mood. A loss of interest in things and activities. Other symptoms include: Sleeping or eating too much or too little. Unexplained weight gain or weight loss. Tiredness or low energy. Being agitated, restless, or weak. Feeling hopeless, worthless, or guilty. Trouble thinking clearly or making decisions. Thoughts of suicide or thoughts of harming others. Isolating oneself or avoiding other people or activities. Trouble completing tasks, work, or any normal obligations. Severe symptoms of this condition may include: Psychotic depression.This may include false beliefs, or delusions. It may also include seeing, hearing, tasting, smelling, or feeling things that are not real (hallucinations). Chronic depression or persistent depressive disorder. This is low-level depression that lasts for at least 2 years. Melancholic depression, or feeling extremely sad and hopeless. Catatonic depression, which includes trouble speaking and trouble moving. How is this diagnosed? This condition may be diagnosed based on: Your symptoms. Your medical and mental health history. You may be asked questions about your lifestyle, including any drug and alcohol use. A physical exam. Blood tests to rule out other conditions. MDD is confirmed if you have the following symptoms most of the day, nearly every day, in a 2-week period: Either a depressed mood or loss of interest. At least four other MDD symptoms. How is this treated? This condition is usually treated by mental health professionals, such as psychologists, psychiatrists, and clinical social workers. You may need more than one type of treatment. Treatment may include: Psychotherapy, also called talk therapy or counseling. Types of psychotherapy include: ?Cognitive behavioral therapy (CBT). This teaches you to recognize unhealthy feelings, thoughts, and behaviors, and replace them with positive thoughts and actions. ?Interpersonal therapy (IPT). This helps you to improve the way you communicate with others or relate to them. ?Family therapy. This treatment includes members of your family. Medicines to treat anxiety and depression. These medicines help to balance the brain chemicals thataffect your emotions. Lifestyle changes. You may be asked to: ?Limit alcohol use and avoid drug use. ?Get regular exercise. ?Get plenty of sleep. ?Make healthy eating choices. ?Spend more time outdoors. Brain stimulation. This may be done if symptoms are very severe and other treatments have not worked. Examples of this treatment are electroconvulsive therapy and transcranial magnetic stimulation. Follow these instructions at home: Activity Exercise regularly and spend time outdoors. Find activities that you enjoy doing, and make time to do them. Find healthy ways to manage stress, such as: ?Meditation or deep breathing. ?Spending time in nature. ?Journaling. Return to your normal activities as told by your health care provider. Ask your health care provider what activities are safe for you. Alcohol and drug use If you drink alcohol: ?Limit how much you use to: ?0 1 drink a day for women who are not . ?0 2 drinks a day for men. ?Be aware of how much alcohol is in your drink. In the [place] one drink equals one 12 oz bottle of beer (355 mL), one 5 oz glass of wine (148 mL), or one 1 oz glass of hard liquor (44 mL). ?Discuss your alcohol use with your health care provider. Alcohol can affect any antidepressant medicines you are taking. Discuss any drug use with your health care provider. General instructions Take mvlp-rea-lmqlzpk and prescription medicines only as told by your health care provider. Eat a healthy diet and get plenty of sleep. Consider joining a support group. Your health care provider may be able to recommend one. Keep all follow-up visits as told by your health care provider. This is important. Where to find more information National [place] on Mental Illness: www.fernando.org [place] National [place] of Mental Health: www.nimh.nih.gov Contact a health care provider if: Your symptoms get worse. You develop new symptoms. Get help right away if: You self-harm. You have serious thoughts about hurting yourself or others. You hallucinate. If you ever feel like you may hurt yourself or others, or have thoughts about taking your own life,get help right away. Go to your nearest emergency department or: Call your local emergency services (614 in the [place] Call a suicide crisis helpline, such as the National Suicide Prevention Lifeline at or 018 in the [place] This is open 24 hours a day in the [place] Text the Crisis Text Line at 293916 (in the [place] Summary Major depressive disorder (MDD) is a mental health condition. MDD causes symptoms of sadness, hopelessness, and loss of interest in things. These symptoms last most of the day, almost every day, for 2 weeks. The symptoms of MDD can interfere with relationships and with everyday activities. Treatments and support are available for people who develop MDD. You may need more than one type oftreatment. Get help right away if you have serious thoughts about hurting yourself or others. This information is not intended to replace advice given to you by your health care provider. Make sure you discuss any questions you have with your health care provider. Document Revised: 11/23/2021 Document Reviewed: 04/10/2020 [employer] Patient Education 2022 [employer] 10/01/2023 06:45:04 Hepatitis C Hepatitis C Hepatitis C is a liver infection that is caused by the hepatitis C virus (HCV). The virus infects and causes inflammation in the liver. Hepatitis C can lead to: Loss of liver function (liver failure). Scarring of the liver (cirrhosis). Liver cancer. People with hepatitis C often do not know for months or years that they have this condition. This is because they have no symptoms or may have only mild symptoms. What are the causes? This condition is caused by HCV. The virus can spread from person to person (is contagious). It canspread through: Contact with an infected person's blood, semen, or vaginal fluids. Childbirth. A woman who has hepatitis C can pass it to her baby during . Having received donated blood (blood transfusion) or an organ transplant that was done in the [place] before 1991. What increases the risk? The following factors may make you more likely to develop this condition: Having contact with needles or syringes that have HCV on them (are contaminated). This may happen while injecting drugs, getting a tattoo or body piercing, or receiving acupuncture. Acupuncture is a treatment that inserts thin needles through your skin. Contact also may happen when you: ?Have sex with someone who is infected. The virus can spread through vaginal, oral, or anal sex. ?Receive treatment to filter your blood (kidney dialysis). ?Have a job that involves contact with blood or body fluids, such as in health care. Having HIV (human immunodeficiency virus) or AIDS (acquired immunodeficiency syndrome). What are the signs or symptoms? Symptoms of this condition include: Tiredness (fatigue). Loss of appetite. Nausea or vomiting. Pain in your abdomen. Dark yellow urine. Yellowing of your skin or the white parts of your eyes (jaundice). Itchy skin. Light-colored or moore stool. Joint pain. Bleeding and bruising that happen often. Fluid buildup in your stomach (ascites). Often, hepatitis C causes no symptoms. How is this diagnosed? This condition is diagnosed with: Blood tests. Other tests that show how well your liver is working. These tests may include: ?Magnetic resonance elastography (MRE). This imaging test uses MRI and sound waves to measure liverstiffness. ?Transient elastography. This imaging test uses ultrasound to measure liver stiffness. ?Liver biopsy. In this test, a tissue sample is taken from your liver and looked at under a microscope. How is this treated? Treatment may depend on how severe your condition is, how long it has lasted, and whether you have liver damage. Treatment may include: Taking antiviral medicines and other medicines. Having follow-up treatments every 6 12 months for infections or other liver problems. Having a liver transplant. Follow these instructions at home: Medicines Take wpyh-yyw-vkifhoo and prescription medicines only as told by your health care provider. If you were prescribed an antiviral medicine, take it as told by your health care provider. Do not stop using the antiviral even if you start to feel better. Do not take any new medicines, including gmph-zbn-tcugrzi medicines or supplements, unless your health care provider approves. Activity Rest as needed. Do not have sex unless your health care provider approves. Avoid swimming or using hot tubs if you have open sores or wounds. Return to your normal activities as told by your health care provider. Ask your health care provider what activities are safe for you. Ask your health care provider when you may return to school or work. Eating and drinking Eat a balanced diet with plenty of fruits and vegetables, whole grains, and lean meats or non-meat proteins, such as beans or tofu. Drink enough fluid to keep your urine pale yellow. Do not drink alcohol. General instructions Do not share toothbrushes, nail clippers, or razors. Wash your hands often with soap and water for at least 20 seconds. If soap and water are not available, use alcohol-based hand inside sales recruiter. Cover any cuts or open sores on your skin to prevent spreading HCV. Keep all follow-up visits. This is important. You may need follow-up visits every 6 12 months. How is this prevented? There is no vaccine for hepatitis C. You can lessen your risk of coming into contact with HCV by making sure you: Wash your hands often with soap and water for at least 20 seconds. Do not share needles or syringes. Use a condom every time you have vaginal, oral, or anal sex. Latex condoms offer the best protection. Avoid handling blood or other body fluids without gloves or other protection. Avoid getting tattoos or body piercings in shops that are not clean. Where to find more information Centers for Disease Control and Prevention: www.cdc.gov/hepatitis World Health Organization: www.who.int Contact a health care provider if you: Have a fever or chills. Have pain or swelling in your abdomen. Pass dark urine. Pass light-colored or moore stool. Have joint pain. Get help right away if you: Have more fatigue. Lose your appetite. Cannot eat or drink without vomiting. Develop jaundice, or your jaundice gets worse. Bruise or bleed easily. Summary Hepatitis C is a liver infection that is caused by the hepatitis C virus (HCV). This infection can lead to a loss of liver function (liver failure), scarring of the liver (cirrhosis), or liver cancer. HCV can spread from person to person (is contagious). Do not take any medicines, including xpbh-pdw-jhcjiuw medicines or supplements, unless your health care provider approves. This information is not intended to replace advice given to you by your health care provider. Make sure you discuss any questions you have with your health care provider. Document Revised: 03/17/2021 Document Reviewed: 03/17/2021 [employer] Patient Education 2022 [email or web address]. Follow Up Care 08/30/2023 08:15:04 With:Slick AYALA, MARLENY King, [facility] Address: [address] [place] [address] [employer] [place] [address]- [facility] (1) When:Within 3 Month(s) Comments:3 mo f/u for fatigue, general follow up -discussed specialist findings [facility] 04-18-2024 Hospital Discharge instructions Patient Education 08/30/2023 05:58:14 Electronic Cigarette Information Electronic Cigarette Information Electronic cigarettes, or e-cigarettes, are battery-operated devices that deliver nicotine a very addictive drug to the body. They come in many shapes, including in the shape of a cigarette, pipe, pen, and even a USB memory stick. Electronic cigarettes may be called e-cigs, e-hookahs, vape pens, and electronic nicotine delivery systems (ENDS). E-cigarettes have a cartridge that contains a liquid form of nicotine. When a person uses the device, the liquid heats up. It then becomes a vapor that a person inhales. Using e-cigarettes may be called vaping. Nicotine is thought to increase your risk for certain types of cancer. In addition to nicotine, e-cigarettes may contain other harmful and cancer-causing chemicals, including: Formaldehyde. Acetaldehyde. Heavy metals. Ultrafine particles that can get inhaled deep into the lungs. Chemical colorings and flavorings. It is not clear how much nicotine you get when vaping, and it is hard to know what chemicals are inthe vaping liquids. The health effects of vaping are not completely known, but you should be aware of the possible dangers of using these products. Some people may use e-cigarettes to quit smoking tobacco. However, this has not been proven to work, and the Food and Drug Administration (FDA) has not approved e-cigarettes for this purpose. How can using electronic cigarettes affect me? You may be at risk for developing a dangerous lung disease. There are reports of an increasing number of cases involving serious lung problems, and even , associated with e-cigarette use. Your risk may be even higher if you: ?Buy e-cigarettes or vaping oils off the street. ?Add any substances to the e-cigarettes that are not intended by the ore digger. Vaping may make you crave nicotine. Nicotine does the following: ?Changes your blood sugar levels. ?Increases your heart rate, blood pressure, and breathing rate. ?Increases your risk of developing blood clots (hypercoagulable state) and diabetes. ?Increases your risk of gum disease that may lead to losing teeth. If you smoke e-cigarettes, you may be more likely to start smoking or to smoke more tobacco cigarettes. Becoming addicted to nicotine may make your brain more sensitive to other addictive drugs. You may move to other addictive substances. You may be in danger of overdosing on nicotine. Nicotine poisoning can cause nausea, vomiting, seizures, and trouble breathing. Vaping has also been linked to decreases in memory and attention span in children and teens. If you are , the nicotine in e-cigarettes may be harmful to your baby. Nicotine can cause: ?Brain or lung problems for your baby. ?Your baby to be born too early. ?Your baby to be born with a low weight. What actions can I take to stop vaping? If you can, stop vaping on your own before you become addicted to nicotine. If you need help quitting, ask your health care provider. There are three effective ways to fight nicotine addiction: Nicotine replacement therapy. Using nicotine gum or a nicotine patch blocks your craving for nicotine. Over time, you can reduce the amount of nicotine you use until you can stop using nicotine completely without having cravings. Prescription medicines approved to fight nicotine addiction. These stop nicotine cravings or block the effects of nicotine. Behavioral therapy. This may include: ?A self-help smoking cessation program. ?Individual or group therapy. ?A smoking cessation support group. There are several national programs to help you quit smoking or vaping. These include: Text message programs, such as SmokefreeTXT. Apps for mobile phones, including the free [employer] [place] christiano. Hotlines, such as 7-269-HDII-NOW ( ). Where to find support You can get support at these sites: U.S. Department of Health and Human Services: smokefree.gov [place] [employer] Association: www.lung.org Where to find more information Learn more about e-cigarettes from: National [place] on Drug Abuse: www.drugabuse.gov Centers for Disease Control and Prevention: www.cdc.gov Summary E-cigarettes can cause nicotine addiction. E-cigarettes are not approved as a way to stop smoking. They are not a risk-free alternative to smoking tobacco. There are reports of an increasing number of cases involving serious lung problems, and even ,associated with e-cigarette use. If you can stop vaping on your own, do it before you become addicted to nicotine. If you need help quitting, ask your health care provider. There are various methods and programs that can help you stop smoking or vaping. This information is not intended to replace advice given to you by your health care provider. Make sure you discuss any questions you have with your health care provider. Document Revised: 01/25/2022 Document Reviewed: 01/25/2022 [employer] Patient Education 2022 [email or web address]. 08/30/2023 05:58:03 Preventing Vitamin D Deficiency Preventing Vitamin D Deficiency Vitamin D deficiency is when your body does not have enough vitamin D. Vitamin D is important because it helps your body maintain calcium and phosphorus levels. It plays a boogie role in the health of bones and teeth, reduces inflammation, and improves the body's defense system (immune system). Our bodies make vitamin D when our skin is exposed to direct sunlight. However, for many people, this may not be enough vitamin D to meet the body's needs. How can this condition affect me? If vitamin D deficiency is severe, it can cause a condition in which a person's bones become softerthan normal. In adults, this condition is called osteomalacia. In children, this condition is called rickets. Vitamin D deficiency can also cause weak or thin bones (osteoporosis) in adults. What can increase my risk? You may be at risk for a vitamin D deficiency if you: Are . Are obese. Are an older adult. Have dark skin. Take certain medicines that affect the way vitamin D is absorbed. Have had a surgery in which a part of the stomach or a part of the small intestine was removed. Other risk factors include: Having a condition that limits your ability to absorb fat, such as Crohn's disease, long-term (chronic) pancreatitis, or cystic fibrosis. Having certain conditions that are passed from parent to child (inherited). Not having access to foods rich in vitamin D. Having limited ability to move and go outside safely. Living in areas that have fewer hours of sunlight. Spending most of your day indoors, or covering your skin all the time when you are outdoors. What actions can I take to reduce my risk of a vitamin D deficiency? Knowing the best sources of vitamin D You can meet your daily vitamin D needs from: Foods. Dietary supplements. Direct exposure to natural sunlight. formula, for infants. Knowing how much vitamin D you need General recommendations for daily vitamin D intake vary by these categories: Infants: 400 international units (IU). Children older than 1 year: 600 international units. Adults: 600 international units. and women: 600 international units. Adults older than 70 years: 800 international units. These are minimum levels of recommended amounts. Your health care provider may recommend a different amount of vitamin D intake based on your specific needs and your overall health. Getting sun exposure Get regular, safe exposure to natural sunlight. Expose your skin to direct sunlight for at least 15minutes every day. If you have dark skin, you may need to expose your skin for a longer period of time. Protect your skin from too much sun exposure. This helps to prevent skin cancer. Ask your health care provider if regular sun exposure is safe for you. Do not use a tanning bed. Eating and drinking Eat foods that naturally contain vitamin D. These include: ?Beef liver. ?Eggs. The vitamin D is in the yolk. ?Fish, such as salmon or trout. ?Mushrooms that were treated with UV light. Eat or drink products that have vitamin D added to them (are fortified). These may include: ?Cereals. ?Milk, including plant-based alternatives such as almond, soy, or oat milks. ?Converse juice. ?Margarine. When choosing foods, check the food label on the package to see: ?How much vitamin D is in the item. ?If the food is fortified with vitamin D. The items listed above may not be a complete list of foods and beverages you can eat and drink. Contact a dietitian for more information. Taking supplements and medicines If you are at risk for vitamin D deficiency, or if you have certain diseases, your health care provider may recommend that you take a vitamin D supplement. Make sure you: Talk with your health care provider before you start taking any vitamin D supplements. You may be more sensitive to the side effects of vitamin D supplements if you are on certain medicines or have certain medical conditions. Tell your health care provider about all medicines you are taking, including vitamins, herbs, eye drops, creams, and kjdu-jjk-pmjxazn medicines. Take hwnf-ety-olcmufk and prescription medicines only as told by your health care provider. Take supplements only as told by your health care provider. To increase absorption of your supplement, take it with a meal or snack. Summary Vitamin D plays a boogie role in the health of bones and teeth, reduces inflammation, and improves thebody's defense system (immune system). A vitamin D deficiency can put you at risk of developing conditions such as rickets or osteoporosis. Our bodies make vitamin D when our skin is exposed to direct sunlight. However, for many people, this may not be enough vitamin D to meet the body's needs. Some foods naturally contain vitamin D, including beef liver, egg yolk, and fish. Eat or drink products that have vitamin D added to them (are fortified). This information is not intended to replace advice given to you by your health care provider. Make sure you discuss any questions you have with your health care provider. Document Revised: 02/03/2022 Document Reviewed: 02/03/2022 [employer] Patient Education 2022 [email or web address] 08/30/2023 05:58:00 Dizziness Dizziness Dizziness is a common problem. It is a feeling of unsteadiness or light- headedness. You may feel like you are about to faint. Dizziness can lead to injury if you stumble or fall. Anyone can become dizzy, but dizziness is more common in older adults. This condition can be caused by a number of things, including medicines, dehydration, or illness. Follow these instructions at home: Eating and drinking Drink enough fluid to keep your urine pale yellow. This helps to keep you from becoming dehydrated.Try to drink more clear fluids, such as water. Do not drink alcohol. Limit your caffeine intake if told to do so by your health care provider. Check ingredients and nutrition facts to see if a food or beverage contains caffeine. Limit your salt (sodium) intake if told to do so by your health care provider. Check ingredients and nutrition facts to see if a food or beverage contains sodium. Activity Avoid making quick movements. ?Rise slowly from chairs and steady yourself until you feel okay. ?In the morning, first sit up on the side of the bed. When you feel okay, stand slowly while you hold onto something until you know that your balance is good. If you need to heat treating bluer one place for a long time, move your legs often. Tighten and relax the muscles in your legs while you are standing. Do not drive or use machinery if you feel dizzy. Avoid bending down if you feel dizzy. Place items in your home so that they are easy for you to reach without leaning over. Lifestyle Do not use any products that contain nicotine or tobacco. These products include cigarettes, chewing tobacco, and vaping devices, such as e-cigarettes. If you need help quitting, ask your health careprovider. Try to reduce your stress level by using methods such as yoga or meditation. Talk with your health care provider if you need help to manage your stress. General instructions Watch your dizziness for any changes. Take sxsy-klh-hxdpwsc and prescription medicines only as told by your health care provider. Talk with your health care provider if you think that your dizziness is caused by a medicine that you are taking. Tell a friend or a family member that you are feeling dizzy. If he or she notices any changes in your behavior, have this person call your health care provider. Keep all follow-up visits. This is important. Contact a health care provider if: Your dizziness does not go away or you have new symptoms. Your dizziness or light-headedness gets worse. You feel nauseous. You have reduced hearing. You have a fever. You have neck pain or a stiff neck. Your dizziness leads to an injury or a fall. Get help right away if: You vomit or have diarrhea and are unable to eat or drink anything. You have problems talking, walking, swallowing, or using your arms, hands, or legs. You feel generally weak. You have any bleeding. You are not thinking clearly or you have trouble forming sentences. It may take a friend or family member to notice this. You have chest pain, abdominal pain, shortness of breath, or sweating. Your vision changes or you develop a severe headache. These symptoms may represent a serious problem that is an emergency. Do not wait to see if the symptoms will go away. Get medical help right away. Call your local emergency services (911 in the [place] Do not drive yourself to the hospital. Summary Dizziness is a feeling of unsteadiness or light-headedness. This condition can be caused by a number of things, including medicines, dehydration, or illness. Anyone can become dizzy, but dizziness is more common in older adults. Drink enough fluid to keep your urine pale yellow. Do not drink alcohol. Avoid making quick movements if you feel dizzy. Monitor your dizziness for any changes. This information is not intended to replace advice given to you by your health care provider. Make sure you discuss any questions you have with your health care provider. Document Revised: 04/04/2021 Document Reviewed: 04/04/2021 [employer] Patient Education 2022 [email or web address] 08/30/2023 05:57:56 Major Depressive Disorder, Adult Major Depressive Disorder, Adult Major depressive disorder (MDD) is a mental health condition. It may also be called clinical depression or unipolar depression. MDD causes symptoms of sadness, hopelessness, and loss of interest in things. These symptoms last most of the day, almost every day, for 2 weeks. MDD can also cause physical symptoms. It can interfere with relationships and with everyday activities, such as work, school,and activities that are usually pleasant. MDD may be mild, moderate, or severe. It may be single-episode MDD, which happens once, or recurrent MDD, which may occur multiple times. What are the causes? The exact cause of this condition is not known. MDD is most likely caused by a combination of things, which may include: Your personality traits. [place] or conditioned behaviors or thoughts or feelings that reinforce negativity. Any alcohol or substance misuse. Long-term (chronic) physical or mental health illness. Going through a traumatic experience or major life changes. What increases the risk? The following factors may make someone more likely to develop MDD: A family history of depression. Being a woman. Troubled family relationships. Abnormally low levels of certain brain chemicals. Traumatic or painful events in childhood, especially abuse or loss of a parent. A lot of stress from life experiences, such as poor living conditions or discrimination. Chronic physical illness or other mental health disorders. What are the signs or symptoms? The main symptoms of MDD usually include: Constant depressed or irritable mood. A loss of interest in things and activities. Other symptoms include: Sleeping or eating too much or too little. Unexplained weight gain or weight loss. Tiredness or low energy. Being agitated, restless, or weak. Feeling hopeless, worthless, or guilty. Trouble thinking clearly or making decisions. Thoughts of suicide or thoughts of harming others. Isolating oneself or avoiding other people or activities. Trouble completing tasks, work, or any normal obligations. Severe symptoms of this condition may include: Psychotic depression.This may include false beliefs, or delusions. It may also include seeing, hearing, tasting, smelling, or feeling things that are not real (hallucinations). Chronic depression or persistent depressive disorder. This is low-level depression that lasts for at least 2 years. Melancholic depression, or feeling extremely sad and hopeless. Catatonic depression, which includes trouble speaking and trouble moving. How is this diagnosed? This condition may be diagnosed based on: Your symptoms. Your medical and mental health history. You may be asked questions about your lifestyle, including any drug and alcohol use. A physical exam. Blood tests to rule out other conditions. MDD is confirmed if you have the following symptoms most of the day, nearly every day, in a 2-week period: Either a depressed mood or loss of interest. At least four other MDD symptoms. How is this treated? This condition is usually treated by mental health professionals, such as psychologists, psychiatrists, and clinical social workers. You may need more than one type of treatment. Treatment may include: Psychotherapy, also called talk therapy or counseling. Types of psychotherapy include: ?Cognitive behavioral therapy (CBT). This teaches you to recognize unhealthy feelings, thoughts, and behaviors, and replace them with positive thoughts and actions. ?Interpersonal therapy (IPT). This helps you to improve the way you communicate with others or relate to them. ?Family therapy. This treatment includes members of your family. Medicines to treat anxiety and depression. These medicines help to balance the brain chemicals thataffect your emotions. Lifestyle changes. You may be asked to: ?Limit alcohol use and avoid drug use. ?Get regular exercise. ?Get plenty of sleep. ?Make healthy eating choices. ?Spend more time outdoors. Brain stimulation. This may be done if symptoms are very severe and other treatments have not worked. Examples of this treatment are electroconvulsive therapy and transcranial magnetic stimulation. Follow these instructions at home: Activity Exercise regularly and spend time outdoors. Find activities that you enjoy doing, and make time to do them. Find healthy ways to manage stress, such as: ?Meditation or deep breathing. ?Spending time in nature. ?Journaling. Return to your normal activities as told by your health care provider. Ask your health care provider what activities are safe for you. Alcohol and drug use If you drink alcohol: ?Limit how much you use to: ?0 1 drink a day for women who are not . ?0 2 drinks a day for men. ?Be aware of how much alcohol is in your drink. In the [place] one drink equals one 12 oz bottle of beer (355 mL), one 5 oz glass of wine (148 mL), or one 1 oz glass of hard liquor (44 mL). ?Discuss your alcohol use with your health care provider. Alcohol can affect any antidepressant medicines you are taking. Discuss any drug use with your health care provider. General instructions Take xdbb-uef-gggwhwr and prescription medicines only as told by your health care provider. Eat a healthy diet and get plenty of sleep. Consider joining a support group. Your health care provider may be able to recommend one. Keep all follow-up visits as told by your health care provider. This is important. Where to find more information National [place] on Mental Illness: www.fernando.org [place] National [place] of Mental Health: www.nimh.nih.gov Contact a health care provider if: Your symptoms get worse. You develop new symptoms. Get help right away if: You self-harm. You have serious thoughts about hurting yourself or others. You hallucinate. If you ever feel like you may hurt yourself or others, or have thoughts about taking your own life,get help right away. Go to your nearest emergency department or: Call your local emergency services (523 in the [place] Call a suicide crisis helpline, such as the National Suicide Prevention Lifeline at or 052 in the [place] This is open 24 hours a day in the [place] Text the Crisis Text Line at 891515 (in the [place] Summary Major depressive disorder (MDD) is a mental health condition. MDD causes symptoms of sadness, hopelessness, and loss of interest in things. These symptoms last most of the day, almost every day, for 2 weeks. The symptoms of MDD can interfere with relationships and with everyday activities. Treatments and support are available for people who develop MDD. You may need more than one type oftreatment. Get help right away if you have serious thoughts about hurting yourself or others. This information is not intended to replace advice given to you by your health care provider. Make sure you discuss any questions you have with your health care provider. Document Revised: 11/23/2021 Document Reviewed: 04/10/2020 [employer] Patient Education 2022 [email or web address] 08/30/2023 05:57:53 Managing Anxiety, Adult Managing Anxiety, Adult After being diagnosed with anxiety, you may be relieved to know why you have felt or behaved a certain way. You may also feel overwhelmed about the treatment ahead and what it will mean for your life. With care and support, you can manage this condition. How to manage lifestyle changes Managing stress and anxiety Stress is your body's reaction to life changes and events, both good and bad. Most stress will lastjust a few hours, but stress can be ongoing and can lead to more than just stress. Although stress can play a major role in anxiety, it is not the same as anxiety. Stress is usually caused by something external, such as a deadline, test, or competition. Stress normally passes after the triggering event has ended. Anxiety is caused by something internal, such as imagining a terrible outcome or worrying that something will go wrong that will devastate you. Anxiety often does not go away even after the triggering event is over, and it can become long-term (chronic) worry. It is important to understand the differences between stress and anxiety and to manage your stress effectively so that it does not lead frederic anxious response. Talk with your health care provider or a counselor to learn more about reducing anxiety and stress.He or she may suggest tension reduction techniques, such as: Music therapy. Spend time creating or listening to music that you enjoy and that inspires you. Mindfulness-based meditation. Practice being aware of your normal breaths while not trying to control your breathing. It can be done while sitting or walking. Centering prayer. This involves focusing on a word, phrase, or sacred image that means something toyou and brings you peace. Deep breathing. To do this, expand your stomach and inhale slowly through your nose. Hold your breath for 3 5 seconds. Then exhale slowly, letting your stomach muscles relax. Self-talk. Learn to notice and identify thought patterns that lead to anxiety reactions and change those patterns to thoughts that feel peaceful. Muscle relaxation. Taking time to tense muscles and then relax them. Choose a tension reduction technique that fits your lifestyle and personality. These techniques take time and practice. Set aside 5 15 minutes a day to do them. Therapists can offer counseling and training in these techniques. The training to help with anxiety may be covered by some insurance plans. Other things you can do to manage stress and anxiety include: Keeping a stress diary. This can help you learn what triggers your reaction and then learn ways to manage your response. Thinking about how you react to certain situations. You may not be able to control everything, but you can control your response. Making time for activities that help you relax and not feeling guilty about spending your time in this way. Doing visual imagery. This involves imagining or creating mental pictures to help you relax. Practicing yoga. Through yoga poses, you can lower tension and promote relaxation. Medicines Medicines can help ease symptoms. Medicines for anxiety include: Antidepressant medicines. These are usually prescribed for long-term daily control. Anti-anxiety medicines. These may be added in severe cases, especially when panic attacks occur. Medicines will be prescribed by a health care provider. When used together, medicines, psychotherapy, and tension reduction techniques may be the most effective treatment. Relationships Relationships can play a big part in helping you recover. Try to spend more time connecting with trusted friends and family members. Consider going to couples counseling if you have a partner, taking family education classes, or going to family therapy. Therapy can help you and others better understand your condition. How to recognize changes in your anxiety Everyone responds differently to treatment for anxiety. Recovery from anxiety happens when symptomsdecrease and stop interfering with your daily activities at home or work. This may mean that you will start to: Have better concentration and focus. Worry will interfere less in your daily thinking. Sleep better. Be less irritable. Have more energy. Have improved memory. It is also important to recognize when your condition is getting worse. Contact your health care provider if your symptoms interfere with home or work and you feel like your condition is not improving. Follow these instructions at home: Activity Exercise. Adults should do the following: ?Exercise for at least 150 minutes each week. The exercise should increase your heart rate and makeyou sweat (moderate-intensity exercise). ?Strengthening exercises at least twice a week. Get the right amount and quality of sleep. Most adults need 7 9 hours of sleep each night. Lifestyle Eat a healthy diet that includes plenty of vegetables, fruits, whole grains, low-fat dairy products, and lean protein. ?Do not eat a lot of foods that are high in fats, added sugars, or salt (sodium). Make choices that simplify your life. Do not use any products that contain nicotine or tobacco. These products include cigarettes, chewing tobacco, and vaping devices, such as e-cigarettes. If you need help quitting, ask your health careprovider. Avoid caffeine, alcohol, and certain jbbl-ptd-pirmwzl cold medicines. These may make you feel worse. Ask your pharmacist which medicines to avoid. General instructions Take xuph-nci-jvshdlt and prescription medicines only as told by your health care provider. Keep all follow-up visits. This is important. Where to find support You can get help and support from these sources: Self-help groups. Online and community organizations. A trusted spiritual leader. Couples counseling. Family education classes. Family therapy. Where to find more information You may find that joining a support group helps you deal with your anxiety. The following sources can help you locate counselors or support groups near you: Mental Health [place]: www.mentalhealthamerica.net Anxiety and Depression Association of [place] (ADAA): www.adaa.org National [place] on Mental Illness ([place]): www.fernando.org Contact a health care provider if: You have a hard time staying focused or finishing daily tasks. You spend many hours a day feeling worried about everyday life. You become exhausted by worry. You start to have headaches or frequently feel tense. You develop chronic nausea or diarrhea. Get help right away if: You have a racing heart and shortness of breath. You have thoughts of hurting yourself or others. If you ever feel like you may hurt yourself or others, or have thoughts about taking your own life,get help right away. Go to your nearest emergency department or: Call your local emergency services (781 in the [place] Call a suicide crisis helpline, such as the National Suicide Prevention Lifeline at or 031 in the [place] This is open 24 hours a day in the [place] Text the Crisis Text Line at 168737 (in the [place] Summary Taking steps to learn and use tension reduction techniques can help calm you and help prevent triggering an anxiety reaction. When used together, medicines, psychotherapy, and tension reduction techniques may be the most effective treatment. Family, friends, and partners can play a big part in supporting you. This information is not intended to replace advice given to you by your health care provider. Make sure you discuss any questions you have with your health care provider. Document Revised: 11/23/2021 Document Reviewed: 08/21/2021 [employer] Patient Education 2022 [email or web address]. 08/30/2023 05:57:51 Fatigue Fatigue If you have fatigue, you feel tired all the time and have a lack of energy or a lack of motivation.Fatigue may make it difficult to start or complete tasks because of exhaustion. Occasional or mild fatigue is often a normal response to activity or life. However, long-term (chronic) or extreme fatigue may be a symptom of a medical condition such as: Depression. Not having enough red blood cells or hemoglobin in the blood (anemia). A problem with a small gland located in the lower front part of the neck (thyroid disorder). Rheumatologic conditions. These are problems related to the body's defense system (immune system). Infections, especially certain viral infections. Fatigue can also lead to negative health outcomes over time. Follow these instructions at home: Medicines Take ztro-xrm-ietlufc and prescription medicines only as told by your health care provider. Take a multivitamin if told by your health care provider. Do not use herbal or dietary supplements unless they are approved by your health care provider. Eating and drinking Avoid heavy meals in the evening. Eat a well-balanced diet, which includes lean proteins, whole grains, plenty of fruits and vegetables, and low-fat dairy products. Avoid eating or drinking too many products with caffeine in them. Avoid alcohol. Drink enough fluid to keep your urine pale yellow. Activity Exercise regularly, as told by your health care provider. Use or practice techniques to help you relax, such as yoga, conner chi, meditation, or massage therapy. Lifestyle Change situations that cause you stress. Try to keep your work and personal schedules in balance. Do not use recreational or illegal drugs. General instructions Monitor your fatigue for any changes. Go to bed and get up at the same time every day. Avoid fatigue by pacing yourself during the day and getting enough sleep at night. Maintain a healthy weight. Contact a health care provider if: Your fatigue does not get better. You have a fever. You suddenly lose or gain weight. You have headaches. You have trouble falling asleep or sleeping through the night. You feel angry, guilty, anxious, or sad. You have swelling in your legs or another part of your body. Get help right away if: You feel confused, feel like you might faint, or faint. Your vision is blurry or you have a severe headache. You have severe pain in your abdomen, your back, or the area between your waist and hips (pelvis). You have chest pain, shortness of breath, or an irregular or fast heartbeat. You are unable to urinate, or you urinate less than normal. You have abnormal bleeding from the rectum, nose, lungs, nipples, or, if you are female, the vagina. You vomit blood. You have thoughts about hurting yourself or others. These symptoms may be an emergency. Get help right away. Call 911. Do not wait to see if the symptoms will go away. Do not drive yourself to the hospital. Get help right away if you feel like you may hurt yourself or others, or have thoughts about takingyour own life. Go to your nearest emergency room or: Call 911. Call the National Suicide Prevention Lifeline at or 861. This is open 24 hours a day. Text the Crisis Text Line at 093730. Summary If you have fatigue, you feel tired all the time and have a lack of energy or a lack of motivation. Fatigue may make it difficult to start or complete tasks because of exhaustion. Long-term (chronic) or extreme fatigue may be a symptom of a medical condition. Exercise regularly, as told by your health care provider. Change situations that cause you stress. Try to keep your work and personal schedules in balance. This information is not intended to replace advice given to you by your health care provider. Make sure you discuss any questions you have with your health care provider. Document Revised: 02/20/2022 Document Reviewed: 02/20/2022 [employer] Patient Education 2022 [email or web address] 08/30/2023 05:57:49 Hepatitis C Hepatitis C Hepatitis C is a liver infection that is caused by the hepatitis C virus (HCV). The virus infects and causes inflammation in the liver. Hepatitis C can lead to: Loss of liver function (liver failure). Scarring of the liver (cirrhosis). Liver cancer. People with hepatitis C often do not know for months or years that they have this condition. This is because they have no symptoms or may have only mild symptoms. What are the causes? This condition is caused by HCV. The virus can spread from person to person (is contagious). It canspread through: Contact with an infected person's blood, semen, or vaginal fluids. Childbirth. A woman who has hepatitis C can pass it to her baby during . Having received donated blood (blood transfusion) or an organ transplant that was done in the [facility] before 1991. What increases the risk? The following factors may make you more likely to develop this condition: Having contact with needles or syringes that have HCV on them (are contaminated). This may happen while injecting drugs, getting a tattoo or body piercing, or receiving acupuncture. Acupuncture is a treatment that inserts thin needles through your skin. Contact also may happen when you: ?Have sex with someone who is infected. The virus can spread through vaginal, oral, or anal sex. ?Receive treatment to filter your blood (kidney dialysis). ?Have a job that involves contact with blood or body fluids, such as in health care. Having HIV (human immunodeficiency virus) or AIDS (acquired immunodeficiency syndrome). What are the signs or symptoms? Symptoms of this condition include: Tiredness (fatigue). Loss of appetite. Nausea or vomiting. Pain in your abdomen. Dark yellow urine. Yellowing of your skin or the white parts of your eyes (jaundice). Itchy skin. Light-colored or moore stool. Joint pain. Bleeding and bruising that happen often. Fluid buildup in your stomach (ascites). Often, hepatitis C causes no symptoms. How is this diagnosed? This condition is diagnosed with: Blood tests. Other tests that show how well your liver is working. These tests may include: ?Magnetic resonance elastography (MRE). This imaging test uses MRI and sound waves to measure liverstiffness. ?Transient elastography. This imaging test uses ultrasound to measure liver stiffness. ?Liver biopsy. In this test, a tissue sample is taken from your liver and looked at under a microscope. How is this treated? Treatment may depend on how severe your condition is, how long it has lasted, and whether you have liver damage. Treatment may include: Taking antiviral medicines and other medicines. Having follow-up treatments every 6 12 months for infections or other liver problems. Having a liver transplant. Follow these instructions at home: Medicines Take bafa-pdb-qxirzcp and prescription medicines only as told by your health care provider. If you were prescribed an antiviral medicine, take it as told by your health care provider. Do not stop using the antiviral even if you start to feel better. Do not take any new medicines, including vxtv-zwv-kkvidkr medicines or supplements, unless your health care provider approves. Activity Rest as needed. Do not have sex unless your health care provider approves. Avoid swimming or using hot tubs if you have open sores or wounds. Return to your normal activities as told by your health care provider. Ask your health care provider what activities are safe for you. Ask your health care provider when you may return to school or work. Eating and drinking Eat a balanced diet with plenty of fruits and vegetables, whole grains, and lean meats or non-meat proteins, such as beans or tofu. Drink enough fluid to keep your urine pale yellow. Do not drink alcohol. General instructions Do not share toothbrushes, nail clippers, or razors. Wash your hands often with soap and water for at least 20 seconds. If soap and water are not available, use alcohol-based hand inside sales recruiter. Cover any cuts or open sores on your skin to prevent spreading HCV. Keep all follow-up visits. This is important. You may need follow-up visits every 6 12 months. How is this prevented? There is no vaccine for hepatitis C. You can lessen your risk of coming into contact with HCV by making sure you: Wash your hands often with soap and water for at least 20 seconds. Do not share needles or syringes. Use a condom every time you have vaginal, oral, or anal sex. Latex condoms offer the best protection. Avoid handling blood or other body fluids without gloves or other protection. Avoid getting tattoos or body piercings in shops that are not clean. Where to find more information Centers for Disease Control and Prevention: www.cdc.gov/hepatitis World Health Organization: www.who.int Contact a health care provider if you: Have a fever or chills. Have pain or swelling in your abdomen. Pass dark urine. Pass light-colored or moore stool. Have joint pain. Get help right away if you: Have more fatigue. Lose your appetite. Cannot eat or drink without vomiting. Develop jaundice, or your jaundice gets worse. Bruise or bleed easily. Summary Hepatitis C is a liver infection that is caused by the hepatitis C virus (HCV). This infection can lead to a loss of liver function (liver failure), scarring of the liver (cirrhosis), or liver cancer. HCV can spread from person to person (is contagious). Do not take any medicines, including qpkl-lwz-xzhlvwd medicines or supplements, unless your health care provider approves. This information is not intended to replace advice given to you by your health care provider. Make sure you discuss any questions you have with your health care provider. Document Revised: 03/17/2021 Document Reviewed: 03/17/2021 [employer] Patient Education 2022 [email or web address]. Follow Up Care 08/02/2023 17:59:02 With:Lisette Redd [facility], [facility] Address: [address] [place] [address] [place] [id number]- When:Within 3 Month(s) Comments:f/u fatigue, dry/red eyes, depression/ anxiety [facility] 03-21-2024 Hospital Discharge instructions Patient Education 08/02/2023 18:06:04 Urinary Frequency, Adult Urinary Frequency, Adult Urinary frequency means urinating more often than usual. You may urinate every 1 2 hours even though you drink a normal amount of fluid and do not have a bladder infection or condition. Although you urinate more often than normal, the total amount of urine produced in a day is normal. With urinary frequency, you may have an urgent need to urinate often. The stress and anxiety of needing to find a bathroom quickly can make this urge worse. This condition may go away on its own, or you may need treatment at home. Home treatment may include bladder training, exercises, taking medicines, or making changes to your diet. Follow these instructions at home: Bladder health Your health care provider will tell you what to do to improve bladder health. You may be told to: Keep a bladder diary. Keep track of: ?What you eat and drink. ?How often you urinate. ?How much you urinate. Follow a bladder training program. This may include: ?Learning to delay going to the bathroom. ?Double urinating, also called voiding. This helps if you are not completely emptying your bladder. ?Scheduled voiding. Do Kegel exercises. Kegel exercises strengthen the muscles that help control urination, which may help the condition. Eating and drinking Follow instructions from your health care provider about eating or drinking restrictions. You may be told to: Avoid caffeine. Drink fewer fluids, especially alcohol. Avoid drinking in the evening. Avoid foods or drinks that may irritate the bladder. These include coffee, tea, soda, artificial sweeteners, citrus, tomato-based foods, and chocolate. Eat foods that help prevent or treat constipation. Constipation can make urinary frequency worse. You may need to take these actions to prevent or treat constipation: ?Drink enough fluid to keep your urine pale yellow. ?Take rddr-pdg-bqikeug or prescription medicines. ?Eat foods that are high in fiber, such as beans, whole grains, and fresh fruits and vegetables. ?Limit foods that are high in fat and processed sugars, such as fried or sweet foods. General instructions Take sdae-svn-hgdgvrp and prescription medicines only as told by your health care provider. Keep all follow-up visits. This is important. Contact a health care provider if: You start urinating more often. You feel pain or irritation when you urinate. You notice blood in your urine. Your urine looks cloudy. You develop a fever. You begin vomiting. Get help right away if: You are unable to urinate. Summary Urinary frequency means urinating more often than usual. With urinary frequency, you may urinate every 1 2 hours even though you drink a normal amount of fluid and do not have a bladder infection or other bladder condition. Your health care provider may recommend that you keep a bladder diary, follow a bladder training program, or make dietary changes. If told by your health care provider, do Kegel exercises to strengthen the muscles that help control urination. Take mdqg-aif-gjxuovl and prescription medicines only as told by your health care provider. Contact a health care provider if your symptoms do not improve or get worse. This information is not intended to replace advice given to you by your health care provider. Make sure you discuss any questions you have with your health care provider. Document Revised: 12/03/2020 Document Reviewed: 12/03/2020 [employer] Patient Education 2022 [email or web address]. 08/02/2023 18:06:00 Preventing Vitamin D Deficiency Preventing Vitamin D Deficiency Vitamin D deficiency is when your body does not have enough vitamin D. Vitamin D is important because it helps your body maintain calcium and phosphorus levels. It plays a boogie role in the health of bones and teeth, reduces inflammation, and improves the body's defense system (immune system). Our bodies make vitamin D when our skin is exposed to direct sunlight. However, for many people, this may not be enough vitamin D to meet the body's needs. How can this condition affect me? If vitamin D deficiency is severe, it can cause a condition in which a person's bones become softerthan normal. In adults, this condition is called osteomalacia. In children, this condition is called rickets. Vitamin D deficiency can also cause weak or thin bones (osteoporosis) in adults. What can increase my risk? You may be at risk for a vitamin D deficiency if you: Are . Are obese. Are an older adult. Have dark skin. Take certain medicines that affect the way vitamin D is absorbed. Have had a surgery in which a part of the stomach or a part of the small intestine was removed. Other risk factors include: Having a condition that limits your ability to absorb fat, such as Crohn's disease, long-term (chronic) pancreatitis, or cystic fibrosis. Having certain conditions that are passed from parent to child (inherited). Not having access to foods rich in vitamin D. Having limited ability to move and go outside safely. Living in areas that have fewer hours of sunlight. Spending most of your day indoors, or covering your skin all the time when you are outdoors. What actions can I take to reduce my risk of a vitamin D deficiency? Knowing the best sources of vitamin D You can meet your daily vitamin D needs from: Foods. Dietary supplements. Direct exposure to natural sunlight. Infant formula, for infants. Knowing how much vitamin D you need General recommendations for daily vitamin D intake vary by these categories: Infants: 400 international units (IU). Children older than 1 year: 600 international units. Adults: 600 international units. and women: 600 international units. Adults older than 70 years: 800 international units. These are minimum levels of recommended amounts. Your health care provider may recommend a different amount of vitamin D intake based on your specific needs and your overall health. Getting sun exposure Get regular, safe exposure to natural sunlight. Expose your skin to direct sunlight for at least 15minutes every day. If you have dark skin, you may need to expose your skin for a longer period of time. Protect your skin from too much sun exposure. This helps to prevent skin cancer. Ask your health care provider if regular sun exposure is safe for you. Do not use a tanning bed. Eating and drinking Eat foods that naturally contain vitamin D. These include: ?Beef liver. ?Eggs. The vitamin D is in the yolk. ?Fish, such as salmon or trout. ?Mushrooms that were treated with UV light. Eat or drink products that have vitamin D added to them (are fortified). These may include: ?Cereals. ?Milk, including plant-based alternatives such as almond, soy, or oat milks. ?Converse juice. ?Margarine. When choosing foods, check the food label on the package to see: ?How much vitamin D is in the item. ?If the food is fortified with vitamin D. The items listed above may not be a complete list of foods and beverages you can eat and drink. Contact a dietitian for more information. Taking supplements and medicines If you are at risk for vitamin D deficiency, or if you have certain diseases, your health care provider may recommend that you take a vitamin D supplement. Make sure you: Talk with your health care provider before you start taking any vitamin D supplements. You may be more sensitive to the side effects of vitamin D supplements if you are on certain medicines or have certain medical conditions. Tell your health care provider about all medicines you are taking, including vitamins, herbs, eye drops, creams, and gwgh-qie-jcwtszf medicines. Take lzyc-fwu-srzhijv and prescription medicines only as told by your health care provider. Take supplements only as told by your health care provider. To increase absorption of your supplement, take it with a meal or snack. Summary Vitamin D plays a boogie role in the health of bones and teeth, reduces inflammation, and improves thebody's defense system (immune system). A vitamin D deficiency can put you at risk of developing conditions such as rickets or osteoporosis. Our bodies make vitamin D when our skin is exposed to direct sunlight. However, for many people, this may not be enough vitamin D to meet the body's needs. Some foods naturally contain vitamin D, including beef liver, egg yolk, and fish. Eat or drink products that have vitamin D added to them (are fortified). This information is not intended to replace advice given to you by your health care provider. Make sure you discuss any questions you have with your health care provider. Document Revised: 02/03/2022 Document Reviewed: 02/03/2022 [employer] Patient Education 2022 [employer] 08/02/2023 18:05:50 Near-Syncope Near-Syncope Near-syncope is when you suddenly feel like you might pass out or faint, but you do not actually lose consciousness. This may also be referred to as presyncope. During an episode of near-syncope, youmay: Feel dizzy, weak, light-headed, or like the room is spinning. Feel nauseous. See spots or see all white or all black in your field of vision. Have cold, clammy skin or feel warm and sweaty. Hear ringing in your ears (tinnitus). This condition is caused by a sudden decrease in blood flow to the brain. This decrease can result from various causes, but most of those causes are not dangerous. However, near-syncope may be a signof a serious medical problem, so it is important to seek medical care. Follow these instructions at home: Medicines Take vawx-fom-ctvnpfo and prescription medicines only as told by your health care provider. If you are taking blood pressure or heart medicine, get up slowly and take several minutes to sit and then stand. This can reduce dizziness and decrease the risk of near-syncope. Lifestyle Do not drive, use machinery, or play sports until your health care provider says it is okay. Do not drink alcohol. Do not use any products that contain nicotine or tobacco. These products include cigarettes, chewing tobacco, and vaping devices, such as e-cigarettes. If you need help quitting, ask your health careprovider. Avoid hot tubs and saunas. General instructions Pay attention to any changes in your symptoms. Talk with your health care provider about your symptoms. You may need to have testing to understandthe cause of your near-syncope. If you start to feel like you might faint, sit or lie down right away. If sitting, put your head down between your legs. If lying down, raise (elevate) your feet above the level of your heart. ?Breathe deeply and steadily. Wait until all of the symptoms have passed. ?Have someone stay with you until you feel stable. Drink enough fluid to keep your urine pale yellow. Avoid prolonged standing. If you must stand for a long time, do movements such as: ?Moving your legs. ?Crossing your legs. ?Flexing and stretching your leg muscles. ?Squatting. Keep all follow-up visits. This is important. Contact a health care provider if: You continue to have episodes of near fainting. Get help right away if: You faint. You have any of these symptoms that may indicate trouble with your heart: ?Fast or irregular heartbeats (palpitations). ?Unusual pain in your chest, abdomen, or back. ?Shortness of breath. You have a seizure. You have a severe headache. You are confused. You have vision problems. You have severe weakness or trouble walking. You are bleeding from your mouth or rectum, or have black or tarry stool. These symptoms may represent a serious problem that is an emergency. Do not wait to see if your symptoms will go away. Get medical help right away. Call your local emergency services (911 in the [place] Do not drive yourself to the hospital. Summary Near-syncope is when you suddenly feel like you might pass out or faint, but you do not actually lose consciousness. This condition is caused by a sudden decrease in blood flow to the brain. This decrease can result from various causes, but most of those causes are not dangerous. Near-syncope may be a sign of a serious medical problem, so it is important to seek medical care. If you start to feel like you might faint, sit or lie down right away. If sitting, put your head down between your legs. If lying down, raise (elevate) your feet above the level of your heart. Talk with your health care provider about your symptoms. You may need to have testing to understandthe cause of your near-syncope. This information is not intended to replace advice given to you by your health care provider. Make sure you discuss any questions you have with your health care provider. Document Revised: 09/08/2021 Document Reviewed: 09/08/2021 [employer] Patient Education 2022 [email or web address]. 08/02/2023 18:05:48 Fatigue Fatigue If you have fatigue, you feel tired all the time and have a lack of energy or a lack of motivation.Fatigue may make it difficult to start or complete tasks because of exhaustion. Occasional or mild fatigue is often a normal response to activity or life. However, long-term (chronic) or extreme fatigue may be a symptom of a medical condition such as: Depression. Not having enough red blood cells or hemoglobin in the blood (anemia). A problem with a small gland located in the lower front part of the neck (thyroid disorder). Rheumatologic conditions. These are problems related to the body's defense system (immune system). Infections, especially certain viral infections. Fatigue can also lead to negative health outcomes over time. Follow these instructions at home: Medicines Take nkpm-aww-rxqtxqj and prescription medicines only as told by your health care provider. Take a multivitamin if told by your health care provider. Do not use herbal or dietary supplements unless they are approved by your health care provider. Eating and drinking Avoid heavy meals in the evening. Eat a well-balanced diet, which includes lean proteins, whole grains, plenty of fruits and vegetables, and low-fat dairy products. Avoid eating or drinking too many products with caffeine in them. Avoid alcohol. Drink enough fluid to keep your urine pale yellow. Activity Exercise regularly, as told by your health care provider. Use or practice techniques to help you relax, such as yoga, conner chi, meditation, or massage therapy. Lifestyle Change situations that cause you stress. Try to keep your work and personal schedules in balance. Do not use recreational or illegal drugs. General instructions Monitor your fatigue for any changes. Go to bed and get up at the same time every day. Avoid fatigue by pacing yourself during the day and getting enough sleep at night. Maintain a healthy weight. Contact a health care provider if: Your fatigue does not get better. You have a fever. You suddenly lose or gain weight. You have headaches. You have trouble falling asleep or sleeping through the night. You feel angry, guilty, anxious, or sad. You have swelling in your legs or another part of your body. Get help right away if: You feel confused, feel like you might faint, or faint. Your vision is blurry or you have a severe headache. You have severe pain in your abdomen, your back, or the area between your waist and hips (pelvis). You have chest pain, shortness of breath, or an irregular or fast heartbeat. You are unable to urinate, or you urinate less than normal. You have abnormal bleeding from the rectum, nose, lungs, nipples, or, if you are female, the vagina. You vomit blood. You have thoughts about hurting yourself or others. These symptoms may be an emergency. Get help right away. Call 911. Do not wait to see if the symptoms will go away. Do not drive yourself to the hospital. Get help right away if you feel like you may hurt yourself or others, or have thoughts about takingyour own life. Go to your nearest emergency room or: Call 911. Call the National Suicide Prevention Lifeline at or 999. This is open 24 hours a day. Text the Crisis Text Line at 149214. Summary If you have fatigue, you feel tired all the time and have a lack of energy or a lack of motivation. Fatigue may make it difficult to start or complete tasks because of exhaustion. Long-term (chronic) or extreme fatigue may be a symptom of a medical condition. Exercise regularly, as told by your health care provider. Change situations that cause you stress. Try to keep your work and personal schedules in balance. This information is not intended to replace advice given to you by your health care provider. Make sure you discuss any questions you have with your health care provider. Document Revised: 02/20/2022 Document Reviewed: 02/20/2022 [employer] Patient Education 2022 [employer] 08/02/2023 18:05:45 Major Depressive Disorder, Adult Major Depressive Disorder, Adult Major depressive disorder (MDD) is a mental health condition. It may also be called clinical depression or unipolar depression. MDD causes symptoms of sadness, hopelessness, and loss of interest in things. These symptoms last most of the day, almost every day, for 2 weeks. MDD can also cause physical symptoms. It can interfere with relationships and with everyday activities, such as work, school,and activities that are usually pleasant. MDD may be mild, moderate, or severe. It may be single-episode MDD, which happens once, or recurrent MDD, which may occur multiple times. What are the causes? The exact cause of this condition is not known. MDD is most likely caused by a combination of things, which may include: Your personality traits. [place] or conditioned behaviors or thoughts or feelings that reinforce negativity. Any alcohol or substance misuse. Long-term (chronic) physical or mental health illness. Going through a traumatic experience or major life changes. What increases the risk? The following factors may make someone more likely to develop MDD: A family history of depression. Being a woman. Troubled family relationships. Abnormally low levels of certain brain chemicals. Traumatic or painful events in childhood, especially abuse or loss of a parent. A lot of stress from life experiences, such as poor living conditions or discrimination. Chronic physical illness or other mental health disorders. What are the signs or symptoms? The main symptoms of MDD usually include: Constant depressed or irritable mood. A loss of interest in things and activities. Other symptoms include: Sleeping or eating too much or too little. Unexplained weight gain or weight loss. Tiredness or low energy. Being agitated, restless, or weak. Feeling hopeless, worthless, or guilty. Trouble thinking clearly or making decisions. Thoughts of suicide or thoughts of harming others. Isolating oneself or avoiding other people or activities. Trouble completing tasks, work, or any normal obligations. Severe symptoms of this condition may include: Psychotic depression.This may include false beliefs, or delusions. It may also include seeing, hearing, tasting, smelling, or feeling things that are not real (hallucinations). Chronic depression or persistent depressive disorder. This is low-level depression that lasts for at least 2 years. Melancholic depression, or feeling extremely sad and hopeless. Catatonic depression, which includes trouble speaking and trouble moving. How is this diagnosed? This condition may be diagnosed based on: Your symptoms. Your medical and mental health history. You may be asked questions about your lifestyle, including any drug and alcohol use. A physical exam. Blood tests to rule out other conditions. MDD is confirmed if you have the following symptoms most of the day, nearly every day, in a 2-week period: Either a depressed mood or loss of interest. At least four other MDD symptoms. How is this treated? This condition is usually treated by mental health professionals, such as psychologists, psychiatrists, and clinical social workers. You may need more than one type of treatment. Treatment may include: Psychotherapy, also called talk therapy or counseling. Types of psychotherapy include: ?Cognitive behavioral therapy (CBT). This teaches you to recognize unhealthy feelings, thoughts, and behaviors, and replace them with positive thoughts and actions. ?Interpersonal therapy (IPT). This helps you to improve the way you communicate with others or relate to them. ?Family therapy. This treatment includes members of your family. Medicines to treat anxiety and depression. These medicines help to balance the brain chemicals thataffect your emotions. Lifestyle changes. You may be asked to: ?Limit alcohol use and avoid drug use. ?Get regular exercise. ?Get plenty of sleep. ?Make healthy eating choices. ?Spend more time outdoors. Brain stimulation. This may be done if symptoms are very severe and other treatments have not worked. Examples of this treatment are electroconvulsive therapy and transcranial magnetic stimulation. Follow these instructions at home: Activity Exercise regularly and spend time outdoors. Find activities that you enjoy doing, and make time to do them. Find healthy ways to manage stress, such as: ?Meditation or deep breathing. ?Spending time in nature. ?Journaling. Return to your normal activities as told by your health care provider. Ask your health care provider what activities are safe for you. Alcohol and drug use If you drink alcohol: ?Limit how much you use to: ?0 1 drink a day for women who are not . ?0 2 drinks a day for men. ?Be aware of how much alcohol is in your drink. In the [place] one drink equals one 12 oz bottle of beer (355 mL), one 5 oz glass of wine (148 mL), or one 1 oz glass of hard liquor (44 mL). ?Discuss your alcohol use with your health care provider. Alcohol can affect any antidepressant medicines you are taking. Discuss any drug use with your health care provider. General instructions Take zoba-quv-sxvldyc and prescription medicines only as told by your health care provider. Eat a healthy diet and get plenty of sleep. Consider joining a support group. Your health care provider may be able to recommend one. Keep all follow-up visits as told by your health care provider. This is important. Where to find more information National [place] on Mental Illness: www.fernando.org [place] National [place] of Mental Health: www.nimh.nih.gov Contact a health care provider if: Your symptoms get worse. You develop new symptoms. Get help right away if: You self-harm. You have serious thoughts about hurting yourself or others. You hallucinate. If you ever feel like you may hurt yourself or others, or have thoughts about taking your own life,get help right away. Go to your nearest emergency department or: Call your local emergency services (599 in the [place] Call a suicide crisis helpline, such as the National Suicide Prevention Lifeline at or 612 in the [place] This is open 24 hours a day in the [place] Text the Crisis Text Line at 625658 (in the [place] Summary Major depressive disorder (MDD) is a mental health condition. MDD causes symptoms of sadness, hopelessness, and loss of interest in things. These symptoms last most of the day, almost every day, for 2 weeks. The symptoms of MDD can interfere with relationships and with everyday activities. Treatments and support are available for people who develop MDD. You may need more than one type oftreatment. Get help right away if you have serious thoughts about hurting yourself or others. This information is not intended to replace advice given to you by your health care provider. Make sure you discuss any questions you have with your health care provider. Document Revised: 11/23/2021 Document Reviewed: 04/10/2020 [employer] Patient Education 2022 [email or web address]. 08/02/2023 18:05:42 Hepatitis C Hepatitis C Hepatitis C is a liver infection that is caused by the hepatitis C virus (HCV). The virus infects and causes inflammation in the liver. Hepatitis C can lead to: Loss of liver function (liver failure). Scarring of the liver (cirrhosis). Liver cancer. People with hepatitis C often do not know for months or years that they have this condition. This is because they have no symptoms or may have only mild symptoms. What are the causes? This condition is caused by HCV. The virus can spread from person to person (is contagious). It canspread through: Contact with an infected person's blood, semen, or vaginal fluids. Childbirth. A woman who has hepatitis C can pass it to her baby during . Having received donated blood (blood transfusion) or an organ transplant that was done in the [place] before 1991. What increases the risk? The following factors may make you more likely to develop this condition: Having contact with needles or syringes that have HCV on them (are contaminated). This may happen while injecting drugs, getting a tattoo or body piercing, or receiving acupuncture. Acupuncture is a treatment that inserts thin needles through your skin. Contact also may happen when you: ?Have sex with someone who is infected. The virus can spread through vaginal, oral, or anal sex. ?Receive treatment to filter your blood (kidney dialysis). ?Have a job that involves contact with blood or body fluids, such as in health care. Having HIV (human immunodeficiency virus) or AIDS (acquired immunodeficiency syndrome). What are the signs or symptoms? Symptoms of this condition include: Tiredness (fatigue). Loss of appetite. Nausea or vomiting. Pain in your abdomen. Dark yellow urine. Yellowing of your skin or the white parts of your eyes (jaundice). Itchy skin. Light-colored or moore stool. Joint pain. Bleeding and bruising that happen often. Fluid buildup in your stomach (ascites). Often, hepatitis C causes no symptoms. How is this diagnosed? This condition is diagnosed with: Blood tests. Other tests that show how well your liver is working. These tests may include: ?Magnetic resonance elastography (MRE). This imaging test uses MRI and sound waves to measure liverstiffness. ?Transient elastography. This imaging test uses ultrasound to measure liver stiffness. ?Liver biopsy. In this test, a tissue sample is taken from your liver and looked at under a microscope. How is this treated? Treatment may depend on how severe your condition is, how long it has lasted, and whether you have liver damage. Treatment may include: Taking antiviral medicines and other medicines. Having follow-up treatments every 6 12 months for infections or other liver problems. Having a liver transplant. Follow these instructions at home: Medicines Take hdru-fnf-ijxcavd and prescription medicines only as told by your health care provider. If you were prescribed an antiviral medicine, take it as told by your health care provider. Do not stop using the antiviral even if you start to feel better. Do not take any new medicines, including aoci-yiz-awirzqb medicines or supplements, unless your health care provider approves. Activity Rest as needed. Do not have sex unless your health care provider approves. Avoid swimming or using hot tubs if you have open sores or wounds. Return to your normal activities as told by your health care provider. Ask your health care provider what activities are safe for you. Ask your health care provider when you may return to school or work. Eating and drinking Eat a balanced diet with plenty of fruits and vegetables, whole grains, and lean meats or non-meat proteins, such as beans or tofu. Drink enough fluid to keep your urine pale yellow. Do not drink alcohol. General instructions Do not share toothbrushes, nail clippers, or razors. Wash your hands often with soap and water for at least 20 seconds. If soap and water are not available, use alcohol-based hand inside sales recruiter. Cover any cuts or open sores on your skin to prevent spreading HCV. Keep all follow-up visits. This is important. You may need follow-up visits every 6 12 months. How is this prevented? There is no vaccine for hepatitis C. You can lessen your risk of coming into contact with HCV by making sure you: Wash your hands often with soap and water for at least 20 seconds. Do not share needles or syringes. Use a condom every time you have vaginal, oral, or anal sex. Latex condoms offer the best protection. Avoid handling blood or other body fluids without gloves or other protection. Avoid getting tattoos or body piercings in shops that are not clean. Where to find more information Centers for Disease Control and Prevention: www.cdc.gov/hepatitis World Health Organization: www.who.int Contact a health care provider if you: Have a fever or chills. Have pain or swelling in your abdomen. Pass dark urine. Pass light-colored or moore stool. Have joint pain. Get help right away if you: Have more fatigue. Lose your appetite. Cannot eat or drink without vomiting. Develop jaundice, or your jaundice gets worse. Bruise or bleed easily. Summary Hepatitis C is a liver infection that is caused by the hepatitis C virus (HCV). This infection can lead to a loss of liver function (liver failure), scarring of the liver (cirrhosis), or liver cancer. HCV can spread from person to person (is contagious). Do not take any medicines, including iakb-bbx-qbxsggd medicines or supplements, unless your health care provider approves. This information is not intended to replace advice given to you by your health care provider. Make sure you discuss any questions you have with your health care provider. Document Revised: 03/17/2021 Document Reviewed: 03/17/2021 [employer] Patient Education 2022 [email or web address]. Follow Up Care 07/24/2023 10:26:01 With:Lisette Redd FAM, [facility] Address: [place], [address] [address]- When:Within 2 Week(s) Comments:[facility] 02-01-2024 NoteHNO ID: [id number] Author: BETH ANDREWS MD Service: ? Author Type: Physician [...] agree with all of its relevant components. Beth Andrews MD June 14, 2023 12:01 [facility] 04-13-2023 Evaluation + Plan note Diagnostic Tests Pending * CBC w/ Auto Diff 04/13/23 * Comprehensive Metabolic Panel 04/13/23 * Lipid Panel 04/13/23 * Thyroid Stimulating Hormone 04/13/23 * Iron Level 04/13/23 * TIBC Calculated 04/13/23 * Vitamin D 25 Hydroxy 04/13/23 * Vitamin B12 Level 04/13/23 [facility]11-21-2023 Evaluation note* Encounter Date Diagnosis Assessment Notes Treatment Notes Treatment Clinical Notes Mar, Acute bacterial conjunctivitis o f both eyes (ICD-10 - H10.33) Discussed diagnosis [...] understanding and is agreeable to treatment plan. [employer] Other 09-21-2023 Reason for referral (narrative) , Dr [facility] please please forward all labs done in the last 1 year. and other specialists notes along with my notes. Referred by: Lisette Redd , PATIENT HAS BEEN TO 3 different optho specialists with no improvement- very minimal blurring and changes, [facility] Referred by: Lisette Redd [facility] Primary Care Evaluation + Plan note Future Appointments Appointment Date:08/30/2023 07:00:00 AM Scheduled Provider:Lisette Redd Location:[facility] Appointment Type:FM Open Future Scheduled Tests Laboratory* Sedimentation Rate Automated 08/02/23 * HCV RNA by PCR, Qn Rfx Bruna 08/02/23 * Rheumatoid Factor Quantitative 08/02/23 * ACTH 08/02/23 * XOCHITL w/Reflex if POS 08/02/23 * Urinalysis with Micro 08/02/23 * Acute Hepatitis A B C Panel 08/02/23 * HCV Antibody RFX to Quant PCR 08/02/23 * HIV Screen 4th Generation wRfx 08/02/23 * Vitamin D 25 Hydroxy 08/02/23 * Comprehensive Metabolic Panel 08/02/23 * Cortisol 08/02/23 * C-Reactive Protein 08/02/23 * Magnesium Level 08/02/23 * Thyroid Stimulating Hormone 08/02/23 * Free T4 08/02/23 * Chlam/GC/Trich,TIFFANI 08/02/23 * U Beta Hcg Qual 08/02/23 Radiology* MA Mamm Screen w/CAD if perf and 3D Melvin 08/02/23 [facility] Primary Care Evaluation + Plan note Future Appointments Appointment Date:08/30/2023 07:00:00 AM Scheduled Provider:Lisette Redd Location:[facility] Appointment Type: Open Appointment Date:10/15/2023 09:30:00 AM Scheduled Provider:David Rea MD Location:[facility] Appointment Type:[facility] New Patient Diagnostic Tests Pending * HCV Antibody RFX to Quant PCR 08/03/23 * Acute Hepatitis A B C Panel 08/03/23 * HCV RNA by PCR, Qn Rfx Bruna 08/03/23 * XOCHITL w/Reflex if POS 08/03/23 * Cortisol 08/03/23 * Rheumatoid Factor Quantitative 08/03/23 * ACTH 08/03/23 * HIV Screen 4th Generation wRfx 08/03/23 * Chlam/GC/Trich,TIFFANI 08/03/23 Future Scheduled Tests Radiology* MA Mamm Screen w/CAD if perf and 3D Melvin [facility]02[facility]23 [facility] Appointment Date:08/30/2023 07:00:00 AM Scheduled Provider:Lisette Redd Location:[facility]IIF Appointment Type: Open Appointment Date:10/15/2023 09:30:00 AM Scheduled Provider:David Rea MD Location:[facility] Appointment Type:[facility] New Patient Diagnostic Tests Pending * EBV Antibody Profile 08/16/23 * IgE, Quant 08/16/23 * IgA, Quant. 08/16/23 * IgM, Quant 08/16/23 * IgG, Quant. 08/16/23 * ACTH 08/16/23 Future Scheduled Tests Radiology* MA Mamm Screen w/CAD if perf and 3D Melvin [facility]02[facility]23 [facility]ments Appointment Date:09/06/2023 10:00:00 AM Scheduled Provider: [facility] Appointment Type:US Abdominal/Pelvis () Appointment Date:09/06/2023 11:00:00 AM Scheduled Provider: [facility] Appointment Type:CV EKG () Appointment Date:10/01/2023 10:00:00 AM Scheduled Provider:Lisette Redd Location:[facility] Appointment Type: Open Appointment Date:10/15/2023 09:30:00 AM Scheduled Provider:David Rea MD Location:[facility] Appointment Type:[facility] New Patient Future Scheduled Tests Radiology* US Retroperitoneal Complete 09/06/23 * MA Mamm Screen w/CAD if perf and 3D Melvin 08/02/23 [facility] Primary Care Evaluation + Plan note Future Appointments Appointment Date:10/01/2023 10:00:00 AM Scheduled Provider:Lisette Redd Location:[facility] Appointment Type:FM Open Appointment Date:10/15/2023 09:30:00 AM Scheduled Provider:David Rea MD Location:[facility] Appointment Type:[facility] New Patient Future Scheduled Tests Radiology* MA Mamm Screen w/CAD if perf and 3D Melvin 08/02/23 [facility]ments Appointment Date:11/14/2023 09:00:00 AM Scheduled Provider:David Rea MD Location:[facility] Appointment Type:BAD New Patient Appointment Date:01/02/2024 09:40:00 AM Scheduled Provider:Lisette Redd Location:[facility] Appointment Type:FM Open Future Scheduled Tests Radiology* Echo Transthoracic Complete 10/01/23 * MA Mamm Screen w/CAD if perf and 3D Melvin 08/02/23 [facility] Primary Care evaluation + Plan note Future Appointments Appointment Date:01/02/2024 10:00:00 AM Scheduled Provider:Lisette Redd Location:[facility] Appointment Type:FM Open Future Scheduled Tests Radiology* MA Mamm Screen w/CAD if perf and 3D Melvin 08/02/23 [facility] Evaluation + Plan note Future Appointments Appointment Date:02/01/2024 10:00:00 AM Scheduled Provider:Lisette Redd Location:[facility] Appointment Type:FM Open Future Scheduled Tests Radiology* MA Mamm Screen w/CAD if perf and 3D Melvin 08/02/23 [facility] Primary Care Evaluation + Plan note Future Appointments Appointment Date:05/02/2024 10:00:00 AM Scheduled Provider:Lisette Redd Location:[facility] Appointment Type:FM Open Future Scheduled Tests Radiology* MA Mamm Screen w/CAD if perf and 3D Melvin 08/02/23 [facility] Primary Care evaluation + Plan note Future Appointments Appointment Date:05/02/2024 10:00:00 AM Scheduled Provider:Lisette eRdd Location:[facility] Appointment Type:FM Open Future Scheduled Tests Laboratory* HCV RNA by PCR, Qn Rfx Bruna 03/17/24 Radiology* MA Mamm Screen w/CAD if perf and 3D Melvin 08/02/23 [facility] Evaluation note* Diagnosis Dry eyes, bilateral- Primary Ocular rosacea Rosacea [facility] Diagnosis Allergic contact dermatitis, unspecified trigger [facility]* Diagnosis Allergic contact dermatitis, unspecified trigger [facility] Narrative No data available for this section [facility] No data available for this section [facility] No data available for this section [facility]ative) , would like endocrine work up- has a strong family hx of adrenal / DM Maybe Dr Merino or Herrera? , or [facility] Referred by: Lisette Redd [facility] Reason for referral (narrative) Referred by: Lisette Redd [facility] Summary Purpose Family History No Family History Records FoundNo Family History Records Found No data available for this section No data available for this section No Family History Records Found No data available for this section No data available for this section No data available for this section No data available for this section No data available for this section No data available for this section No data available for this section No data available for this section No Family History Records Found No data available for this section No Family History Records Found No data available [...] section and content) DATE CREATED AUTHOR 11/07/2017 [facility] DATE CREATED AUTHOR AUTHOR'S ORGANIZ ATION 04/21/2021 [facility] DATE CREATED AUTHOR AUTHOR'S ORGANIZ ATION 06/15/2023 [facility] DATE CREATED AUTHOR AUTHOR'S ORGANIZ ATION 01/08/2024 [facility] DATE CREATED AUTHOR AUTHOR'S ORGANIZ ATION 02/03/2024 [facility] DATE CREATED AUTHOR AUTHOR'S ORGANIZ ATION 04/09/2024 [facility] DATE CREATED AUTHOR AUTHOR'S ORGANIZ ATION 05/25/2024 [facility] DATE CREATED AUTHOR AUTHOR'S ORGANIZ ATION 02/27/2025 [facility] REASON FOR VISIT (unrecogniz ed section and content) ReasonCommentsMed Change RequestReasonCommentsEye ProblemReasonCommentsRash SpecialtyDiagnoses / ProceduresReferred By ContactReferred To ContactDermatology Diagnoses excessive hair, facial rash, conjunctivitis Procedures office visit Lisette Contreras NP [address] [place] [address] Genia Boone, [employer]ANCE CUTTER[employer]NACE REPAIRER HELPER [address] [place] [address] Referral IDStatusReasonStart DateExpiration DateVisits RequestedVisits [id number] Patient Care team informatio n (unrecognized section and content) Team MemberRelationshipSpecialtyStart DateEnd Date Lisette Contreras NP [address] [place] [address] Referring [facility] Medicine11/01/23Team MemberRelationshipSpecialtyStart DateEnd Date Lisette Contreras NP [address] [place] [address] Referring [facility]La[facility] Medicine11/01/23Team MemberRelationshipSpecialtyStart DateEnd Date Lisette Contreras NP [address] [place] [address] Referring [facility]icianD[facility]11/01/23Team MemberRelationshipSpecialtyStart DateEnd Date Lisette Contreras NP [address], [place] [address] Referring PhysicianF[facility] Medicine11/01/23Team MemberRelationshipSpecialtyStart DateEnd Date Lisette Contreras NP [address] [place] [address] Referring [facility]icianFaholy [facility] hospital Medicine11/01/23Team MemberRelationshipSpecialtyStart DateEnd Date Lisette Contreras NP [address] [place] [address] Referring PhysicianDorminy Medical Center11/01/23 Source Comments (unrecognize d section and content) In the event this informatio n is protected by the Federal Confidentiality of Alcohol and Drug Abuse Patient Records regulations: The Federal rules restrict any use of the information to criminally investigate or prosecute any alcohol or drug abuse patient.[facility] FOR RECORDS PERTAINING TO PATIENTS WHO ARE [...] BE BASED ON THE PRIMARY CLINICAL RECORDS. [employer]. provides no warranty or guarantee of the accuracy or completeness of information in this document.
== END 2025-03-05 13:10 | disposition home or self-care (01) ==
PROVIDERS: PCP Nurse Practitioner; Visit Provider Nurse Practitioner
DX: M25.562 Pain in left knee (principal); E66.3 Overweight; Z72.89 Other problems related to lifestyle; Z68.25 Body mass index [BMI] 25.0-25.9, adult
CPT/HCPCS: 73564

== ENCOUNTER 2025-03-09 10:40 | Outpatient (RCR) | payer OTHER, SELFPAY | END 2025-03-27 11:19 | disposition home or self-care (01) | LOC: PT 10:40 | PROVIDERS: PCP Nurse Practitioner; Visit Provider Nurse Practitioner | DX: M25.562 Pain in left knee (principal); E66.3 Overweight; Z68.25 Body mass index [BMI] 25.0-25.9, adult; F17.290 Nicotine dependence, other tobacco product, uncomplicated | CPT/HCPCS: 97110; 97112; 97161 ==

== ENCOUNTER 2025-04-23 09:17 | Outpatient (OUT) | payer OTHER, SELFPAY ==
--- OUTSIDE RECORDS SUMMARY | 2025-04-23 09:23 | XMS_ITS | CCD ---
Author Organization [facility] Care Team Providers Care Shellfish Sorter Name Role Phone Angulo, Song Unavailable Unavailable Angulo, Song Unavailable Unavailable Angulo, Song Unavailable Unavailable REQUEST, NONE LISTED Primary Care Unavailkeysha MORRISON, DR GUIDRY Admitting Unavailable PRINCE, DR GUIDRY Attending Unavailable PRINCE, DR GUIDRY Consulting Unavailable Clinton Bartlett Consulting Unavailable Xiomara Mathis Unavailable Heidy Keith Primary Care Physician [phone] Savana Dietz Unavailable Unavailable Danette Garay Primary [...] Primary Care Physician Lisette Contreras NP Unavailable [phone] David Rea Admitting Unavaila David Oden Attending [...] OnsetReaction(s) FacilityCats (1 source)CatAnimal Allergy (Dander)Red eye (finding)[facility] Primary CareLidocaine (1 source)Lidocaine; Translations: [lidocaine topical]Drug AllergyEruption of skin (disorder)[facility] Primary CareMold Extract (1 source)Mold ExtractDrug AllergyRed eye (finding)[facility] Primary Care (14 sources)Lidocaine; Translations: [lidocaine topical]Drug Btsvsbr57-22-6492 Eruption of skin (disorder), RashC[facility] (7 sources)Cat; Translations: [Cats]Allergy to substanceRed eye (finding)[facility] Primary Care (7 sources)Mold Extract; Translations: [Mold]Drug AllergyRed eye (finding) [facility] Primary Care (1 source)ALLERGIES NOT ON FILE; Translations: [ALLERGIES NOT ON FILE]Propensity to adverse reactions (disorder)[facility] Repository (2 sources)No Known Medication Allergies; Translations: [No Known Medication Allergies]Propensity to adverse reactions (disorder)[facility] Repository Medications Current Medications MedicationDrug Class(es)DatesSig (Normalized)Sig (Original)12 hr buPROPion hydrochloride 150 mg extended release oral tablet (1 source)AminoketoneStart: 93-80-6050Ieqorzmbvz SR 150 mg Tab-ER 150 mg = 1 tab(s), Oral, BID, start at once a day for 1-2 weeks. then increase to twice a day, # 180 tab(s), Refills(s) 0, Pharmacy: [facility]/pharmacy #[id number], 157, cm, 02/01/24 10:28:00 EDT, Height/Length Dosing, 67.8, kg, 02/01/24 10:28:00 EDT, Weight Dosing Start Date: 02/01/24 Status: OrderedcycloSPORINE 0.9 mg/ml ophthalmic solution (9 sources)Calcineurin Inhibitor ImmunosuppressantStart: 24-72-2881pqaj 1 drop(s) into the eye(s) once dailyCequa 0.09% ophthalmic solution 1 drop(s), Eye-Both, Daily, Refill(s) 0 Start Date: 01/02/24 Status:OrderedStart: 11-01-2023 End: 90-40-8363ivls 1 drop(s) into the eye(s) in the morningcycloSPORINE, PF, (Cequa) 0.09 % solution Indications: Dry eyes Administer 1 drop into affected eye(s) in the morning and 1 drop before bedtime. 1 each 3 11/01/2023 01/30/2024 Activedexamethasone 1 mg oral tablet (8 sources)CorticosteroidStart: 33-41-2696hlrXEDMMkqnrt (Decadron) 1 MG tablet 09/21/2023 Activedexamethasone 0.001 mg/mg / neomycin 0.0035 mg/mg / polymyxin b 10 unt/mg ophthalmic ointment (12 sources)Aminoglycoside Antibacterial, Polymyxin-class Antibacterial, CorticosteroidStart: 06-14-2023 End: 60-87-8646thuozeqdvhcly/neomycin/polymyxin B Opth Oint 1 christiano, OPTH, TID, 3.5 gram, Refill(s) 0, [facility]/pharmacy #[id number], 157, cm, 01/02/24 10:23:00 EDT, Height/Length Dosing, 66.3, kg, 01/02/24 10:23:00 EDT, WeightDosing Start Date: 01/02/24 Status: OrderedStart: 09-54-2863ralt 1 drop(s) into the eye(s) four times pzozmGejjmvgw-Yceyvppzu-Uguzhnrv 3.5-03187-5.1 1 drop into affected eye Ophthalmic Four times a day for 5 days Mar, ActiveComment on above:Use 1 application in both eyes four times daily for 10 days.dextran 70 1 mg/ml / glycerin 2 mg/ml / hypromellose 3 mg/ml ophthalmic solution (9 sources)Plasma Volume Student Dean, Non-Standardized Chemical AllergenStart: 91-66-2038Obxetrsrqf Tear Solution (GenTeal Tears) 0.1-0.2-0.3 % solution INSTILL 1 DROP INTO EACH EYE NEEDED 06/15/2023 ActiveStart: 62-54-3239JAKXOXN TEARS MODERATE 0.1-0.3-0.2 % ophthalmic solution USE 1 DROP IN BOTH EYES NEEDED 15 mL 3 06/15/2023 ActiveComment on above:USE 1 DROP IN BOTH EYES NEEDEDdiclofenac sodium 1 mg/ml ophthalmic solution (8 sources)Nonsteroidal Anti-inflammatory DrugStart: 21-00-0534xtix 2 drop(s) into the eye(s) every six hours as neededdiclofenac (Voltaren) 0.1 % ophthalmic solution PLACE 2 DROPS INTO AFFECTED EYE(S) EVERY 6 HOURS ASNEEDED FOR EYE IRRITATION FOR 3 DAYS 05/04/2023 Activeescitalopram 5 mg oral tablet (6 sources)Serotonin Reuptake InhibitorStart: 08-39-0349Bdmvdox 5 MG tablet Take 5 mg by mouth 01/02/2024 Activeferrous sulfate 325 mg oral tablet (19 sources)Start: 77-74-3186imta 1 tablet by mouth in the morningferrous sulfate 325 (65 Fe) MG tablet Take 1 tablet by mouth in the morning and 1 tablet before bedtime. 05/15/2023 ActiveFLUoxetine 40 mg oral capsule (2 sources)Serotonin Reuptake InhibitorStart: 44-29-6366sqvu 1 capsule by mouth once dailyFLUoxetine 40 mg Cap 40 mg = 1 cap(s), Oral, Daily, # 90 cap(s), Refills(s) 0, Pharmacy: [facility]/pharmacy #[id number], 160, cm, 04/26/20 9:47:00 EST, Height/Length Dosing, 65.2, kg, 04/26/20 9:47:00 EST, Weight Dosing Start Date: 10/18/20 Status: OrderedGenTeal Tears Moderate ophthalmic solution (2 sources)Start: 55-34-3767GbcDlfu Tears Moderate ophthalmic solution 2 drop(s), INSTILL 1 DROP INTO EACH EYE NEEDED Start Date: 01/02/24 Status: Orderedhydrocortisone 25 mg/ml topical cream (5 sources)CorticosteroidStart: 55-32-4273lboxcxbtkiinmp 2.5 % cream Indications: Allergic contact dermatitis, unspecified trigger Apply topically 2 (two) times a day as needed (Rash) Apply thin layer to affected areas bid prn for flares 30 g 3 01/10/2024 ActiveKetotifen (9 sources)Histamine-1 Receptor InhibitorStart: 02-85-9684bhnc 1 drop(s) into the eye(s) twice dailyKetotifen Fumarate 0.035 % solution USE 1 DROP IN BOTH EYES TWO TIMES A DAY 06/15/2023 ActiveStart: 62-85-8257fxsubpmvu fumarate (ZADITOR) 0.025 % (0.035 %) ophthalmic solution Use 1 Drop in both eyes two times a day. 10 mL 3 06/14/2023 ActiveComment on above:Use 1 Drop in both eyes two times a day.meloxicam 7.5 mg oral tablet (1 source)Nonsteroidal Anti-inflammatory DrugStart: 60-83-6880xbzq 1 tablet by mouth once dailymeloxicam 7.5 mg Tab 7.5 mg = 1 tab(s), Oral, Daily, # 30 tab(s), Refills(s) 0, Pharmacy: [facility]/pharmacy #[id number], 157, cm, 04/13/23 12:54:00 EST, Height/Length Dosing, 62.5, kg, 04/13/23 12:54:00 EST, Weight Dosing Start Date: 04/16/23 Status: OrderedmethylPREDNISolone 4 mg oral tablet (1 source)CorticosteroidStart: 04-16-2023 End: 08-98-2173Wrniex 4 mg Tab = 1 packet(s), Oral, As Directed, as directed on package labeling, X 6 day(s), # 21tab(s), Refills(s) 0, Pharmacy: [facility]/pharmacy #[id number], 157, cm, 04/13/23 12:54:00 EST, Height/Length Dosing, 62.5, kg, 04/13/23 12:54:00 EST, Weight Dosing Start Date: 04/16/23 Stop Date: 04/22/23 Status: Hsgmpmu84 hr metoprolol succinate 25 mg extended release oral tablet (5 sources)beta-Adrenergic BlockerStart: 10-75-1418jnkt 1 tablet by mouth once dailymetoprolol succinate XL (Toprol-XL) 25 MG 24 hr tablet Take 25 mg by mouth Daily 12/26/2023 ActivemetroNIDAZOLE 0.0075 mg/mg topical gel (7 sources)Nitroimidazole AntimicrobialStart: 53-54-6281wrqvrAGEQISPN (Metrogel) 0.75 % gel Apply topically 2 (two) times a day to affected area 01/02/2024ctive montelukast 10 mg oral tablet (1 source)Leukotriene Receptor AntagonistStart: 92-09-8240seul 1 tablet by mouth once daily in the eveningSingulair 10 mg Tab 10 mg = 1 tab(s), Oral, qPM, # 90 tab(s), Refills(s) 3, Pharmacy: [facility]/pharmacy #[id number], 157, cm, 02/01/24 10:28:00 EDT, Height/Length Dosing, 67.8, kg, 02/01/24 10:28:00 EDT, WeightDosing Start Date: 02/01/24 Status: Orderedolopatadine 2 mg/ml ophthalmic solution (1 source)Histamine-1 Receptor InhibitorStart: 34-12-0296Vzhmkqx 0.2% Soln-Opth 1 drop(s), OPTH, Daily, 2.5 mL, Refill(s) 0, [facility]/pharmacy #[id number], 157, cm, 10:28:00 EDT, Height/Length Dosing, 67.8, kg, 02/01/24 10:28:00 EDT, Weight Dosing Start Date: 02/01/24 Status: Orderedpimecrolimus 10 mg/ml topical cream (16 sources)Calcineurin Inhibitor ImmunosuppressantStart: 11-29-2023 End: 25-51-0326xadyggxbdvgg (Elidel) 1 % cream Indications: Flexural atopic dermatitis Apply topically 2 (two) times a day 30 g 3 12/06/2023 12/05/2024 ActiveprednisoLONE acetate 10 mg/ml ophthalmic suspension (13 sources)CorticosteroidStart: 08-30-2023 End: 46-41-6109zgkuokrcKALV Opth acetate 1% Susp 5 mL 1 drop(s), OPTH, BID for 7 day(s), 15 mL, Refill(s) 1, [facility]/pharmacy #[id number], 157, cm, 08/30/23 7:05:00 EDT, Height/Length Dosing, 64.1, kg, 08/30/23 7:05:00 EDT, Weight Dosing Start Date: 08/30/23 Stop Date: 09/13/23 Status: OrderedStart: 08-02-2023 End: 35-58-9554eyzx 1 drop(s) into the eye(s) every four hoursprednisoLONE acetate ophthalmic 0.12% suspension 1 drop(s), Eye-Both, q4hr for 10 day(s), 5 mL, Refill(s) 0 Start Date: 08/02/23 Stop Date: 08/12/23 Status: OrderedStart: 72-71-5032tpiv 1 drop(s) into the eye(s) every three hoursprednisoLONE acetate (Pred-Forte) 1 % ophthalmic suspension INSTILL 1 DROP IN BOTH EYES EVERY 3 HOURS 06/14/2023 ActiveStart: 40-77-1864cxnv 1 drop(s) into the eye(s) every three hoursprednisoLONE acetate (PRED FORTE) 1 % ophthalmic suspension Use 1 Drop in both eyes every 3 hours. 15 mL 0 06/14/2023 ActiveComment on above:Use 1 Drop in both eyes every 3 hours.spironolactone 25 mg oral tablet (6 sources)Aldosterone AntagonistStart: 92-32-9048jprdnugthcbtyk (Aldactone) 25 MG tablet Take 25 mg by mouth 01/02/2024 Active{2 (magnesium sulfate 900 MG / polyethylene glycol 3350 916144 MG / potassium chloride 1120 MG / sodium chloride 500 MG / sodium sulfate 7300 MG Powder for Oral Solution) } Pack [Suflave] (1 source)Start: 68-54-5198Ynfnwcu oral powder for reconstitution kit See Instructions, 1 EA, Refill(s) 0, samples given to patient (Rx), LOT# [id number] EXP 09/10/25 Start Date: 03/31/24 Status: Ordered Completed/Discontinued Medications MedicationDrug Class(es)DatesSig (Normalized)Sig (Original)dextran 70 1 mg/ml / hypromellose 3 mg/ml ophthalmic solution (1 source)Plasma Volume ExpanderStart: 06-14-2023 End: 92-20-9730Krzqxxd 70-Hypromellose, PF, (BION TEARS) 0.1-0.3 % dpet Use 1 Drop in both eyes as needed. 36 Each3 06/14/2023 06/15/2023 DiscontinuedComment on above:Use 1 Drop in both eyes as needed. Problems Active Problems Problem ClassificationProblemDateDocumented DateEpisodic/ChronicAbdominal pain (3 sources)Epigastric pain; Translations: [Epigastric pain]Onset: 03-17-2024 EpisodicAdministrative/social admission (1 source)Patient encounter status; Translations: [Persons encountering health services in other specified circumstances]Onset: 37-89-2679DuxchkdqXrdgtawm reactions (16 sources)Allergic condition; Translations: [Other nonmedicinal substance allergy status]Onset: 971609-05-4074OvtxpeipZkdgblg disorders (14 sources)Anxiety disorder; Translations: [Other specified anxiety disorders] Onset: 42-23-8228BxracdlCgtzfbz dysrhythmias (5 sources)Tmwcrxpvlqax13-99-6313XetexhrgQcaurlavwq associated with dizziness or vertigo (20 sources)Dizziness; Translations: [Dizziness and giddiness]Onset: 08-02-2023 18-31-4547KwcjxsbsKbnbiujyox and other anemia (13 sources)Tllfvf98-12-7527EidmoyntLqonlvamwj and other anemia (2 sources)Other specified anemias; Translations: [Other specified anemias] Onset: 25-42-6737BucfpkifPhazfvmommqjy symptoms and ill-defined conditions (20 sources)Increased frequency of urination; Translations: [Frequency of micturition]Onset: 64-40-4880ZtwoyentFgogeonwy (18 sources)Chronic hepatitis C; Translations: [Chronic viral hepatitis C]Onset: 897396-01-1845QmsfutmTbuyopxldevr; infection of eye (except that caused by tuberculosis or sexually transmitteddisease) (4 sources)Chronic conjunctivitis; Translations: [Unspecified chronic conjunctivitis, unspecified eye]Onset: 80-13-5924ZmtezbyNsyzjnpucpar; infection of eye (except that caused by tuberculosis or sexually transmitteddisease) (6 sources)Unspecified acute conjunctivitis, bilateral; Translations: [Conjunctivitis]Onset: 45-80-4107EgztjdqdBfiodimtkx infection (14 sources)Infection caused by Helicobacter pylori; Translations: [Bacterial intestinal infectious disease]Onset: 019694-32-0301RhjivecoZqbqpdd and fatigue (19 sources)Fatigue; Translations: [Other fatigue]Onset: EpisodicMenstrual disorders (7 sources)Irregular periods; Translations: [Irregular menstruation, unspecified]Onset: 19-70-8769PibhhswQhoi disorders (18 sources)Depressive disorder; Translations: [Moderate recurrent major depression]Onset: 587114-77-5366ZimjtuqVqxesyhtead deficiencies (18 sources)Vitamin D deficiency; Translations: [Vitamin D deficiency, unspecified]Onset: 453100-01-2184BemgpjpDclll connective tissue disease (2 sources)Muscle ckmf62-34-3988AogembuyTzvcj eye disorders (1 source)Edema of unspecified eye, unspecified eyelid; Translations: [Eyelid gland swelling]Onset: 12-39-6235JbsikfhvTwvzc eye disorders (1 source)Tear film insufficiency; Translations: [Dry eye syndrome of unspecified lacrimal gland]Onset: 62-95-0523UivujuhhKdvee eye disorders (3 sources)Bilateral epiphora of zeji55-78-4176JeemidzwImeaz eye disorders (11 sources)Red lwg38-87-3298EjwpishvCqcbl eye disorders (1 source)Disorder of eye region; Translations: [Other specified disorders of eye and adnexa]Onset: 19-90-5465DxkurwmpCdwjp gastrointestinal disorders (1 source)Swollen abdomen; Translations: [Abdominal distension (gaseous)]Onset: 68-69-4882CleaireuFmvgs gastrointestinal disorders (2 sources)Abdominal gkzusyac11-24-1782CqljdsivPriky infections; including parasitic (1 source)H/O: infectious disease; Translations: [Personal history of other infectious and parasitic diseases]Onset: 60-19-9933GfqwxgveKnata infections; including parasitic (5 sources)History of Helicobacter pylori drkptliod91-77-0582YjmhccbkOmdjo inflammatory condition of skin (1 source)Ocular rosacea; Translations: [Other rosacea]15-20-3392ZsrioghKjafc inflammatory condition of skin (11 sources)Itching of kio60-20-2916BvnjhsrhXvxzz nutritional; endocrine; and metabolic disorders (5 sources)Body mass index 25-29 - wegdyqntgn89-88-6505TmegawkhMsaxg nutritional; endocrine; and metabolic disorders (1 source)Abnormal weight loss; Translations: [Abnormal weight loss]Onset: 04-05-1106SfxcndreYcrnz nutritional; endocrine; and metabolic disorders (11 sources)Weight ivcf93-71-5417YbztexceFxwbj nutritional; endocrine; and metabolic disorders (4 sources)Overweight in adulthood with body mass index of 25 or more but less than 30; Translations: [Body mass index (BMI) 26.0-26.9, adult]Onset: 08-30-2023 EpisodicOther nutritional; endocrine; and metabolic disorders (10 sources)Overweight; Translations: [Overweight]Onset: 71-00-5166AuboxmgsWlegd screening for suspected conditions (not mental disorders or infectious disease) (3 sources)Encounter for screening mammogram for malignant neoplasm of breast; Translations: [Screening for malignant neoplasm done]Onset: 14-26-4035Xmemzzfh Other skin disorders (2 sources)Eruption; Translations: [Rash and other nonspecific skin eruption] Onset: 23-71-6823UyhvnilpBybcf skin disorders (1 source)Hypertrichosis; Translations: [Hypertrichosis, unspecified]Onset: 73-89-0915TmyfoikqCgoim skin disorders (1 source)Excessive hair bpqgqe93-05-6185JcxrwmfpDpaqo upper respiratory disease (1 source)Allergic rhinitis due to animals; Translations: [Allergic rhinitis due to animal (cat) (dog) hair and dander]Onset: 73-60-1071JfwenrvEgkcj upper respiratory disease (13 sources)Breath smells xxvqdryoll20-75-7435OrsvyfuvOvpoxyhe codes; unclassified (13 sources)Dcyiyznp23-50-4148CwzdxtjzBhxysvkf codes; unclassified (13 sources)Nicotine-filled electronic cigarette dujl07-96-7064NoqstonnKsogjuez codes; unclassified (7 sources)Family history of endocrine disorders; Translations: [Family history of other endocrine, nutritional and metabolic diseases]Onset: 66-71-7145Nrltubct Residual codes; unclassified (8 sources)Family history of vfynnliz50-12-3285SvsggavqWimnhyhk codes; unclassified (4 sources)Tobacco user; Translations: [Tobacco use]Onset: 70-29-6001Phghhllj Residual codes; unclassified (6 sources)Family history of diabetes mellitus; Translations: [Family history of diabetes mellitus]Onset: 21-27-7784JpdpwfgzSfkivxuy codes; unclassified (1 source)FH: Blood disorder; Translations: [Family history of diseases of the blood and blood-forming organsand certain disorders involving the immune mechanism]Onset: 13-17-9720UjvqywtbUtupxbgh codes; unclassified (3 sources)FH: Autoimmune cgjeyuk52-70-0175SsbxilpuOljwcjuog-zlhvllj disorders (1 source)Nicotine dependence, cigarettes, uncomplicated; Translations: [NICOTINE DEPEND CIGARETTES UNCOMP]Onset: 90-66-9112DzkozhpOhflabvip-related disorders (8 sources)Cannabis misuse; Translations: [Cannabis use, unspecified, uncomplicated]Onset: 49-07-6378OymgfdddXrqvxmt (5 sources)Near -29-3867XqjhhlyiUdmwhpcydvfp (1 source)Unknown / UNK(Unknown)Onset: 33-31-2113Oglaguavgshk (13 sources)Pain of left shoulder afkicp00-18-6617Wzomiwexnzpe (16 sources)Patient encounter -05-8880Iqdkikormtrr (6 sources)Allergy to domestic cat hfrldsi08-56-1255Tiqndkaqgklj (4 sources)Eruption of skin of exup26-17-8279 Past or Other Problems Problem ClassificationProblemDateDocumented DateEpisodic/ChronicE Codes: Natural/environment (1 source)Overexertion from prolonged static or awkward postures, initial encounter; Translations: [OVEREXERTPROLNG STAT/AWK PST INIT]Onset: 11-04-2020 EpisodicOther eye disorders (4 sources)Dry eyes; Translations: [Dry eye syndrome of bilateral lacrimal glands]63-83-5822SbkxsoghHvbnl non-traumatic joint disorders (4 sources)Pain in right knee; Translations: [PAIN IN RIGHT KNEE]Onset: 50-72-2401OrgfyywaAkzls non-traumatic joint disorders (1 source)Effusion, right knee; Translations: [EFFUSION RIGHT KNEE]Onset: 59-14-7780BkrhartgKwmukrfvpljl (1 source)D50.9,Z79.899,E55.9E78.5,Z00.00,R53.83,R51,Onset: 11-16-2016 Results Test NameValueInterpretationReference RangeFacilityAmbulatory Visit Summaryon 07-68-4748Qpokrycvwg Visit SummaryAmbulatory Visit Summary FREDI ELLIOTT :1975 [...] 10:20 AM EST With: Danette Briones Where: [facility] Medicine [address] [address]- Medications What How Much When Instructions Unchanged [...] signed up for this yet, please contact [facility] at [phone] to get signed up today. Language Information Language assistance services are available as needed. [facility] Medicine Office/Clinic Noteon 26-36-9512Nrzusj Medicine Office/Clinic NoteSaint [facility] Chief Complaint Leg pain [...] 4 weeks. will also send referral to [facility] PT. Ordered: meloxicam, 15 mg = 1 tab(s), Oral, Daily, # 30 tab(s), Refills(s) 0, Pharmacy: [facility]/pharmacy #[id number], 157, cm, 02/26/25 13:01:00 EDT, Height/Length Dosing, 63, kg, 02/26/25 13:01:00 EDT, Weight Dosing methylPREDNISolone, = 1 packet(s), Oral, As Directed, as directed on package labeling, X 6 day(s), # 21 tab(s), Refills(s) 0, Pharmacy: [facility]/pharmacy #[id number], 157, cm, 02/26/25 13:01:00 EDT, Height/Length Dosing, 63, kg, 02/26/25 13:01:00 EDT, Weight Dosing Physical Therapy Evaluation - External Facility XR Knee Complete 4+ Views Left 2. Overweight (E66.3: Overweight) see above Ordered: meloxicam, 15 mg = 1 tab(s), Oral, Daily, # 30 tab(s), Refills(s) 0, Pharmacy: [facility]/pharmacy #[id number], 157, cm, 02/26/25 13:01:00 EDT, Height/Length Dosing, 63, kg, 02/26/25 13:01:00 EDT, Weight Dosing methylPREDNISolone, = 1 packet(s), Oral, As Directed, as directed on package labeling, X 6 day(s), # 21 tab(s), Refills(s) 0, Pharmacy: [facility]/pharmacy #[id number], 157, cm, 02/26/25 13:01:00 EDT, Height/Length Dosing, 63, kg, 02/26/25 13:01:00 EDT, Weight Dosing Physical Therapy Evaluation - External Facility XR Knee Complete 4+ Views Left 3. BMI 25.0-25.9,adult (Z68.25: Body mass index [BMI] 25.0-25.9, adult) BMI education Ordered: meloxicam, 15 mg = 1 tab(s), Oral, Daily, # 30 tab(s), Refills(s) 0, Pharmacy: [facility]/pharmacy #[id number], 157, cm, 02/26/25 13:01:00 EDT, Height/Length Dosing, 63, kg, 02/26/25 13:01:00 EDT, Weight Dosing methylPREDNISolone, = 1 packet(s), Oral, As Directed, as directed on package labeling, X 6 day(s), # 21 tab(s), Refills(s) 0, [id number] 157, cm, 02/26/25 13:01:00 EDT, Height/Length Dosing, 63, kg, 02/26/25 13:01:00 EDT, Weight Dosing Physical Therapy Evaluation - External Facility XR Knee Complete 4+ Views Left 4. Engages in vaping (Z72.89: Other problems related to lifestyle) consider not vaping Ordered: meloxicam, 15 mg = 1 tab(s), Oral, Daily, # 30 tab(s), Refills(s) 0, [id number] 157, cm, 02/26/25 13:01:00 EDT, Height/Length Dosing, 63, kg, 02/26/25 13:01:00 EDT, Weight Dosing methylPREDNISolone, = 1 packet(s), Oral, As Directed, as directed on package labeling, X 6 day(s), # 21 tab(s), Refills(s) 0, [id number] 157, cm, 02/26/25 13:01:00 EDT, Height/Length Dosing, 63, kg, 02/26/25 13:01:00 EDT, Weight Dosing Physical Therapy Evaluation - External Facility XR Knee Complete 4+ Views Left Follow-up With When Contact Information Danette Briones, MARLENY, MED In 4 weeks 03/03/[address] [place] [address] Business (1) Additional Instructions: Problem List/Past Medical [...] Knee Surgery. Medications cami (more content not included)...[facility] CenterComment on [facility]:Result Comment: Electronically Signed By: Tanisha BLEVINS, Danette Greer\.yvonne\Date and Time Signed: 02/26/25 14:01 EDTSurgical Pathology Reporton 80-29-2012Rpbrepmq Path[facility] ReportWood [facility] [address] [place] [address]- Surgical Pathology Report Collected Date/Time: 04/01/2024 09:45 [...] is entirely submitted in one cassette. (DC) DC:[facility] Microscopic Description Microscopic examination performed unless gross [...] negative controls are performed and are acceptable. [facility] CenterComment on above:Performed By: #### [id number] #### [facility] [address], [place] [address]Vhokqaeare Visit Summaryon 06-80-2618Padpzovtwk Visit Summary Ambulatory Visit Summary FREDI ELLIOTT [...] 10:00 AM EST With: Lisette Redd Where: [facility] [address], [place] [address]- You Need to Complete the Following HCV [...] you for choosing us for your care. [facility] CenterGastro[facility] Office/Clinic Noteon 16-24-8993Atnkjgdgncqxosth Office/Clinic NoteGastroenterology Office/Clinic Note Chief Complaint ref [...] E&M of New Patient Moderate 45-59 Min 87270 HCV RNA by PCR, Qn Rfx Bruna 2. H. pylori infection (A04.8: Other specified bacterial intestinal infections) Detected [address] Astorga, patient not sure if she got the quadruple therapy or not, repeat EGDwith random gastric biopsies, especially she is reporting occasional bloating and discomfort in herepigastric area Ordered: E&M of New Patient Moderate 45-59 Min 07151 EGD Endoscopy (Hospital Procedure) 3. Bloating (R14.0: Abdominal distension (gaseous)) Ordered: E&M of New Patient Moderate 45-59 Min 09395 EGD Endoscopy (Hospital Procedure) 4. Epigastric pain [...] per week., 03/17/2024 Exercise (more content not included)...[facility] CenterComment on above:Result Comment: Electronically Signed By: Rona CURTIS, David Chavira\.br\Date and Time Signed: 03/17/24 11:00 ESTAmbulatory Visit Summaryon 95-47-3784Ppalqwiauo Visit SummaryAmbulatory Visit Summary FREDI ELLIOTT :1975 [...] Someone Will Contact You Regarding These Appointments [facility] External Ambulatory Referral, Rheumatology, 02/01/24 10:51:00 EDT, Fatigue Family history ofautoimmune disorder Chronic conjunctivitis [facility] External Ambulatory Referral, Ophthalmology, 02/01/24 10:55:00 EDT, Conjunctivitis Chronic conjunctivitis Blurring of vision Medications What How Much When Why Instructions New buPROPion (Wellbutrin SR 150 mg Tab-ER) 1 Tablets By Mouth 2 times a day start at once a day for 1-2 weeks. then increase to twice a day Pickup at [facility]/pharmacy #[id number] New montelukast (Singulair 10 mg Tab) 1 Tablets By Mouth Once a day (in the evening) Chronic conjunctivitis Refills: 3 Pickup at [facility]/pharmacy #6170 New olopatadine ophthalmic (Pataday 0.2% Soln-Opth) 1 Drops Ophthalmic Every day Conjunctivitis Pickup at [facility]/pharmacy #6177 Unchanged cycloSPORINE ophthalmic (Cequa 0.09% ophthalmic [...] physician if questions or concerns Pharmacy Information [facility]/pharmacy #[id number]: [address], [place] [id number] [phone] What How Much When Comments Stop Taking [...] you for choosing us for your care. [facility] Medicine Office/Clinic Noteon 82-26-2977Ufjthl Medicine Office/Clinic NoteFarutland heights [facility] Medicine Office/Clinic Note Chief Complaint 1 [...] little bit better. Patient saw Genia the FINAL OPERATIONS TECHNICIAN with [facility] in [place] no lotions, Crave Aquaphor at night. OTC - helping tried hydrocortisone 2.5 % as needed Patient stopped taking spironolactone due to possible side effects She is not that worried about excessive facial hair Has been to endocrinology without any abnormal findings. She saw Dr. Merino in [place] Starting to complain of some intermittent menstraul Changes and hormone fluctuations EYES- HAS BEEN TO 3 different ophthalmology- currently going to [facility]- [facility]? - vision getting worse- still with [...] BID, # 180 tab(s), Refills(s) 0, Pharmacy: [facility]/pharmacy #[id number], 157, cm, 01/02/24 10:23:00 EDT, Height/Length Dosing, 66.3, kg, 01/02/24 10:23:00 EDT, Weight Dosing 2. Chronic conjunctivitis (H10.409: Unspecified chronic conjunctivitis, unspecified eye) Acute on chronic, for the last year Progressively worsening, intermittent flares noted Patient continues to follow with Dr. Egan? With [facility] ophthalmology Continue drops as previously recommended-Pataday drops sysq-eew-tpjkglu prescription was sent to the pharmacy for refill Patient getting samples of the Cequa drops from eye doctor office, which are $900 a bottle May be allergy related after seeing field geologist-patient unwilling to give up cats Encouraged kivm-khy-uumcqcc Claritin or Zyrtec Will trial montelukast daily at night Referral placed for [place] [facility]- Ordered: montelukast, 10 mg = 1 tab(s), Oral, qPM, # 90 tab(s), Refills(s) 3, Pharmacy: [facility]/pharmacy #[id number], 157, cm, 02/01/24 10:28:00 EDT, Height/Length Dosing, 67.8, kg, 02/01/24 10:28:00 EDT, Weight Dosing [facility] External Ambulatory Referral [facility] External Ambulatory Referral 3. Marijuana use, continuous (F12.90: Cannabis use, unspecified, uncomplicated) Encourage cessation, patient is minimize use 4. Fatigue (R53.83: Other fatigue) Acute on chronic for the last year Autoimmune testing has been negative thus far,. Patient states mother struggled with autoimmune condition (more content not included)...[facility] CenterComment on above:Result Comment: Electronically Signed By: Lisette Redd\kathy\Date and Time Signed: 02/01/24 11:13 EDTCalcidiolon 74-46-426235654007-wwiaagtlttijen D3 [Mass/Vol]35 ng/mL Xslcgi06-493CzoprzhkwyAultman Orrville HospitalComment on above:Order Comment: Deficiency: < 20 ng/mlInsufficiency: 20-29 ng/mlSufficiency: 30-100 ng/mlThis assay accurately quantifies the sum of Vitamin D3, 25-Hydroxy and Vitamin D2,25-Hydroxy.Performed By: #### 29243-3 #### CELESTE LERMA ([id number]) [facility] ([facility]) [address] [place] [address] 06179Ocebkldpobao 88-06-6937Aovjpflkw (Vitamin B12) [Mass/Vol]600 pg/kFTfccga938-065EamkajfnoeGenesis HospitalComment on above: Performed By: #### 3016-3 #### CELESTE LERMA (69988) [facility] ([facility]) [address] [place] [address] 85743Yxkmlhdhqzhwd metabolic 2000 panelon 96-90-8773Hizcqgt BCP dye [Mass/Vol]4.7 g/dLNormal3.4-5.0[facility] Comment on above:Performed By: #### 46380-6 #### CELESTE LERMA (87225) [facility] ([facility]) [address] [place] [address] 58860EIQ [Catalytic activity/Vol]41 U/IOphapb06-041KvgyjvitmzGenesis HospitalComment on above:Performed By: #### 04431-6 #### CELESTE LERMA ([id number]) [facility] ([facility]) [address] [place] [address] 14746SXO With P-5'-P [Catalytic activity/Vol]12 U/LNormal7-45 [facility] HospitalComment on above:Result Comment: Patients treated with Sulfasalazine may generate falsely decreased results for ALT.Performed By: #### 60873-4 #### ANAIBELISTACEY LERMA ([id number]) [facility] ([facility]) [address] [place] [address] 03181Xbtmm gap [Moles/Vol]13 mmol/MKkbhzb90-56QwiawezhqaGenesis HospitalComment on above:Performed By: #### 01260-4 #### ANAIBELISTACEY LERMA (40168) [facility] ([facility]) [address] [place] [address] 65924WIO With P-5'-P [Catalytic activity/Vol]15 U/LNormal9-39 [facility] HospitalComment on above:Performed By: #### 10692-3 #### ANAIBELISTACEY FRANCISCO PRECIOUS (84025) [facility] ([facility]) [address] [place] [address] 91263Qrnsldfct [Mass/Vol]0.7 mg/dLNormal0.0-1.2Genesis HospitalComment on above:Performed By: #### 17841-1 #### ANAIBELISTACEY FRANCISCO PRECIOUS (22131) [facility] ([facility]) [address] [place] [address] 62787Wmrriwh [Mass/Vol]9.8 mg/dLNormal8.6-10.3Genesis HospitalComment on above:Performed By: #### 59755-2 #### ANAIBELISTACEY FRANCISCO PRECIOUS (01113) [facility] ([facility]) [address] [place] [address] 03413Sbmcxguz [Moles/Vol]102 mmol/CWxyibr93-806ShrvffhfsgAultman Orrville HospitalComment on above:Performed By: #### 91810-9 #### ANAIBELISTACEY FRANCISCO PRECIOUS (75569) [facility] ([facility]) [address] [place] [address] [place] [address]FQ3 [Moles/Vol]28 mmol/TCzlfjx54-30QhtmrjijeoGenesis HospitalComment on above:Performed By: #### 60780-5 #### CELESTE LERMA (75741) [facility] ([facility]) [address] [place] [address] 34873Yfdqxsmwmy [Mass/Vol]0.90 mg/dLNormal0.50-1.05UnAultman Orrville HospitalComment on above:Performed By: #### 07127-0 #### CELESTE LERMA (23853) [facility] ([facility]) [address] [place] [address] 89835Abukhwyqgi filtration rate/1.73 sq M.xhedsylad67 mL/min/1.73m*2 Normal>60UnAultman Orrville HospitalComment on above:Result Comment: Calculations of estimated GFR are performed using the 2020 CKD-EPI Study Refit equation without the race variable for the IDMS-Traceable creatinine methods. https://jasn.asnjournals.org/content/early//ASN.6039807230Jvmofyscz By: #### 10424-6 #### CELESTE LERMA (22542) [facility] ([facility]) [address] [place] [address] 72236Kkbtzex [Mass/Vol]148 mg/oCXoyr73-51SuyrtyscbxAultman Orrville HospitalComment on above:Performed By: #### 37929-2 #### CELESTE LERMA (31782) [facility] ([facility]) [address] [place] [address] 64746Nffzrmnha [Moles/Vol]4.5 mmol/LNormal3.5-5.3Genesis HospitalComment on above:Performed By: #### 09172-2 #### CELESTE LERMA (62086) [facility] ([facility]) [address] [place] [address] 34942Ribhmrx [Mass/Vol]7.3 g/dLNormal6.4-8.2Genesis HospitalComment on above:Performed By: #### 03537-6 #### CELESTE LERMA (79471) [facility] ([facility]) [address] [place] [address] 45803Qzunpi [Moles/Vol]138 mmol/DVfrtkp064-149WpsytbbujrAultman Orrville HospitalComment on above:Performed By: #### 22975-1 #### CELESTE LERMA (13871) [facility] ([facility]) [address] [place] [address] 24501Idbn nitrogen [Mass/Vol]10 mg/dLNormal6-23Genesis HospitalComment on above:Performed By: #### 46288-4 #### CELESTE LERMA (18012) [facility] ([facility]) [address] [place] [address] 93758Snuywkwy^AM peak specimenon 13-51-0296Mzzzxhwy AM peak specimen [Mass or moles/Vol]1.9 ug/dLLow5.0-20.0UnAultman Orrville HospitalComment on above:Performed By: #### 3016-3 #### CELESTE LERMA (44571) [facility] ([facility]) [address] [place] [address] 44443Iacmzcanco 12-71-8940Idqvokos [Mass/Vol]26 ng/mLNormal8-150 [facility] HospitalComment on above:Performed By: #### 15568-7 #### CELESTE LERMA (79580) [facility] ([facility]) [address] [place] [address] 76044Ksffjcfu 69-11-7265Ymervs [Mass/Vol]14.2 ng/mLNormal>5.0 [facility] HospitalComment on above:Order Comment: TSH testing is performed using different testing methodology at [facility] than at other [facility]. Direct result comparisons should only be made within the same method.Performed By: #### 3016-3 #### CELESTE LERMA (67053) [facility] ([facility]) [address] [place] [address] 37029Dnsk and Iron binding capacity panelon 44-27-8816Wyvz [Mass/Vol] 199 ug/iWCdhg13-118QsjxeiqqcrGenesis HospitalComment on above:Performed By: #### 29229-4 #### CELESTE LERMA (19042) [facility] ([facility]) [address] [place] [address] 84268Klgb binding capacity [Mass/Vol]384 ug/gBMozuxs036-698UfipepoetmAultman Orrville HospitalComment on above:Performed By: #### 65882-7 #### CELESTE LERMA (42600) [facility] ([facility]) [address] [place] [address] 62956Wctg binding capacity.unsaturated [Mass/Vol]185 ug/dLNormal 110-370UnAultman Orrville HospitalComment on above:Performed By: #### 39291-1 #### CELESTE LERMA (85510) [facility] ([facility]) [address] [place] [address] 27811Fmae saturation [Mass fraction]52 %Ikth99-60AxerjfhbapAultman Orrville HospitalComment on above:Performed By: #### 45566-5 #### CLEESTE LERMA (86439) [facility] ([facility]) [address] [place] [address] 10553Xbmekqloortfl 71-24-5280LLX Qn0.66 m[IU]/LNormal0.44-3.98 [facility] HospitalComment on above:Order Comment: TSH testing is performed using different testing methodology at [facility] than at other [facility]. Direct result comparisons should only be made within the same method.Performed By: #### 27618-5 #### CELESTE LERMA (51376) [facility] ([facility]) [address] [place] [address] 07388Dzzarampa.freeon 45-11-0429Gyug T4 [Mass/Vol]0.69 ng/dLNormal 0.61-1.12Genesis HospitalComment on above:Order Comment: Thyroxine Free testing is performed using different testing methodology at [facility] than at other [facility]. Direct result comparisons should only be made withinthe same method.Biotin can cause falsely elevated free T4 results. Patients taking a Biotin dose ofup to 10 mg/day should refrain from taking Biotin for 24 hours before sample collection. Patient gordon ing a Biotin dose of >10 mg/day should consult with their physician or the laboratory before theblood draw.Performed By: #### 93871-8 #### CELESTE LERMA (70746) [facility] ([facility]) [address], [place] [address]Fe[facility]x Medicine Office/Clinic Noteon 77-48-8726Bsbtuj Medicine Office/Clinic NoteFami Medicine Office/Clinic Note Chief [...] she needs it again. She consulted an field geologist when the issue was just around her [...] Head: no trauma, normocephalic (more content not included)...[facility] CenterComment on above: Result Comment: Electronically Signed By: Lisette Redd\.br\Date and Time Signed: 01/03/24 05:52 EDT\.br\Electronically Co-Signed By: Chava Sanchez\.br\Date and Time Co-Signed: 01/02/24 13:37 EDTAmbulatory Visit Summaryon 69-48-6788Uyhkluxiyi Visit Summary FREDI ELLIOTT :1975 Visit Date:10/01/2023 [...] EDT With: Rona CURTIS, David Chavira Where: [facility] [address] [place] [address]- \.br\ You Need to Schedule the Following Appointments\.br\ Follow Up with Slick AYALA, MARLENY King, MED When: In 3 months\.br\ Comments:\.br\ 3 mo f/u for fatigue, general follow up -discussed specialist findings\.br\ Where:\.br\ [address], [address] [facility] [address]\.br\ [place] [address].br\ Business (1)\.br\ You Need to Complete the Following\.br\ Echo Transthoracic Complete, 10/01/23, Routine, Order for future visit, Transport Mode: Ambulatory, Reason: Syncope, Dizziness, pp_set_radiology_subspecialty, [facility], [facility]\.br\ Medications\.br\ What How Much When [...] numbers. This can be done either in [employer] ([place] or [place] hospitalurements. Note that charts and online BMI calculators are available to help you find your BMI quickly and easily without having to do these calculations yourself.\.br\ To calculate your BMI in [employer] ([place] measurements:\.br\ \.br\ 1. \.br\ Measure your [...] Disease Control and Prevention: www.cdc.gov\.br\ ? \.br\ [place] [employer] Association: w ww.heart.org\.br\ ? \.br\ National Heart, Lung, and Blood [place]: www.nhlbi.nih.gov\.br\ Summary\.br\ ? \.br\ Body mass index (BMI) is a number that is calculated from a person's weight and height.\.br\ ? \.br\ BMI may help estimate how much of a person's weight is composed of fat. BMI can help identify those who may be at higher risk for certain medical problems.\.br\ ? \.br\ BMI can be measured using [employer] measurements or metric measurements.\.br\ ? \.br\ BMI charts are used to identify whether you are underweight, normal weight, overweight, or obese.\.br\ This information is not intended to replace advice given to you by your health care provider. Make sure you discuss any questions you have with your health care provider.\.br\ Document Revised: 01/21/2020 Document Reviewed: 11/28/2019 [employer] Patient Education ? 2022 [employer].br\ Dizziness\.br\ Dizziness is a common problem. [...] or beverage contains caffeine.\.br\ ? \.br\ LimitFisher [facility]/Clinic Noteon 57-43-1200Cxjidm Medicine Office/Clinic NoteChief Complaint 1 mo. f/u, [...] E9/L (04/16/23) Bili Tot (more content not included)...[facility] CenterComment on above:Result Comment: Electronically Signed By: Lisette [...] ? Atopic dermatitis or eczema. This is correction (chronic) inflammation of the skin. ? Food [...] related conditions, such as: ? Asthma. ? [place] [facility]. This is eye inflammation caused by [...] and dust regularly. General instructions ? Take ajqo-loq-peoertb and prescription medicines only as told by your health care provider. ? Drink enough fluid to keep your urine pale yellow. ? Keep all follow-up visits as told by your health care provider. This is important. Where to find more information ? [place] [employer] Allergy, Asthma & Immunology: www.aaaai.org [...] the hospital. Summ (more content not included)...NormalFisher The [facility] Pratt HospitalUS Retroperitoneal Completeon 26-80-7330NN Retroperitoneal CompleteExam Date/Time: 09/06/2023 10:04 EDT Reason [...] De Oca MD Transcribed by: ALVERTO Technologist: [facility] Medical CenterConsent for Treatmenton 82-61-6356Ssdubnx for Treatment [id number]#1.00TIFFCoshocton Regional Medical CenterCBC panel Auto (Bld)on 41-03-4242Pagkoxsznbc distribution width (RBC) [Ratio]13.0 %Ymckmq34.5-14.5UnAultman Orrville HospitalComment on above:Performed By: #### 39510-0 #### CELESTE LERMA (59531) [facility] ([facility]) [address] [place] [address] 41267Szpqmkunlq (Bld) [Volume fraction]37.6 %Dsmxvo27.0-46.0 [facility] HospitalComment on above:Performed By: #### 95356-9 #### CELESTE LERMA ([id number]) [facility] ([facility]) [address] [place] [address] 80254Xmaujlzkwn (Bld) [Mass/Vol]12.3 g/hHUqwpkl61.0-16.0Gen[facility] HospitalComment on above:Performed By: #### 94238-3 #### CELESTE LERMA (73564) [facility] ([facility]) [address] [place] [address] 81793HCA (RBC) [Entitic mass]31.5 ukOibrqm65.0-34.0Gen[facility] HospitalComment on above:Performed By: #### 68484-9 #### CELESTE LERMA (51160) [facility] ([facility]) [address] [place] [address] 80156PNDD (RBC) [Mass/Vol]32.7 g/xBDkbxmy11.0-36.0UnAultman Orrville HospitalComment on above:Performed By: #### 76182-6 #### CELESTE LERMA (61662) [facility] ([facility]) [address] [place] [address] 72094ATH (RBC) [Entitic vol]96 jBLumhfj68-964GujchwvxrqGenesis HospitalComment on above:Performed By: #### 18082-4 #### CELESTE LERMA (95563) [facility] ([facility]) [address] [place] [address] 82560Pftzwdupd RBC/100 WBC (Bld) [Ratio]0.0 /100 WBCsNormal0.0-0.0 [facility] HospitalComment on above:Performed By: #### 86125-4 #### CELESTE LERMA (52743) [facility] ([facility]) [address] [place] [address] 69335Ezzrkvnii (Bld) [#/Vol]289 x10*3/uDGmdrph647-063QmpqllwithAultman Orrville HospitalComment on above:Performed By: #### 36246-8 #### CELESTE LERMA (57578) [facility] ([facility]) [address] [place] [address] 17485WCI (Bld) [#/Vol]3.91 x10*6/uLLow4.00-5.20Gen[facility] HospitalComment on above:Performed By: #### 57424-8 #### CELESTE LERMA (19120) [facility] ([facility]) [address] [place] [address] 77564VNB (Bld) [#/Vol]5.2 x10*3/uLNormal4.4-11.3Gen[facility] HospitalComment on above:Performed By: #### 34213-5 #### CELESTE LERMA (41996) [facility] ([facility]) [address] [place] [address] 76445Btgqjbprvyt 66-17-987210614167-hdpfvzojhizpdi D3 [Mass/Vol]40 ng/mL Nxcnum01-604DlvncfienrGenesis HospitalComment on above:Order Comment: Deficiency: < 20 ng/ml Insufficiency: 20-29 ng/ml Sufficiency: 30-100 ng/ml This assay accurately quantifies the sum of Vitamin D3, 25-Hydroxy and Vitamin D2,25-Hydroxy.Performed By: #### 1989-3 #### CELESTE LERMA (29132) [facility] ([facility]) [address] [place] [address] 41689Sxfdnbnagjgu 79-20-9672Jvyszrugf (Vitamin B12) [Mass/Vol]743 pg/aSIrhleh225-801FyafbueblgGenesis HospitalComment on above: Performed By: #### 2132-9 #### CELESTE LERMA (16954) [facility] ([facility]) [address] [place] [address] 27786Fpvcbsfwxzpzd metabolic 2000 panelon 30-22-6478Qezkose BCP dye [Mass/Vol]4.6 g/dLNormal3.4-5.0[facility] Comment on above:Performed By: #### 23729-3 #### CELESTE LERMA (54316) [facility] ([facility]) [address] [place] [address] 10727WQL [Catalytic activity/Vol]36 U/KQdkzqt96-960WvhbsxwnbiAultman Orrville HospitalComment on above:Performed By: #### 76351-6 #### CELESTE LERMA (82375) [facility] ([facility]) [address] [place] [address] 27364ZYB With P-5'-P [Catalytic activity/Vol]14 U/LNormal7-45 [facility] HospitalComment on above:Result Comment: Patients treated with Sulfasalazine may generate falsely decreased results for ALT.Performed By: #### 61457-0 #### XOCHITLIBGAIL LERMA (35215) [facility] ([facility]) [address] [place] [address] 04277Mliyz gap [Moles/Vol]13 mmol/ENvvqwa27-52PliibpzfrwAultman Orrville HospitalComment on above:Performed By: #### 77145-5 #### CELESTE LERMA (36377) [facility] ([facility]) [address] [place] [address] 00067XOI With P-5'-P [Catalytic activity/Vol]17 U/LNormal9-39 [facility] HospitalComment on above:Performed By: #### 29441-4 #### CELESTE LERMA (50524) [facility] ([facility]) [address] [place] [address] 40938Vegqzljlh [Mass/Vol]0.6 mg/dLNormal0.0-1.2UnAultman Orrville HospitalComment on above:Performed By: #### 72394-9 #### XOCHITLIBGAIL LERMA (47283) [facility] ([facility]) [address] [place] [address] 44323Hoyqrgp [Mass/Vol]9.7 mg/dLNormal8.6-10.3UnAultman Orrville HospitalComment on above:Performed By: #### 87774-7 #### XOCHITLIBGAIL LERMA (28247) [facility] ([facility]) [address] [place] [address] 10353Oidamxgt [Moles/Vol]103 mmol/CBpxvht39-947Gtlslzcctz Hospitals Bunch Medical CenterComment on above:Performed By: #### 19218-1 #### CELESTE LERMA (53134) [facility] ([facility]) [address] [place] [address] 22538SN4 [Moles/Vol]28 mmol/GIuxvuo34-04ZxsfigocqjGenesis HospitalComment on above:Performed By: #### 23650-3 #### CELESTE LERMA (69316) [facility] ([facility]) [address] [place] [address] 84678Pglwyhiinf [Mass/Vol]0.90 mg/dLNormal0.50-1.05UnAultman Orrville HospitalComment on above:Performed By: #### 23210-9 #### CELESTE LERMA (38741) [facility] ([facility]) [address] [place] [address] 52943Iiqkjqiwza filtration rate/1.73 sq M.umtsnbwsi16 mL/min/1.73m*2 Normal>60UnAultman Orrville HospitalComment on above:Result Comment: Calculations of estimated GFR are performed using the 2020 CKD-EPI Study Refit equation without the race variable for the IDMS-Traceable creatinine methods. https://jasn.asnjournals.org/content/early/ASN.0987260249Ejpwgfvkq By: #### 34287-1 #### CELESTE LERMA (75497) [facility] ([facility]) [address] [place] [address] 27052Djiypqn [Mass/Vol]119 mg/pXEbmq54-62XlmpfpiotaAultman Orrville HospitalComment on above:Performed By: #### 04178-6 #### CELESTE LERMA (53066) [facility] ([facility]) [address] [place] [address] 38252Vbxzsxgsw [Moles/Vol]3.9 mmol/LNormal3.5-5.3Gen[facility] HospitalComment on above:Performed By: #### 79778-3 #### CELESTE LERMA (42637) [facility] ([facility]) [address] [place] [address] 08208Ehlbcja [Mass/Vol]7.0 g/dLNormal6.4-8.2UnAultman Orrville HospitalComment on above:Performed By: #### 96610-9 #### CELESTE LERMA (68186) [facility] ([facility]) [address] [place] [address] 10195Qstvzy [Moles/Vol]140 mmol/WYftcqw130-256GhrcdhxesdAultman Orrville HospitalComment on above:Performed By: #### 73647-6 #### CELESTE LERMA (89563) [facility] ([facility]) [address] [place] [address] 09923Yxob nitrogen [Mass/Vol]11 mg/dLNormal6-23UnAultman Orrville HospitalComment on above:Performed By: #### 48235-2 #### CELESTE LERMA (54782) [facility] ([facility]) [address] [place] [address] 67186Exxxvnvp^AM peak specimenon 00-95-1120Cittnwuq AM peak specimen [Mass or moles/Vol]16.1 ug/dLNormal5.0-20.0UnAultman Orrville HospitalComment on above:Performed By: #### 80016-2 #### TUSHAR Greer (95132) [facility] ([facility]) [id number] [place] [address] 65846Wgraihcv 05-24-2098Qfnmyu [Mass/Vol]19.5 ng/mLNormal>5.0 [facility] HospitalComment on above:Order Comment: Low <3.4 Borderline 3.4-5.0 Normal >5.0 Patients receiving more than 5 mg/day of biotin may have interference in test results. A sample should be taken no sooner than eight hours after previous dose. Contact the testing laboratory for additional information.Performed By: #### 2284-8 #### CELESTE LERMA (05406) [facility] ([facility]) [address] [place] [address] 33564Iyexzsljasn and Lutropin panel Qnon 45-01-6446Uhbrxubegda Qn15.0 IU/LNormalUnAultman Orrville HospitalComment on above:Result Comment: FSH Ref Values Follicular 2.0-12.0 IU/L Mid-Cycle 12.0-25.0 IU/L Luteal Phase 2.0-12.0 IU/L Menopause 30.0-150.0 IU/L Pre-puberty 50% Adult IU/L Adult Male 2.0-10.0 IU/L Infants 0.0-1.0 IU/LPerformed By: #### 24557-3 #### TUSHAR Greer ([id number]) [facility] ([facility]) [id number] [place] [address] 38398Ezwpoptb Qn6.2 IU/LNormalUnAultman Orrville HospitalComment on above:Result Comment: LH Reference Values Follicular Phase 1.9-12.5 IU/L Mid-Cycle 8.7-76.3 IU/L Luteal Phase 0.5-16.9 IU/L Post Menopause 5.0-55.2 IU/L Children 0- 6.0 IU/L Adult Male 18-70 years 1.5- 9.3 IU/L Adult Male >70 years 3.1-34.6 IU/LPerformed By: #### 07850-9 #### TUSHAR Greer ([id number]) [facility] ([facility]) [address] [place] [address] 37744HDIBWJUYXDEFW AND ANTITHYROGLOBULINon 39-78-0338JFUYZJYIKWWKF 24.4 ng/mLNormal1.3-31.8Genesis HospitalComment on above:Result Comment: INTERPRETIVE INFORMATION: Thyroglobulin, Serum or Plasma Specimens negative for thyroglobulin antibodies (TgAb) are tested for thyroglobulin (Tg) by chemiluminescent immunoassay (ALISTAIR) using the Content Fleet Access DxI method. Specimens with TgAb results [...] cancer in the general population.Performed By: #### 63897-7 #### CELESTE LERMA ([id number]) [facility] ([facility]) [address] [place] [address] 22421NOHPYZFVFTJVX AB (IU/ML) IN SER/PLAS<0.2Jkbqyf5.0-4.0UnAultman Orrville HospitalComment on above:Result Comment: INTERPRETIVE INFORMATION: Thyroglobulin Antibody A value of 4.0 IU/mL or less indicates a negative result for thyroglobulin antibodies. The Thyroglobulin Antibody assay is being performed using the Content Fleet Access DxI method.Performed By: #### 34782-6 #### CELESTE LERMA ([id number]) [facility] ([facility]) [address] [place] [address] 49285CCSAHSPTKRXCE LC-MS/MSNot ApplicableNormal1.3-31.8UnAultman Orrville HospitalComment on above:Result Comment: INTERPRETIVE INFORMATION: Thyroglobulin by LC-MS/MS, Serum/Plasma Lower limit of detection for Thyroglobulin by LC-MS/MS is 0.5 ng/mL. This test was developed and its performance characteristics determined by [facility]. It has not been cleared or approved by the US Food and Drug Administration. This test was performed in a CLIA certified laboratory and is intended for clinical purposes. Performed By: [facility] [address] [place] [address] Franchise Specialist: Reggie Christensen MD, PhD CLIA Number: [id number] By: #### 78327-4 #### CELESTE LERMA ([id number]) [facility] ([facility]) [address] [place] [address] 94895Vcwgjqq stimulating immunoglobulinson 14-12-2738Ayyqsxl stimulating immunoglobulins Qn (S)<1.0Normal<=1.3UnAultman Orrville HospitalComment on above:Result Comment: Test Performed by: [facility] [address] [place] [address] Seismic Engineer: Teofilo Solorzano M.D. Ph.D.; CLIA# [id number] By: #### 40113-5 #### CELESTE LERMA ([id number]) [facility] ([facility]) [address] [place] [address] 82107Zzbwhxucuarotne Abon 00-87-9369FEE Ab Qn46 [IU]/mLNormal<=60 [facility] HospitalComment on above:Order Comment: Negative: <=60 U/mLPositive: >60 U/mLPerformed By: #### 47277-0 #### CELESTE LERMA ([id number]) [facility] ([facility]) [address] [place] [address] 28260Nemvngeoujxfk 36-25-4873YYA Qn1.71 m[IU]/LNormal0.44-3.98 Genesis HospitalComment on above:Order Comment: TSH testing is performed using different testing methodology at [facility] than at other [facility]. Direct result comparisons should only be made within the same method.Performed By: #### 3016-3 #### CELESTE LERMA ([id number]) [facility] ([facility]) [address] [place] [address] 80828Kjndusdsjyn receptor Abon 57-66-1749KOR receptor Ab Qn (S)<1.10 Normal<=1.75UnAultman Orrville HospitalComment on above:Result Comment: Performed By: [facility] [address] [place] [address] Franchise Specialist: Reggie Christensen MD, PhD CLIA Number: [id number] By: #### 45610-9 #### CELESTE LERMA ([id number]) [facility] ([facility]) [address] [place] [address] 82032Givkvdizd.freeon 04-44-0757Agdm T4 [Mass/Vol]0.74 ng/dLNormal 0.61-1.12UnAultman Orrville HospitalComment on above:Order Comment: Thyroxine Free testing is performed using different testing methodology at [facility] than at other [facility]. Direct result comparisons should only be [...] draw.Performed By: #### 3024-7 #### CELESTE LERMA ([id number]) [facility] ([facility]) [address] [place] [address] 92248Xdxrnfpmwlapzlwq.freeon 64-41-6824Xwfw T3 [Mass/Vol]3.5 pg/mL Normal2.3-4.2Genesis HospitalComment on above: Performed By: #### 3051-0 #### TUSHAR Greer ([id number]) [facility] ([facility]) [address] [place] [address] 21051Lqhuiwoznk Visit Summaryon 67-32-8674Jzbnuboxde Visit Summary EARLFREDI :1975 Visit Date:08/30/2023 Ambulatory [...] 10:00 AM EDT With: Lisette Redd Where: [facility] Primary CareInvalid Interpretation [address] [place] [address]- \.br\ You Need to Schedule the Following Appointments\.br\ Follow Up with Lisette Redd, BRIANNE FARMER When: In 3 months\.br\ Comments:\.br\ f/u fatigue, dry/red eyes, depression/ anxiety\.br\ Where:\.br\ [address], [address] [facility] [address]\.br\ [place] [id number]-\.br\ \.br\ You Need to Complete the Fol lowing\.br\ US Retroperitoneal Complete, 08/30/23, Routine, Order for future visit, Transport Mode:Ambulatory, Reason: Other (please specify), No, Urinary urgencyWilson HealthAmbulatory Visit Summary FREDI ELLIOTT :1975 Visit Date:08/30/2023 [...] 10:00 AM EDT With: Lisette Redd Where: [facility] Primary CareInvalid Interpretation [address] [address]- \.br\ You Need to Schedule the Following Appointments\.br\ Follow Up with Lisette Redd, [facility] When: In 3 months\.br\ Comments:\.br\ f/u fatigue, dry/red eyes, depression/ anxiety\.br\ Where:\.br\ [address], [address]\.br\ [place] [address]-\.br\ \.br\ You Need to Complete the Fol lowing\.br\ US Retroperitoneal Complete, 08/30/23, Routine, Order for future visit, Transport Mode:Ambulatory, Reason: Other (please specify), No, Urinary urgencyFormerly [facility] Medicine Office/Clinic Noteon 23-03-5468Bbjvpx Medicine Office/Clinic NoteChief Complaint 2 week follow [...] various specialist IE endocrine/ hematology/ optho/ or field geologist can take months , not weeks. (OPTHO [...] negative. continued red/dry eye- has been to field geologist, getting ready to do allergy - mold [...] 1.030) 08/03/2023 11:24 U (more content not included)...[facility] CenterComment on above:Result Comment: Electronically Signed By: Lisette [...] these instructions at home: Medicines ? Take xrrt-txl-ivcfgtz and prescription medicines only as told by [...] the National Suicide Prevention Lifeline at or 546. This is open 24 hours a day. ? Text the Crisis Text Line at 446768. Summary ? If you have fatigue, you [...] provider. Document Revised: 02/20/2022 Document Reviewed: 02/20/2022 [employer] Patient Education ? 2022 imeem. Infectious Disease Hepatitis C Hepatitis C is [...] during . ? Hav (more content not included)...NormalWilson HealthPhysician Referralon 44-39-9605Ktyduvjdu Referral [id number]#1.00TIFFNormalWilson HealthACTHon 16-16-6308Dbvoaluamokky (P) [Mass/Vol]9.2 pg/mLInvalid Interpretation Code7.2-63.3Fisher [facility] Pratt HospitalComment on above:Result Comment: ACTH reference interval for samples collected between 7 and 10 AM. Performed at: [facility] [id number] PhD Vidhya ThackerPerformed By: #### [id number], 00480662, 05436276, 38184965, [id number], 97465505, 5148583 ####[facility] [address] [place], [place] [address]FIO Antibody Profileon 24-72-5232AAS capsid IgG IA Qn (S)133.0 unit/mLHigh0.0-17.9Wilson HealthComment on above:Result Comment: Negative <18.0 Equivocal 18.0 - 21.9 Positive >21.9Performed By: #### 49634804, 40773612, 92802318, 39873631, 8285427839, 32953429, 3414428 ####[place] [place], [place] [address]KEO capsid IgM IA Qn (S)<36.0Invalid Interpretation Code0.0-35.9Wilson HealthComment on above:Result Comment: Negative <36.0 Equivocal 36.0 - 43.9 Positive >43.9Performed By: #### 42959839, 94913427, 98587015, 91298254, 7599718561, 40248162, 4077319 ####[address] [place], [place] [address]NXR nuclear IgG IA Qn (S)<18.0Invalid Interpretation Code0.0-17.9Wilson HealthComment on above:Result Comment: Negative <18.0 Equivocal 18.0 - 21.9 Positive >21.9Performed By: #### 48023613, 76607854, 00497169, 23363754, 7072335614, 24827384, 1466925 ####[address] [place], [place] [address]Poqlqcx comment (Unsp spec) [Interp]CommentInvalid Interpretation CodeWilson HealthComment on above:Result Comment: EBV Interpretation Chart Boogie: [...] never develop antibodies to EBNA. Performed at: [facility] [address] [place] [address] [id number] PhD Vidhya ThackerPerformed By: #### 14977356, 53009658, 56473772, 58601947, 4883507384, 17144456, 4947549 ####[address] [place], [place] [address]PgQ, Quant.on 11-40-7112KiF [Mass/Vol]144 mg/dLInvalid Interpretation Bkrz11-019ExsvnoWilson Health Comment on above:Result Comment: Performed at: [place] [address] [place], [place] [id number] PhD Vidhya Geigerformed By: #### 49251863, 83964270, 94136975, 64890920, 5249882322, 59594687, 7053451 ####[facility] [address] [place], [place] [address]QjJ, Quanton 81-98-4052HtH Qn54 International_Unit/mLInvalid Interpretation Code6-495[facility] Comment on above:Result Comment: Performed at: [place] [address] [place], [place] [id number] MD Jm Burdickformed By: #### 01477879, 45205101, 27633349, 72520848, 8037600834, 86624976, 7454571 ####[facility] [address] [place], [place] [address]KoT, Quant.on 30-18-3754GoM [Mass/Vol]929 mg/dLInvalid Interpretation Ogfp772-2404EuvaveWilson HealthComment on above:Result Comment: Performed at: [address] [id number] PhD Vidhya Geigerformed By: #### 69454895, 54729660, 72315637, 43550643, 7177704865, 67234173, 1572363 ####[facility] [address]NR[place]ingham, [place] [address]DjF, Quanton 72-81-1389LdY [Mass/Vol] 102 mg/dLInvalid Interpretation Wsao93-370YeyyvoWilson HealthComment on above:Result Comment: Performed at: [facility] [address] [place], [place] [id number] PhD Vidhya Geigerformed By: #### 37323611, 49707235, 95755349, 73131623, 5649825237, 67680920, 9914905 ####[facility] [address] Luis [place], [place] [address]Kxafbcycj Referralon 08-19-2023 Physician [id number]#1.00[facility] OhioCHEMISTRYOrdered By: SYSTEM SYSTEM on 48-16-0869Mpim [Mass/Vol]154 ug/fXEsgr79 - 153 mcg/dLRemisol ChemAmphetamines Screen method >1000 [...] by Physician Called to Sherice Elena RN @0960 08/16/23Interpretive Data: Negative Cutoff: <50 ng/mLCocaine Ql [...] (e.g., employment testing, legal testing).Consent for Treatmenton 02-47-9107Bthyqua for [id number]#1.00TIFF NormalWilson HealthIronon 90-57-5377Nphe [Mass/Vol]154 microgram/tXNigq24-419BwsrpmWilson HealthComment on above:Performed By: #### 94027292, 8817559305, 9805063550 #### [facility] [address] [place], [place] [address]U Drug Screenon 12-16-6877Dmmachtpwpbj Screen method >1000 ng/mL Ql (U)NegativeNormalNEGATIVEWilson HealthComment on above: Result Comment: Negative Cutoff: <1000 ng/mLPerformed By: #### 7370326 ####[facility] [address] [place] [address] Barbiturates Screen Ql (U)NegativeNormalNEGRiverside Methodist Hospital Comment on above:Result Comment: Negative Cutoff: <200 ng/mLPerformed By: #### 4294386 ####[facility] [address] [place], [place] [address]Slzjgirdzfssplv Ql (U)NegativeNormalNEGRiverside Methodist Hospital Comment on above:Result Comment: Negative Cutoff: <200 ng/mLPerformed By: #### 5387566 ####[facility] [address] [place], [place] [address]Dtwxcwhectyz Screen Ql (U)PositiveAbnormalNEGRiverside Methodist HospitalComment on above:Result Comment: Critical Result Verified by Repeat Analysis No Confirmation Requested by Physician Called to Shericedain Elena RN @1550 08/16/23 Negative Cutoff: <50 ng/mLPerformed By: #### [id number] ####[address] [place], [place] [address]Gfhgpts Ql (U)NegativeNormal NEGATIVEWilson HealthComment on above:Result Comment: Negative Cutoff: <300 ng/mLPerformed By: #### 2288477 ####[address] [place], [place] [address]Mtxfyqa Screen Ql (U)NegativeNormal NEGATIVEWilson HealthComment on above:Result Comment: Negative Cutoff: <300 ng/mLPerformed By: #### 0264755 ####[address] [address]Zawoyhzqwwawa Screen method >25 ng/mL Ql (U)NegativeNormalNEGATIVEWilson HealthComment on above:Result Comment: Negative Cutoff: <25 ng/mL These drug screen results are to be used for medical (i.e., treatment) purposes only. Unconfirmed drug screening results must not be used for non-medical purposes (e.g., employment testing, legal testing).Performed By: #### 8981161 ####[address] [address] FentanylNegativeNormalNEGATIVEWilson HealthComva medical center on above:Result Comment: Negative Cutoff: <5 ng/mL These drug screen results are to be used for medical (i.e., treatment) purposes only. Unconfirmed drug screening results must not be used for non-medical purposes (e.g., employment testing, legal testing).Performed By: #### 2658172 ####[address] [place] [address] Physician Referralon 15-18-6610Dgcpnlmvi Referral [id number]#1.00TIFFNormalWilson HealthChlam/GC/Trich,NAAon 4C. trachomatis rRNA TIFFANI+probe Ql (Unsp spec)NegativeInvalid Interpretation CodeNegativeWilson Health Comment on above:Performed By: #### 03622506, 2538986401, [id number] #### [facility] [address] [place], [place] [address]N. gonorrhoeae rRNA TIFFANI+probe Ql (Unsp spec)NegativeInvalid Interpretation CodeNegativeWilson HealthComment on above:Performed By: #### 49191922, 1575647873, [id number] #### [facility] [address] [place], [place] [address]D. vaginalis rRNA TIFFANI+probe Ql (Unsp spec)NegativeInvalid Interpretation CodeNegativeWilson HealthComment on above:Result Comment: Performed at: = [address] [id number] MD Kate ScalesPerformed By: #### 07216563, 0958193381, 8018439614 #### [facility] [address] [place] [address].HCV RT-PCR, Quant (Non-Graph)on 65-51-9796Vzizrtabtv impression Molgen Tio (Unsp spec) [Interp]CommentInvalid Interpretation Code Wilson HealthComment on above:Result Comment: Positive HCV antibody screen without the presence of HCV RNA is consistent with a resolved past infection or a false positive HCV antibody. Consider repeat testing after one month. Performed at: [address] [id number] MD Jm AshfordiPerformed By: #### 45594113, 9997945233, [id number] #### [facility] [address] [place], [place] [address]KBE RNA TIFFANI+probe QnNot detectedInvalid Interpretation Code Wilson HealthComment on above:Performed By: #### 02689103, 8208026832, [id number] #### [facility] [address] [place] [address]Oyvtbspqq Lab Test Reference RangeCommentInvalid Interpretation CodeWilson HealthComment on above:Result Comment: The quantitative range of this assay is 15 IU/mL to 100 million IU/mL.Performed By: #### 96357412, 2843040010, [id number] #### [facility] [address] [place] [address]THTIeu 41-43-4181Ohnshccmasdiw (P) [Mass/Vol]4.3 pg/mLLow 7.2-63.3Fisher [facility] Pratt HospitalComment on above:Result Comment: ACTH reference interval for samples collected between 7 and 10 AM. Performed at: [facility] [address] [place], [place] [id number] PhD Vidhya ThackerPerformed By: #### 84148857, 1304213750, [id number] #### [facility] [address] [place] [address]QKM w/Reflex if POSon 12-40-9567Ktlmktr Ab Ql (S)Negative Invalid Interpretation CodeNegativeWilson HealthComment on above: Result Comment: Performed at: [facility] [address] [place], [place] [id number] PhD Vidhya ThackerPerformed By: #### 62838815, 0484272403, 0672150632 #### [facility] [address] [place] [address]Fhlnl Hepatitis A B C Panelon 13-01-6782HNL IgM IA QlNegative Invalid Interpretation CodeNegativeWilson HealthComment on above: Performed By: #### 97803410, 5053051153, 6548038833 #### [facility] [address] [place] [address]KAC core IgM IA QlNegativeInvalid Interpretation CodeNegative Wilson HealthComment on above:Performed By: #### 55918206, 9745477209, 6728818963 #### [facility] [address] [place], [place] [address]FDJ surface Ag IA QlNegativeInvalid Interpretation CodeNegative Wilson HealthComment on above:Performed By: #### 65130899, 4989312341, 7477320186 #### [facility] [address] [place], [place] [address]THR IgG IA QlReactiveAbnormalNon ReactiveWilson HealthComment on above:Result Comment: Performed at: [address] [id number] PhD Vidhya Geigerformed By: #### 21235229, 1744203079, 2128364119 #### [facility] [address] [place] [address]Eoxkltnfdj 72-18-7750Twjsnmtn [Mass/Vol]11.7 microgram/dL Invalid Interpretation Code6.2-19.4FTriHealth McCullough-Hyde Memorial HospitalComment on above: Result Comment: Please Note: The reference interval and flagging for this test is for an AM collection. If this is a PM collection please use: Cortisol PM: 2.3-11.9 Performed at: [address] [id number] PhD Vidhya Geigerformed By: #### 93259085, 2537098878, [id number] #### [facility] [address] [place] [address]JMK RNA by PCR, Qn Rfx Genoon 53-38-4332CLD genotype TIFFANI+probe NomCOMMENTInvalid Interpretation [facility] CampusComment on above:Result Comment: Not indicated Performed at: [address] [id number] MD Jm Burdickformed By: #### 90663554, 5676171826, [id number] #### [facility] [address] [place] [address]VHL RNA TIFFANI+probe [Log units/Vol]COMMENTInvalid Interpretation [facility] CampusComment on above:Result Comment: Unable to calculate result since non-numeric result obtained for component test.Performed By: #### 48886005, 6745904072, [id number] #### [facility] [address] [place], [place] [address]Vzmahfoexs comment Tio (Report)CommentInvalid Interpretation CodeWilson HealthComment on above:Result Comment: The quantitative range of this assay is 15 IU/mL to 100 million IU/mL.Performed By: #### 92145602, 9654271139, [id number] #### [facility] [address] [place], [place] [address]JSX Screen 4th Generation wRfxon 87-83-4682RHK 1+2 Ab+HIV1 p24 Ag IA QlNon-ReactiveInvalid Interpretation CodeNon ReactiveWilson HealthComment on above:Result Comment: HIV Negative HIV-1/HIV-2 antibodies and HIV-1 p24 antigen were NOT detected. There is no laboratory evidence of HIV infection. Performed at: [facility] [address] [place], [place] [id number] PhD Vidhya Geigerformed By: #### 40510525, 0739158237, 1878433234 #### [facility] [address] [place], [place] [address]HE Quanton 00-41-1846Fgcrdbrbyb factor Qn10.5 International_Unit/mLInvalid Interpretation Code<14.0[facility] Comment on above:Result Comment: Performed at: [facility] [address] [place], [place] [id number] [id number] PhD Vidhya Geigerformed By: #### 04793616, 2953842888, 8675794901 #### [facility] [address], [place] [address]KLXUMGRKSGqtlkes By: SYSTEM SYSTEM on 29-23-170580- hydroxyvitamin D3 [Mass/Vol]45.9 ng/sSAqysun48.0 - 100.0 ng/mLRemisol ChemFree T4 [Mass/Vol]0.75 ng/dLNormal0.58 - 1.64 ng/dLRemisol ChemTSH Qn1.47 m[IU]/L Normal0.34 - 5.60 mcIU/mLRemisol ChemCHEMISTRYOrdered By: Catalina Roth on 93-00-9110Gvlretc [Mass/Vol]5.0 g/dLNormal3.3 - 5.0 gm/dLFT Chem S Albumin/Globulin [Mass ratio]2.0 {ratio}Normal1.1 - 2.2FTM Chem SALP [Catalytic activity/Vol]39 [iU]/nSnlfhg87 - 98 Int._Unit/[facility] Chem SALT No additional P-5'-P [Catalytic activity/Vol]13 [iU]/dNormal6 - 46 Int._Unit/[facility] Chem SAnion gap [Moles/Vol]12 mmol/LNormal6 - 16 mEq/[facility] Chem SAST [Catalytic activity/Vol]18 [iU]/dNormal5 - 43 Int._Unit/[facility] Chem SBilirubin [Mass/Vol]1.0 mg/dLNormal0.0 - 1.1 mg/dLFT Chem SCalcium [Mass/Vol]9.5 mg/dLNormal8.9 - 11.1 mg/dLFT Chem SChloride [Moles/Vol]103 mmol/LMchldq373 - 111 mmol/[facility] Chem SCO2 [Moles/Vol]27 mmol/RXbchyl52 - 31 mmol/[facility] Chem SCreatinine [Mass/Vol]0.9 mg/dLNormal0.5 - 1.3 mg/dLFT Chem SCRP [Mass/Vol]mg/dLNormal <=1.9mg/dLFT Chem SeGFR80 mL/min/1.73 r3Ayukwx>=59mL/min/1.73 m2[facility] Chem S Globulin (S) [Mass/Vol]2.5 g/dLNormal1.4 - 4.0 gm/dLFT Chem SGlucose [Mass/Vol]102 mg/lRZjcwnz24 - 199 mg/dLFT Chem SMagnesium [Mass/Vol]1.9 mg/dL Normal1.3 - 2.4 mg/dLNEWMAN MEMORIAL [facility] Chem SPotassium [Moles/Vol]4.1 mmol/LNormal3.5 - 5.3 mmol/LFTMC Chem SProtein [Mass/Vol]7.5 g/dLNormal6.0 - 7.8 gm/dLNEWMAN [facility]ORIAL [facility] Chem S Sodium [Moles/Vol]138 mmol/EIhomsr876 - 145 mmol/LFTMC Chem SUrea nitrogen [Mass/Vol]10 mg/dLNormal5 - 21 mg/dLNEWMAN MEMORIAL [facility] Chem SUrea nitrogen/Creatinine [Mass ratio]11 mg/hoJmkwxr38 - 20[facility] Chem SCMPon 89-36-9894Nczckch [Mass/Vol]5.0 g/dL Normal3.3-5.0Wilson HealthComment on above:Performed By: #### [id number], 0474373630, [id number] #### [facility] [address] [place] [address]Hoczkul/Globulin (S) [Mass conc ratio]2.0Ofdove5.1-2.2FTriHealth McCullough-Hyde Memorial HospitalComment on above:Performed By: #### 60721379, 9989240077, [id number] #### [facility] [address] [place], [place] [address]YSR [Catalytic activity/Vol]39 Int._Unit/GFjotqg45-51QrerjuWilson HealthComment on above:Performed By: #### 59070712, 1020879345, [id number] #### [facility] [address] [place], [place] [address]HFN No additional P-5'-P [Catalytic activity/Vol]13 Int._Unit/L Normal6-46Wilson HealthComment on above:Performed By: #### 83743196, 3477318133, [id number] #### [facility] [address] [place], [place] [address]Pfnrj gap [Moles/Vol]12 mmol/LNormal6-16Wilson HealthComment on above:Performed By: #### 50720128, 3559453407, 5995376908 #### [facility] [address] [place], [place] [address]KPK [Catalytic activity/Vol]18 Int._Unit/LNormal5-43Wilson HealthComment on above:Performed By: #### 95407527, 1827971843, [id number] #### [facility] [address] [place], [place] [address]Fjajdtoyq [Mass/Vol]1.0 mg/dLNormal0.0-1.1FTriHealth McCullough-Hyde Memorial HospitalComment on above:Performed By: #### 28035542, 9562009340, [id number] #### [facility] [address] [place], [place] [address]Sevyqar [Mass/Vol]9.5 mg/dLNormal8.9-11.1FTriHealth McCullough-Hyde Memorial HospitalComment on above:Performed By: #### 48397323, [id number], [id number] #### [facility] [address], [place] [address]Gpberuht [Moles/Vol]103 mmol/JVmdywd006-603OxdnfyWilson HealthComment on above:Performed By: #### [id number], [id number], [id number] #### [facility] [address], [place] [address]IK6 [Moles/Vol]27 mmol/YHntejq29-86OiozcwWilson Health Comment on above:Performed By: #### [id number], [id number], [id number] #### [facility] [address], [place] [address]Aqplbijvgr [Mass/Vol]0.9 mg/dLNormal0.5-1.3FTriHealth McCullough-Hyde Memorial HospitalComment on above:Performed By: #### [id number], [id number], [id number] #### [facility] [address], [place] [address]Zmmvgdlg (S) [Mass/Vol]2.5 g/dLNormal1.4-4.0Wilson HealthComment on above:Performed By: #### [id number], [id number], [id number] #### [facility] [address], [place] [address]Wahsnfh [Mass/Vol]102 mg/vLOloivo36-615QtoalfWilson HealthComment on above:Performed By: #### 90584498, 0553743014, [id number] #### [facility] [address], [place] [address]Xhdgiywkg [Moles/Vol]4.1 mmol/LNormal3.5-5.3FTriHealth McCullough-Hyde Memorial HospitalComment on above:Performed By: #### [id number], [id number], [id number] #### [facility] [address] [place] [address]Nkxekwu [Mass/Vol]7.5 g/dLNormal6.0-7.8Wilson HealthComment on above:Performed By: #### 25419373, 5824580953, [id number] #### [facility] [address], [place] [address]Lwfhgk [Moles/Vol]138 mmol/GEzepxu144-689NfpwlkWilson HealthComment on above:Performed By: #### 19040032, [id number], [id number] #### [facility] [address] [place] [address]Hwcq nitrogen [Mass/Vol]10 mg/dLNormal5-21Wilson HealthComment on above:Performed By: #### 07810165, 0595229089, [id number] #### [facility] [address] [place] [address]Jngd nitrogen/Creatinine [Mass ratio]11 No MyyoiQvjzug68-56 Wilson HealthComment on above:Performed By: #### 40056128, [id number], [id number] #### [facility] [address], [place] [address]BXTwi 93-48-9431GBG [Mass/Vol]mg/LNormal<=1.9Wilson HealthComment on above:Performed By: #### [id number], 6161905405, [id number] #### [facility] [address], [place] [address]Vjtwamy for Treatmenton 76-24-1500Vwqfvjb for Treatment [id number]#1.00TIFFNormalWilson HealthFarutland heights state hospital Medicine Office/Clinic Noteon 71-11-0090Pjnjve Medicine Office/Clinic NoteChief Complaint Eye issue. Had [...] +100cigs/life or Family history): Not mentioned. Specialists: Care Coordination Manager: Not mentioned. Dentist: Not mentioned. Psychology/psychiatry: Not [...] had a consultation with Danette Garay in [place] in 04/2023, including blood work, which was not related to her eye symptoms. She had her liver testing, but she wasnever given any results. She visited the [place] ER on 07/31/2023 due to using steroid [...] eyes cleared up during her stay in [place]. She was coming home from [place] approximately 2 weeks ago when she experienced [...] and syncopal episodes. Sh (more content not included)...NormalWilson HealthComment on above:Result Comment: Electronically Signed By: Lisette Redd\.br\Date and Time Signed: 08/03/23 18:17 EDT\.br\Electronically Co-Signed By: Suzi Ybarra\.br\Date and Time Co-Signed: 08/03/23 12:15 EDTFree T4on 78-95-6118Izxc T4 [Mass/Vol]0.75 ng/dLNormal0.58-1.64Wilson HealthComment on above:Performed By: #### [id number], [id number], [id number] #### [facility] [address] [place] [address]DWCGUELLSHKibdvvl By: Amado Chao on 13-64-3661HSD (Bld) [Velocity]8 mm/hNormal0 - 34 mm/hrNEWMAN MEMORIAL [facility] HemeAutoSSInterdisciplinary Note - Social Workeron 74-43-6513Opjxaqtjcgnrpjstj Note - Social WorkerSW spoke to patient [...] further needs at this time. SW will remainavailable.NormalWilson HealthMagnesiumon 55-15-6734Rwvjgdvbj [Mass/Vol]1.9 mg/dLNormal1.3-2.4Fisher [facility] HospitalComment on above: Performed By: #### [id number], [id number], [id number] #### [facility] [address], [place] [address]JIMDRAEMUsbzycz By: Frieda Cervantes on 97-99-5115HVQ.beta subunit (U) [Moles/Vol]NegativeNormalFT Man SeroSed Rate Automatedon 00-66-6937VEL (Bld) [Velocity]8 mm/hNormal0-34Wilson HealthComment on above: Performed By: #### [id number], 1501371184, [id number] #### [facility] [address], [place] [address]BZViq 50-00-6922HRZ Qn1.47 m[IU]/LNormal0.34-5.60Wilson HealthComment on above:Performed By: #### 41594608, 2154911598, [id number] #### [facility] [address], [place] [address]P BetaHcg Qualon 32-66-4712GUQ.beta subunit (U) [Moles/Vol] NegativeNormalWilson HealthComment on above:Performed By: #### 60085001, [id number], [id number] #### [facility] [address], [place] [address]MUEGSCKGOYCqmapmd By: SYSTEM SYSTEM on 20-99-6902Aidyq (U) Yellow /HPFNormalYellow/HPFFTMC UA Auto SSComment on above:Interpretive Data: Microscopic readings are only performed on those samples that meet specific criteria set forth by [facility].Glucose (U) [Mass/Vol]NegativeNormalNegativemg/dLFT UA Auto SSKetones Ql (U)Negative (08/03/23 11:24 AM)NormalNegativeNEWMAN [facility]ORIAL [facility] UA Auto SSUA BacteriaTrace graded/HPFNormal Tracegraded/HPFFT UA [...] UA Auto SSURINALYSISOrdered By: Christiane Pisano on 15-52-2920VR Spec DescClean Catch (08/03/23 11:24 AM)NormalFT UA Auto SSUrinalysis with Microon 59-82-1023Glkvz (U)YellowNormalYellowWilson HealthComment on above:Result Comment: Microscopic readings are only performed on those samples that meet specific criteria set forth by [facility].Performed By: #### [id number], [id number], [id number] #### [facility] [address], [place] [address]Gtkdwxp (U) [Mass/Vol]NegativeNormalNegativeWilson HealthComment on above:Performed By: #### 90588603, [id number], [id number] #### [facility] [address], [place] [address]Evotill Ql (U)NegativeNormalNegOhioHealth Mansfield Hospital Comment on above:Performed By: #### 11388459, [id number], [id number] #### [facility] [address], [place] [address]ZN Blood1+ CD:[id number] [facility]itus Medical CenterComment on above:Performed By: #### 50723801, [id number], [id number] #### [facility] [address] [address]UA BacteriaTraceNormalTraceWilson HealthComment on above:Performed By: #### 61105814, [id number], [id number] #### [facility] [address], [place] [address]BT ClarityTurbidAbnormalClearFisher [facility] HospitalComment on above:Performed By: #### 72044638, 3367734043, [id number] #### [facility] [address], [place] [address]WR Leuk EstNegativeNormalNegOhioHealth Mansfield Hospital Comment on above:Performed By: #### 97828983, 7823678871, [id number] #### [facility] [address], [place] [address]SK Mucous2+ CD:[id number] [facility] Medical CenterComment on above:Performed By: #### 52169169, 7570458270, [id number] #### [facility] [address], [place] [address]EZ NitriteNegativeNormalNegativeWilson Health Comment on above:Performed By: #### 64272951, [id number], [id number] #### [facility] [address], [place] [address]MJ pH6.0Invalid Interpretation Code5.0-9.0Wilson HealthComment on above:Performed By: #### 94462316, 6586234499, [id number] #### [facility] [address] [place] [address]IV ProteinTraceAbnormalNegOhioHealth Mansfield Hospital Comment on above:Performed By: #### 36667902, [id number], [id number] #### [facility] [address] [place] [address]KU KOD3-80Ddynsaia6-7Qdiuqk [facility] HospitalComment on above:Performed By: #### [id number], [id number], [id number] #### [facility] [address] [place] [address]HT Spec Grav1.028Invalid Interpretation Code1.005-1.030Wilson HealthComment on above:Performed By: #### 93832351, [id number], [id number] #### [facility] [address] [place] [address]IQ Squam Epithelial>90Qvjfygsh4-3Hxkmdk [facility] Comment on above:Performed By: #### 55519890, 0468461023, [id number] #### [facility] [address] [place] [address]CF UrobilinogenNegativeNormalNegativeWilson HealthComment on above:Performed By: #### 30489162, 8866629324, [id number] #### [facility]az [facility] [address] [place] [address]MH YEM6-2Hxkbgy2-1Ilqqzn [facility] HospitalComment on above: Performed By: #### 71670576, 4716472950, [id number] #### Nesbitt [facility] [address] [place] [address]Fuorqyxizjoz (U) [Mass/Vol]NegativeNormalNegativeWilson HealthComment on above:Performed By: #### 74707148, 6044198059, [id number] #### Nesbitt [facility] [address] [place] [address]QG Spec DescClean CatchNormalWilson HealthComment on above:Performed By: #### 31313341, 8960474431, [id number] #### Nesbitt [facility] [address] [place] [address]Cpheopd D 25 Hydroxyon 72-02-805454407137-fzmxisovnvtvxn D3 [Mass/Vol]45.9 ng/dPBwngcf88.0-100.0Wilson HealthComment on above: Performed By: #### 73820515, 8317045277, [id number] #### Nesbitt [facility] [address] [place] [address]gASJaw 60-38-8129yMZL27 mL/min/1.73 o8Inycty>=59Wilson HealthComment on above:Order Comment: Order added by Discern Expert. Performed By: #### [id number], [id number], [id number] #### Nesbitt [facility] [address] [place] [address]Cvygnuphfi Visit Summaryon 57-45-3194Pvgrlmgpqm Visit Summary FREDI ELLIOTT :1975 Visit Date:08/02/2023 [...] 7:00 AM EDT With: Lisette Redd Where: [facility] Primary CareInvalid Interpretation Code [facility] HospitalPatient Educationon 41-78-7615Mxmdold EducationImmunology Fatigue If you have fatigue, you [...] these instructions at home: Medicines ? Take bgsd-wst-ublewfh and prescription medicines only as told by [...] the National Suicide Prevention Lifeline at or 803. This is open 24 hours a day. ? Text the Crisis Text Line at 036274. Summary ? If you have fatigue, you [...] provider. Document Revised: 02/20/2022 Document Reviewed: 02/20/2022 [employer] Patient Education ? 2022 imeem. Infectious Disease Hepatitis C Hepatitis C is [...] during . ? Hav (more content not included)...NormalWilson HealthConsenton [id number]#1.00TIFFCoshocton Regional Medical CenterPhysician Referralon 06-22-1243Nkusqsnyv Referral [id number]#1.00TIFSelect Medical Specialty Hospital - YoungstownAmbulatory Visit Summaryon 20-50-3697Bexrafckxc Visit Summary FREDI ELLIOTT :1975 Visit Date:05/31/2023 [...] 8:40 AM EST With: Danette Briones Where: [facility] Family Medicine [facility] Medicine Office/Clinic Noteon 75-16-0578Zttaeo Medicine Office/Clinic NoteHPI Staff Fredi is a 47 year old female presenting for acute visit Onset: 2 months Location: started in left eye then 2 days later right eye Eye Discharge: daily, clear sticky Burning: yes Blurry: yes Sensitive to light: yes Pt states has been seen in [facility] by MERLENE fried by real estate rep Dr Jayne alba in [place] twice.Was told has allergy to cats but has had cat her whole life and never had an issues and has cats groomed. Would like referred to a eyelet machine operator History of Present Illness pt presents today [...] to a couple urgent cares and to real estate rep twice. was told that she needed to see an field geologist. has tried multiple drops and symptoms are not improving. pt states she was told she was allergic to cats many years ago but has had cats all of her life. Kenalog injection given in office today. pt encouraged to take Zyrtec or Claritin daily. all questions answered. RTC 4 weeks Ordered: [facility] External Ambulatory Referral 2. Red eyes (H57.89: Other specified disorders of eye and adnexa) see above Ordered: [facility] External Ambulatory Referral 3. Itchy eyes (H57.9: Unspecified disorder of eye and adnexa) see above Ordered: [facility] External Ambulatory Referral 4. Watery eyes (H04.203: Unspecified epiphora, bilateral) see above Ordered: [facility] External Ambulatory Referral 5. BMI 26.0-26.9,adult (Z68.26: Body mass index [BMI] 26.0-26.9, adult) BMI education complete Ordered: [facility] External Ambulatory Referral 6. Vaping-related disorder (U07.0: Vaping-related disorder) consider not vaping Ordered: meloxicam, 7.5 mg = 1 tab(s), Oral, Daily, # 30 tab(s), Refills(s) 0, Pharmacy: [facility]/pharmacy #[id number], cm, 04/13/23 12:54:00 EST, Height/Length Dosing, 62.5, [...] Adrenal insufficiency: Mother. Diabetes mellitus type 2: Grandparent.[facility] Medical CenterComment on above:Result Comment: Electronically Signed By: Danette Briones\.br\Date and Time Signed: 05/31/23 14:33 ESTCHEMISTRYOrdered By: SYSTEM SYSTEM on 59-06-3681Ghfjihs [Mass/Vol]4.3 g/dLNormal3.3 - 5.0 gm/dLFTMC Remisol Albumin/Globulin [Mass ratio]1.4 {ratio}Normal1.1 - 2.2FTMC RemisolALP [Catalytic activity/Vol]34 [iU]/aVyxlyo79 - 98 Int._Unit/LFTMC RemisolALT No additional P-5'-P [Catalytic activity/Vol]17 [iU]/dNormal6 - 46 Int._Unit/LFTMC RemisolAnion gap [Moles/Vol]10 mmol/LNormal6 - 16 mEq/LFTMC RemisolAST [Catalytic activity/Vol]23 [iU]/dNormal5 - 43 Int._Unit/LFTMC RemisolBilirubin [Mass/Vol]0.3 mg/dLNormal0.0 - 1.1 mg/dLFTMC RemisolCalcium [Mass/Vol]8.9 mg/dL Normal8.9 - 11.1 mg/dLFTMC RemisolChloride [Moles/Vol]106 mmol/POkelac630 - 111 mmol/LFTMC RemisolCholesterol [Mass/Vol]182 mg/mNYraayt484 - 200 mg/dLFTMC RemisolCholesterol in HDL [Mass/Vol]83 mg/dLInvalid Interpretation CodeFTMC RemisolComment on above:Interpretive Data: HDL > or equal to 60 mg/dL: Low cardiovascular risk HDL < 40 mg/dL : High cardiovascular riskCholesterol in LDL [Mass/Vol]81 mg/dL Normal<=129mg/dLFTMC RemisolCholesterol in VLDL [Mass/Vol]12 mg/dLNormal7 - 40 mg/dLFTMC RemisolCO2 [Moles/Vol]26 mmol/KXbmgzz03 - 31 mmol/LFTMC Remisol Creatinine [Mass/Vol]1.0 mg/dLNormal0.5 - 1.3 mg/dLFTMC RemisolGFR/1.73 sq M.predicted among non-blacks MDRD (S/P/Bld) [Vol rate/Area]71 mL/min/1.73 m2 Normal>=59mL/min/1.73 m2FTMC Chem SComment on above:Interpretive Data: Chronic kidney disease could be indicated at eGFR's of less than 60 mL/min/1.73m2. Kidney failure is indicated at less than 15 mL/min/1.73m2.Globulin (S) [Mass/Vol]3.1 g/dLNormal1.4 - 4.0 gm/dLFTMC RemisolGlucose [Mass/Vol]95 mg/dL Mbylaq10 - 199 mg/dLFTMC RemisolComment on above:Interpretive Data: If this glucose result represents a fasting glucose, interpretation should referto the following reference range: 55-99 mg/dLIron [Mass/Vol]21 ug/dLLow35 - 153 mcg/dL [facility] RemisolIron binding capacity [Mass/Vol]407 ug/yREgnb536 - 400 mcg/dLFTMC RemisolPotassium [Moles/Vol]4.4 mmol/LNormal3.5 - 5.3 mmol/LFTMC RemisolProtein [Mass/Vol]7.4 g/dLNormal6.0 - 7.8 gm/dLFTMC RemisolSodium [Moles/Vol]138 mmol/L Xbkuys980 - 145 mmol/LFTMC RemisolTransferrin [Mass/Vol]291 mg/aRWasezl276 - 370 mg/dLFTMC RemisolTriglyceride [Mass/Vol]59 mg/dLNormal<=149mg/dLFTMC Remisol Urea nitrogen [Mass/Vol]13 mg/dLNormal5 - 21 mg/dLFTMC RemisolUrea nitrogen/Creatinine [Mass ratio]13 mg/kjXchvvg54 - 20FTMC RemisolHEMATOLOGY Ordered By: SYSTEM SYSTEM on 03-06-2416Dgoksulbe/100 WBC (Bld)1.2 %Normal0.0 - 2.0 %[facility] HemeAutoSSBasophils/Leukocytes Auto (Bld) [Pure # fraction]0.1 E9/L Normal0.0 - 0.2 E9/LFTMC HemeAutoSSEosinophils/100 WBC (Bld)8.0 %Normal0.0 - 8.0 %[facility] HemeAutoSSEosinophils/Leukocytes Auto (Bld) [Pure # fraction]0.4 E9/L Normal0.0 - 0.5 E9/LFTMC HemeAutoSSLymphocytes/100 WBC (Bld)26.2 %Wjznuk92.0 - 50.0 %[facility] HemeAutoSSLymphocytes/Leukocytes Auto (Bld) [Pure # fraction]1.4 E9/L Normal1.0 - 4.0 E9/LFTMC HemeAutoSSMonocytes/100 WBC (Bld)9.2 %Normal4.0 - 14.0 %[facility] HemeAutoSSMonocytes/Leukocytes Auto (Bld) [Pure # fraction]0.5 E9/LNormal 0.2 - 1.0 E9/LFTMC HemeAutoSSNeutrophils/100 WBC (Bld)55.4 %Jqebzi18.0 - 75.0 % [facility] HemeAutoSSNeutrophils/Leukocytes Auto (Bld) [Pure # fraction]3.0 E9/LNormal 2.0 - 7.5 E9/LFTMC HemeAutoSSHEMATOLOGYOrdered By: Althea Lora on 04-16-2023 Erythrocyte distribution width (RBC) [Ratio]13.9 %Dkgrbe60.9 - 14.2 %[facility] HemeAutoSSHematocrit (Bld) [Volume fraction]34.8 %Igsotu08.0 - 46.0 %[facility] HemeAutoSSHemoglobin (Bld) [Mass/Vol]11.6 g/dLLow12.0 - 16.0 gm/dLFTMC HemeAutoSSMCH (RBC) [Entitic mass]30.4 kkTzsopf75.0 - 34.0 pgFTMC HemeAutoSSMCHC (RBC) [Mass/Vol]33.3 g/uIFmlizu73.4 - 36.0 gm/dLFTMC HemeAutoSSMCV (RBC) [Entitic vol]91.2 mIVmjmmt44.0 - 100.0 fLFTMC HemeAutoSSPlatelet mean volume (Bld) [Entitic vol]8.2 fLNormal6.4 - 10.8 fLFTMC HemeAutoSSPlatelets (Bld) [#/Vol]266.0 E9/TGxiiml779.0 - 500.0 E9/LFTMC HemeAutoSSRBC (Bld) [#/Vol]3.8 E12/LLow4.3 - 5.9 E12/LFTMC HemeAutoSSWBC corrected for nucl RBC Auto (Bld) [#/Vol]5.4 E9/LNormal4.0 - 11.0 E9/LFTMC HemeAutoSSXR KNEE RT 4V or >on 32-88-8307MD KNEE RT 4V or >EXAM: XR KNEE [...] Electronically authenticated by: CLINTON BARTLETT Date: 2020-11-02 11:48[facility] Medical CenterB12on 75-42-8535Pyhrgutbfq (Vitamin B12)433.2 pg/mLNormal 193-986[facility] CantonComment on above:Performed By: #### L500.40561, L500.67399, L500.49011, L500.29600, L500.39872, L500.70638, L500.61327, L550.49196 ####[facility] IYZLKMDWGD[address] [place], [place] [address]Ig# [phone] 19-25-7571Dggdcfrlvxf distribution width Auto Ratio (RBC)13.2 %Gtapxw84-33.5[facility] CantonComment on above:Performed By: #### L200.16212, L200.40607 ####[facility] RVWWQFUBKV0114 [place], [place] [address]Jo# [phone] (RBC)3.86 M/CU MMLow3.90-5.30[facility] CantonComment on above:Performed By: #### L200.62492, L200.38589 ####[facility] EMNUOVFCPO[address] [place] [address]Mf# [phone] (RBC)0.0 %NormalLess than 1 [facility] CantonComment on above:Performed By: #### L200.57608, L200.20240 ####[facility] FCGJFQYLMP2507 [place], [place] [address]If# [phone] (HCT)36.4 %Vghrge04.0-47.0[facility] CantonComment on above:Performed By: #### L200.25899, L200.40258 ####[facility] NPLSYBAGZP8510 [place], [place] [address]Sj# [phone] Hemoglobin mass conc (Bld)12.0 g/rUHsnmgy37.5-15.[address] [place] [address] [place] Comment on above:Performed By: #### L200.04510, L200.56165 ####[facility] KHALWEKJHM3180 [place], [place] [address]Gk# [phone] mass conc (RBC)33.0 g/qEBcuawv08.0-36.0[facility] CantonComment on above: Performed By: #### L200.54873, L200.13141 ####[facility] LZWGWSFJJP8091 [place], [place] [address]Tw# [phone] fLNormal 80.0-99.0[facility] CantonComment on above:Performed By: #### L200.18237, L200.10196 ####[address] [address]Wm# [phone] mean volume (PMV)9.9 fLNormal 9.4-12.4[facility] CantonComment on above:Performed By: #### L200.05873, L200.95152 ####[address] [address]Nm# [phone] K/CU FIScjazi081-127Bwjsd Medical Center CantonComment on above:Performed By: #### L200.56497, L200.55266 ####[address] [address]Cq# [phone] (Leukocytes)5.9 K/CU MMNormal4.5-11.0[facility] [place] Comment on above:Performed By: #### L200.00410, L200.88760 ####[facility] BYSZEFNRHR[address] [place] [address]Ms# [phone] 40-31-7715Hylamnr aminotransferase (ALT)24 U/WGmfwqq09-83EhgefSamaritan Lebanon Community Hospital CantonComment on above:Performed By: #### L500.10942, L500.38764, L500.86471, L500.06185, L500.15320, L500.00411, L500.24311, L550.14094 ####[facility] RPRBPOYBPO8013 [place], [place] [address]It# [phone] g/dL Normal3.2-5.0[facility] CantonComment on above:Performed By: #### L500.15668, L500.79025, L500.81390, L500.38996, L500.54523, L500.21829, L500.21519, L550.07721 ####[facility] QOBQPCIWUZ8096 [place], [place] [address]Kj# [phone]/Globulin Ratio1.4 {ratio}Normal 0.8-2.0[facility] CantonComment on above:Performed By: #### L500.15887, L500.16778, L500.69771, L500.34319, L500.23080, L500.33149, L500.87748, L550.62195 ####[facility] PHIKKBETWO[address] [place] [address]Bi# [phone] PHOS42 U/ZDus20-933XsqnbSamaritan [facility] Hospital CantonComment on above:Performed By: #### L500.74171, L500.88396, L500.67599, L500.73895, L500.66491, L500.22565, L500.36410, L550.65748 ####[facility] NBCPYZFVWS5787 [place], [place] [address]Wv# [phone] gap7 mmol/LNormal5-16[facility] CantonComment on above:Performed By: #### L500.29709, L500.47707, L500.02650, L500.82998, L500.73496, L500.64462, L500.82460, L550.50002 ####[facility] MDFGKPFYBH8812 [place], [place] [address]De# [phone] TOTAL0.6 MG/DLNormal0.2-1.0[facility] CantonComment on above:Performed By: #### L500.19570, L500.52654, L500.48963, L500.24385, L500.63641, L500.83351, L500.38275, L550.82456 ####[facility] UJTCQVBZGG1038 [place], [place] [address]Zz# [phone]/Creatinine Ratio13 mg/fsQgr32-31OieqeSamaritan [facility] Hospital [place] Comment on above:Performed By: #### L500.48187, L500.73099, L500.22955, L500.28357, L500.03655, L500.52721, L500.12288, L550.13039 ####[facility] UILDOHGYLB5908 [place], [place] [address]Ba# [phone] mg/dLNormal8.5-10.1MProvidence [facility] Medical Center CantonComment on above:Performed By: #### L500.39432, L500.53357, L500.00691, L500.16821, L500.52472, L500.58744, L500.50764, L550.39781 ####[facility] NIVFVNZVHK9727 [place], [place] [address]Lm# [phone] mmol/RMxwwcd89-200ZnoywSamaritan [facility] Hospital CantonComment on above:Performed By: #### L500.42470, L500.13479, L500.07355, L500.90270, L500.22790, L500.52967, L500.08455, L550.64391 ####[facility] ZBYJNWYMXU3075 [place], [place] [address]Fb# [phone] mmol/GZpetdo76-36MvfjySamaritan Lebanon Community Hospital CantonComment on above:Performed By: #### L500.58883, L500.54366, L500.21901, L500.51274, L500.14624, L500.45755, L500.43114, L550.11035 ####[facility] XKLKUJFFJR8672 [place], [place] [address]Hx# [phone] mg/dLNormal0.510-0.950Sam[facility] CantonComment on above:Result Comment: Patients receiving either N-Acetylcysteine (NAC) orMetamizole prior to venipuncture, may have falsely depressedresults.Performed By: #### L500.24511, L500.84870, L500.70240, L500.19675, L500.03234, L500.23578, L500.80304, L550.89889 ####[facility] [id number] [place], [place] [address]Ut# [phone] g/dLNormal2.2-4.2MProvidence [facility] Center CantonComment on above:Performed By: #### L500.84104, L500.54523, L500.22408, L500.20070, L500.29030, L500.50892, L500.38546, L550.96949 ####[facility] [id number] [place], [place] [address]Cl# [phone] mass conc86 mg/tGVddzid04-020UknkjSamaritan [facility] Hospital CantonComment on above:Result Comment: 85-697-Uyymaa Fasting; [phone]-Nmqswues Fasting; greaterthan 126 on more than one result-Diabetes. ADA guidelinesPerformed By: #### L500.00821, L500.06592, L500.23152, L500.37965, L500.72853, L500.38281, L500.59006, L550.65874 ####[facility] UPCDFZTEMK5263 [place], [place] [address]Jf# [phone] molar conc 4.0 mmol/LNormal3.5-5.1MProvidence Portland Medical Center CantonComment on above:Performed By: #### L500.40556, L500.50788, L500.26985, L500.46429, L500.66863, L500.52835, L500.30634, L550.87826 ####[facility] BYJKEEALHP8343 [place], [place] [address]Qm# [phone] g/dLNormal6.0-8.5[facility] CantonComment on above:Performed By: #### L500.82429, L500.03297, L500.10398, L500.18094, L500.45339, L500.69710, L500.94380, L550.22961 ####[facility] AJHDWDVOZR9834 [place], [place] [address]Zr# [phone] (AST)23 U/LNormal8-34[facility] CantonComment on above:Performed By: #### L500.72163, L500.55021, L500.32760, L500.34147, L500.39411, L500.26106, L500.16791, L550.21029 ####[facility] ITJHADEJKZ0641 [place], [place] [address]Ze# [phone] mmol/FOnpfyo141-769CnnwbSamaritan [facility] Hospital CantonComment on above:Performed By: #### L500.89341, L500.84677, L500.34166, L500.43965, L500.47270, L500.25773, L500.62120, L550.66807 ####[facility] CPGJRVYVQX6583 [place], [place] [address]Ac# [phone] uyowlxob06 mg/dLNormal7-26[facility] CantonComment on above:Performed By: #### L500.02662, L500.32941, L500.34948, L500.33476, L500.90054, L500.06180, L500.26358, L550.38454 ####[facility] FDFRHWENZB9320 [place], [place] [address]Jw# [phone] ACIDon 83-08-0034NHZCW ACID24.0 NG/ML Normal>3.0[facility] CantonComment on above:Performed By: #### L500.17158, L500.91963, L500.94046, L500.41878, L500.27841, L500.62805, L500.38359, L550.68149 ####[facility] WSFVVNSZVS7596 [place], [place] [address]Bl# [phone] ESTon 81-60-3927ML AMERGreater than [address] [place] [address] CantonComment on above:Performed By: #### L500.43141, L500.45412, L500.38928, L500.82389, L500.54216, L500.29409, L500.36717, L550.93367 ####[facility] YWEQSFREWD1702 [place], [place] [address]Yx# [phone] non-AFR AMERGreater than [address] [place] [address] CantonComment on above:Performed By: #### L500.78938, L500.76215, L500.15868, L500.81223, L500.27667, L500.34256, L500.64736, L550.34426 ####[facility] MHPYNWHPLZ1369 [place], [place] [address]Vq# [phone] PANELon 06-04-3996Kzej185 ug/kDKekxdc91-308Zyzrb[address] CantonComment on above:Result Comment: Patients treated with metal-binding drugs (e.g.deferoxamine)may have depressed ironvalues, as chelated iron may notproperly react in the Siemens iron assay.Performed By: #### L500.40930, L500.90771, L500.63121, L500.88031, L500.16050, L500.10447, L500.49672, L550.51657 ####[facility] UYBBQYLWSZ0333 [place], [place] [address]Vi# [phone] SAT36 %Afigto08-03Kouzx[address] CantonComment on above:Performed By: #### L500.32755, L500.88290, L500.22643, L500.72308, L500.53208, L500.52557, L500.52207, L550.99914 ####[facility] SOWJEEFJIH5790 [place], [place] [address]Rx# [phone] UG/DLNormal 221-481[facility] CantonComment on above:Performed By: #### L500.00688, L500.75772, L500.74438, L500.60827, L500.88964, L500.66433, L500.14406, L550.64432 ####[facility] JDNTUDQOEX6116 [place], [place] [address]Vg# [phone] 72-48-7563Qmttlzpgqjn499 mg/dL Normal0-199[facility] CantonComment on above:Performed By: #### L500.00568, L500.34166, L500.45528, L500.64253, L500.52227, L500.18105, L500.27441, L550.20245 ####[facility] SHENCUBLTE5648 [place], [place] [address]Qd# [phone] Fuwhhtkkeea90 mg/dLNormalGREATER [place] 40 [facility] GorgeonComment on above:Result Comment: Patients receiving Metamizole prior to venipuncture, mayhave falsely depressed results.Performed By: #### L500.77237, L500.42622, L500.16997, L500.24739, L500.59619, L500.85347, L500.60164, L550.68548 ####[facility] FURCWQPYLO4432 [place], [place] [address]Rq# [phone] Ezdqizfwrvh05 MG/DLNormal0-129[facility] CantonComment on above:Result Comment: ___CHOLESTEROL/HDL RATIO RISK___ CHD RISK = Total CHOL LDL HDL (CHOL/HDL) Recommended <200 <130 >35 <3.4 Borderline 200- 239 130-159 3.4-4.99 High >240 >160 >5.0 Performed By: #### L500.02917, L500.51819, L500.08764, L500.24178, L500.51719, L500.21115, L500.57230, L550.39043 ####[facility] XIEMKAIRTA9127 [place], [place] [address]Nm# [phone] mg/aFOtgasn20-287XkpcgAdventist Health Columbia GorgeonComment on above:Result Comment: Patients receiving either N-Acetylcysteine (NAC) orMetamizole prior to venipuncture, may have falsely depressedresults.Performed By: #### L500.95025, L500.09415, L500.33344, L500.26565, L500.25624, L500.80023, L500.41248, L550.14539 ####[facility] ISDCNQLPLM8157 [place], [place] [address]To# [phone] 38-64-3748Dejowbc stimulating hormone (TSH)0.782 UIU/MLNormal0.358-3.740[facility] CantonComment on above:Result Comment: 3rd generation ultra sensitive TSHPerformed By: #### L500.79988, L500.43852, L500.00861, L500.96083, L500.21041, L500.61895, L500.93295, L550.07057 ####[facility] DOOLRWIADY5596 [place], [place] [address]Th# [phone]-HPKJABExl 72-71-2431DTOJ985681SVTD15-CJSOVBP82.0 NG/FZLrnezj87.0-100.0[facility] [place] Comment on above:Result Comment: Deficiency Less than 20 ng/mLInsufficiency 20 - Less than 30 ng/mLSufficiency 30 - 100 ng/mLPerformed By: #### L500.85056, L500.36048, L500.69208, L500.55464, L500.00639, L500.36548, L500.44708, L550.84582 ####[facility] ZGOTKMJAJM7007 [place], [place] [address]Ch# [phone]/MODon 57-97-7303RAN/MOD2 MM/HRNormal0-20[facility] CantonComment on above:Performed By: #### L200.64112, L200.00672 ####[facility] UVXICBWALM6836 [place], [place] [address]Xl# [phone] Vital Signs Date TimeVital SignValuePerforming UmczlzflwBjugtjrb14-56-5906 10:28-0500 Diastolic blood mm[Hg]Hernandez Sarmini 036-3488Bqkqit-WniyyKettering Health Preble11-04-2024 10:28-0500Heart cxfm232 /minMuhammad Sarmini 661-8327Bovybq-YocvnKettering Health Preble11-04-2024 10:28-0500Systolic blood oolsplgw527 mm[Hg]Hernandez Sarmini 909-7759Ipldpi-RupbrKettering Health Preble11-04-2024 10:24-0500Blood Pressure LocationMuhamlyudmilad Shortymini 731-0184Ijcstp-EadbgC[facility] Dig[facility]ive Zepqsn56-05-6255 10:24-0500Respiratory rate16 /minMuhammad Shortymini 970-0769Oeumcn-QnqhcKettering Health Preble09-20-2024 10:00-0400Blood Pressure LocationLisette Contreras 176-9483Nqnsev-Lqkvj[address] [place], [place] 6501609-20-2024 10:00-0400Body oqgljmmifcq18.06 [degF]Lisette Contreras 149-1849Hjqaga-Nrkls[address] [place], [place] 6501609-20-2024 10:00-0400Diastolic blood mm[Hg]Lisette Contreras 735-6817Xcicrt-Cjrsw[address] [place], [place] 6501609-20-2024 10:00-0400Heart rate95 /Dina Contreras 228-5554Vtsxqy-Hmfqq[address] [place], [place] 6501609-20-2024 10:00-0400Respiratory rate18 /Dina Contreras 454-4550Wvmcdj-Jpdpl[address] [place], [place] 6501609-20-2024 10:00-9352PiX8% (BldA) [Mass fraction]98 %Lisette Contreras 621-7022Uasmpb-OshccAcmc Healthcare System Glen[facility]igh09-20-2024 10:00-0400Systolic blood tolgxeok156 mm[Hg]Lisette Contreras 409-8591Kjdzor-WumgeAcmc Healthcare System Glenbeigh08-21-2024 10:11-0400Blood Pressure LocationLisette Contreras 999-7866Maxntu-Whzql[address] [place], [place] 6501608-21-2024 10:11-0400Body dxlawghuurs71.88 [degF]Lisette Contreras 868-8903Owqhyr-Szwbd[address] [place], [place] 6501608-21-2024 10:11-0400Diastolic blood mcamjvwo28 mm[Hg]Lisette Contreras 186-4392Umyjjs-Zeeyk[address] [place], [place] 6501608-21-2024 10:11-0400Heart rate94 /Dina Contreras 902-2653Skqybg-Dufib[address] [place], [place] 6501608-21-2024 10:11-0400Respiratory rate18 /Dina Contreras [address] [place], [place] 9749008-21-2024 10:11-1037WsD4% (BldA) [Mass fraction]99 %Lisette Contreras [address] [place], [place] 9749008-21-2024 10:11-0400Systolic blood vybfweft277 mm[Hg]Lisette Contreras [address] [place], [place] 9749005-20-2024 10:11-0400Blood Pressure LocationLisette Contreras [address] [place], [place] 9749005-20-2024 10:11-0400Diastolic blood bybrqqkp14 mm[Hg]Lisette Contreras [address] [place], [place] 9749005-20-2024 10:11-0400Heart rate99 /Dina Contreras [address] [place], [place] 9749005-20-2024 10:11-0400Respiratory rate18 /Dina Contreras [address] [place], [place] 9749005-20-2024 10:11-0640EjW2% (BldA) [Mass fraction]100 %Lisette Contreras [address] [place], [place] 9749005-20-2024 10:11-0400Systolic blood lcserdsj440 mm[Hg]Lisette Contreras 909-3943Bcsbey-Botwu[address] [place], [place] 6501604-18-2024 06:58-0400Blood Pressure LocationElireilly Slick 773-5244Zazkpj-Kmqkq[address] [place], [place] 6501604-18-2024 06:58-0400Body peltmajqbgb10.7 [degF]Lisette Contreras 772-8981Nsrbbm-Trdko[address] [place], [place] 6501604-18-2024 06:58-0400Diastolic blood mm[Hg]Lisette Contreras [address] [place], [place] 9749004-18-2024 06:58-0400Heart wlmy710 /Dina Contreras [address] [place], [place] 9749004-18-2024 06:58-0400Respiratory rate18 /Dina Contreras [address] [place], [place] 9749004-18-2024 06:58-5208KuG8% (BldA) [Mass fraction]99 %Lisette Contreras 475-8762Sydqyl-Wwlhb[address] [place], [place] 6501604-18-2024 06:58-0400Systolic blood rvarjjlc293 mm[Hg]Lisette Contreras [address] [place], [place] 9749003-21-2024 16:17-0400Blood Pressure LocationLisette Contreras [address] [place], [place] 9749003-21-2024 16:17-0400Body vqssmdhmetg14.06 [degF]Lisette Contreras [address] [place], [place] 9749003-21-2024 16:17-0400Diastolic blood sughvypn14 mm[Hg]Lisette Contreras 252-6148Djhgvv-Rywci[address] [place], [place] 6501603-21-2024 16:17-0400Heart aubw258 /Dina Contreras 154-5491Eaqcvr-Ukhmk[address] [place], [place] 6501603-21-2024 16:17-0400Respiratory rate18 /Dina Contreras 997-5586Maqsvg-NpfjwAcmc Healthcare System Glenbeigh03-21-2024 16:17-4142KnD7% (BldA) [Mass fraction]98 %Lisette Contreras 863-6418Qvtxrc-CnkgaAcmc Healthcare System Glenbeigh03-21-2024 16:17-0400Systolic blood zknsvoce789 mm[Hg]Lisette Contreras 008-8993Bcerxp-LrnvjLicking [facility] Hospital Nquk37-76-2706 12:55-0500Body ixohgz291.48 cmAalan Mathis Other [facility] [employer] Other 11-21-2023 12:55-0500Body mass index (BMI) [Ratio]25.6 kg/g5ZcruiXiomara Mathis Other [facility] [employer] Other 11-21-2023 12:55-0500Body nfypbhgpsig60.8 [degF]Xiomara Mathis Other [facility] [employer] Other 11-21-2023 12:55-0500Body xoxxys47.5 kgXiomara Mathis Other [facility] [employer] Other 11-21-2023 12:55-0500Respiratory rate20 /minXiomara Mathis Other [facility] [employer] Other 11-21-2023 12:55-3601RgQ7% (BldA) [Mass fraction]99 % Xiomara Mathis Other [facility] [employer] Other Encounters Encounter DateEncounter TypeCare ProviderFacilityStart: 71-04-9983hgxzxndfhzRclk L SchwabFacility:[facility] BellevueStart: 02-26-2025 End: 30-63-7513jdhutavwfhNoge L SchwabFacility:[facility] BellevueStart: 05-12-2024 End: 25-14-3578auusoyznfmYJUBCR A LEGASTONANNFacility:[facility] KelseyevueStart: 18-59-6699rezcpznoldMhgmucxvi L SlickFacility:Nicholas PCStart: 04-01-2024 End: 41-76-9265Afa Drop offMuhammad Talal Sarmini [facility] Start: 04-01-2024 End: 14-53-0537yhzburlfeqMdxmkknb Talal SarminiFacility:MCStart: 03-17-2024 End: 10-50-1632eftyvpaxyeXbhlowca Talal SarminiFacility:[facility] DHStart: 03-17-2024 End: 60-16-1585Jjjckux encounter procedureMuhammad Talal Sarmini [phone]-JrbdcC[facility] Start: 02-01-2024 End: 86-74-5252hycaonrvkhWyejpvcnn L ClarkFacility:Nicholas PCStart: 02-01-2024 End: 49-47-2923Fnfmaar encounter procedureLisette Contreras [phone]-SluasCleveland Clinic [facility] Start: 01-31-2024 End: 43-90-8144gqdckhkpggHPXGFOS A FELTERNot AvailableStart: 01-31-2024 End: 80-08-3030Nihfmy outpatient visit 10 minutesNatalie A Felter MAP COMPILER-RECREATIONAL THERAPIST Work Phone: [facility] S[facility] DERMComment on above:Allergic contact dermatitis, unspecified triggerStart: 01-31-2024 End: 00-63-4266Vboumg flowsheetNatalie A Felter MAP COMPILER-RECREATIONAL THERAPIST Work Phone: [facility] SWS DERMStart: 01-31-2024 End: 57-61-2110Uwujhe flowsheetNatalie A Felter MAP COMPILER-RECREATIONAL THERAPIST Work Phone: n[facility] SWS DERMStart: 01-10-2024 End: 10-63-9239Hazwar flowsheetNatalie A Felter MAP COMPILER-RECREATIONAL THERAPIST Work Phone: noms SWS DERMStart: 01-10-2024 End: 46-24-5631Yaztru flowsheetNatalie A Felter MAP COMPILER-RECREATIONAL THERAPIST Work Phone: [facility] SWS DERMStart: 01-10-2024 End: 95-77-7426Pzibqk outpatient new 30 minutesNatalie A Felter MAP COMPILER-RECREATIONAL THERAPIST Work Phone: noms SWS DERMComment on above:Allergic contact dermatitis, unspecified triggerStart: 01-10-2024 End: 31-72-9464xvirqfnkitBZGVLCU A FELTERNot AvailableStart: 01-07-2024 [facility] Hospitaltart: 01-04-2024 End: 23-47-9929Onvxuo Keegan Egan MD Work Phone: noms NB OPHTStart: 01-04-2024 End: 46-30-0942Kduhmr Keegan Egan MD Work Phone: noms NB OPHTStart: 01-04-2024 End: 85-86-6675Skvxzm outpatient visit 15 minutesAngella Egan MD Work Phone: noms NB OPHTComment on above:Dry eyes, bilateral (Primary Dx); Ocular rosaceaStart: 01-04-2024 End: 29-64-2516zhjugaftfxXDARD M ALLENNot AvailableStart: 01-02-2024 End: 03-35-2080vqbqhbqcyxKgkccqmwp L ClarkFacility:Nicholas PCStart: 01-02-2024 End: 04-26-0626Zdjwcxb encounter Viviana Contreras [phone]-RdyisCleveland Clinic [facility] Start: 11-29-2023 End: 84-18-8524oembddssjoJEVX E RAMBASEKNot AvailableStart: 11-14-2023 End: 71-45-5163uebjofptiaIupwzisp Talal ShortyminiFacility:Dami DHStart: 11-14-2023 End: 32-97-0814Tbppccq encounter procedureMuhammad Talal Ashi [phone]-PvannCleveland Clinic [facility] Hospital [facility] Start: 11-01-2023 End: 83-71-8359sjejhcewlnKXFCT Juliann Ronan AvailableStart: 10-11-2023 End: 86-29-7492srbbtbseqlDEEEQ Juliann Ferraro AvailableStart: 10-01-2023 End: 13-48-4066zfcdmsmrahMybgfmqjh L ClarkFacility:Nicholas PCStart: 10-01-2023 End: 92-73-9484Ermgemm encounter procedureLisette Contreras [phone]-MhawdC[facility] Clinic [facility] Start: 09-06-2023 End: 92-62-7075utnwxgiehpGqlsownun L ClarkFacility:FTMCStart: 09-06-2023 End: 49-60-0716Xhxoece encounter Viviana Contreras [facility] Start: 09-05-2023 End: 49-72-6527kzmqkwgmdgWfhcvsolzsAultman Alliance Community Hospitaltart: 08-30-2023 End: 40-16-1032hhumzbiryiIdghwgtyi L ClarkFacility:Nicholas PCStart: 08-30-2023 End: 18-62-3226Gkqfmvn encounter procedureLisette Contreras [phone]-NssfiC[facility] Clinic [facility] Start: 08-16-2023 End: 67-74-5504tdujtrxxfoDtkbbqdjz L ClarkFacility:FTMCStart: 08-16-2023 End: 63-01-6890Hqcxnqb encounter procedureElizabeth L Slick [facility] Start: 08-03-2023 End: 76-90-6896vpdnkzavazMlvkialai L ClarkFacility:[facility]ITALtart: 08-03-2023 End: 97-72-9128Fulqvfv encounter procedureLisette Contreras [facility] Start: 08-02-2023 End: 71-39-0095pgftpahqsxQdryiibzc L ClarkFacility:[place] PCStart: 08-02-2023 End: 90-29-6744Gkigcae encounter procedureLisette Contreras [phone]-PmqadCleveland Clinic [facility] Hospital [facility] Start: 75-28-5644dzaqqfhbvkQveaoeyr Sarmini Facility:[place] PCStart: 06-25-2023 End: 43-72-9841hhfnppwyuoOpfh L SchwabFacility:[facility] BellevueStart: 06-18-2023 End: 55-61-7798tbgzjgjabxRTXK E RAMBASEKNot AvailableStart: 79-00-7564Bdkyoxjennifre Andrews MD Work Phone: [facility] AkronComment on above:Med Change Request Start: 06-14-2023 End: 22-34-5712dxmdztcungXDLEYgcnmhij:[facility] Hospitaltart: 05-31-2023 End: 81-16-4583nywfxwlajaCedo L SchwabFacility:[facility] BellevueStart: 04-16-2023 End: 93-50-9406Tfk Drop offJodi L Tanisha [facility] Start: 04-13-2023 End: 68-11-3312Aec Drop offJodi L Tanisha [facility] Start: 04-03-2023 End: 76-01-4648pgshtgijynQvetm Keller Other [place] [employer] Other Start: 76-11-9155Qmupkb outpatient new 20 minutesAmber DelFPG Urgent Care ClydeStart: 11-02-2020 End: 19-68-7983ddcdyrwfekYL NONE LISTED REQUESTFacility:V7Ghjyd: 11-21-2016 AmbulatoryGerardo CisnerosFacility:[facility] Hospitaltart: 11-16-2016 AmbulatoryGermerit health natchez CisnerosFacility:[facility] Procedures DateProcedureProcedure DetailPerforming ClinicianStart: 54-89-4647ZIME ONLY-THYROGLOBULINStart: 74-50-2786XPI panel - Blood by Automated countStart: 39-14-8844Hvdbcevrdgdro metabolic 2000 panel - Serum or PlasmaStart: 09-05-2023 CORTISOL AMStart: 21-51-2621Bwwypxznhgabxc vitamin b-12Start: 96-77-1328CBSYGT Start: 54-98-1058ECH + LHStart: 21-21-5343LHSDOCWBUGVLZ AND ANTITHYROGLOBULIN Start: 56-97-7552CNDYCWW PEROXIDASE (TPO) ANTIBODYStart: 17-81-4716HCCKHQL STIMULATING IMMUNOGLOBULINStart: 51-99-3382Ldojyojfbcp [Units/volume] in Serum or PlasmaStart: 74-11-1880UNABAXELLYP RECEPTOR ANTIBODYStart: 09-05-2023 THYROXINE, FREEStart: 89-94-7638FAXKKDVPOGNNNFGO, FREEStart: 40-02-7254QLSBRFN D 25-HYDROXY,TOTALFoot SurgeryJodi Tanisha Knee SurgeryJodi Tanisha Neuroplasty &/transpos median nrv carpal tunneJodi Tanisha Plan of Treatment DateCare ActivityDetailAuthorStart: 03-06-2024 End: 38-43-5844Uhqdfgu encounter xhcpxrahz69/24/2024 9:45 AM EDT Office Visit [facility] [address] [place] [address] Angella Egan MD [address] [place] [address] [facility] NB OPHTStart: 01-31-2024 End: 37-10-7970Uxlhvgt encounter flzfixiod15/19/2024 2:05 PM EDT Office Visit [facility] [address] [place] [phone] Genia Boone, MAP COMPILER-RECREATIONAL THERAPIST [address] [place] [address] [facility] SWS DERMStart: 01-10-2024 End: 53-94-7206Oyhrvyt encounter yydjibmpk06/29/2024 10:55 AM EDT Office Visit [facility] D[facility] [address] [place] [phone] Genia Boone, MAP COMPILER-RECREATIONAL THERAPIST [address] [place] [address] ArrivedNOMS [facility] DERMComment on above: ArrivedStart: 01-04-2024 End: 50-45-2395Aehxuru encounter jldvedooi60/23/2024 10:00 AM EDT Office Visit [facility] [address] [place] [phone] Angella Egan MD [address] [place] [address] ArrivedNOMS OPHTComment on above:ArrivedStart: 05-14-2023 Depression AssessmentDepression AssessmentTogus VA Medical Centertart: 01-12-2023 Influenza vaccinationInfluenza Vaccine (#1)[facility]art: 2022 Diabetes ScreeningDiabetes ScreeningTogus VA Medical Centertart: 35-07-5109Kdwvy panel Lipid ScreeningTogus VA Medical Centertart: 57-07-8232Glnberszh for malignant neoplasm of colonTogus VA Medical Centertart: 46-72-9793Vnwlxjkbz for malignant neoplasm of breastMammogram ScreeningTogus VA Medical Centertart: 31-00-3717Exkbjthwg for malignant neoplasm of cervixHPV TestingTogus VA Medical Centertart: 1998 Screening for malignant neoplasm of cervixPap TestingTogus VA Medical Centertart: 05-25-1064Xcdwm microalbumin profileDTaP,Tdap,Td Vaccine (1 - Tdap)[facility]: 53-29-6875Efwrtkuht C screeningHepatitis C ScreeningTogus VA Medical Centertart: 73-89-4468BFA screeningHIV ScreeningTogus VA Medical Centertart: 35-98-8185Fjxjh-19 Vaccine (#1)Covid-19 Vaccine (#1)[facility] Cent[facility]: 13-73-1931Vborpauds B Vaccine (1 of 3 - 3-dose series)Hepatitis B Vaccine (1 of 3 - 3-dose series)[facility] Payers DatePayer CategoryPayerPolicy [id number] [employer]ERCIAL [employer]IC [employer]ERCIAL [id number] 2023-Present [phone] [address] [address] [place] [address] [id number] MedicaidCARESOURCE MEDICAID CARESOURCE MEDICAID [place] [id number] 2012- Present [address] [place] [address] [id number] [id number] [id number] 2.16.840.1.893911.3.579.2.715244-29-9378Qybikgg [id number] 2.840.1.855853.3.57[id number] 2.0.1.212950.3.579.2.332702-69-8951Vqsscgg3573530 2.0.1.148347.3.579.2.442330-76-9249Mfqldgv2881703 2.0.1.617814.3.579.2.526420-78-3745Byxqcuh8729823 2..1.979554.3.579.2.904866-39-9506Nyusrgy1388408 2..1.320594.3.579.2.850720-82-3117Pczlphk8577673 2..1.835777.3.579.2.742348-89-2356Gckffeo3708689 2..1.652587.3.579.2.570011-94-1718Yrnyxvr26016593 2..1.908446.3.579.2.18324-31-0944Qvcnkpc84590405 2..1.155834.3.579.2.66115-03-0535Qzfkaye71669468 2..1.449554.3.579.2.27944-75-6966Lsdymnx36980111 2.0.1.707706.3.579.2.03455-68-3697Ommkbof24072915 2..1.101416.3.579.2.90410-93-9390Srcrbjx06491687 2.0.1.960862.3.579.2.93270-65-2392Mvvrjnu03393938 2.0.1.976183.3.579.2.79766-67-4629Zdueirk37439072 2.16.840.1.052422.3.579.2.64079-42-8330Sbsrslq33072054 2.16.840.1.835250.3.579.2.90766-32-3468Mwqfgbl49176103 2.16.840.1.626082.3.579.2.12018-05-5789Ltrfdid40827595 2.16.840.1.250847.3.579.2.74776-02-9875Cccxzil87894953 2..840.1.771701.3.579.2.95086-31-6745Jgfsxpk76219419 2.0.1.317803.3.579.2.52260-16-1463Xojobke10738703 2.0.1.800373.3.579.2.91910-72-1847Wdzhcnh94465253 2..840.1.165690.3.579.2.73864-58-5725Coxvakg99585218 2..840.1.781538.3.579.2.09839-32-4646Ulplbld11687347 2.0.1.638751.3.579.2.11692-49-0532Kahgnee63962646 2..1.994225.3.579.[id number] Social History DateTypeDetailFacilityStart: 06-14-2023 End: 48-96-2425[facility] End: 44-34-7286Qoocwyu smoking statusEx-smoker (finding)[facility]Start: 85-07-3513Kbipczn smoking statusNeverFisher-Alonso Family Medicine BellevueHistory of tobacco useCurrent smokerS[facility] Work Phone: History of tobacco useCigarette SmokerShelby Memorial Hospital Work Phone: Start: 06-14-2023 End: 28-72-5539Amljszb use and exposureSmokeless tobacco non-userShelby Memorial Hospital Work Phone: Start: 06-14-2023 End: 17-64-2569Bfnsnin of Social functionTogus VA Medical Centertart: 02-25-9784Tqy Assigned At BirthNot on fileShelby Memorial HospitalTobaccoE-Cig daily Tobacco Use:. Current vaping or e-cigarette use Smokeless Tobacco Use:. Cigarettes, Vaping, E- Cig, Ready to change: Yes. Household tobacco concerns: Yes. [facility] Comment on above:patient states she is on day 5 of zero nicotineTobacco smoking statusNo Smoking Status EnteredC[facility] Start: 35-29-6309Ymivhfc smoking status NHISNever smoked tobaccoNOMS HealthcareNEGATED: Highlighted rowStart: NINFHistory of tobacco usePassive smokerShelby Memorial Hospital Work Phone: Functional Status BifkNymkzyjrqoXhspeiTqczaeqv88-29-3212Qfrjhwcays StatusN/[facility] Digestive Inllam36-46-0491Dmxberhfqh StatusN/[facility] Primary Utjy42-54-3238Atyzixxrgj StatusN/[facility] Primary Husa63-14-8570Ohzagnqnoo StatusN/[facility] 34-83-5660Ccbdahikud StatusN/[facility] Primary Usll68-55-5140 Functional StatusN/[facility] Clinical Notes 02-01-2023 to 02-01-2024 Note Date & RtfxCpmrQqwoiqtq95-00-0936 Hospital Discharge instructions Patient Education 02/01/2024 11:12:19 [...] Centers for Disease Control and Prevention: cdc.gov [place] Heart Association: heart.org National Heart, Lung, and Blood Hurley: nhlbi.nih.gov This information is not intended to replace advice given to you by your health care provider. Make sure you discuss any questions you have with your health care provider. Document Revised: 01/18/2023 Document Reviewed: 01/11/2023 [employer] Patient Education 2023 [email or web address]. 02/01/2024 11:12:15 Managing Anxiety, Adult Managing Anxiety, [...] your provider. Avoid caffeine, alcohol, and certain shsu-xpz-lnsipwv cold medicines. These may make you feel worse. Ask your pharmacist which medicines to avoid. General instructions Take notl-icz-ynrdvcy and prescription medicines only as told by [...] Depression Association of Argen[place] (ADAA): adaa.org National Delco on Mental Illness (FERNANDO): fernando.org Contact a [...] the National Suicide Prevention Lifeline at or 004. This is open 24 hours a day. Text the Crisis Text Line at 785703. This information is not intended to replace advice given to you by your health care provider. Make sure you discuss any questions you have with your health care provider. Document Revised: 02/06/2023 Document Reviewed: 08/21/2021 [employer] Patient Education 2023 [employer]. 02/01/2024 11:12:12 Major Depressive Disorder, Adult [...] are safe for you. General instructions Take gcrb-gie-nvlxwgv and prescription medicines only as told by [...] needed. Where to find more information National Delco on Mental Illness: fernando.org National Hurley of Mental Health: nimh.nih.gov [place] [employer]: psychiatry.org Contact a health care [...] the National Suicide Prevention Lifeline at or 758. This is open 24 hours a day. Text the Crisis Text Line at 049404. This information is not intended to replace advice given to you by your health care provider. Make sure you discuss any questions you have with your health care provider. Document Revised: 09/05/2022 Document Reviewed: 09/05/2022 [employer] Patient Education 2023 [employer] 02/01/2024 11:12:10 Electronic Cigarette Information Electronic [...] e-cigarettes that are not intended by the fish trapper. Vaping may make you crave nicotine. Nicotine [...] These include: Text message programs, such as SmokePolyActivaT. Apps for mobile phones, including the QualiSystems christiano. Hotlines, such as 7-552-RUOC-NOW ( ). Where to find support You can get support at these sites: U.S. Department of Health and Human Services: smokefree.gov [place] [employer] Association: www.lung.org Where to find more information Learn more about e-cigarettes from: National Hurley on Drug Abuse: www.drugabuse.gov Centers for Disease [...] provider. Document Revised: 01/25/2022 Document Reviewed: 01/25/2022 [employer] Patient Education 2023 [email or web address]. 02/01/2024 11:12:08 Fatigue Fatigue If you have [...] Follow these instructions at home: Medicines Take eoxv-fgw-tjrrupj and prescription medicines only as told by [...] the National Suicide Prevention Lifeline at or 187. This is open 24 hours a day. Text the Crisis Text Line at 407623. Summary If you have fatigue, you feel [...] provider. Document Revised: 02/20/2022 Document Reviewed: 02/20/2022 [employer] Patient Education 2023 [email or web address]. 02/01/2024 11:12:04 Allergic Conjunctivitis, Adult Allergic Conjunctivitis, [...] eye drops. These may be prescription or vlpo-ixp-edoiqrz. You may need to try different typesto [...] known allergens whenever possible. Take or apply zqiv-uxu-kvysmie and prescription medicines only as told by [...] and a watery discharge. Take or apply nqvg-jju-najqtft and prescription medicines only as told by [...] provider. Document Revised: 07/10/2022 Document Reviewed: 07/10/2022 [employer] Patient Education 2023 [email or web address]. 02/01/2024 11:12:01 Rash, Adult Rash, Adult A [...] instructions at home: Medicine Take or apply xgmn-cex-tuydmab and prescription medicines only as told by [...] provider. Document Revised: 02/16/2023 Document Reviewed: 02/16/2023 [employer] Patient Education 2023 [email or web address]. Follow Up Care 01/02/2024 11:40:08 With:Lisette Redd FAM, MED Address: [address] [place] [address]- When:Within 3 Month(s) Comments:f/u eyes, depression, GENIE, skin changes [facility] 09-20-2024 NotePatient Education Immunology [...] these instructions at home: Medicines ? Take srtr-spn-yowwisc and prescription medicines only as told by [...] the National Suicide Prevention Lifeline at or 799. This is open 24 hours a day. ? Text the Crisis Text Line at 873556. Summary ? If you have fatigue, you [...] provider. Document Revised: 02/20/2022 Document Reviewed: 02/20/2022 Help [employer] Patient Education ? 2023 [employer] Infectious Disease Rash, Adult A rash [...] days. Others may last (more content not included)...[facility]09-19-2024 History of Present illness Narrative* RADHA Hammond [...] prn, hold if clear. Discussed referral to field geologist if failing to resolve despite treatment. Notify clinic if worsening or fails to resolve despite treatment. Related Medications hydrocortisone 2.5 % cream Apply topically 2 (two) times a day as needed (Rash) Apply thin layer to affected areas bid prn forflares Next Visit: prn for any new/changing lesions [facility] [id number] History of Present illness Narrative* RADHA Hammond [...] Next Visit: 3 weeks documented in [facility] encounterB[facility] [id number] History of Present illness Narrative* Angella Egan MD - 01/04/2024 10:00 AM EDT Assessment/Plan cequa bid documented in this encounterB[facility] [id number] Hospital Discharge instructions Patient Education 01/02/2024 11:42:22 [...] e-cigarettes that are not intended by the fish trapper. Vaping may make you crave nicotine. Nicotine [...] These include: Text message programs, such as Nduo.cn. Apps for mobile phones, including the free quitSTART christiano. Hotlines, such as 2-866-VCDQ-NOW ( ). Where to find support You can get support at these sites: U.S. Department of Health and Human Services: smokefree.gov [place] Lung Association: www.lung.org Where to find more information Learn more about e-cigarettes from: National Hurley on Drug Abuse: www.drugabuse.gov Centers for Disease [...] provider. Document Revised: 01/25/2022 Document Reviewed: 01/25/2022 [employer] Patient Education 2022 [email or web address]. 01/02/2024 11:42:19 BMI for Adults BMI for [...] numbers. This can be done either in [place] ([place] or metric measurements. Note that charts and online BMI calculators are available to help you find your BMI quickly and easily without having to do these calculations yourself. To calculate your BMI in [place] ([place] measurements: 1.Measure your weight in pounds [...] Centers for Disease Control and Prevention: www.cdc.gov [place] Heart Association: www.heart.org National Heart, Lung, and Blood Hurley: www.nhlbi.nih.gov Summary Body mass index (BMI) is a number that is calculated from a person's weight and height. BMI may help estimate how much of a person's weight is composed of fat. BMI can help identify thosewho may be at higher risk for certain medical problems. BMI can be measured using [place] measurements or metric measurements. BMI charts are used to identify whether you are underweight, normal weight, overweight, or obese. This information is not intended to replace advice given to you by your health care provider. Make sure you discuss any questions you have with your health care provider. Document Revised: 01/21/2020 Document Reviewed: 11/28/2019 [employer] Patient Education 2022 [email or web address]. 01/02/2024 11:42:14 Allergic Conjunctivitis, Adult Allergic Conjunctivitis, [...] eye drops. These may be prescription or vzxp-krw-hekcdjt. You may need to try different typesto [...] known allergens whenever possible. Take or apply fnwf-vpg-mdvbbof and prescription medicines only as told by [...] and a watery discharge. Take or apply trhh-jvt-owyznty and prescription medicines only as told by [...] provider. Document Revised: 07/10/2022 Document Reviewed: 07/10/2022 Help [employer] Patient Education 2022 [email or web address]. 01/02/2024 11:42:08 Major Depressive Disorder, Adult Major [...] things, which may include: Your personality traits. Deweese or conditioned behaviors or thoughts or feelings [...] your health care provider. General instructions Take zubh-iqq-zxocpcc and prescription medicines only as told by your health care provider. Eat a healthy diet and get plenty of sleep. Consider joining a support group. Your health care provider may be able to recommend one. Keep all follow-up visits as told by your health care provider. This is important. Where to find more information National Delco on Mental Illness: www.fernando.org [place]. National Hurley of Mental Health: www.nimh.nih.gov Contact a health [...] department or: Call your local emergency services (121 in the [place] Call a suicide crisis helpline, such as the National Suicide Prevention Lifeline at or 158 in the [place] This is open 24 hours a day in the [place] Text the Crisis Text Line at 113133 (in the [place] Summary Major depressive disorder [...] provider. Document Revised: 11/23/2021 Document Reviewed: 04/10/2020 [employer] Patient Education 2022 [email or web address]. 01/02/2024 11:42:06 Hirsutism and Masculinization Hirsutism and [...] medicines, such as androgens and anabolic steroids. Arrington's syndrome. Tumors. Increased levels of androgen (testosterone). [...] them. Follow these instructions at home: Take kqct-rnw-rceylhn and prescription medicines only as told by [...] provider. Document Revised: 10/07/2020 Document Reviewed: 10/07/2020 [employer] Patient Education 2022 [email or web address]. Follow Up Care 10/01/2023 10:52:00 With:Lisette Redd FAM, MED Address: [address], [address] [place] [id number]- When:Within 1 Month(s) Comments:f/u GEINE, MDD, SKIN eye issues [facility] 08-21-2024 NotePatient Education Mental [...] may include: ? Your personality traits. ? Deweese or conditioned behaviors or thoughts or feelings [...] much alcohol is i (more content not included)...[facility]05-20-2024 Hospital Discharge instructions Patient Education 10/01/2023 06:45:26 [...] numbers. This can be done either in [place] ([place] or metric measurements. Note that charts and online BMI calculators are available to help you find your BMI quickly and easily without having to do these calculations yourself. To calculate your BMI in [place] ([place] measurements: 1.Measure your weight in pounds [...] Centers for Disease Control and Prevention: www.cdc.gov [place] Heart Association: www.heart.org National Heart, Lung, and Blood Hurley: www.nhlbi.nih.gov Summary Body mass index (BMI) is a number that is calculated from a person's weight and height. BMI may help estimate how much of a person's weight is composed of fat. BMI can help identify thosewho may be at higher risk for certain medical problems. BMI can be measured using [place] measurements or metric measurements. BMI charts are used to identify whether you are underweight, normal weight, overweight, or obese. This information is not intended to replace advice given to you by your health care provider. Make sure you discuss any questions you have with your health care provider. Document Revised: 01/21/2020 Document Reviewed: 11/28/2019 [employer] Patient Education 2022 [email or web address]. 10/01/2023 06:45:22 Dizziness Dizziness Dizziness is a [...] balance is good. 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 Take mdzb-btj-uwhiwbp and prescription medicines only as told by [...] provider. Document Revised: 04/04/2021 Document Reviewed: 04/04/2021 [employer] Patient Education 2022 [email or web address]. 10/01/2023 06:45:18 Allergic Rhinitis, Adult Allergic Rhinitis, [...] breathe. Atopic dermatitis or eczema. This is director long term care (chronic) inflammation of the skin. Food allergies. [...] check for related conditions, such as: Asthma. [place] eye. This is eye inflammation caused by [...] sweep, and dust regularly. General instructions Take ebfm-uon-rgfzujs and prescription medicines only as told by your health care provider. Drink enough fluid to keep your urine pale yellow. Keep all follow-up visits as told by your health care provider. This is important. Where to find more information [place] Academy of Allergy, Asthma & Immunology: www.aaaai.org [...] provider. Document Revised: 06/18/2020 Document Reviewed: 04/27/2020 [employer] Patient Education 2022 [email or web address]. 10/01/2023 06:45:15 Electronic Cigarette Information Electronic Cigarette [...] e-cigarettes that are not intended by the fish trapper. Vaping may make you crave nicotine. Nicotine [...] These include: Text message programs, such as SmokefreeSensitive ObjectT. Apps for mobile phones, including the QualiSystems christiano. Hotlines, such as 4-421-XFVH-NOW ( ). Where to find support You can get support at these sites: U.S. Department of Health and Human Services: smokefree.gov [place] Lung Association: www.lung.org Where to find more information Learn more about e-cigarettes from: National Hurley on Drug Abuse: www.drugabuse.gov Centers for Disease [...] provider. Document Revised: 01/25/2022 Document Reviewed: 01/25/2022 [employer] Patient Education 2022 [email or web address]. 10/01/2023 06:45:12 Managing Anxiety, Adult Managing Anxiety, [...] health careprovider. Avoid caffeine, alcohol, and certain eovl-uxr-gkrtxme cold medicines. These may make you feel worse. Ask your pharmacist which medicines to avoid. General instructions Take nwme-ema-obyojiu and prescription medicines only as told by [...] Depression Association of Argenis (ADAA): www.adaa.org National Delco on Mental Illness (FERNANDO): www.fernando.org Contact a [...] department or: Call your local emergency services (541 in the [place] Call a suicide crisis helpline, such as the National Suicide Prevention Lifeline at or 974 in the [place] This is open 24 hours a day in the [place] Text the Crisis Text Line at 867425 (in the [place].S.). Summary Taking steps to [...] provider. Document Revised: 11/23/2021 Document Reviewed: 08/21/2021 [employer] Patient Education 2022 [email or web address]. 10/01/2023 06:45:08 Fatigue Fatigue If you have [...] Follow these instructions at home: Medicines Take fnok-oad-zncdhov and prescription medicines only as told by [...] the National Suicide Prevention Lifeline at or 435. This is open 24 hours a day. Text the Crisis Text Line at 210331. Summary If you have fatigue, you feel [...] provider. Document Revised: 02/20/2022 Document Reviewed: 02/20/2022 [employer] Patient Education 2022 [employer]. 10/01/2023 06:45:07 Major Depressive Disorder, Adult [...] things, which may include: Your personality traits. Deweese or conditioned behaviors or thoughts or feelings [...] your health care provider. General instructions Take isyx-mon-hjbanbk and prescription medicines only as told by your health care provider. Eat a healthy diet and get plenty of sleep. Consider joining a support group. Your health care provider may be able to recommend one. Keep all follow-up visits as told by your health care provider. This is important. Where to find more information National Delco on Mental Illness: www.fernando.org [place]. National Hurley of Mental Health: www.nimh.nih.gov Contact a health [...] department or: Call your local emergency services (702 in the [place] Call a suicide crisis helpline, such as the National Suicide Prevention Lifeline at or 655 in the [place] This is open 24 hours a day in the [place] Text the Crisis Text Line at 784027 (in the [place].S.). Summary Major depressive disorder [...] provider. Document Revised: 11/23/2021 Document Reviewed: 04/10/2020 Help [employer] Patient Education 2022 [employer]. 10/01/2023 06:45:04 Hepatitis C Hepatitis C [...] Follow these instructions at home: Medicines Take lnnd-tal-bklwciw and prescription medicines only as told by your health care provider. If you were prescribed an antiviral medicine, take it as told by your health care provider. Do not stop using the antiviral even if you start to feel better. Do not take any new medicines, including nijd-lcm-ahtccky medicines or supplements, unless your health care [...] water are not available, use alcohol-based hand tire changer aircraft. Cover any cuts or open sores on [...] contagious). Do not take any medicines, including ypvm-hti-yvwrcvq medicines or supplements, unless your health care provider approves. This information is not intended to replace advice given to you by your health care provider. Make sure you discuss any questions you have with your health care provider. Document Revised: 03/17/2021 Document Reviewed: 03/17/2021 Help [employer] Patient Education 2022 [email or web address]. Follow Up Care 08/30/2023 08:15:04 With:Slick AYALA, MARLENY King, [facility] Address: [address] [place] [address] [employer]gene, [facility] [place] [address]- [facility] (1) When:Within 3 Month(s) Comments:3 mo f/u for fatigue, general follow up -discussed specialist findings [facility] 04-18-2024 Hospital Discharge instructions [...] e-cigarettes that are not intended by the fish trapper. Vaping may make you crave nicotine. Nicotine [...] Apps for mobile phones, including the free [employer] christiano. Hotlines, such as 0-482-LKSR-NOW ( ). Where to find support You can get support at these sites: U.S. Department of Health and Human Services: smokefree.gov [place] Lung Association: www.lung.org Where to find more information Learn more about e-cigarettes from: National Hurley on Drug Abuse: www.drugabuse.gov Centers for Disease [...] provider. Document Revised: 01/25/2022 Document Reviewed: 01/25/2022 Help [employer] Patient Education 2022 [email or web address]. 08/30/2023 05:58:03 Preventing Vitamin D Deficiency Preventing [...] such as almond, soy, or oat milks. ?[place] juice. ?Margarine. When choosing foods, check the [...] including vitamins, herbs, eye drops, creams, and cojk-wxd-gwnfvyy medicines. Take dtju-gah-pbvdnim and prescription medicines only as told by [...] provider. Document Revised: 02/03/2022 Document Reviewed: 02/03/2022 [employer] Patient Education 2022 [email or web address]. 08/30/2023 05:58:00 Dizziness Dizziness Dizziness is a [...] balance is good. 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 Take esuu-wku-oefxahm and prescription medicines only as told by [...] provider. Document Revised: 04/04/2021 Document Reviewed: 04/04/2021 [employer] Patient Education 2022 [email or web address]. 08/30/2023 05:57:56 Major Depressive Disorder, Adult Major [...] things, which may include: Your personality traits. Deweese or conditioned behaviors or thoughts or feelings [...] your health care provider. General instructions Take cqik-srt-tjoduuc and prescription medicines only as told by your health care provider. Eat a healthy diet and get plenty of sleep. Consider joining a support group. Your health care provider may be able to recommend one. Keep all follow-up visits as told by your health care provider. This is important. Where to find more information National Delco on Mental Illness: www.fernando.org [place]. National Hurley of Mental Health: www.nimh.nih.gov Contact a health [...] department or: Call your local emergency services (274 in the [place] Call a suicide crisis helpline, such as the National Suicide Prevention Lifeline at or 905 in the [place] This is open 24 hours a day in the [place] Text the Crisis Text Line at 477414 (in the [place].S.). Summary Major depressive disorder [...] provider. Document Revised: 11/23/2021 Document Reviewed: 04/10/2020 [employer] Patient Education 2022 [email or web address]. 08/30/2023 05:57:53 Managing Anxiety, Adult Managing Anxiety, [...] health careprovider. Avoid caffeine, alcohol, and certain vafz-das-fbdheyy cold medicines. These may make you feel worse. Ask your pharmacist which medicines to avoid. General instructions Take khwf-wda-qsnmuyn and prescription medicines only as told by [...] Depression Association of Ar[place]is (ADAA): www.adaa.org National Delco on Mental Illness (FERNANDO): www.fernando.org Contact a [...] department or: Call your local emergency services (511 in the [place] Call a suicide crisis helpline, such as the National Suicide Prevention Lifeline at or 157 in the [place]. This is open 24 hours a day in the [place]. Text the Crisis Text Line at 145077 (in the [place].S.). Summary Taking steps to [...] provider. Document Revised: 11/23/2021 Document Reviewed: 08/21/2021 [employer] Patient Education 2022 [email or web address]. 08/30/2023 05:57:51 Fatigue Fatigue If you have [...] Follow these instructions at home: Medicines Take dgmz-qit-mmaretg and prescription medicines only as told by [...] the National Suicide Prevention Lifeline at or 668. This is open 24 hours a day. Text the Crisis Text Line at 118803. Summary If you have fatigue, you feel [...] provider. Document Revised: 02/20/2022 Document Reviewed: 02/20/2022 [employer] Patient Education 2022 [email or web address]. 08/30/2023 05:57:49 Hepatitis C Hepatitis C Hepatitis [...] organ transplant that was done in the [facility] before 1991. What increases the risk? The [...] Follow these instructions at home: Medicines Take gcqr-yfh-vjunqci and prescription medicines only as told by your health care provider. If you were prescribed an antiviral medicine, take it as told by your health care provider. Do not stop using the antiviral even if you start to feel better. Do not take any new medicines, including zoru-bjb-izouags medicines or supplements, unless your health care [...] water are not available, use alcohol-based hand tire changer aircraft. Cover any cuts or open sores on [...] contagious). Do not take any medicines, including cvxq-ygu-vqbmkep medicines or supplements, unless your health care provider approves. This information is not intended to replace advice given to you by your health care provider. Make sure you discuss any questions you have with your health care provider. Document Revised: 03/17/2021 Document Reviewed: 03/17/2021 [employer] Patient Education 2022 [email or web address]. Follow Up Care 08/02/2023 17:59:02 With:Lisette Redd FAM, [facility] Address: [address] [place] [address] [place] [id number]- When:Within 3 Month(s) Comments:f/u fatigue, dry/red eyes, depression/ anxiety [facility] 03-21-2024 Hospital Discharge instructions [...] to keep your urine pale yellow. ?Take jtpu-vjc-xnyzqre or prescription medicines. ?Eat foods that are high in fiber, such as beans, whole grains, and fresh fruits and vegetables. ?Limit foods that are high in fat and processed sugars, such as fried or sweet foods. General instructions Take mcja-unw-pkdqrwp and prescription medicines only as told by [...] the muscles that help control urination. Take qpzx-zas-arzhhtn and prescription medicines only as told by your health care provider. Contact a health care provider if your symptoms do not improve or get worse. This information is not intended to replace advice given to you by your health care provider. Make sure you discuss any questions you have with your health care provider. Document Revised: 12/03/2020 Document Reviewed: 12/03/2020 [employer] Patient Education 2022 [email or web address]. 08/02/2023 18:06:00 Preventing Vitamin D Deficiency Preventing [...] such as almond, soy, or oat milks. ?[place] juice. ?Margarine. When choosing foods, check the [...] including vitamins, herbs, eye drops, creams, and dhkw-ikz-nnakygo medicines. Take svmd-nus-dygbrsw and prescription medicines only as told by [...] provider. Document Revised: 02/03/2022 Document Reviewed: 02/03/2022 [employer] Patient Education 2022 [employer] 08/02/2023 18:05:50 Near-Syncope Near-Syncope Near-syncope is [...] Follow these instructions at home: Medicines Take zizk-afi-frvxxui and prescription medicines only as told by [...] provider. Document Revised: 09/08/2021 Document Reviewed: 09/08/2021 [employer] Patient Education 2022 [email or web address]. 08/02/2023 18:05:48 Fatigue Fatigue If you have [...] Follow these instructions at home: Medicines Take mokj-itd-kugmvkw and prescription medicines only as told by [...] the National Suicide Prevention Lifeline at or 830. This is open 24 hours a day. Text the Crisis Text Line at 944393. Summary If you have fatigue, you feel [...] provider. Document Revised: 02/20/2022 Document Reviewed: 02/20/2022 [employer] Patient Education 2022 [employer] 08/02/2023 18:05:45 Major Depressive Disorder, Adult [...] things, which may include: Your personality traits. Deweese or conditioned behaviors or thoughts or feelings [...] your health care provider. General instructions Take oxfx-sfg-hgtrayu and prescription medicines only as told by your health care provider. Eat a healthy diet and get plenty of sleep. Consider joining a support group. Your health care provider may be able to recommend one. Keep all follow-up visits as told by your health care provider. This is important. Where to find more information National Delco on Mental Illness: www.fernando.org [place] National Hurley of Mental Health: www.nimh.nih.gov Contact a health [...] department or: Call your local emergency services (107 in the [place] Call a suicide crisis helpline, such as the National Suicide Prevention Lifeline at or 104 in the [place] This is open 24 hours a day in the [place] Text the Crisis Text Line at 770876 (in the [place] Summary Major depressive disorder [...] provider. Document Revised: 11/23/2021 Document Reviewed: 04/10/2020 [employer] Patient Education 2022 [employer]. 08/02/2023 18:05:42 Hepatitis C Hepatitis C Hepatitis [...] Follow these instructions at home: Medicines Take xqzj-zye-plqsqtl and prescription medicines only as told by your health care provider. If you were prescribed an antiviral medicine, take it as told by your health care provider. Do not stop using the antiviral even if you start to feel better. Do not take any new medicines, including ldmg-egg-lpxouka medicines or supplements, unless your health care [...] water are not available, use alcohol-based hand tire changer aircraft. Cover any cuts or open sores on [...] contagious). Do not take any medicines, including ihik-pdf-bbrszjm medicines or supplements, unless your health care provider approves. This information is not intended to replace advice given to you by your health care provider. Make sure you discuss any questions you have with your health care provider. Document Revised: 03/17/2021 Document Reviewed: 03/17/2021 [employer] Patient Education 2022 [employer]. Follow Up Care 07/24/2023 10:26:01 With:Lisette Redd FAM, [facility] Address: [place], [address] [address]- When:Within 2 Week(s) Comments:[facility] 02-01-2024 NoteHNO ID: [id number] Author: BETH ANDREWS MD Service: ? Author [...] Beth Andrews MD June 14, 2023 12:01 [facility] 04-13-2023 Evaluation + Plan note Diagnostic Tests Pending * CBC w/ Auto Diff 04/13/23 * Comprehensive Metabolic Panel 04/13/23 * Lipid Panel 04/13/23 * Thyroid Stimulating Hormone 04/13/23 * Iron Level 04/13/23 * TIBC Calculated 04/13/23 * Vitamin D 25 Hydroxy 04/13/23 * Vitamin B12 Level 04/13/23 [facility]11-21-2023 Evaluation note* Encounter Date Diagnosis Assessment [...] understanding and is agreeable to treatment plan. [facility] Other 09-21-2023 Reason for referral (narrative) , Dr [facility] please please forward all labs done in the last 1 year. and other specialists notes along with my notes. Referred by: Lisette Redd , PATIENT HAS BEEN TO 3 different optho specialists with no improvement- very minimal blurring and changes, [facility] Referred by: Lisette Redd [facility] Primary Care Evaluation + Plan note Future Appointments Appointment Date:08/30/2023 07:00:00 AM Scheduled Provider:Lisette Redd Location:[facility] Appointment Type:FM Open Future Scheduled Tests Laboratory* [...] w/CAD if perf and 3D Melvin 08/02/23 [facility] Primary Care Evaluation + Plan note Future Appointments Appointment Date:08/30/2023 07:00:00 AM Scheduled Provider:Lisette Redd Location:[facility] Appointment Type: Open Appointment Date:10/15/2023 09:30:00 AM Scheduled Provider:David Rea MD Location:[facility] Appointment Type:[facility] New Patient Diagnostic Tests Pending * HCV [...] w/CAD if perf and 3D Melvin [facility]ments Appointment Date:08/30/2023 07:00:00 AM Scheduled Provider:Lisette Redd Location:[facility] [employer] Appointment Type: Open Appointment Date:10/15/2023 09:30:00 AM Scheduled Provider:David Rea MD Location:[facility] Appointment Type:[facility] New Patient Diagnostic Tests Pending * EBV Antibody Profile 08/16/23 * IgE, Quant 08/16/23 * IgA, Quant. 08/16/23 * IgM, Quant 08/16/23 * IgG, Quant. 08/16/23 * ACTH 08/16/23 Future Scheduled Tests Radiology* MA Mamm Screen w/CAD if perf and 3D Melvin [facility]02[facility]ments Appointment Date:09/06/2023 10:00:00 AM Scheduled Provider: [facility] Type:US Abdominal/Pelvis () Appointment Date:09/06/2023 11:00:00 AM Scheduled Provider: [facility] Type:CV EKG () Appointment Date:10/01/2023 10:00:00 AM Scheduled Provider:Lisette Redd Location:[facility] Appointment Type: Open Appointment Date:10/15/2023 09:30:00 AM Scheduled Provider:David Rea MD Location:[facility] Appointment Type:[facility] New Patient Future Scheduled Tests Radiology* US Retroperitoneal Complete 09/06/23 * MA Mamm Screen w/CAD if perf and 3D Melvin 08/02/23 [facility] Primary Care Evaluation + Plan note Future Appointments Appointment Date:10/01/2023 10:00:00 AM Scheduled Provider:Lisette Redd Location:[facility] Appointment Type:FM Open Appointment Date:10/15/2023 09:30:00 AM Scheduled Provider:David Rea MD Location:[facility] Appointment Type:[facility] New Patient Future Scheduled Tests Radiology* MA Mamm Screen w/CAD if perf and 3D Melvin 08[facility]02/23 [facility]ments Appointment Date:11/14/2023 09:00:00 AM Scheduled Provider:David Rea MD Location:[facility] Appointment Type:BAD New Patient Appointment Date:01/02/2024 09:40:00 AM Scheduled Provider:Lisette Redd Location:[facility] Appointment Type:FM Open Future Scheduled Tests Radiology* Echo Transthoracic Complete 10/01/23 * MA Mamm Screen w/CAD if perf and 3D Melvin 08/02/23 [facility] Primary Care evaluation + Plan note Future Appointments Appointment Date:01/02/2024 10:00:00 AM Scheduled Provider:Lisette Redd Location:[facility] Appointment Type:FM Open Future Scheduled Tests Radiology* MA Mamm Screen w/CAD if perf and 3D Melvin 08/02/23 [facility] Evaluation + Plan note Future Appointments Appointment Date:02/01/2024 10:00:00 AM Scheduled Provider:Lisette Redd Location:[facility] Appointment Type:FM Open Future Scheduled Tests Radiology* MA Mamm Screen w/CAD if perf and 3D Melvin 08/02/23 [facility] Primary Care Evaluation + Plan note Future Appointments Appointment Date:05/02/2024 10:00:00 AM Scheduled Provider:Lisette Redd Location:[facility] Appointment Type:FM Open Future Scheduled Tests Radiology* MA Mamm Screen w/CAD if perf and 3D Melvin 08/02/23 [facility] Primary Care evaluation + Plan note Future Appointments Appointment Date:05/02/2024 10:00:00 AM Scheduled Provider:Lisette Redd Location:[facility] Appointment Type:FM Open Future Scheduled Tests Laboratory* HCV RNA by PCR, Qn Rfx Bruna 03/17/24 Radiology* MA Mamm Screen w/CAD if perf and 3D Melvin 08/02/23 [facility] Evaluation note* Diagnosis Dry eyes, bilateral- Primary Ocular rosacea Rosacea [facility] Diagnosis Allergic contact dermatitis, unspecified trigger [facility]* Diagnosis Allergic contact dermatitis, unspecified trigger [facility] Narrative No data available for this section [facility] No data available for this section [facility] No data available for this section [facility] , would like endocrine work up- has a strong family hx of adrenal / DM Maybe Dr Merino or Herrera? , or [facility] Referred by: Lisette Redd [facility] Reason for referral (narrative) Referred by: Lisette Redd [facility] Primary Care Summary Purpose Family History [...] section and content) DATE CREATED AUTHOR 11/07/2017 [facility] DATE CREATED AUTHOR AUTHOR'S ORGANIZ ATION 04/21/2021 [facility] DATE CREATED AUTHOR AUTHOR'S ORGANIZ ATION 06/15/2023 [facility] DATE CREATED AUTHOR AUTHOR'S ORGANIZ ATION 01/08/2024 [facility] DATE CREATED AUTHOR AUTHOR'S ORGANIZ ATION 02/03/2024 [facility] DATE CREATED AUTHOR AUTHOR'S ORGANIZ ATION 04/09/2024 [facility] DATE CREATED AUTHOR AUTHOR'S ORGANIZ ATION 05/25/2024 [facility] DATE CREATED AUTHOR AUTHOR'S ORGANIZ ATION 02/27/2025 [facility] REASON FOR VISIT (unrecogniz ed section and content) ReasonCommentsMed Change RequestReasonCommentsEye ProblemReasonCommentsRash SpecialtyDiagnoses / ProceduresReferred By ContactReferred To ContactDermatology Diagnoses excessive hair, facial rash, conjunctivitis Procedures office visit Lisette Contreras NP [address] [place] [address] Genia Boone, MAP COMPILER-RECREATIONAL THERAPIST [address] [place] [address] Referral IDStatusReasonStart DateExpiration DateVisits RequestedVisits [id number]-ty Patient Care team informatio n (unrecognized section and content) Team MemberRelationshipSpecialtyStart DateEnd Date Lisette Contreras NP [address] [place] [address] Referring PhysicianSaint [facility]11/01/23Team MemberRelationshipSpecialtyStart DateEnd Date Lisette Contreras NP [address] [place] [address] Referring PhysicianSaint [facility]11/01/23Team MemberRelationshipSpecialtyStart DateEnd Date Lisette Contreras NP [address] [place] [address] Referring [facility]11/01/23Team MemberRelationshipSpecialtyStart DateEnd Date Lisette Contreras NP [address], [place] [address] Referring PhysicianF[facility]11/01/23Team MemberRelationshipSpecialtyStart DateEnd Date Lisette Contreras NP [address] [place] [address] Referring PhysicianFar[facility]11/01/23Team MemberRelationshipSpecialtyStart DateEnd Date Lisette Contreras NP [address] [place] [address] Referring PhysicianEm[facility] Hospital11/01/23 Source Comments (unrecognize d section and content) In the event this informatio n is protected by the Federal Confidentiality of Alcohol and Drug Abuse Patient Records regulations: The Federal rules restrict any use of the information to criminally investigate or prosecute any alcohol or drug abuse patient.[facility] FOR RECORDS PERTAINING TO PATIENTS [...] BE BASED ON THE PRIMARY CLINICAL RECORDS. Any.DO [facility]. provides no warranty or guarantee of the accuracy or completeness of information in this document.
--- NOTE | 2025-04-23 09:25 | MR_ITS ---
[place] [id number] Patient Name: FREDI ELLIOTT MRN: [id number] date: 1975 Sex: F Assigned Patient Location: MRI Current Patient Location: MRI Accession/Order Number: [id number] Exam Date: 04/23/2025 09:37 Report Date: 04/23/2025 17:35 At the request of: SILAS ANAYA Procedure: MR knee LT wo con MR knee LT wo con 04/23/2025 10:19 AM SIGNS AND SYMPTOMS: Pain In Left Knee PROTOCOL: Multiplanar multisequence MR images of the left knee without IV contrast COMPARISON: 03/05/2025 FINDINGS: Fluid: . Medial compartment: Medial meniscus: There is a complex tear of the posterior horn and body of the medial meniscus. There is an ossific loose body along the posterior horn measuring 9 mm in greatest dimension. Medial collateral ligament: Intact. Medial femoral condyle cartilage: There is full thickness chondromalacia. Osteophytosis. Medial tibial plateau cartilage: There is full thickness chondromalacia. Osteophytosis. Lateral compartment: Lateral meniscus: Intact. Lateral collateral ligament: Intact. Lateral femoral condyle cartilage: Preserved. Lateral tibial plateau cartilage: Preserved. Posterolateral corner: Popliteus tendon: Intact. Popliteofibular ligament: Intact. Proximal tibiofibular joint: Preserved. Anterior compartment: Alignment: Normal. Quadriceps tendon: Intact. Patellar tendon: Intact. Retinaculum: Medial intact. Lateral intact. Patellar cartilage: Preserved. Trochlea: Preserved.. Plica: None Hoffa fat pad: Normal Intercondylar compartment: Anterior cruciate ligament: There is diffuse increased signal intensity in the anterior cruciate ligament with accompanying cystic changes. This may represent a remote partial thickness tear with mucoid and cystic degenerative change. Posterior cruciate ligament: Intact. Bones (other than subarticular marrow): Cystic changes are noted beneath the tibial spines. Muscles: Normal. Vessels: Normal. Nerves: Normal. MR/MR knee LT wo con IMPRESSION: There is a complex tear of the posterior horn and body of the medial meniscus. There is an ossific loose body along the posterior horn measuring 9 mm in greatest dimension. There is diffuse increased signal intensity in the anterior cruciate ligament with accompanying cystic changes. This may represent a remote partial thickness tear with mucoid and cystic degenerative change. There is full thickness chondromalacia on both sides of the medial weightbearing joint space. Impression dictated by: Juan Alberto Avina M.D. 04/23/2025 5:35 PM Dictation Location: [place] [address] Electronically authenticated by: [id number] Y Date: 04/23/2025 17:35
== END 2025-04-23 09:18 | disposition home or self-care (01) ==
LOC: MRI 09:18
PROVIDERS: PCP Nurse Practitioner; Visit Provider Nurse Practitioner
DX: M25.562 Pain in left knee (principal); Z87.828 Personal history of other (healed) physical injury and trauma; Z68.25 Body mass index [BMI] 25.0-25.9, adult; S83.232A Complex tear of medial meniscus, current injury, left knee, initial encounter; M94.262 Chondromalacia, left knee
CPT/HCPCS: 73721